=== PATIENT | female | born 1940 | race Caucasian/White ===

== ENCOUNTER 2022-04-25 16:27 | Inpatient (IN) ==
[2022-04-25] MEDS ORDERED: SODIUM CHLORIDE 0.9% 1000ML 1,000 ML IV ONE ×3 (16:31→18:54)
--- NOTE | 2022-04-25 16:47 | Emergency Department Note ---
Impression & Plan Sepsis, Nephrolithiasis, Delirium due to general medical condition, Hypoglycemia, Hydronephrosis with urinary obstruction due to ureteral calculus, Acidosis, lactic, Acute hypotension, Thrombocytopenia, Anemia, BERTHA (acute kidney injury), Rhabdomyolysis ED Provider Note NAME: VERNON LOBATO AGE: 81 SEX: F : 1940 ARRIVES VIA: Ambulance INFORMANT: Patient, EMS ED PROVIDER(S): Robbin Zelaya DO CHIEF COMPLAINT: Altered mental status HPI: The patient is an 81-year-old female who presented to the emergency department for an evaluation of altered mental status. The patient resides in a very unkempt trailer. There is no heat. The family could hear her yelling for help. When they went to evaluate her she was very confused and they called 911. Upon arrival the patient was noted to be confused. She was very unkempt and covered in stool. She was agitated. She was found to have hypoglycemia. The patient was treated with D10 and even though her blood sugar improved she was still very confused it was difficult to bring the patient to the emergency department. For this reason the patient was treated with Versed after a phone call was made to medic command that I answered. The patient was complaining of back pain as well as hip pain upon being brought to the emergency department. According to the prehospital personnel she had no other complaints. There is no reported fall. There was no nausea or vomiting. The patient also complained of some abdominal discomfort. It is unclear if the patient was taking her medications. It is unclear if the patient's been seen by her primary care physician recently. ROS: See above HPI for pertinent positives & negatives. A total of 10 systems reviewed and were otherwise negative. PAST MEDICAL HISTORY: See Below PAST SURGICAL HISTORY: See Below FAMILY HISTORY: See Below SOCIAL HISTORY: See Below HOME MEDICATIONS: See Below ALLERGIES: See Below VITALS: See Below PHYSICAL EXAMINATION: GENERAL: The patient is awake and agitated. She is fighting with the staff and appears to be anxious. EYES: The conjunctivae are clear. The pupils are round and reactive. EARS, NOSE, MOUTH AND THROAT: The nose is without any evidence of any deformity. Mucous membranes are dry. NECK: The neck is nontender and supple. RESPIRATORY: Normal respiratory effort is noted there is no evidence of wheezing rhonchi or rales CARDIOVASCULAR: Regular rate and rhythm noted there no murmurs rubs or gallops normal S1 normal S2. GASTROINTESTINAL: The abdomen was distended. There is no guarding or rigidity. BACK: No significant midline tenderness was appreciated. MUSCULOSKELETAL/EXTREMITIES: There is no evidence of gross deformity full range of motion is noted in the hips and shoulders. SKIN: Chronic venous stasis changes were noted in both lower extremities. NEUROLOGIC: Patient is awake and alert. She is oriented to person. She is not oriented to place. She is moving both the upper and lower extremities symmetrically. MEDICAL DECISION MAKING: The patient is an 81-year-old female who presented to the emergency department with altered mental status. The patient's condition was very difficult to ascertain. She presented without any family members. She was very confused. She appeared to be very uncomfortable. She was hypotensive and tachycardic. There was concern the patient may have an underlying infection. Sepsis pathway was initiated. The patient was treated with IV fluids and empiric antibiotics. I discussed patient's laboratory and radiographic studies with her significant other. She was very confused at times and very agitated. She did require medication to help with anxiolysis. She also appears to have signs of a ureteral calculus which could be causing the patient's overall condition as she does have signs of urinary tract infection as well. I discussed the patient's condition with the on-call urologist. I also discussed the patient's condition with the on-call [facility] hospitalist group. They have agreed to evaluate the patient in the emergency department for further management and disposition. The patient's condition did somewhat improved. She was found to have an elevated creatinine as well as signs of rhabdomyolysis on laboratory studies. Triage Nursing notes reviewed. Prior medical records reviewed Vital Signs: reviewed and remarkable for hypotension and tachycardia. Differential diagnosis: Infection, hypoglycemia, electrolyte abnormalities, overdose, toxicologic, cardiac sources, intracerebral event, neurologic, trauma, as well as other pathologies. ER treatment provided: See below Diagnostics interpreted by me: ECG: EKG was obtained in the emergency department. My interpretation is sinus tachycardia 120 bpm. There is no ectopy. Low voltage was noted throughout. Nonspecific ST segment depressions were noted in the lateral leads. This was compared to a tracing from November 04, 2012. No specific changes were noted. Cardiac Monitoring: An order was placed for continuous cardiac monitoring. The monitor shows a rate of 115 bpm with sinus tachycardia. Laboratory studies: As stated above and show below. Imaging studies: See below Consultation(s): I discussed this case with Dr. Adams who is on-call for the [facility] urology group. I discussed this case with Dr[facility] Santiago [facility] ED COURSE: Procedures: none Critical Care: I have personally spent greater than 55 minutes of critical care time in the direct management of this patient. This includes bedside care, interpretation of diagnostic studies, and testing, discussion with consultants, patient, and family members, and other required patient management activities. This 55 minutes is in excess of all separately billable procedures. 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) Social History Smoking Status: Unknown if ever smoked Allergies Allergies Allergy/AdvReac Type Severity Reaction Status Date / Time No Known Allergies Allergy Mild Verified 04/25/22 17:37 Home Meds Home Medications Medication Instructions Recorded Confirmed lorazepam 1 mg tablet (Ativan) 0 mg PO DAILY PRN Anxiety 04/25/22 04/25/22 Results & Data (ED) Vital Signs Vital Signs - 24 hr 04/25/22 17:28 04/25/22 17:55 04/25/22 18:06 Temperature 36.5 C Temperature Source Rectal Pulse Rate 120 H Pulse Rate [Apical] 120 H Respiratory Rate 28 H 18 Blood Pressure 85/46 L Blood Pressure [Left Arm] 101/57 L Blood Pressure Mean 59 Blood Pressure Mean [Left Arm] 71 Pulse Oximetry 95 95 96 Oxygen Delivery Method Room Air Room Air Room Air Sepsis Recent Fever Within 48 Hours Yes Sepsis New/Unexplained Change in Mental Status Yes Sepsis Action Taken by Nursing Physician Notified 04/25/22 18:31 04/25/22 19:50 Temperature Temperature Source Pulse Rate Pulse Rate [Apical] 122 H 130 H Respiratory Rate 22 28 H Blood Pressure Blood Pressure [Left Arm] 107/45 L 129/65 Blood Pressure Mean Blood Pressure Mean [Left Arm] 65 86 Pulse Oximetry 95 94 Oxygen Delivery Method Room Air Room Air Sepsis Recent Fever Within 48 Hours Sepsis New/Unexplained Change in Mental Status Sepsis Action Taken by Half-Way Medications Current Medication List: was personally reviewed by me Laboratory Data Attestation: I reviewed the patient's lab results. Result diagrams: 04/25/22 16:50 04/25/22 16:50 Lab Results 04/25/22 04/25/22 04/25/22 Range/Units 16:50 16:50 16:50 WBC 22.85 H (4.8-10.8) K/ul RBC 3.85 L (3.93-5.22) M/uL Hgb 8.9 L (12.0-16.0) g/dl POC Hgb (12.0-16.0) g/dl Hct 29.6 L (34.1-44.9) % POC Hct (37-47) % MCV 76.9 L (80.0-100.0) fL MCH 23.1 L (25.0-34.0) pg MCHC 30.1 L (32.0-36.0) g/dL RDW Std Deviation 52.4 H (36.4-46.3) fL RDW Coeff of Gee 18.6 H (11.5-14.5) % Plt Count 99 L (130-400) K/uL MPV 10.0 (9.4-12.3) fL Immature Gran % (Auto) 0.9 % Neut % (Auto) 93.4 % Lymph % (Auto) 2.3 % Swain % (Auto) 3.2 % Eos % (Auto) 0.0 % Baso % (Auto) 0.2 % Reticulocyte % (Auto) (0.5-2.0) % Neut # (Auto) 21.33 H (1.4-6.5) K/uL Lymph # (Auto) 0.52 L (1.2-3.4) K/uL Swain # (Auto) 0.74 (0.24-0.82) K/uL Eos # (Auto) 0.00 (0-0.50) K/uL Baso # (Auto) 0.05 (0-0.2) K/uL Reticulocyte # (0.02-0.10) 10^6/uL Immature Gran # (Auto) 0.21 H (0.00-0.02) K/uL Absolute Nucleated RBC 0.02 H (0-0) K/uL Nucleated RBC % (auto) 0.1 % Dohle Bodies 2+ Platelet Estimate Decreased L (Normal) PT 13.7 H (9.0-12.0) Seconds INR 1.3 H (0.9-1.1) APTT 38.4 H (21.0-31.0) Seconds PTT Ratio 1.4 VBG pH (7.36-7.41) VBG pCO2 (38-50) mmHg VBG pO2 mmHg VBG HCO3 mmol/L VBG O2 Saturation % VBG Base Excess mEq/L POC Sodium (135-144) mmol/L Sodium 138 (136-145) mmol/L POC Potassium (3.3-5.0) mmol/L Potassium 3.5 (3.5-5.1) mmol/L POC Chloride (101-112) mmol/L Chloride 102 (98-107) mmol/L Carbon Dioxide 22 (21-32) mmol/L POC Total CO2 (24-31) mmol/L Anion Gap 14 H (3-11) POC Anion Gap (16-25) mmol/L POC BUN (7-18) mg/dl BUN 60 H (6-23) mg/dl Creatinine 2.45 H (0.6-1.2) mg/dl POC Creatinine (0.6-1.3) mg/dl Est Cr Clr Drug Dosing Not Reportable Est GFR ( Amer) 20.9 ml/min Est GFR (Non-Af Amer) 18.0 ml/min BUN/Creatinine Ratio 24.5 H (10-20) Glucose 33 L* (70-99(Fasting)) mg/dl POC Glucose (70-99) mg/dl POC Glucose (other) (70-99) mg/dl Lactate (0.4-2.0) mmol/L Calcium 8.3 L (8.5-10.1) mg/dl POC Ioniz Calcium Vidhya (1.12-1.32) mmol/l Magnesium 1.7 (1.7-2.4) mg/dl Iron (35-150) mcg/dl Transferrin (200-360) mg/dl Ferritin (8-388) ng/ml Total Bilirubin 0.8 (0.2-1.0) mg/dl Direct Bilirubin 0.3 H (0-0.2) mg/dl AST 179 H (13-39) U/L ALT 85 H (7-52) U/L Alkaline Phosphatase 76 (34-104) U/L Ammonia (18-72) umol/L Total Creatine Kinase (26-192) U/L Troponin I High Sens 696.0 H* (0-14) pg/ml B-Natriuretic Peptide (0-100) pg/ml Total Protein 5.6 L (6.0-8.3) gm/dl Albumin 3.1 L (3.4-5.0) gm/dl Vitamin B12 (180-914) pg/ml Folate (>5.38) ng/ml Procalcitonin (0-0.5) ng/ml TSH (0.300-4.500) uIu/ml Random Cortisol mcg/dl Ethyl Alcohol mg/dL (<10.0) mg/dl SARS-CoV-2 (PCR) (Negative) Influenza Type A (PCR) (Neg) Influenza Type B (PCR) (Neg) RSV (RT-PCR) (Neg) Blood Type Antibody Screen 04/25/22 04/25/22 04/25/22 Range/Units 16:50 16:50 16:50 WBC (4.8-10.8) K/ul RBC (3.93-5.22) M/uL Hgb (12.0-16.0) g/dl POC Hgb (12.0-16.0) g/dl Hct (34.1-44.9) % POC Hct (37-47) % MCV (80.0-100.0) fL MCH (25.0-34.0) pg MCHC (32.0-36.0) g/dL RDW Std Deviation (36.4-46.3) fL RDW Coeff of Gee (11.5-14.5) % Plt Count (130-400) K/uL MPV (9.4-12.3) fL Immature Gran % (Auto) % Neut % (Auto) % Lymph % (Auto) % Swain % (Auto) % Eos % (Auto) % Baso % (Auto) % Reticulocyte % (Auto) (0.5-2.0) % Neut # (Auto) (1.4-6.5) K/uL Lymph # (Auto) (1.2-3.4) K/uL Swain # (Auto) (0.24-0.82) K/uL Eos # (Auto) (0-0.50) K/uL Baso # (Auto) (0-0.2) K/uL Reticulocyte # (0.02-0.10) 10^6/uL Immature Gran # (Auto) (0.00-0.02) K/uL Absolute Nucleated RBC (0-0) K/uL Nucleated RBC % (auto) % Dohle Bodies Platelet Estimate (Normal) PT (9.0-12.0) Seconds INR (0.9-1.1) APTT (21.0-31.0) Seconds PTT Ratio VBG pH 7.33 L (7.36-7.41) VBG pCO2 41 (38-50) mmHg VBG pO2 16 mmHg VBG HCO3 22 mmol/L VBG O2 Saturation < 60.0 % VBG Base Excess -4.1 mEq/L POC Sodium (135-144) mmol/L Sodium (136-145) mmol/L POC Potassium (3.3-5.0) mmol/L Potassium (3.5-5.1) mmol/L POC Chloride (101-112) mmol/L Chloride (98-107) mmol/L Carbon Dioxide (21-32) mmol/L POC Total CO2 (24-31) mmol/L Anion Gap (3-11) POC Anion Gap (16-25) mmol/L POC BUN (7-18) mg/dl BUN (6-23) mg/dl Creatinine (0.6-1.2) mg/dl POC Creatinine (0.6-1.3) mg/dl Est Cr Clr Drug Dosing Est GFR ( Amer) ml/min Est GFR (Non-Af Amer) ml/min BUN/Creatinine Ratio (10-20) Glucose (70-99(Fasting)) mg/dl POC Glucose (70-99) mg/dl POC Glucose (other) (70-99) mg/dl Lactate 7.0 H* (0.4-2.0) mmol/L Calcium (8.5-10.1) mg/dl POC Ioniz Calcium Vidhya (1.12-1.32) mmol/l Magnesium (1.7-2.4) mg/dl Iron (35-150) mcg/dl Transferrin (200-360) mg/dl Ferritin (8-388) ng/ml Total Bilirubin (0.2-1.0) mg/dl Direct Bilirubin (0-0.2) mg/dl AST (13-39) U/L ALT (7-52) U/L Alkaline Phosphatase (34-104) U/L Ammonia (18-72) umol/L Total Creatine Kinase (26-192) U/L Troponin I High Sens (0-14) pg/ml B-Natriuretic Peptide (0-100) pg/ml Total Protein (6.0-8.3) gm/dl Albumin (3.4-5.0) gm/dl Vitamin B12 (180-914) pg/ml Folate (>5.38) ng/ml Procalcitonin > 200.00 H (0-0.5) ng/ml TSH (0.300-4.500) uIu/ml Random Cortisol mcg/dl Ethyl Alcohol mg/dL (<10.0) mg/dl SARS-CoV-2 (PCR) (Negative) Influenza Type A (PCR) (Neg) Influenza Type B (PCR) (Neg) RSV (RT-PCR) (Neg) Blood Type Antibody Screen 04/25/22 04/25/22 04/25/22 Range/Units 16:50 16:50 16:50 WBC (4.8-10.8) K/ul RBC (3.93-5.22) M/uL Hgb (12.0-16.0) g/dl POC Hgb (12.0-16.0) g/dl Hct (34.1-44.9) % POC Hct (37-47) % MCV (80.0-100.0) fL MCH (25.0-34.0) pg MCHC (32.0-36.0) g/dL RDW Std Deviation (36.4-46.3) fL RDW Coeff of Gee (11.5-14.5) % Plt Count (130-400) K/uL MPV (9.4-12.3) fL Immature Gran % (Auto) % Neut % (Auto) % Lymph % (Auto) % Swain % (Auto) % Eos % (Auto) % Baso % (Auto) % Reticulocyte % (Auto) 0.8 (0.5-2.0) % Neut # (Auto) (1.4-6.5) K/uL Lymph # (Auto) (1.2-3.4) K/uL Swain # (Auto) (0.24-0.82) K/uL Eos # (Auto) (0-0.50) K/uL Baso # (Auto) (0-0.2) K/uL Reticulocyte # 0.03 (0.02-0.10) 10^6/uL Immature Gran # (Auto) (0.00-0.02) K/uL Absolute Nucleated RBC (0-0) K/uL Nucleated RBC % (auto) % Dohle Bodies Platelet Estimate (Normal) PT (9.0-12.0) Seconds INR (0.9-1.1) APTT (21.0-31.0) Seconds PTT Ratio VBG pH (7.36-7.41) VBG pCO2 (38-50) mmHg VBG pO2 mmHg VBG HCO3 mmol/L VBG O2 Saturation % VBG Base Excess mEq/L POC Sodium (135-144) mmol/L Sodium (136-145) mmol/L POC Potassium (3.3-5.0) mmol/L Potassium (3.5-5.1) mmol/L POC Chloride (101-112) mmol/L Chloride (98-107) mmol/L Carbon Dioxide (21-32) mmol/L POC Total CO2 (24-31) mmol/L Anion Gap (3-11) POC Anion Gap (16-25) mmol/L POC BUN (7-18) mg/dl BUN (6-23) mg/dl Creatinine (0.6-1.2) mg/dl POC Creatinine (0.6-1.3) mg/dl Est Cr Clr Drug Dosing Est GFR ( Amer) ml/min Est GFR (Non-Af Amer) ml/min BUN/Creatinine Ratio (10-20) Glucose (70-99(Fasting)) mg/dl POC Glucose (70-99) mg/dl POC Glucose (other) (70-99) mg/dl Lactate (0.4-2.0) mmol/L Calcium (8.5-10.1) mg/dl POC Ioniz Calcium Vidhya (1.12-1.32) mmol/l Magnesium (1.7-2.4) mg/dl Iron (35-150) mcg/dl Transferrin (200-360) mg/dl Ferritin (8-388) ng/ml Total Bilirubin (0.2-1.0) mg/dl Direct Bilirubin (0-0.2) mg/dl AST (13-39) U/L ALT (7-52) U/L Alkaline Phosphatase (34-104) U/L Ammonia 44.0 (18-72) umol/L Total Creatine Kinase 2406 H (26-192) U/L Troponin I High Sens (0-14) pg/ml B-Natriuretic Peptide (0-100) pg/ml Total Protein (6.0-8.3) gm/dl Albumin (3.4-5.0) gm/dl Vitamin B12 (180-914) pg/ml Folate (>5.38) ng/ml Procalcitonin (0-0.5) ng/ml TSH (0.300-4.500) uIu/ml Random Cortisol mcg/dl Ethyl Alcohol mg/dL (<10.0) mg/dl SARS-CoV-2 (PCR) (Negative) Influenza Type A (PCR) (Neg) Influenza Type B (PCR) (Neg) RSV (RT-PCR) (Neg) Blood Type Antibody Screen 04/25/22 04/25/22 04/25/22 Range/Units 16:55 18:04 18:15 WBC (4.8-10.8) K/ul RBC (3.93-5.22) M/uL Hgb (12.0-16.0) g/dl POC Hgb 10.2 L (12.0-16.0) g/dl Hct (34.1-44.9) % POC Hct 30 L (37-47) % MCV (80.0-100.0) fL MCH (25.0-34.0) pg MCHC (32.0-36.0) g/dL RDW Std Deviation (36.4-46.3) fL RDW Coeff of Gee (11.5-14.5) % Plt Count (130-400) K/uL MPV (9.4-12.3) fL Immature Gran % (Auto) % Neut % (Auto) % Lymph % (Auto) % Swain % (Auto) % Eos % (Auto) % Baso % (Auto) % Reticulocyte % (Auto) (0.5-2.0) % Neut # (Auto) (1.4-6.5) K/uL Lymph # (Auto) (1.2-3.4) K/uL Swain # (Auto) (0.24-0.82) K/uL Eos # (Auto) (0-0.50) K/uL Baso # (Auto) (0-0.2) K/uL Reticulocyte # (0.02-0.10) 10^6/uL Immature Gran # (Auto) (0.00-0.02) K/uL Absolute Nucleated RBC (0-0) K/uL Nucleated RBC % (auto) % Dohle Bodies Platelet Estimate (Normal) PT (9.0-12.0) Seconds INR (0.9-1.1) APTT (21.0-31.0) Seconds PTT Ratio VBG pH (7.36-7.41) VBG pCO2 (38-50) mmHg VBG pO2 mmHg VBG HCO3 mmol/L VBG O2 Saturation % VBG Base Excess mEq/L POC Sodium 138 (135-144) mmol/L Sodium (136-145) mmol/L POC Potassium 3.5 (3.3-5.0) mmol/L Potassium (3.5-5.1) mmol/L POC Chloride 102 (101-112) mmol/L Chloride (98-107) mmol/L Carbon Dioxide (21-32) mmol/L POC Total CO2 20 L (24-31) mmol/L Anion Gap (3-11) POC Anion Gap 20.0 (16-25) mmol/L POC BUN 56 H (7-18) mg/dl BUN (6-23) mg/dl Creatinine (0.6-1.2) mg/dl POC Creatinine 2.6 H (0.6-1.3) mg/dl Est Cr Clr Drug Dosing Est GFR ( Amer) ml/min Est GFR (Non-Af Amer) ml/min BUN/Creatinine Ratio (10-20) Glucose (70-99(Fasting)) mg/dl POC Glucose 58 L* (70-99) mg/dl POC Glucose (other) 32 L* (70-99) mg/dl Lactate (0.4-2.0) mmol/L Calcium (8.5-10.1) mg/dl POC Ioniz Calcium Vidhya 1.16 (1.12-1.32) mmol/l Magnesium (1.7-2.4) mg/dl Iron (35-150) mcg/dl Transferrin (200-360) mg/dl Ferritin (8-388) ng/ml Total Bilirubin (0.2-1.0) mg/dl Direct Bilirubin (0-0.2) mg/dl AST (13-39) U/L ALT (7-52) U/L Alkaline Phosphatase (34-104) U/L Ammonia (18-72) umol/L Total Creatine Kinase (26-192) U/L Troponin I High Sens (0-14) pg/ml B-Natriuretic Peptide (0-100) pg/ml Total Protein (6.0-8.3) gm/dl Albumin (3.4-5.0) gm/dl Vitamin B12 (180-914) pg/ml Folate (>5.38) ng/ml Procalcitonin (0-0.5) ng/ml TSH (0.300-4.500) uIu/ml Random Cortisol mcg/dl Ethyl Alcohol mg/dL (<10.0) mg/dl SARS-CoV-2 (PCR) NEGATIVE (Negative) Influenza Type A (PCR) Negative (Neg) Influenza Type B (PCR) Negative (Neg) RSV (RT-PCR) Negative (Neg) Blood Type Antibody Screen 04/25/22 04/25/22 04/25/22 Range/Units 19:04 19:28 19:42 WBC (4.8-10.8) K/ul RBC (3.93-5.22) M/uL Hgb (12.0-16.0) g/dl POC Hgb (12.0-16.0) g/dl Hct (34.1-44.9) % POC Hct (37-47) % MCV (80.0-100.0) fL MCH (25.0-34.0) pg MCHC (32.0-36.0) g/dL RDW Std Deviation (36.4-46.3) fL RDW Coeff of Gee (11.5-14.5) % Plt Count (130-400) K/uL MPV (9.4-12.3) fL Immature Gran % (Auto) % Neut % (Auto) % Lymph % (Auto) % Swain % (Auto) % Eos % (Auto) % Baso % (Auto) % Reticulocyte % (Auto) (0.5-2.0) % Neut # (Auto) (1.4-6.5) K/uL Lymph # (Auto) (1.2-3.4) K/uL Swain # (Auto) (0.24-0.82) K/uL Eos # (Auto) (0-0.50) K/uL Baso # (Auto) (0-0.2) K/uL Reticulocyte # (0.02-0.10) 10^6/uL Immature Gran # (Auto) (0.00-0.02) K/uL Absolute Nucleated RBC (0-0) K/uL Nucleated RBC % (auto) % Dohle Bodies Platelet Estimate (Normal) PT (9.0-12.0) Seconds INR (0.9-1.1) APTT (21.0-31.0) Seconds PTT Ratio VBG pH (7.36-7.41) VBG pCO2 (38-50) mmHg VBG pO2 mmHg VBG HCO3 mmol/L VBG O2 Saturation % VBG Base Excess mEq/L POC Sodium (135-144) mmol/L Sodium (136-145) mmol/L POC Potassium (3.3-5.0) mmol/L Potassium (3.5-5.1) mmol/L POC Chloride (101-112) mmol/L Chloride (98-107) mmol/L Carbon Dioxide (21-32) mmol/L POC Total CO2 (24-31) mmol/L Anion Gap (3-11) POC Anion Gap (16-25) mmol/L POC BUN (7-18) mg/dl BUN (6-23) mg/dl Creatinine (0.6-1.2) mg/dl POC Creatinine (0.6-1.3) mg/dl Est Cr Clr Drug Dosing Est GFR ( Amer) ml/min Est GFR (Non-Af Amer) ml/min BUN/Creatinine Ratio (10-20) Glucose (70-99(Fasting)) mg/dl POC Glucose 28 L* 155 H (70-99) mg/dl POC Glucose (other) (70-99) mg/dl Lactate 4.0 H* (0.4-2.0) mmol/L Calcium (8.5-10.1) mg/dl POC Ioniz Calcium Vidhya (1.12-1.32) mmol/l Magnesium (1.7-2.4) mg/dl Iron (35-150) mcg/dl Transferrin (200-360) mg/dl Ferritin (8-388) ng/ml Total Bilirubin (0.2-1.0) mg/dl Direct Bilirubin (0-0.2) mg/dl AST (13-39) U/L ALT (7-52) U/L Alkaline Phosphatase (34-104) U/L Ammonia (18-72) umol/L Total Creatine Kinase (26-192) U/L Troponin I High Sens (0-14) pg/ml B-Natriuretic Peptide (0-100) pg/ml Total Protein (6.0-8.3) gm/dl Albumin (3.4-5.0) gm/dl Vitamin B12 (180-914) pg/ml Folate (>5.38) ng/ml Procalcitonin (0-0.5) ng/ml TSH (0.300-4.500) uIu/ml Random Cortisol mcg/dl Ethyl Alcohol mg/dL (<10.0) mg/dl SARS-CoV-2 (PCR) (Negative) Influenza Type A (PCR) (Neg) Influenza Type B (PCR) (Neg) RSV (RT-PCR) (Neg) Blood Type Antibody Screen 04/25/22 04/25/22 04/25/22 Range/Units 19:55 19:55 19:55 WBC (4.8-10.8) K/ul RBC (3.93-5.22) M/uL Hgb (12.0-16.0) g/dl POC Hgb (12.0-16.0) g/dl Hct (34.1-44.9) % POC Hct (37-47) % MCV (80.0-100.0) fL MCH (25.0-34.0) pg MCHC (32.0-36.0) g/dL RDW Std Deviation (36.4-46.3) fL RDW Coeff of Gee (11.5-14.5) % Plt Count (130-400) K/uL MPV (9.4-12.3) fL Immature Gran % (Auto) % Neut % (Auto) % Lymph % (Auto) % Swain % (Auto) % Eos % (Auto) % Baso % (Auto) % Reticulocyte % (Auto) (0.5-2.0) % Neut # (Auto) (1.4-6.5) K/uL Lymph # (Auto) (1.2-3.4) K/uL Swain # (Auto) (0.24-0.82) K/uL Eos # (Auto) (0-0.50) K/uL Baso # (Auto) (0-0.2) K/uL Reticulocyte # (0.02-0.10) 10^6/uL Immature Gran # (Auto) (0.00-0.02) K/uL Absolute Nucleated RBC (0-0) K/uL Nucleated RBC % (auto) % Dohle Bodies Platelet Estimate (Normal) PT (9.0-12.0) Seconds INR (0.9-1.1) APTT (21.0-31.0) Seconds PTT Ratio VBG pH (7.36-7.41) VBG pCO2 (38-50) mmHg VBG pO2 mmHg VBG HCO3 mmol/L VBG O2 Saturation % VBG Base Excess mEq/L POC Sodium (135-144) mmol/L Sodium (136-145) mmol/L POC Potassium (3.3-5.0) mmol/L Potassium (3.5-5.1) mmol/L POC Chloride (101-112) mmol/L Chloride (98-107) mmol/L Carbon Dioxide (21-32) mmol/L POC Total CO2 (24-31) mmol/L Anion Gap (3-11) POC Anion Gap (16-25) mmol/L POC BUN (7-18) mg/dl BUN (6-23) mg/dl Creatinine (0.6-1.2) mg/dl POC Creatinine (0.6-1.3) mg/dl Est Cr Clr Drug Dosing Est GFR ( Amer) ml/min Est GFR (Non-Af Amer) ml/min BUN/Creatinine Ratio (10-20) Glucose (70-99(Fasting)) mg/dl POC Glucose (70-99) mg/dl POC Glucose (other) (70-99) mg/dl Lactate (0.4-2.0) mmol/L Calcium (8.5-10.1) mg/dl POC Ioniz Calcium Vidhya (1.12-1.32) mmol/l Magnesium (1.7-2.4) mg/dl Iron < 10 L (35-150) mcg/dl Transferrin 238 (200-360) mg/dl Ferritin 45.4 (8-388) ng/ml Total Bilirubin (0.2-1.0) mg/dl Direct Bilirubin (0-0.2) mg/dl AST (13-39) U/L ALT (7-52) U/L Alkaline Phosphatase (34-104) U/L Ammonia (18-72) umol/L Total Creatine Kinase (26-192) U/L Troponin I High Sens 738.7 H* (0-14) pg/ml B-Natriuretic Peptide > 4700 H (0-100) pg/ml Total Protein (6.0-8.3) gm/dl Albumin (3.4-5.0) gm/dl Vitamin B12 (180-914) pg/ml Folate (>5.38) ng/ml Procalcitonin (0-0.5) ng/ml TSH (0.300-4.500) uIu/ml Random Cortisol mcg/dl Ethyl Alcohol mg/dL (<10.0) mg/dl SARS-CoV-2 (PCR) (Negative) Influenza Type A (PCR) (Neg) Influenza Type B (PCR) (Neg) RSV (RT-PCR) (Neg) Blood Type O Positive Antibody Screen NEGATIVE 04/25/22 04/25/22 04/25/22 Range/Units 19:55 19:55 19:55 WBC (4.8-10.8) K/ul RBC (3.93-5.22) M/uL Hgb (12.0-16.0) g/dl POC Hgb (12.0-16.0) g/dl Hct (34.1-44.9) % POC Hct (37-47) % MCV (80.0-100.0) fL MCH (25.0-34.0) pg MCHC (32.0-36.0) g/dL RDW Std Deviation (36.4-46.3) fL RDW Coeff of Gee (11.5-14.5) % Plt Count (130-400) K/uL MPV (9.4-12.3) fL Immature Gran % (Auto) % Neut % (Auto) % Lymph % (Auto) % Swain % (Auto) % Eos % (Auto) % Baso % (Auto) % Reticulocyte % (Auto) (0.5-2.0) % Neut # (Auto) (1.4-6.5) K/uL Lymph # (Auto) (1.2-3.4) K/uL Swain # (Auto) (0.24-0.82) K/uL Eos # (Auto) (0-0.50) K/uL Baso # (Auto) (0-0.2) K/uL Reticulocyte # (0.02-0.10) 10^6/uL Immature Gran # (Auto) (0.00-0.02) K/uL Absolute Nucleated RBC (0-0) K/uL Nucleated RBC % (auto) % Dohle Bodies Platelet Estimate (Normal) PT (9.0-12.0) Seconds INR (0.9-1.1) APTT (21.0-31.0) Seconds PTT Ratio VBG pH (7.36-7.41) VBG pCO2 (38-50) mmHg VBG pO2 mmHg VBG HCO3 mmol/L VBG O2 Saturation % VBG Base Excess mEq/L POC Sodium (135-144) mmol/L Sodium (136-145) mmol/L POC Potassium (3.3-5.0) mmol/L Potassium (3.5-5.1) mmol/L POC Chloride (101-112) mmol/L Chloride (98-107) mmol/L Carbon Dioxide (21-32) mmol/L POC Total CO2 (24-31) mmol/L Anion Gap (3-11) POC Anion Gap (16-25) mmol/L POC BUN (7-18) mg/dl BUN (6-23) mg/dl Creatinine (0.6-1.2) mg/dl POC Creatinine (0.6-1.3) mg/dl Est Cr Clr Drug Dosing Est GFR ( Amer) ml/min Est GFR (Non-Af Amer) ml/min BUN/Creatinine Ratio (10-20) Glucose (70-99(Fasting)) mg/dl POC Glucose (70-99) mg/dl POC Glucose (other) (70-99) mg/dl Lactate (0.4-2.0) mmol/L Calcium (8.5-10.1) mg/dl POC Ioniz Calcium Vidhya (1.12-1.32) mmol/l Magnesium (1.7-2.4) mg/dl Iron (35-150) mcg/dl Transferrin (200-360) mg/dl Ferritin (8-388) ng/ml Total Bilirubin (0.2-1.0) mg/dl Direct Bilirubin (0-0.2) mg/dl AST (13-39) U/L ALT (7-52) U/L Alkaline Phosphatase (34-104) U/L Ammonia (18-72) umol/L Total Creatine Kinase (26-192) U/L Troponin I High Sens (0-14) pg/ml B-Natriuretic Peptide (0-100) pg/ml Total Protein (6.0-8.3) gm/dl Albumin (3.4-5.0) gm/dl Vitamin B12 383 (180-914) pg/ml Folate 14.76 (>5.38) ng/ml Procalcitonin (0-0.5) ng/ml TSH 0.708 (0.300-4.500) uIu/ml Random Cortisol mcg/dl Ethyl Alcohol mg/dL < 10.0 (<10.0) mg/dl SARS-CoV-2 (PCR) (Negative) Influenza Type A (PCR) (Neg) Influenza Type B (PCR) (Neg) RSV (RT-PCR) (Neg) Blood Type Antibody Screen 04/25/22 04/25/22 Range/Units 19:55 20:20 WBC (4.8-10.8) K/ul RBC (3.93-5.22) M/uL Hgb (12.0-16.0) g/dl POC Hgb (12.0-16.0) g/dl Hct (34.1-44.9) % POC Hct (37-47) % MCV (80.0-100.0) fL MCH (25.0-34.0) pg MCHC (32.0-36.0) g/dL RDW Std Deviation (36.4-46.3) fL RDW Coeff of Gee (11.5-14.5) % Plt Count (130-400) K/uL MPV (9.4-12.3) fL Immature Gran % (Auto) % Neut % (Auto) % Lymph % (Auto) % Swain % (Auto) % Eos % (Auto) % Baso % (Auto) % Reticulocyte % (Auto) (0.5-2.0) % Neut # (Auto) (1.4-6.5) K/uL Lymph # (Auto) (1.2-3.4) K/uL Swain # (Auto) (0.24-0.82) K/uL Eos # (Auto) (0-0.50) K/uL Baso # (Auto) (0-0.2) K/uL Reticulocyte # (0.02-0.10) 10^6/uL Immature Gran # (Auto) (0.00-0.02) K/uL Absolute Nucleated RBC (0-0) K/uL Nucleated RBC % (auto) % Dohle Bodies Platelet Estimate (Normal) PT (9.0-12.0) Seconds INR (0.9-1.1) APTT (21.0-31.0) Seconds PTT Ratio VBG pH (7.36-7.41) VBG pCO2 (38-50) mmHg VBG pO2 mmHg VBG HCO3 mmol/L VBG O2 Saturation % VBG Base Excess mEq/L POC Sodium (135-144) mmol/L Sodium (136-145) mmol/L POC Potassium (3.3-5.0) mmol/L Potassium (3.5-5.1) mmol/L POC Chloride (101-112) mmol/L Chloride (98-107) mmol/L Carbon Dioxide (21-32) mmol/L POC Total CO2 (24-31) mmol/L Anion Gap (3-11) POC Anion Gap (16-25) mmol/L POC BUN (7-18) mg/dl BUN (6-23) mg/dl Creatinine (0.6-1.2) mg/dl POC Creatinine (0.6-1.3) mg/dl Est Cr Clr Drug Dosing Est GFR ( Amer) ml/min Est GFR (Non-Af Amer) ml/min BUN/Creatinine Ratio (10-20) Glucose (70-99(Fasting)) mg/dl POC Glucose 59 L* (70-99) mg/dl POC Glucose (other) (70-99) mg/dl Lactate (0.4-2.0) mmol/L Calcium (8.5-10.1) mg/dl POC Ioniz Calcium Vidhya (1.12-1.32) mmol/l Magnesium (1.7-2.4) mg/dl Iron (35-150) mcg/dl Transferrin (200-360) mg/dl Ferritin (8-388) ng/ml Total Bilirubin (0.2-1.0) mg/dl Direct Bilirubin (0-0.2) mg/dl AST (13-39) U/L ALT (7-52) U/L Alkaline Phosphatase (34-104) U/L Ammonia (18-72) umol/L Total Creatine Kinase (26-192) U/L Troponin I High Sens (0-14) pg/ml B-Natriuretic Peptide (0-100) pg/ml Total Protein (6.0-8.3) gm/dl Albumin (3.4-5.0) gm/dl Vitamin B12 (180-914) pg/ml Folate (>5.38) ng/ml Procalcitonin (0-0.5) ng/ml TSH (0.300-4.500) uIu/ml Random Cortisol 45.31 mcg/dl Ethyl Alcohol mg/dL (<10.0) mg/dl SARS-CoV-2 (PCR) (Negative) Influenza Type A (PCR) (Neg) Influenza Type B (PCR) (Neg) RSV (RT-PCR) (Neg) Blood Type Antibody Screen Administered Medications Albumin Human (Albumin 25% 100 Ml) 25 gm in 100 mls @ 50 mls/hr IV ONE ONE Stop: 04/25/22 22:14 Last Admin: 04/25/22 20:26 Dose: 50 mls/hr Documented By: CELY Dextrose (D5w) 1,000 mls @ 125 mls/hr IV .Q8H ONE Stop: 04/26/22 04:14 Last Infusion: 04/25/22 20:29 Dose: 125 mls/hr Documented By: Admin: 04/25/22 20:26 Dose: 75 mls/hr Documented By: CELY Magnesium Sulfate/Dextrose (Magnesium Sulfate / D5w) 1 gm in 100 mls @ 50 mls/hr IV Q2H MYNOR Stop: 04/26/22 00:14 Last Admin: 04/25/22 20:26 Dose: 50 mls/hr Documented By: CELY Norepinephrine Bitartrate (Levophed/D5w) 4 mg in 250 mls @ 13.894 mls/hr IV .Q18H MYNOR; Protocol Stop: 05/25/22 20:59 Last Admin: 04/25/22 20:54 Dose: 0.1 mcg/kg/min, 27.8 mls/hr Documented By: PAULA Co-signed By: CELY Discontinued Medications Dextrose (Dextrose 50% 50 Ml Syringe) 50 ml IV NOW STA Stop: 04/25/22 17:13 Last Admin: 04/25/22 17:15 Dose: 50 ml Documented By: JAMEY Dextrose (Dextrose 50% 50 Ml Syringe) Confirm Administered Dose 50 ml IV .STK- MED ONE Stop: 04/25/22 17:14 Last Admin: 04/25/22 17:16 Dose: Not Given Documented By: JAMEY Dextrose (Dextrose 50% 50 Ml Syringe) Confirm Administered Dose 50 ml IV .STK- MED ONE Stop: 04/25/22 19:38 Last Admin: 04/25/22 19:38 Dose: 50 ml Documented By: PAULA Haloperidol Lactate (Haloperidol Lactate 5 Mg/Ml 1 Ml Vial) 5 mg IM NOW STA Stop: 04/25/22 16:55 Last Admin: 04/25/22 16:56 Dose: 5 mg Documented By: JAMEY Haloperidol Lactate (Haloperidol Lactate 5 Mg/Ml 1 Ml Vial) 5 mg IM NOW STA Stop: 04/25/22 17:21 Last Admin: 04/25/22 17:24 Dose: 5 mg Documented By: JAMEY Sodium Chloride (Nss 1000ml) 1,000 mls @ 999 mls/hr IV .Q1H1M ONE Stop: 04/25/22 17:31 Last Infusion: 04/25/22 18:27 Dose: 0 mls/hr Documented By: Admin: 04/25/22 16:55 Dose: 999 mls/hr Documented By: OL Thiamine HCl 200 mg/ Sodium (Chloride) 52 mls @ 208 mls/hr IV NOW STA Stop: 04/25/22 17:13 Last Infusion: 04/25/22 19:49 Dose: 0 mls/hr Documented By: Admin: 04/25/22 19:06 Dose: 208 mls/hr Documented By: OL Ceftriaxone Sodium (Rocephin) 2,000 mg in 70 mls @ 140 mls/hr IV NOW STA Stop: 04/25/22 17:52 Last Infusion: 04/25/22 19:11 Dose: 0 mls/hr Documented By: Admin: 04/25/22 18:24 Dose: 140 mls/hr Documented By: OL Sodium Chloride (Nss 1000ml) 1,000 mls @ 999 mls/hr IV .Q1H1M ONE Stop: 04/25/22 18:36 Last Infusion: 04/25/22 19:49 Dose: 0 mls/hr Documented By: Admin: 04/25/22 18:15 Dose: 999 mls/hr Documented By: OL Sodium Chloride (Nss 1000ml) 1,000 mls @ 999 mls/hr IV .Q1H1M ONE Stop: 04/25/22 19:54 Last Infusion: 04/25/22 20:00 Dose: 0 mls/hr Documented By: Admin: 04/25/22 19:06 Dose: 999 mls/hr Documented By: OL Sodium Chloride 77 meq/ (Dextrose) 1,030.8 mls @ 150 mls/hr IV .Q6H53M MYNOR Stop: 05/25/22 19:29 Last Infusion: 04/25/22 19:59 Dose: 150 mls/hr Documented By: Admin: 04/25/22 19:56 Dose: 150 mls/hr Documented By: PAULA Piperacillin Sod/Tazobactam Sod (Zosyn) 4.5 gm in 120 mls @ 240 mls/hr IV NOW ONE Stop: 04/25/22 20:05 Last Admin: 04/25/22 20:15 Dose: 240 mls/hr Documented By: CELY Lorazepam (Lorazepam 1 Mg/1 Ml Syr) 1 mg IV NOW STA; Protocol Stop: 04/25/22 18:28 Last Admin: 04/25/22 18:40 Dose: 1 mg Documented By: OL Imaging Data Radiologist's Impression: Abdomen/Pelvis CT 04/25/22 16:29 CT abd pelvis wo con CLINICAL HISTORY: ams TECHNIQUE: Helical axial images of the abdomen and pelvis were obtained. Automated dose lowering techniques and/or adjustment according to patient size were utilized for this exam. This exam was performed without intravenous contrast. CT DOSE: 2638.92 mGy.cm COMPARISON: Comparison is made to CT abdomen pelvis 11/06/2012 FINDINGS: Exam is limited by patient motion. Lower chest: Bibasilar atelectasis versus scarring is seen. Liver: Hepatic steatosis is noted. Gallbladder and biliary tree: No calcified gallstones. Normal caliber wall. No intra- or extrahepatic biliary ductal dilation. Pancreas: Unremarkable, no focal lesions. Spleen: Unremarkable. Adrenals: Unremarkable. Kidneys and ureters: There is left hydronephrosis and hydroureter Bladder: Limited evaluation due to underdistention. Reproductive organs: Unremarkable. Bowel: A hiatal hernia is seen. Lymph nodes Retroperitoneal: Subcentimeter lymph nodes are noted. Pelvic: Unremarkable. Mesenteric: Unremarkable. Peritoneum: Normal. Vessels: Atherosclerotic calcifications are seen. Abdominal wall: Unremarkable. Bones: Degenerative changes in the visualized spine. Multilevel compression deformities are unchanged from prior exam. Grade 1 anterolisthesis of L4-L5 is seen. IMPRESSION: 1. Obstructive nephrolithiasis of the left kidney. There is a 5 mm stone in the proximal ureter with associated hydronephrosis/hydroureter. 2. Hepatic steatosis. 3. Multilevel compression deformities in the spine. ACT 112: Negative or not required by law. Electronically signed by: Kermit Barebr M.D. 04/25/2022 6:[address] 04/25/22 16:29 CT cervical spine wo con CLINICAL HISTORY: ams TECHNIQUE: Multidetector row helical CT of the cervical spine was performed without administration of intravenous contrast. Coronal and sagittal reformations were obtained. Automated dose lowering techniques and/or adjustment according to patient size were utilized for this exam. Comparison: None available at the time of this dictation. FINDINGS: No acute fractures or subluxations are identified. Degenerative changes are seen in the visualized spine. Transverse ligament calcification is noted. The a lignment is normal. Soft tissues are unremarkable. IMPRESSION: Degenerative changes without evidence of acute bony injury. ACT 112: Negative or not required by law. Electronically signed by: Kermit Barber M.D. 04/25/2022 6:02 PM Chest X-Ray 04/25/22 16:29 XR chest 1V portable CLINICAL HISTORY: Sepsis TECHNIQUE: Single frontal radiograph of the chest was obtained. Comparison: Comparison is made to chest radiograph 11/04/2012 FINDINGS: No lines and tubes are seen. Cardiomegaly is noted. Prominence and cephalization of the vasculature is seen. No evidence of pleural effusion or pneumothorax. IMPRESSION: Cardiomegaly and mild pulmonary edema. ACT 112: Negative or not required by law. Electronically signed by: Kermit Barber M.D. 04/25/2022 7:[address] 04/25/22 16:29 CT head/brain wo con CLINICAL HISTORY: ams Technique: Contiguous axial CT images of the head were acquired from the base of the skull to the vertex without intravenous contrast administration. Images were viewed in brain, subdural and bone windows. Automated dose lowering techniques and/or adjustment according to patient size were utilized for this exam. Comparison: None available at the time of this dictation. Findings: Exam is highly limited by patient motion. Areas of decreased attenuation are present in the periventricular and subcorti timmy white matter bilaterally consistent with small vessel ischemic disease. Generalized cerebral atrophy with commensurate enlargement of the ventricles, sulci, and cisterns is also present. There is no acute intracranial hemorrhage or evidence of acute territorial infarction. No shift of the midline structures, mass effect, or extra-axial abnormalities are shown. Atherosclerotic calcifications are present in the intracranial segments of the internal carotid arteries. Imaged portions of the paranasal sinuses and mastoid air cells are clear. The orbits appear normal. There are no acute fractures of the calvaria or scalp swelling. Impression: Limited exam due to patient motion, however no acute abnormalities are seen. ACT 112: Negative or not required by law. Electronically signed by: Kermit Barber M.D. 04/25/2022 5:51 PM Discharge Plan Visit Data Chief Complaint: Altered Mental Status Stated Complaint: ALTERED ED Provider: Robbin Zelaya Discharge Problem: Sepsis, Nephrolithiasis, Delirium due to general medical condition, Hypoglycemia, Hydronephrosis with urinary obstruction due to ureteral calculus, Acidosis, lactic, Acute hypotension, Thrombocytopenia, Anemia, BERTHA (acute kidney injury), Rhabdomyolysis Patient Disposition: Admitted As Inpatient Discharge Instructions Interventions: ED Discharge Assessment Last Done: 04/25/22 21:25
[2022-04-25] MEDS ORDERED: HALOPERIDOL LACTATE 5 MG/ML 1 ML VIAL IM STA ×2 (16:54→17:20)
[2022-04-25 17:07] LABS: iSTAT Creatinine 2.6 mg/dl (0.6-1.3); iSTAT Hemoglobin 10.2 g/dl (12.0-16.0); iSTAT Ionized Calcium 1.16 mmol/l (1.12-1.32); iSTAT Potassium 3.5 mmol/L (3.3-5.0)
[2022-04-25] MEDS ORDERED: DEXTROSE 50% 50 ML SYRINGE IV STA (17:12)
[2022-04-25] MEDS ORDERED: THIAMINE HCL 200 MG in SODIUM CHLORIDE 0.9% 50 ML IV STA (17:12)
[2022-04-25] MEDS ORDERED: DEXTROSE 50% 50 ML SYRINGE IV ONE ×2 (17:13→19:37)
[2022-04-25 17:20] LABS: Base Excess VBG -4.1 mEq/L; HCO3 VBG 22 mmol/L; Oxygen Saturation VBG < 60.0 %; PCO2 VBG 41 mmHg (38-50); PO2 VBG 16 mmHg; pH VBG 7.33 (7.36-7.41)
[2022-04-25] MEDS ORDERED: cefTRIAXone SODIUM 2,000 MG/70 ML BAG IV STA (17:23)
[2022-04-25 17:36] LABS: Alanine Aminotransferase 85 U/L (7-52); Albumin Level 3.1 gm/dl (3.4-5.0); Alkaline Phosphatase 76 U/L (34-104); Anion Gap 14 (3-11); Aspartate Aminotransferase 179 U/L (13-39); BUN Creatinine Ratio 24.5 (10-20); Bilirubin Direct 0.3 mg/dl (0-0.2); Bilirubin,Total 0.8 mg/dl (0.2-1.0); Blood Urea Nitrogen 60 mg/dl (6-23); Calcium 8.3 mg/dl (8.5-10.1); Carbon Dioxide 22 mmol/L (21-32); Chloride 102 mmol/L (98-107); Est GFR (African American) 20.9 ml/min; Glucose 33 mg/dl (70-99(Fasting)); Magnesium 1.7 mg/dl (1.7-2.4); Potassium 3.5 mmol/L (3.5-5.1); Sodium 138 mmol/L (136-145); Total Protein 5.6 gm/dl (6.0-8.3)
[2022-04-25 17:38] LABS: INR 1.3 (0.9-1.1); Partial Thromboplastin Ratio 1.4; Partial Thromboplastin Time 38.4 Seconds (21.0-31.0); Prothrombin Time 13.7 Seconds (9.0-12.0)
[2022-04-25 17:45] LABS: Hematocrit (blood only) 29.6 % (34.1-44.9); Hemoglobin 8.9 g/dl (12.0-16.0); Mean Corpuscular Hemoglobin 23.1 pg (25.0-34.0); Mean Corpuscular Hgb Conc 30.1 g/dL (32.0-36.0); Mean Corpuscular Volume 76.9 fL (80.0-100.0); Nucleated RBC # (auto) 0.02 K/uL (0-0); Nucleated RBC % (auto) 0.1 %; Platelet Count 99 K/uL (130-400); RDW Coefficient of Variation 18.6 % (11.5-14.5); RDW Standard Deviation 52.4 fL (36.4-46.3); Red Blood Count 3.85 M/uL (3.93-5.22); White Blood Count 22.85 K/ul (4.8-10.8)
[2022-04-25 17:48] LABS: Basophils # (auto) 0.05 K/uL (0-0.2); Basophils % (auto) 0.2 %; Dohle Bodies 2+; Immature Granulocytes # (auto) 0.21 K/uL (0.00-0.02); Immature Granulocytes % (auto) 0.9 %; Lymphocytes # (auto) 0.52 K/uL (1.2-3.4); Lymphocytes % (auto) 2.3 %; Monocytes # (auto) 0.74 K/uL (0.24-0.82); Monocytes % (auto) 3.2 %; Neutrophils # (auto) 21.33 K/uL (1.4-6.5); Neutrophils % (auto) 93.4 %; Platelet Estimate Decreased (Normal)
--- NOTE | 2022-04-25 17:53 | CT Scan Report ---
CT head/brain wo con CLINICAL HISTORY: ams Technique: Contiguous axial CT images of the head were acquired from the base of the skull to the seamus gerald without intravenous contrast administration. Images were viewed in brain, subdural and [facility] . Automated dose lowering techniques and/or adjustment according to patient size were utilized for this exam. Comparison: None available at the time of this dictation. Findings: Exam is highly limited by patient motion. Areas of decreased attenuation are present in the periventricular and subcortical white matter bilate rally consistent with small vessel ischemic disease. Generalized cerebral atrophy with commensurate e nlargement of the ventricles, sulci, and cisterns is also present. There is no acute intracranial hem orrhage or evidence of acute territorial infarction. No shift of the midline structures, mass effect, or extra-axial abnormalities are shown. Atherosclerotic calcifications are present in the intracran ial segments of the internal carotid arteries. Imaged portions of the paranasal sinuses and mastoid air cells are clear. The orbits appear normal. There are no acute fractures of the calvaria or scalp swelling. Impression: Limited exam due to patient motion, however no acute abnormalities are seen. ACT 112: Negative or not required by law. Electronically signed by: Kermit Barber M.D. 04/25/2022 5:51 PM
--- NOTE | 2022-04-25 18:05 | CT Scan Report ---
CT cervical spine wo con CLINICAL HISTORY: ams TECHNIQUE: Multidetector row helical CT of the cervical spine was performed without administration of intravenous contrast. Coronal and sagittal reformations were obtained. Automated dose lowering techn iques and/or adjustment according to patient size were utilized for this exam. Comparison: None available at the time of this dictation. FINDINGS: No acute fractures or subluxations are identified. Degenerative changes are seen in the visualized sp ine. Transverse ligament calcification is noted. The alignment is normal. Soft tissues are unremarkab le. IMPRESSION: Degenerative changes without evidence of acute bony injury. ACT 112: Negative or not required by law. Electronically signed by: Kermit Barber M.D. 04/25/2022 6:02 PM
--- NOTE | 2022-04-25 18:19 | CT Scan Report ---
CT abd pelvis wo con CLINICAL HISTORY: ams TECHNIQUE: Helical axial images of the abdomen and pelvis were obtained. Automated dose lowering tech niques and/or adjustment according to patient size were utilized for this exam. This exam was perfor med without intravenous contrast. CT DOSE: 2638.92 mGy.cm COMPARISON: Comparison is made to CT abdomen pelvis 11/06/2012 FINDINGS: Exam is limited by patient motion. Lower chest: Bibasilar atelectasis versus scarring is seen. Liver: Hepatic steatosis is noted. Gallbladder and biliary tree: No calcified gallstones. Normal caliber wall. No intra- or extrahepatic biliary ductal dilation. Pancreas: Unremarkable, no focal lesions. Spleen: Unremarkable. Adrenals: Unremarkable. Kidneys and ureters: There is left hydronephrosis and hydroureter Bladder: Limited evaluation due to underdistention. Reproductive organs: Unremarkable. Bowel: A hiatal hernia is seen. Lymph nodes Retroperitoneal: Subcentimeter lymph nodes are noted. Pelvic: Unremarkable. Mesenteric: Unremarkable. Peritoneum: Normal. Vessels: Atherosclerotic calcifications are seen. Abdominal wall: Unremarkable. Bones: Degenerative changes in the visualized spine. Multilevel compression deformities are unchanged from prior exam. Grade 1 anterolisthesis of L4-L5 is seen. IMPRESSION: 1. Obstructive nephrolithiasis of the left kidney. There is a 5 mm stone in the proximal ureter with associated hydronephrosis/hydroureter. 2. Hepatic steatosis. 3. Multilevel compression deformities in the spine. ACT 112: Negative or not required by law. Electronically signed by: Kermit Barber M.D. 04/25/2022 6:16 PM
[2022-04-25] MEDS ORDERED: LORazepam 1 MG/1 ML SYR IV STA (18:27)
[2022-04-25 18:59] LABS: Appearance Urine Turbid (Clear); Bacteria Urine Automated 3+ (Negative); Blood Urine 3+ (Negative); Color Urine Dark Yellow; Epithelial Cell Urine Auto 20-30 /lpf (0-5); Glucose Urine UA Negative (Negative); Ketones Urine Trace (Negative); Leukocyte Esterase Urine 3+ (Negative); Nitrite Urine Negative (Negative); Protein Urine 2+ (Negative); Specific Gravity Urine 1.016 (1.000-1.030); Urobilinogen Urine Negative (Negative); WBC Urine Automated >30 /hpf (0-5)
--- NOTE | 2022-04-25 19:01 | XRay Report ---
XR chest 1V portable CLINICAL HISTORY: Sepsis TECHNIQUE: Single frontal radiograph of the chest was obtained. Comparison: Comparison is made to chest radiograph 11/04/2012 FINDINGS: No lines and tubes are seen. Cardiomegaly is noted. Prominence and cephalization of the vasculature i s seen. No evidence of pleural effusion or pneumothorax. IMPRESSION: Cardiomegaly and mild pulmonary edema. ACT 112: Negative or not required by law. Electronically signed by: Kermit Barber M.D. 04/25/2022 7:00 PM
[2022-04-25 19:05] LABS: Influenza A virus by PCR Negative (Neg); Influenza B virus by PCR Negative (Neg); RSV by PCR Negative (Neg); SARS CoV2 RNA(COVID-19)Cepheid NEGATIVE (Negative)
[2022-04-25 19:09] LABS: Bilirubin Urine 1+ (Negative)
[2022-04-25 19:25] LABS: RBC Urine Automated >30 /hpf (0-4)
[2022-04-25 19:26] LABS: Mucus Urine Present (None Prsent)
[2022-04-25] MEDS ORDERED: SODI CHLOR 2.5MEQ/ML 14.6% 77 MEQ in DEXTROSE 10% 1,000 ML IV SCH (19:30)
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
[2022-04-25] MEDS ORDERED: PIPERACILLIN/TAZOBACTAM 4.5 GM/120 ML BAG IV ONE (19:36)
[2022-04-25 19:50] LABS: Reticulocyte % 0.8 % (0.5-2.0); Reticulocytes # 0.03 10^6/uL (0.02-0.10)
--- NOTE | 2022-04-25 20:08 | Urology Consultation ---
Date of Consultation April 25, 2022 Assessment & Plan (1) Sepsis: It appears as though the patient is suffering from sepsis from a urinary source complicated by an obstructing kidney stone. The case was discussed with the admitting hospitalist, the treating emergency room physician, the on-call anesthesiologist and the consensus is that the patient would benefit from operative intervention with cystoscopy with ureteral stent placement. We will therefore proceed as follows: Keep patient n.p.o. Continue resuscitation with intravenous fluids Continue broad-spectrum antibiotics (the patient is receiving Zosyn) Follow culture results at which time antibiotics can be further tailored based on these results I have discussed the case in detail with the admitting hospitalist. We specifically discussed the patient's elevated cardiac enzymes, hyperglycemia, and elevated CK levels. He feels that these abnormalities are all due to underlying sepsis and that treating the underlying sepsis as described above would benefit the patient. He does note that he will continue to trend the patient's cardiac enzymes as well as get a cardiac echo tomorrow. I had a lengthy discussion with the patient's at bedside outlining the above plan and he is in agreement. Additional recommendations be forthcoming based on operative findings as well as the patient's clinical course as it unfolds The patient will be admitted to the intensive care unit for close monitoring. (2) Nephrolithiasis: Supervising Physician Co-Signing Physician Notes Agree with assessment from Steve Mathur This is an acutely ill female with numerous issues and limited ability to provide an adequate history Given the objective findings of an obstructing left calculus and hemodynamic instability with suspicion of sepsis, we are obligated to offer treatment via cystoscopy and left ureteral stent placement. I have discussed with the that I cannot guarantee this is the primary or only contributing element to her other underlying issues, however this is a correctable/treatable option that we should address now He is in agreement we will move forward with stent placement now History of Present Illness Reason for Consultation: 1. Sepsis 2. Nephrolithiasis History of Present Illness This is an 81-year-old female who presented to the emergency department secondary to altered mental status. At the time of my interview the patient could not provide any meaningful information whatsoever. The patient's , who lives with her, was present at the bedside and he did help supplement the history. This consultation was performed utilizing information from the patient's as well as discussion with the treating staff and review of the chart. According to the patient's the patient has "not been acting like herself" for 2 days. He notes that this is gotten progressively worse over the past 48 hours. He did note that the patient did complain of back pain at the onset of her problems but could not provide any further details. He also noted that his stated that she felt feverish but did not take her temperature. According to the she did not complain of any urinary symptoms such as dysuria or hematuria. He also notes that she has not had any nausea or vomiting. He notes that she has not had any witnessed falls or injuries. No additional information could be obtained. Since arrival to the emergency department the patient has had labs and imaging which I independent reviewed. The patient was noted to have an obstructing kidney stone on the left side measuring approximately 5 mm. This was associated with hydro ureter and hydronephrosis. A cervical spine CT scan showed no evidence of fractures or subluxations. Patient also had a chest x-ray showed some mild pulmonary edema. A CT scan of patient's head showed no acute abnormalities. CBC revealed white blood cell count was 22.8. Her hemoglobin and hematocrit were 8.9 and 29.6. Platelet count was 99,000. Chemistry profile showed sodium was normal as was her potassium. The patient's BUN and creatinine were 60 and 2.45. No additional records were available to ascertain if her creatinine was elevated or if this was her baseline. The patient was noted to have a glucose level of 33. Lactic acid level was elevated at 4.0. She was noted to have slight elevation of her direct bilirubin 8.3 but the total bilirubin was normal. Transaminases have a slight elevation with an AST of 179 and an ALT of 85. Alkaline phosphatase was normal. Her ammonia level was normal. Creatinine kinase level was elevated at 07/15/2005. Troponin was elevated at 696. Procalcitonin was elevated at greater than 200. Urinalysis did show turbid urine which was negative for nitrites. She did have 3+ leukocyte Estrace and greater than 30 white blood cells per high-power field. There is 3+ bacteria noted on the study. Patient was tested for COVID, influenza, and RSVall of which were negative. Since arrival to the emergency department the patient has been given intravenous fluids as she has been given 3 L of normal saline solution. She was initially given antibiotics in form of Rocephin but this has been switched to Zosyn by the admitting team. She has been given 2 Amps of dextrose for hypoglycemia. In addition the patient did require 10 mg of intra muscular Haldol. She was given 200 mg of thiamine. The patient's blood pressure was noted to be low at 85/46 at time of admission. It has improved to 129/65. The patient has been afebrile since arrival to the emergency department. Her pulse ox has been greater than 90% on room air, and since arrival the patient has been tachycardic with a heart rate of anywhere from 120-1 30. At the time of my interview the patient appeared uncomfortable. 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) Social History Smoking Status: Unknown if ever smoked Review of Systems Review of Systems: Unobtainable due to cognitive status Physical Exam Constitutional: + ill appearing Eyes: PERRL ENMT: Ears: no external ear abnormality Mouth: no oropharynx abnormality Neck: trachea midline Respiratory: normal respiratory effort; no respiratory distress and no labored breathing Cardiovascular: Rate/Rhythm: regular rate, regular rhythm and + tachycardic Vessels: dorsalis pedis pulses present and radial pulses present Gastrointestinal (Abdomen): Abdomen is soft, nondistended and nonrigid. Palpation did not appear to cause pain. Patient had a well-healed midline incision. Musculoskeletal: Dorsalis pedis pulses are palpable. Skin: no rashes Neurologic: Altered mental status noted. Patient does not follow commands appropriately but is moving all extremities Genitourinary: Patient did seem to have left CVA tenderness to percussion, no CVA tenderness with percussion on the right Results & Data ([facility]) Vital Signs (Past 12 Hours) Vital Signs Temp Pulse Pulse Resp BP BP Pulse Ox 04/25/22 19:50 130 H 28 H 129/65 94 04/25/22 18:31 122 H 22 107/45 L 95 04/25/22 18:06 120 H 18 101/57 L 96 04/25/22 17:55 36.5 C 120 H 28 H 85/46 L 95 04/25/22 17:28 95 O2 Del Method 04/25/22 19:50 Room Air 04/25/22 18:31 Room Air 04/25/22 18:06 Room Air 04/25/22 17:55 Room Air 04/25/22 17:28 Room Air PG Care Time/CCT Total # of Minutes Spent Total Time Spent with Patient: Total time spent is greater than 50% in coordination of care (as documented) at patient's floor/unit and/or counseling patient: Coding Level of Care Code 91841 Inpt Consult Level 5 Diagnoses Sepsis A41.9 Nephrolithiasis N20.0
[2022-04-25] MEDS ORDERED: ACETAMINOPHEN 1,000 MG/100 ML VIAL IV STA (20:13)
[2022-04-25] MEDS ORDERED: ALBUMIN 25% 100 mL 25 GM/100 ML VIAL IV ONE (20:15)
[2022-04-25] MEDS ORDERED: DEXTROSE 5% 1,000 ML IV ONE (20:15)
[2022-04-25] MEDS: MAGNESIUM SULFATE / D5W 1 GM/100 ML BAG IV SCH (20:26)
--- NOTE | 2022-04-25 20:26 | Anesthesiology Consultation ---
Date of Service April 25, 2022 Assessment & Plan Chart Review Chart Review: Acceptable Risk for Surgery and Patient NOT seen in Pre Admission Testing History Height/Weight Height: 5 ft 3 in Weight: 74.1 kg Allergies Allergy/AdvReac Type Severity Reaction Status Date / Time No Known Allergies Allergy Mild Verified 04/25/22 17:37 Medications Home Medications Medication Instructions Recorded Confirmed Last Taken lorazepam 1 mg tablet (Ativan) 0 mg PO DAILY PRN Anxiety 04/25/22 04/25/22 Unknown Past Medical History Medical History Chronic low back pain (11/04/12) Kidney stone (11/04/12) Osteoporosis (11/04/12) Ovarian cancer (11/04/12) Past Surgical History Surgical History H/O: hysterectomy (11/04/12) 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) Social History Smoking Status: Unknown if ever smoked Physical Exam Vital Signs Last Vital Signs Temp 36.5 C 04/25/22 17:55 Pulse 130 H 04/25/22 19:50 Resp 28 H 04/25/22 19:50 BP 129/65 04/25/22 19:50 Pulse Ox 94 04/25/22 19:50 O2 Del Method 04/25/22 19:50 Testing Laboratory Results 04/25/22 16:50 04/25/22 16:50 PT 13.7 Seconds (9.0-12.0) H 04/25/22 16:50 INR 1.3 (0.9-1.1) H 04/25/22 16:50 APTT 38.4 Seconds (21.0-31.0) H 04/25/22 16:50 Urine Color Dark Yellow 04/25/22 Unknown Urine Appearance Turbid (Clear) A 04/25/22 Unknown Urine pH 5.0 (4.5-7.5) 04/25/22 Unknown Ur Specific [place] 1.016 (1.000-1.030) 04/25/22 Unknown Urine Protein 2+ (Negative) H 04/25/22 Unknown Urine Glucose (UA) Negative (Negative) 04/25/22 Unknown Urine Ketones Trace (Negative) H 04/25/22 Unknown Urine Nitrite Negative (Negative) 04/25/22 Unknown Ur Leukocyte Esterase 3+ (Negative) H 04/25/22 Unknown Urine WBC (Auto) >30 /hpf (0-5) H 04/25/22 Unknown Urine RBC (Auto) >30 /hpf (0-4) H 04/25/22 Unknown U Hyaline Cast (Auto) 1-5 /lpf (0-5) 04/25/22 Unknown U Epithel Cells (Auto) 20-30 /lpf (0-5) H 04/25/22 Unknown Urine Bacteria (Auto) 3+ (Negative) H 04/25/22 Unknown 04/25/22 04/25/22 04/25/22 19:42 19:28 18:04 POC Glucose 155 H 28 L* 58 L* POC Glucose (other) 04/25/22 16:55 POC Glucose POC Glucose (other) 32 L*
[2022-04-25] MEDS ORDERED: OLANZapine 10 MG/2.1 ML SDV IM PRN (20:28)
[2022-04-25] MEDS ORDERED: PROPOFOL IV EMULSION 10 MG/ML 20 ML VIAL IV ONE (20:30)
[2022-04-25] MEDS ORDERED: MIDAZOLAM HCL 1 MG/ML 2ML VIAL ONE ×2 (20:31→21:46)
[2022-04-25 20:48] LABS: Ferritin 45.4 ng/ml (8-388)
[2022-04-25] MEDS ORDERED: STAT IV Infusion **Titration per Protocol STA ×3 (20:48→23:49)
[2022-04-25] MEDS ORDERED: LACTATED RINGER'S 500 ML IV ONE ×2 (20:50→22:21)
--- NOTE | 2022-04-25 20:52 | Critical Care Consultation ---
Date of Consultation April 25, 2022 Assessment & Plan (1) Acidosis, lactic: (2) Anemia: (3) BERTHA (acute kidney injury): (4) Rhabdomyolysis: (5) Nephrolithiasis: (6) Severe sepsis with acute organ dysfunction: (7) Severe sepsis with septic shock: (8) Metabolic encephalopathy: (9) Hypoglycemia: (10) On mechanically assisted ventilation: (11) Elevated troponin I level: Plan Reason Critically Ill: 81 YOF admitted to the ICU post OR for severe sepsis with shock likely from infected kidney stone, with evidence of end organ dysfunction. Patient was brought to the EMD via EMS from home where she was found disheveled and covered in stool. She was resuscitated with 3L of crystalloid remained with re-curring hypoglycemia, as well as now requiring vasopressors. She was taken emergently to the OR for source control by urology. Neuro - Metabolic encephalopathy, sedation for mechanical ventilation CAM ICU: Unable to be assessed - Metabolic encephalopathy with multiple etiologies at this time to include severe sepsis and hypoglycemia - Sedate overnight with Propfol and PRN Fentanyl- follow nuerological exam with correction of hypoglycemia and adequate MAPS - Head CT reviewed Cardiac - Severe Sepsis, shock, Elevated Troponin, - resuscitated with 3liters of crystalloid and 1 25% albumin in the EMD, requiring vasopressor support to maintain MAPS >65 and UO >30ml per hour - Likely type II demand from shock and sepsis- continue to trend HScTNI and ECG - Unsure of underlying heart function/disease - ECHO in AM - Bedside POCUS consistent with compressible IVC and hyperdynamic ventricles - Tachycardia resolving, not hypoxic so doubt any PE at this time Respiratory - Current Smoker, Pulmonary edema, Respiratory failure requiring mechanical ventilation - Intubated once in ICU to maximize resuscitation support - AC 18- [email or web address] LOW PEEP/HIGH FIO2 algorithm - Pplt 16.5 - 7.3/29.8/20/15 GI - Elevated liver enzymes - Likely secondary to septic shock- follow with resuscitation RENAL/LYTES - BERTHA, Infected kidney stone, Rhabdo, AGAP Acidosis - Metabolic acidosis - - AGAP likely related to elevated lactate, elevated BUN with moderate rahbdo - Supportive care with severe septic shock - S/p stenting by Urology - Renally dose medications, avoid further nephrotoxic medications as able - Electrolytes replete per protocol - See above ENDO - Hypoglycemia - Hypoglycemic protocol- D5LR at 125ml per hour - Change to D10 if needed or consider steroid dosing if severe refractory HEME - Microcytic Anemia, Thrombocytopenia - Transfuse for HGB <8.0 - Follow iron studies - Thrombocytopenia- likely from sepsis - Pt/PTT INR slightly elevated - will check fibrinogen evaluate for DIC ID - Severe sepsis/shock - Secondary to Infected kidney stone at this time identified - Zosyn and will add Daptomycin empiric until cultures return - Await blood and urine cultures - Lactate improving 7--> 4.0--> 2.6 - MRSA swab pending - Low risk - Random Cortisol 45 LINES/IV ACCESS - Tate Continue use of these lines DVT PROPHYLAXIS - SCDs DISPO - ICU level care for severe sepsis with organ dysfunction I have personally spent 50 minutes of critical care time in the direct management of this patient. This is a life/limb threatening event. This includes time spent evaluating patient, direct bedside care, chart review, placing orders, interpretation of diagnostic studies, discussion with consultants, patient, and family members, as well as other required patient management activities. This time is exclusive of all separately billable procedures, and teaching time and separate from and in addition to any other critical care service time. Thank you for allowing us to participate in the care of this patient. Please refer to my attending physician's documentation for any further recommendations. History of Present Illness Reason for Consultation: Severe Sepsis with organ dysfunction and shock Requesting Physician: Shayan Vela Attending Physician: Shayan Vela History of Present Illness Patient reportedly does not see physican regularly- no other records re-viewable for at this time. Patient was brought to the EMD today via EMS. Patient was reportedly found on ground covered in stool, noted to be hypoglycemic. She required Versed by EMS to be able to be transported. In the EMD the patient was noted to by hypotensive on arrival, had routine labs performed as well as blood and urine cultures. She had Head CT completed and Cervical Spine CT completed as well as CXR and CT of abdomen and pelvis. She was noted to have 5mm stone and urine consistent with infection. She was started on Sepsis pathway and was resuscitated with 3L of crystalloid infusion, which she was responsive to. She was also repeatedly noted to be hypoglycemic in the EMD as well. Consulted by Hospitalist for concern of sepsis shock. Chart was reviewed noting organ dysfunction, patiwnt was evaluated in the EMD and noted to be encephalopathic and hypotensive again. Levophed was started. Case discussed with Surgical PANorman Argueta, and plan to take to the OR by urology. Case was also discussed with Anesthesia prior to taking to OR as likely need for intubation as well as Vasopressors initiated. Patient returned to the ICU intubated following induction with Succinylcholine, she received 800 ml in the OR, requiring some additional bp support with Phenylephedrine and Levophed at 0.2mcg/kgmin. She would open her eyes on arrival and was moving all of her extremities with attempts to reach for her ETT. No focal deficits noted. Patient will be sedated. Bedside POCUS performed. She is making adequate urine at this time. Attempt to wean pressors, continue resuscitation, follow end organ dysfunction. 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) Social History Smoking Status: Former smoker Hx Alcohol Use: Yes Alcohol type: beer Hx Substance Use: No Preferred Language: Filipino Communication Ability: Effective Manager Of [employer] Required: No Beliefs That Will Affect Care: None Current Living Situation: Spouse Feels Safe at Home: Yes Assistive Devices: None Review of Systems Review of Systems: Unable to obtain secondary to intubation Physical Exam Physical Exam: PHYSICAL EXAM: General: Sedated, moves all extremities Head: Normocephalic, atraumatic ENT: PERRLA, EOMI, no pharyngeal exudate, mucous membranes dry Neuro: Encephalopathic, Sedated, no focal deficits, localizing for ett Chest: equal rise and fall of the chest, no accessory muscle use, scattered crackles Cardiac: Regular rate and rhythm, telemetry reviewed- sinus tach, skin warm dry, cap refill <3 seconds, peripheral pulses +2 no JVD, no murmur, no edema GI: Hypoactive bowel sounds : light pink tinged urine, tate to gravity Skin: no ulcerations or bites, scratches to lower leg Results & Data Results & Data ([facility]) Vital Signs (Past 12 Hours) Vital Signs Temp Pulse Pulse Resp BP BP Pulse Ox 04/25/22 20:30 115 H 24 93/45 L 96 04/25/22 19:50 130 H 28 H 129/65 94 04/25/22 18:31 122 H 22 107/45 L 95 04/25/22 18:06 120 H 18 101/57 L 96 04/25/22 17:55 36.5 C 120 H 28 H 85/46 L 95 04/25/22 17:28 95 O2 Del Method 04/25/22 20:30 Room Air 04/25/22 19:50 Room Air 04/25/22 18:31 Room Air 04/25/22 18:06 Room Air 04/25/22 17:55 Room Air 04/25/22 17:28 Room Air Laboratory Results Abnormal lab results 04/25/22 04/25/22 04/25/22 Range/Units 16:50 16:50 16:50 WBC 22.85 H (4.8-10.8) K/ul RBC 3.85 L (3.93-5.22) M/uL Hgb 8.9 L (12.0-16.0) g/dl POC Hgb (12.0-16.0) g/dl Hct 29.6 L (34.1-44.9) % POC Hct (37-47) % MCV 76.9 L (80.0-100.0) fL MCH 23.1 L (25.0-34.0) pg MCHC 30.1 L (32.0-36.0) g/dL RDW Std Deviation 52.4 H (36.4-46.3) fL RDW Coeff of Gee 18.6 H (11.5-14.5) % Plt Count 99 L (130-400) K/uL Neut # (Auto) 21.33 H (1.4-6.5) K/uL Lymph # (Auto) 0.52 L (1.2-3.4) K/uL Immature Gran # (Auto) 0.21 H (0.00-0.02) K/uL Absolute Nucleated RBC 0.02 H (0-0) K/uL Platelet Estimate Decreased L (Normal) PT 13.7 H (9.0-12.0) Seconds INR 1.3 H (0.9-1.1) APTT 38.4 H (21.0-31.0) Seconds VBG pH (7.36-7.41) POC Total CO2 (24-31) mmol/L Anion Gap 14 H (3-11) POC BUN (7-18) mg/dl BUN 60 H (6-23) mg/dl Creatinine 2.45 H (0.6-1.2) mg/dl POC Creatinine (0.6-1.3) mg/dl BUN/Creatinine Ratio 24.5 H (10-20) Glucose 33 L* (70-99(Fasting)) mg/dl POC Glucose (70-99) mg/dl POC Glucose (other) (70-99) mg/dl Lactate (0.4-2.0) mmol/L Calcium 8.3 L (8.5-10.1) mg/dl Iron (35-150) mcg/dl Direct Bilirubin 0.3 H (0-0.2) mg/dl AST 179 H (13-39) U/L ALT 85 H (7-52) U/L Total Creatine Kinase (26-192) U/L Troponin I High Sens 696.0 H* (0-14) pg/ml B-Natriuretic Peptide (0-100) pg/ml Total Protein 5.6 L (6.0-8.3) gm/dl Albumin 3.1 L (3.4-5.0) gm/dl Procalcitonin (0-0.5) ng/ml Urine Appearance (Clear) Urine Protein (Negative) Urine Ketones (Negative) Urine Blood (Negative) Urine Bilirubin (Negative) Ur Leukocyte Esterase (Negative) Urine WBC (Auto) (0-5) /hpf Urine RBC (Auto) (0-4) /hpf U Epithel Cells (Auto) (0-5) /lpf Urine Bacteria (Auto) (Negative) Urine Mucus (None Prsent) 11/15/22 11/15/22 11/15/22 Range/Units 16:50 16:50 16:50 WBC (4.8-10.8) K/ul RBC (3.93-5.22) M/uL Hgb (12.0-16.0) g/dl POC Hgb (12.0-16.0) g/dl Hct (34.1-44.9) % POC Hct (37-47) % MCV (80.0-100.0) fL MCH (25.0-34.0) pg MCHC (32.0-36.0) g/dL RDW Std Deviation (36.4-46.3) fL RDW Coeff of Gee (11.5-14.5) % Plt Count (130-400) K/uL Neut # (Auto) (1.4-6.5) K/uL Lymph # (Auto) (1.2-3.4) K/uL Immature Gran # (Auto) (0.00-0.02) K/uL Absolute Nucleated RBC (0-0) K/uL Platelet Estimate (Normal) PT (9.0-12.0) Seconds INR (0.9-1.1) APTT (21.0-31.0) Seconds VBG pH 7.33 L (7.36-7.41) POC Total CO2 (24-31) mmol/L Anion Gap (3-11) POC BUN (7-18) mg/dl BUN (6-23) mg/dl Creatinine (0.6-1.2) mg/dl POC Creatinine (0.6-1.3) mg/dl BUN/Creatinine Ratio (10-20) Glucose (70-99(Fasting)) mg/dl POC Glucose (70-99) mg/dl POC Glucose (other) (70-99) mg/dl Lactate 7.0 H* (0.4-2.0) mmol/L Calcium (8.5-10.1) mg/dl Iron (35-150) mcg/dl Direct Bilirubin (0-0.2) mg/dl AST (13-39) U/L ALT (7-52) U/L Total Creatine Kinase (26-192) U/L Troponin I High Sens (0-14) pg/ml B-Natriuretic Peptide (0-100) pg/ml Total Protein (6.0-8.3) gm/dl Albumin (3.4-5.0) gm/dl Procalcitonin > 200.00 H (0-0.5) ng/ml Urine Appearance (Clear) Urine Protein (Negative) Urine Ketones (Negative) Urine Blood (Negative) Urine Bilirubin (Negative) Ur Leukocyte Esterase (Negative) Urine WBC (Auto) (0-5) /hpf Urine RBC (Auto) (0-4) /hpf U Epithel Cells (Auto) (0-5) /lpf Urine Bacteria (Auto) (Negative) Urine Mucus (None Prsent) 04/25/22 04/25/22 04/25/22 Range/Units 16:50 16:55 18:04 WBC (4.8-10.8) K/ul RBC (3.93-5.22) M/uL Hgb (12.0-16.0) g/dl POC Hgb 10.2 L (12.0-16.0) g/dl Hct (34.1-44.9) % POC Hct 30 L (37-47) % MCV (80.0-100.0) fL MCH (25.0-34.0) pg MCHC (32.0-36.0) g/dL RDW Std Deviation (36.4-46.3) fL RDW Coeff of Gee (11.5-14.5) % Plt Count (130-400) K/uL Neut # (Auto) (1.4-6.5) K/uL Lymph # (Auto) (1.2-3.4) K/uL Immature Gran # (Auto) (0.00-0.02) K/uL Absolute Nucleated RBC (0-0) K/uL Platelet Estimate (Normal) PT (9.0-12.0) Seconds INR (0.9-1.1) APTT (21.0-31.0) Seconds VBG pH (7.36-7.41) POC Total CO2 20 L (24-31) mmol/L Anion Gap (3-11) POC BUN 56 H (7-18) mg/dl BUN (6-23) mg/dl Creatinine (0.6-1.2) mg/dl POC Creatinine 2.6 H (0.6-1.3) mg/dl BUN/Creatinine Ratio (10-20) Glucose (70-99(Fasting)) mg/dl POC Glucose 58 L* (70-99) mg/dl POC Glucose (other) 32 L* (70-99) mg/dl Lactate (0.4-2.0) mmol/L Calcium (8.5-10.1) mg/dl Iron (35-150) mcg/dl Direct Bilirubin (0-0.2) mg/dl AST (13-39) U/L ALT (7-52) U/L Total Creatine Kinase 2406 H (26-192) U/L Troponin I High Sens (0-14) pg/ml B-Natriuretic Peptide (0-100) pg/ml Total Protein (6.0-8.3) gm/dl Albumin (3.4-5.0) gm/dl Procalcitonin (0-0.5) ng/ml Urine Appearance (Clear) Urine Protein (Negative) Urine Ketones (Negative) Urine Blood (Negative) Urine Bilirubin (Negative) Ur Leukocyte Esterase (Negative) Urine WBC (Auto) (0-5) /hpf Urine RBC (Auto) (0-4) /hpf U Epithel Cells (Auto) (0-5) /lpf Urine Bacteria (Auto) (Negative) Urine Mucus (None Prsent) 04/25/22 04/25/22 04/25/22 Range/Units 19:04 19:28 19:42 WBC (4.8-10.8) K/ul RBC (3.93-5.22) M/uL Hgb (12.0-16.0) g/dl POC Hgb (12.0-16.0) g/dl Hct (34.1-44.9) % POC Hct (37-47) % MCV (80.0-100.0) fL MCH (25.0-34.0) pg MCHC (32.0-36.0) g/dL RDW Std Deviation (36.4-46.3) fL RDW Coeff of Gee (11.5-14.5) % Plt Count (130-400) K/uL Neut # (Auto) (1.4-6.5) K/uL Lymph # (Auto) (1.2-3.4) K/uL Immature Gran # (Auto) (0.00-0.02) K/uL Absolute Nucleated RBC (0-0) K/uL Platelet Estimate (Normal) PT (9.0-12.0) Seconds INR (0.9-1.1) APTT (21.0-31.0) Seconds VBG pH (7.36-7.41) POC Total CO2 (24-31) mmol/L Anion Gap (3-11) POC BUN (7-18) mg/dl BUN (6-23) mg/dl Creatinine (0.6-1.2) mg/dl POC Creatinine (0.6-1.3) mg/dl BUN/Creatinine Ratio (10-20) Glucose (70-99(Fasting)) mg/dl POC Glucose 28 L* 155 H (70-99) mg/dl POC Glucose (other) (70-99) mg/dl Lactate 4.0 H* (0.4-2.0) mmol/L Calcium (8.5-10.1) mg/dl Iron (35-150) mcg/dl Direct Bilirubin (0-0.2) mg/dl AST (13-39) U/L ALT (7-52) U/L Total Creatine Kinase (26-192) U/L Troponin I High Sens (0-14) pg/ml B-Natriuretic Peptide (0-100) pg/ml Total Protein (6.0-8.3) gm/dl Albumin (3.4-5.0) gm/dl Procalcitonin (0-0.5) ng/ml Urine Appearance (Clear) Urine Protein (Negative) Urine Ketones (Negative) Urine Blood (Negative) Urine Bilirubin (Negative) Ur Leukocyte Esterase (Negative) Urine WBC (Auto) (0-5) /hpf Urine RBC (Auto) (0-4) /hpf U Epithel Cells (Auto) (0-5) /lpf Urine Bacteria (Auto) (Negative) Urine Mucus (None Prsent) 04/25/22 04/25/22 04/25/22 Range/Units 19:55 19:55 20:20 WBC (4.8-10.8) K/ul RBC (3.93-5.22) M/uL Hgb (12.0-16.0) g/dl POC Hgb (12.0-16.0) g/dl Hct (34.1-44.9) % POC Hct (37-47) % MCV (80.0-100.0) fL MCH (25.0-34.0) pg MCHC (32.0-36.0) g/dL RDW Std Deviation (36.4-46.3) fL RDW Coeff of Gee (11.5-14.5) % Plt Count (130-400) K/uL Neut # (Auto) (1.4-6.5) K/uL Lymph # (Auto) (1.2-3.4) K/uL Immature Gran # (Auto) (0.00-0.02) K/uL Absolute Nucleated RBC (0-0) K/uL Platelet Estimate (Normal) PT (9.0-12.0) Seconds INR (0.9-1.1) APTT (21.0-31.0) Seconds VBG pH (7.36-7.41) POC Total CO2 (24-31) mmol/L Anion Gap (3-11) POC BUN (7-18) mg/dl BUN (6-23) mg/dl Creatinine (0.6-1.2) mg/dl POC Creatinine (0.6-1.3) mg/dl BUN/Creatinine Ratio (10-20) Glucose (70-99(Fasting)) mg/dl POC Glucose 59 L* (70-99) mg/dl POC Glucose (other) (70-99) mg/dl Lactate (0.4-2.0) mmol/L Calcium (8.5-10.1) mg/dl Iron < 10 L (35-150) mcg/dl Direct Bilirubin (0-0.2) mg/dl AST (13-39) U/L ALT (7-52) U/L Total Creatine Kinase (26-192) U/L Troponin I High Sens 738.7 H* (0-14) pg/ml B-Natriuretic Peptide > 4700 H (0-100) pg/ml Total Protein (6.0-8.3) gm/dl Albumin (3.4-5.0) gm/dl Procalcitonin (0-0.5) ng/ml Urine Appearance (Clear) Urine Protein (Negative) Urine Ketones (Negative) Urine Blood (Negative) Urine Bilirubin (Negative) Ur Leukocyte Esterase (Negative) Urine WBC (Auto) (0-5) /hpf Urine RBC (Auto) (0-4) /hpf U Epithel Cells (Auto) (0-5) /lpf Urine Bacteria (Auto) (Negative) Urine Mucus (None Prsent) 04/25/22 04/25/22 Range/Units 22:16 Unknown WBC (4.8-10.8) K/ul RBC (3.93-5.22) M/uL Hgb (12.0-16.0) g/dl POC Hgb (12.0-16.0) g/dl Hct (34.1-44.9) % POC Hct (37-47) % MCV (80.0-100.0) fL MCH (25.0-34.0) pg MCHC (32.0-36.0) g/dL RDW Std Deviation (36.4-46.3) fL RDW Coeff of Gee (11.5-14.5) % Plt Count (130-400) K/uL Neut # (Auto) (1.4-6.5) K/uL Lymph # (Auto) (1.2-3.4) K/uL Immature Gran # (Auto) (0.00-0.02) K/uL Absolute Nucleated RBC (0-0) K/uL Platelet Estimate (Normal) PT (9.0-12.0) Seconds INR (0.9-1.1) APTT (21.0-31.0) Seconds VBG pH (7.36-7.41) POC Total CO2 (24-31) mmol/L Anion Gap (3-11) POC BUN (7-18) mg/dl BUN (6-23) mg/dl Creatinine (0.6-1.2) mg/dl POC Creatinine (0.6-1.3) mg/dl BUN/Creatinine Ratio (10-20) Glucose (70-99(Fasting)) mg/dl POC Glucose 151 H (70-99) mg/dl POC Glucose (other) (70-99) mg/dl Lactate (0.4-2.0) mmol/L Calcium (8.5-10.1) mg/dl Iron (35-150) mcg/dl Direct Bilirubin (0-0.2) mg/dl AST (13-39) U/L ALT (7-52) U/L Total Creatine Kinase (26-192) U/L Troponin I High Sens (0-14) pg/ml B-Natriuretic Peptide (0-100) pg/ml Total Protein (6.0-8.3) gm/dl Albumin (3.4-5.0) gm/dl Procalcitonin (0-0.5) ng/ml Urine Appearance Turbid A (Clear) Urine Protein 2+ H (Negative) Urine Ketones Trace H (Negative) Urine Blood 3+ H (Negative) Urine Bilirubin 1+ H (Negative) Ur Leukocyte Esterase 3+ H (Negative) Urine WBC (Auto) >30 H (0-5) /hpf Urine RBC (Auto) >30 H (0-4) /hpf U Epithel Cells (Auto) 20-30 H (0-5) /lpf Urine Bacteria (Auto) 3+ H (Negative) Urine Mucus Present A (None Prsent) Diagnostic Findings Abdomen/Pelvis CT 04/25/22 16:29 CT abd pelvis wo con CLINICAL HISTORY: ams TECHNIQUE: Helical axial images of the abdomen and pelvis were obtained. Automated dose lowering techniques and/or adjustment according to patient size were utilized for this exam. This exam was performed without intravenous contrast. CT DOSE: 2638.92 mGy.cm COMPARISON: Comparison is made to CT abdomen pelvis 11/06/2012 FINDINGS: Exam is limited by patient motion. Lower chest: Bibasilar atelectasis versus scarring is seen. Liver: Hepatic steatosis is noted. Gallbladder and biliary tree: No calcified gallstones. Normal caliber wall. No intra- or extrahepatic biliary ductal dilation. Pancreas: Unremarkable, no focal lesions. Spleen: Unremarkable. Adrenals: Unremarkable. Kidneys and ureters: There is left hydronephrosis and hydroureter Bladder: Limited evaluation due to underdistention. Reproductive organs: Unremarkable. Bowel: A hiatal hernia is seen. Lymph nodes Retroperitoneal: Subcentimeter lymph nodes are noted. Pelvic: Unremarkable. Mesenteric: Unremarkable. Peritoneum: Normal. Vessels: Atherosclerotic calcifications are seen. Abdominal wall: Unremarkable. Bones: Degenerative changes in the visualized spine. Multilevel compression deformities are unchanged from prior exam. Grade 1 anterolisthesis of L4-L5 is seen. IMPRESSION: 1. Obstructive nephrolithiasis of the left kidney. There is a 5 mm stone in the proximal ureter with associated hydronephrosis/hydroureter. 2. Hepatic steatosis. 3. Multilevel compression deformities in the spine. ACT 112: Negative or not required by law. Electronically signed by: Kermit Barber M.D. 04/25/2022 6:[address] 04/25/22 16:29 CT cervical spine wo con CLINICAL HISTORY: ams TECHNIQUE: Multidetector row helical CT of the cervical spine was performed without administration of intravenous contrast. Coronal and sagittal reformations were obtained. Automated dose lowering techniques and/or adjustment according to patient size were utilized for this exam. Comparison: None available at the time of this dictation. FINDINGS: No acute fractures or subluxations are identified. Degenerative changes are seen in the visualized spine. Transverse ligament calcification is noted. The alignment is normal. Soft tissues are unremarkable. IMPRESSION: Degenerative changes without evidence of acute bony injury. ACT 112: Negative or not required by law. Electronically signed by: Kermit Barber M.D. 04/25/2022 6:02 PM Chest X-Ray 04/25/22 16:29 XR chest 1V portable CLINICAL HISTORY: Sepsis TECHNIQUE: Single frontal radiograph of the chest was obtained. Comparison: Comparison is made to chest radiograph 11/04/2012 FINDINGS: No lines and tubes are seen. Cardiomegaly is noted. Prominence and cephalization of the vasculature is seen. No evidence of pleural effusion or pneumothorax. IMPRESSION: Cardiomegaly and mild pulmonary edema. ACT 112: Negative or not required by law. Electronically signed by: Kermit Barber M.D. 04/25/2022 7:[address] 04/25/22 16:29 CT head/brain wo con CLINICAL HISTORY: ams Technique: Contiguous axial CT images of the head were acquired from the base of the skull to the vertex without intravenous contrast administration. Images were viewed in brain, subdural and bone windows. Automated dose lowering techniques and/or adjustment according to patient size were utilized for this exam. Comparison: None available at the time of this dictation. Findings: Exam is highly limited by patient motion. Areas of decreased attenuation are present in the periventricular and subcortical white matter bilaterally consistent with small vessel ischemic disease. Generalized cerebral atrophy with commensurate enlargement of the ventricles, sulci, and cisterns is also present. There is no acute intracranial hemorrhage or evidence of acute territorial infarction. No shift of the midline structures, mass effect, or extra-axial abnormalities are shown. Atherosclerotic calcifications are present in the intracranial segments of the internal carotid arteries. Imaged portions of the paranasal sinuses and mastoid air cells are clear. The orbits appear normal. There are no acute fractures of the calvaria or scalp swelling. Impression: Limited exam due to patient motion, however no acute abnormalities are seen. ACT 112: Negative or not required by law. Electronically signed by: Kermit Barber M.D. 04/25/2022 5:51 PM Medications Administered Home Medications lorazepam 1 mg tablet (Ativan) 0 mg PO DAILY PRN Anxiety 04/25/22 [History Confirmed 04/25/22] Active Medications Acetaminophen (Acetaminophen 325 Mg Tab) 650 mg PO Q6H PRN PRN Reason: Fever/pain Stop: 05/25/22 22:20 Fentanyl Citrate (Fentanyl Citrate 100 Mcg/2 Ml Vial) 25 mcg IV Q2H PRN PRN Reason: Moderate Pain (4,5,6) on NRS Stop: 05/09/22 22:20 Dextrose (D5w) 1,000 mls @ 125 mls/hr IV .Q8H ONE Stop: 04/26/22 04:14 Last Infusion: 04/25/22 20:29 Dose: 125 mls/hr Magnesium Sulfate/Dextrose (Magnesium Sulfate / D5w) 1 gm in 100 mls @ 50 mls/hr IV Q2H MYNOR Stop: 04/26/22 00:14 Last Admin: 04/25/22 20:26 Dose: 50 mls/hr Norepinephrine Bitartrate (Levophed/D5w) 4 mg in 250 mls @ 13.894 mls/hr IV .Q18H MYNOR; Protocol Stop: 05/25/22 20:59 Last Admin: 04/25/22 20:54 Dose: 0.1 mcg/kg/min, 27.8 mls/hr Promethazine HCl 12.5 mg/ (Sodium Chloride) 50.5 mls @ 202 mls/hr IV Q6H PRN PRN Reason: Nausea And Vomiting Stop: 05/25/22 22:20 Albumin Human (Albumin 25% 100 Ml) 25 gm in 100 mls @ 50 mls/hr IV Q8H MYNOR Stop: 04/29/22 00:00 Piperacillin Sod/Tazobactam (Sod 3.375 gm/ Dextrose) 115 mls @ 28.75 mls/hr IV Q12H MYNOR; Protocol Stop: 05/06/22 03:59 Propofol (Diprivan) 1,000 mg in 100 mls @ 8.892 mls/hr IV .[id number] MYNOR; Protocol Stop: 04/28/22 22:20 Lactated Ringer's (Lr) 500 mls @ 999 mls/hr IV .Q31M ONE Stop: 04/25/22 22:51 Miscellaneous (I[facility] Protocol For Hyperglycemia) 1 each N/A PRN PRN; Protocol PRN Reason: Hyperglycemia Protocol Stop: 04/27/22 22:20 Olanzapine (Olanzapine 10 Mg/2.1 Ml Sdv) 2.5 mg IM Q4H PRN PRN Reason: Anxiety/Agitation Stop: 05/25/22 20:27 Propofol (Propofol Bolus From Bag) 20 mg IV Q5M PRN PRN Reason: Sedation Stop: 04/28/22 22:20 ECG Additional Comments: Sinus tachycardia T wave abnormality, consider lateral ischemia Abnormal ECG When compared with ECG of 25-APR-2022 17:49, (unconfirmed) No significant change was found Coding Level of Care Code Critical Care 1st 30-74 mins Diagnoses Acidosis, lactic E87.20 Anemia D64.9 BERTHA (acute kidney injury) N17.9 Rhabdomyolysis M62.82 Rhabdomyolysis type: non-traumatic Nephrolithiasis N20.0 Severe sepsis with acute organ dysfunction A41.9; R65.20 Severe sepsis with septic shock A41.9; R65.21 Metabolic encephalopathy G93.41 Hypoglycemia E16.2 On mechanically assisted ventilation Z99.11 Elevated troponin I level R77.8 (1) Rhabdomyolysis Rhabdomyolysis type: non-traumatic Qualified Code(s): M62.82 - Rhabdomyolysis
[2022-04-25] MEDS: NOREPINEPHRINE/D5W 4 MG/250 ML PLCT IV SCH (20:54)
[2022-04-25 21:06] LABS: Iron < 10 mcg/dl (35-150); Transferrin 238 mg/dl (200-360); Troponin I High Sensitivity 738.7 pg/ml (0-14)
[2022-04-25] MEDS ORDERED: fentaNYL citrate 100 MCG/2 ML VIAL ONE (21:20)
[2022-04-25] MEDS ORDERED: SUCCINYLCHOLINE 100MG/5ML SYR IV ONE (21:38)
[2022-04-25] MEDS ORDERED: PROPOFOL IV EMULSION 10 MG/ML 100 ML VIAL IV ONE (21:40)
[2022-04-25] MEDS ORDERED: DIATRIZOATE MEGLUMINE 30% 100ML VIAL INSTIL ONE (21:47)
--- NOTE | 2022-04-25 21:52 | Operative Report ---
PG Post Operative Report Pre & Post Diagnosis Operation Date: 04/25/22 21:30 Pre-Op Diagnosis: Sepsis, Nephrolithiasis Post-Op Diagnosis: Sepsis, Nephrolithiasis I identified the patient and participated in the time-out.: Yes Procedure Operation Date: 04/25/22 21:30 Actual Procedures p Cystoscopy, Left Ureteral Stent Placement(Left) - Raimundo Adams MD Surgeon Raimundo Adams MD Oil Developer none Estimated Blood Loss 0 Findings Consistent with Post-Op Diagnosis Specimens none Description of Procedure The patient was identified in the preoperative holding area, appropriate informed consents were reviewed and completed and the patient was transferred to the operative suite. Upon arrival, appropriate antibiotics and anesthesia were administered and the patient was placed in dorsal lithotomy position and prepped and draped in sterile fashion. To begin the case I passed a 22 [place] cystoscope with 30 degree lens. 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 To be able to adequately inspect the bladder I first had a distended and then I had to manually reduce her prolapse to be able to restore anatomy to a seminormal position. At that time I was able to identify both the right and left ureteral orifices and I was able to cannulate the left UO with a sensor wire and a 5 [place] open-ended catheter. I advanced the wire to the kidney. I then advanced the catheter to the presumed area of the kidney and opacified the collecting system with a small amount of contrast to confirm I was above the level of the stone. There was mild to moderate hydronephrosis and I was able to position a wire into the upper pole of the kidney. I placed a 6 [place] by 24 cm double-J stent seeing a good curl in both the kidney and bladder. There was drainage of old urine from the kidney without a significant amount of purulence. Anesthesia maintain stability throughout the case but she did require pressors and was intubated prior to initiating the case and remained intubated the conclusion of the case. She was taken immediately to the ICU for further support and resuscitation. I attest to the content of the Intraoperative Record and any orders documented therein. Any exceptions are noted below.
[2022-04-25] MEDS: propofoL 1,000 MG/100 ML VIAL IV SCH (22:00)
[2022-04-25] MEDS ORDERED: fentaNYL citrate 100 MCG/2 ML VIAL IV PRN (22:21)
[2022-04-25] MEDS ORDERED: PROMETHAZINE HCL 12.5 MG in SODIUM CHLORIDE 0.9% 50 ML IV PRN (22:21)
[2022-04-25] MEDS ORDERED: PROPOFOL BOLUS FROM BAG IV PRN (22:21)
[2022-04-25] MEDS ORDERED: ICU Protocol for HYPERglycemia PRN (22:21)
[2022-04-25] MEDS ORDERED: DAPTOmycin 325 MG in SYRINGE 0 ML IV SCH (23:00)
[2022-04-25 23:12] LABS: iSTAT Allen Test Pass; iSTAT Arterial Blood Gas HCO3 15 meg/L (19-24); iSTAT Arterial Blood Gas pCO2 30 mmHg (35-46); iSTAT Arterial Blood Gas pH 7.32 (7.35-7.45); iSTAT Arterial Blood Gas pO2 70 mmHg (80-95); iSTAT Carbon Dioxide 16 mmol/L (24-31); iSTAT FiO2 30 %; iSTAT Site L Radial
[2022-04-25 23:33] LABS: BUN Creatinine Ratio 28.3 (10-20); Calcium 6.5 mg/dl (8.5-10.1); Creatinine Clr Calc Pharmacy 21.9 ml/min; Est GFR (Non-African American) 23.3 ml/min; Potassium 3.4 mmol/L (3.5-5.1)
[2022-04-25] MEDS ORDERED: fentaNYL citrate 2,500 MCG/250 ML BAG IV ONE (23:43)
[2022-04-25] MEDS ORDERED: fentaNYL citrate 2,500 MCG/250 ML BAG IV SCH (23:45)
[2022-04-25 23:46] LABS: Fibrinogen 152 mg/dl (184-400)
[2022-04-25] MEDS ORDERED: fentaNYL BOLUS from BAG IV PRN (23:49)
--- NOTE | 2022-04-25 23:59 | Procedure Note ---
Procedure Note Date of Service April 25, 2022 Note ARTERIAL LINE PROCEDURE NOTE: Procedure: Arterial Line Placement with direct visualization with Ultrasound APC: Jeffery VELASCO ([facility]) Attending: Dr. Jarrell Indication: Monitoring on Pressors Anesthesia:[x]Lidocaine 1% Verbal consent from obtained on initial evaluation in the [facility], emergent procedure in the setting of hypotension/shock/refractory Allens test was performed to ensure adequate perfusion. Patients Left wrist was prepped and draped in the usual sterile fashion. Ultrasound guidance was used to aid needle placement. A 20g Arrow arterial line was introduced into the Left artery. Catheter was threaded, and the needle was removed with appropriate blood return. Good waveform was observed. The patient tolerated the procedure well. Catheter was sutured in place. Attempt x1 Attempt at right radial A-line was not successful with inability to maintain blood flow. Site was abandoned and moved to left radial. Hemostasis was obtained manually and pressure dressing applied. Attempt x1. Blood Loss: Minimal Complications: None immediate notified Procedural Ultrasound Guidance: Procedure Date: [id number] Indication: Hemodynamic Monitoring on Vasopressor agents Attending: Dr. Jarrell Artery Identified: YES Complications: NONE Patient tolerated procedure: WELL Coding
[2022-04-26] MEDS ORDERED: ALBUMIN 25% 100 mL 25 GM/100 ML VIAL IV SCH
[2022-04-26] MEDS: MAGNESIUM SULFATE / D5W 1 GM/100 ML BAG IV SCH ×4 (00:12→01:57)
[2022-04-26] MEDS ORDERED: D5W AND LACTATED RINGERS 1,000 ML IV SCH (00:15)
[2022-04-26] MEDS ORDERED: STAT IV Infusion **Titration per Protocol STA (00:33)
[2022-04-26] MEDS: NOREPINEPHRINE/D5W 4 MG/250 ML PLCT IV SCH ×3 (01:55→18:31)
[2022-04-26] MEDS: VASOPRESSIN 20 UNITS in 0.9 % SODIUM CHLORIDE 100 ML IV SCH ×3 (02:18→16:55)
[2022-04-26] MEDS: propofoL 1,000 MG/100 ML VIAL IV SCH ×3 (03:25→20:08)
[2022-04-26] MEDS ORDERED: PIPERACILLIN/TAZOBACTAM 3.375 GM in DEXTROSE 5% 100 ML IV SCH (04:00)
[2022-04-26 05:30] LABS: INR 1.4 (0.9-1.1); Prothrombin Time 15.1 Seconds (9.0-12.0)
[2022-04-26] MEDS ORDERED: LACTATED RINGER'S 1,000 ML IV SCH (05:30)
[2022-04-26 05:35] LABS: Basophils # (auto) 0.04 K/uL (0-0.2); Basophils % (auto) 0.2 %; Echinocytes 1+; Hematocrit (blood only) 24.4 % (34.1-44.9); Hemoglobin 7.3 g/dl (12.0-16.0); Immature Granulocytes # (auto) 0.82 K/uL (0.00-0.02); Immature Granulocytes % (auto) 4.5 %; Lymphocytes # (auto) 1.04 K/uL (1.2-3.4); Lymphocytes % (auto) 5.7 %; Mean Corpuscular Hgb Conc 29.9 g/dL (32.0-36.0); Mean Corpuscular Volume 76.7 fL (80.0-100.0); Mean Platelet Volume 9.1 fL (9.4-12.3); Monocytes # (auto) 0.81 K/uL (0.24-0.82); Monocytes % (auto) 4.5 %; Neutrophils # (auto) 15.48 K/uL (1.4-6.5); Neutrophils % (auto) 85.1 %; Ovalocytes 1+; Platelet Count 59 K/uL (130-400); RDW Coefficient of Variation 18.6 % (11.5-14.5); RDW Standard Deviation 52.9 fL (36.4-46.3); Red Blood Count 3.18 M/uL (3.93-5.22); White Blood Count 18.19 K/ul (4.8-10.8)
[2022-04-26 05:49] LABS: iSTAT Allen Test Pass; iSTAT Arterial Blood Gas HCO3 16 meg/L (19-24); iSTAT Arterial Blood Gas pCO2 30 mmHg (35-46); iSTAT Arterial Blood Gas pH 7.32 (7.35-7.45); iSTAT Arterial Blood Gas pO2 93 mmHg (80-95); iSTAT Carbon Dioxide 16 mmol/L (24-31); iSTAT FiO2 30 %; iSTAT Site R Radial
[2022-04-26 05:50] LABS: BUN Creatinine Ratio 26.8 (10-20); Calcium 6.7 mg/dl (8.5-10.1); Creatinine Clr Calc Pharmacy 21.1 ml/min; Est GFR (African American) 25.9 ml/min; Est GFR (Non-African American) 22.3 ml/min; Potassium 2.9 mmol/L (3.5-5.1)
[2022-04-26] MEDS ORDERED: POTASSIUM CHLORIDE 20 MEQ/15 ML UDC PO STA (06:35)
--- NOTE | 2022-04-26 07:12 | Fluoroscopy Report ---
FL retrograde includes kub CLINICAL HISTORY: LT SIDE CYSTO COMPARISON STUDY: CT of the abdomen and pelvis April 25, 2022. FLUOROSCOPY TIME: 12 seconds. FLUOROSCOPIC IMAGES: 1 FINDINGS: Fluoroscopy was provided during cystoscopy, left retrograde exam and left ureteral stent in sertion. Proximal aspect of the stent projects over the left collecting system. IMPRESSION: Fluoroscopy provided during cystoscopy, left retrograde exam and left ureteral stent ins ertion. ACT 112: Negative or not required by law. Electronically signed by: Zeke Barraza M.D. 04/26/2022 7:11 AM
--- NOTE | 2022-04-26 07:18 | XRay Report ---
SINGLE VIEW CHEST CLINICAL HISTORY: Tube repositioning. FINDINGS: An AP, portable, supine chest radiograph is compared to study dated 04/25/2022. An enteric tube has been advanced. The tip now projects below the diaphragm over the proximal stomach. An endotr acheal tube has been pulled back. The tip now projects approximately 2.3 cm above the pako. The hea rt is enlarged noting atherosclerotic calcification of the thoracic aorta. There is pulmonary vascula r congestion. There are low lung volumes and bibasilar atelectasis. No large pleural effusion or pneu mothorax is seen. The skeletal structures are osteopenic. The bony thorax is grossly intact. IMPRESSION: 1. Endotracheal tube and enteric tube repositioning as above. 2. Cardiomegaly with mild pulmonary vascular congestion. 3. Low lung volumes. ACT 112: Negative or not required by law. Electronically signed by: Martinez Hilario M.D. 04/26/2022 7:16 AM
--- NOTE | 2022-04-26 07:26 | XRay Report ---
SINGLE VIEW CHEST CLINICAL HISTORY: Respiratory failure. FINDINGS: An AP, portable, upright chest radiograph is compared to study performed earlier the same d ay 04/25/2022. An enteric tube has been placed. The tip projects at the level of the diaphragm. An en dotracheal tube has been placed. The tip projects at the pako. The heart is enlarged. There is prom inence of the pulmonary vasculature. Chronic interstitial thickening is similar to previous. There ar e low lung volumes and bibasilar scarring/atelectasis. No pneumothorax is seen. The skeletal structur es are osteopenic. The bony thorax is grossly intact. IMPRESSION: 1. Endotracheal and enteric tube placement as above. These have been repositioned on subsequent exami nations. 2. Cardiomegaly with prominence of the pulmonary vasculature. 3. No airspace consolidation or large pleural effusion is identified. ACT 112: Negative or not required by law. Electronically signed by: Martinez Hilario M.D. 04/26/2022 7:25 AM
[2022-04-26 07:36] LABS: Magnesium 2.1 mg/dl (1.7-2.4); Phosphorus 4.1 mg/dl (2.5-4.9)
--- NOTE | 2022-04-26 07:43 | Critical Care Progress Note ---
Date of Service April 26, 2022 Assessment & Plan (1) Elevated troponin I level: (2) Metabolic encephalopathy: (3) Severe sepsis with septic shock: (4) Severe sepsis with acute organ dysfunction: (5) Hypoglycemia: (6) Hydronephrosis with urinary obstruction due to ureteral calculus: (7) Thrombocytopenia: (8) Anemia: (9) BERTHA (acute kidney injury): (10) Rhabdomyolysis: (11) Nephrolithiasis: Plan Reason Critically Ill: 81 YOF admitted to the ICU post OR for severe sepsis with shock likely from infected kidney stone, with evidence of end organ dysfunction. Patient was brought to the EMD via EMS from home where she was found disheveled and covered in stool. She was resuscitated with 3L of crystalloid remained with re-curring hypoglycemia, as well as now requiring vasopressors. She was taken emergently to the OR for source control by urology. Neuro -Metabolic encephalopathy CAM ICU: Unable to be assessed - Metabolic encephalopathy with multiple etiologies at this time to include severe sepsis and hypoglycemia - Sedate overnight with Propfol and PRN Fentanyl - Head CT negative Cardiac - -- Septic shock - resuscitated with 3liters of crystalloid and 1 25% albumin in the EMD Continue with vasopressor support to keep MAP greater than 65 BNP > 4000 on presentation, underlying cardiac issue cannot be ruled out -- NSTEMI Likely secondary to type II [place] No changes appreciated on the EKG Continue to trend -- Prolonged QTC Avoid QT prolonging medication Respiratory - -- VDRF Likely secondary to septic shock and intermittent status Continue with ventilatory support Keep RASS -1 Daily sedation holidays and SBT's GI - Transaminitis - Likely secondary to septic shock- follow with resuscitation Continue to trend RENAL/LYTES - BERTHA, Infected kidney stone, Rhabdo, AGAP Acidosis -Metabolic acidosis - - AGAP likely related to elevated lactate, elevated BUN with moderate rahbdo - S/p stenting by Urology -Monitor BUNs/creatinine, avoid nephrotoxic medication - Electrolytes replete per protocol -See above ENDO - Persistent hypoglycemia -Could be from sepsis - Hypoglycemic protocol- D5LR at 125ml per hour HEME - Microcytic Anemia, Thrombocytopenia - Transfuse for HGB <7 -Possibility for DIC is high -Continue with antibiotics to treat sepsis ID - Severe sepsis/shock -Likely from UTI, UA showing gram-negative bacilli, continue with Zosyn - Lactate improving 7--> 4.0--> 2.6 - MRSA swab negative - Random Cortisol 45 --Prophylaxis VTE: IPC GI: Pepcid Lines: Left IJ, Benedict Diet: Start patient on tube feeds trickle Plan: In/out: +4 L, urine output 575 AB.32/30/93 on 30% FiO2 PEEP of 5 DC. Continue with Zosyn Continue with D5 LR given the persistent hypoglycemic episodes Repeat H&H as well as BMP at 2 PM. Hypokalemia being replaced. Follow-up 2D echo. I will try to get mixed venous from the central line as well to see if patient will benefit from inotrope support. Corrected calcium is still less than 8. We will give a dose of calcium gluconate 1 g Patient's Dez [phone] was called but no one answered I have personally spent 40 minutes of critical care time in the direct management of this patient. This is a life/limb threatening event. This includes time spent evaluating patient, direct bedside care, chart review, placing orders, interpretation of diagnostic studies, discussion with consultants, patient, and family members, as well as other required patient management activities. This time is exclusive of all separately billable procedures, and teaching time and separate from and in addition to any other critical care service time. Please note the above document was generated using voice recognition software. It may contain grammatical, syntax or spelling errors. Admission and Anticipated Discharge Date Admission Date: April 25, 2022 Subjective Patient seen and examined at bedside. No acute distress, no adverse events overnight On Levophed 0.12 as well as vasopressin 0.04 at the time of examination Propofol 20, fentanyl 25 Breathing over the vent. Review of Systems Review of Systems: Unobtainable due to endotracheal tube Physical Exam Physical Exam: Constitutional: No acute distress HEENT: EOMI, PERRLA Respiratory system: Decreased air entry but, no wheeze, rhonchi, positive crackles bilateral lower lobes CVS: S1-S2 positive, no murmurs or gallops Abdomen: Soft, nontender, nondistended, positive bowel sounds x4 Extremities: +2 pulses bilaterally radialis/ dorsalis pedis, no cyanosis, no edema Neuro: Sedated, breathing over the vent Psych: Unable to assess G/U: Positive Benedict Skin: no rashes, warm and dry Lymphatic: no cervical or axillary lymphadenopathy Results & Data Results & Data ([facility]) Vital Signs (Past 12 Hours) Vital Signs Temp Pulse Pulse Resp BP BP BP 04/26/22 06:00 37.6 C H 97 H 20 04/26/22 06:00 119/54 L 04/26/22 05:45 37.7 C H 90 20 04/26/22 05:45 68/42 L 04/26/22 05:34 106/52 L 04/26/22 05:34 37.6 C H 92 H 21 04/26/22 05:32 74/42 L 04/26/22 05:32 37.6 C H 85 20 04/26/22 05:30 37.6 C H 92 H 24 04/26/22 05:15 37.6 C H 94 H 19 04/26/22 05:15 133/73 04/26/22 05:14 37.6 C H 93 H 18 04/26/22 05:14 121/65 04/26/22 05:00 37.7 C H 90 04/26/22 04:45 84/51 L 04/26/22 04:45 37.7 C H 90 19 04/26/22 04:30 37.7 C H 91 H 20 04/26/22 04:30 88/53 L 04/26/22 04:15 85/51 L 04/26/22 04:15 37.7 C H 91 H 19 04/26/22 04:00 37.7 C H 90 21 04/26/22 04:00 81/53 L 04/26/22 03:45 85/54 L 04/26/22 03:45 37.6 C H 91 H 04/26/22 03:30 37.5 C 93 H 20 04/26/22 03:30 84/54 L 04/26/22 03:15 37.5 C 92 H 04/26/22 03:15 121/69 04/26/22 03:10 106 H 20 04/26/22 04:00 04/26/22 03:00 37.4 C 95 H 20 04/26/22 03:00 112/62 04/26/22 02:45 107/75 04/26/22 02:45 37.4 C 95 H 04/26/22 02:44 37.4 C 91 H 20 04/26/22 02:44 126/72 04/26/22 02:30 37.3 C 95 H 19 04/26/22 02:30 93/60 L 04/26/22 02:23 37.3 C 98 H 19 04/26/22 02:23 101/52 L 04/26/22 02:15 37.3 C 93 H 22 04/26/22 02:15 95/50 L 04/26/22 02:00 37.3 C 95 H 22 04/26/22 02:00 91/58 L 04/26/22 01:45 37.3 C 98 H 19 04/26/22 01:45 99/53 L 04/25/22 22:20 109 H 04/26/22 00:00 04/26/22 00:00 103 H 04/26/22 01:30 37.3 C 101 H 17 04/26/22 01:30 111/62 04/26/22 01:15 37.3 C 96 H 04/26/22 01:15 104/57 L 04/26/22 01:00 37.3 C 99 H 21 04/26/22 01:00 114/58 L 04/26/22 00:45 37.4 C 100 H 04/26/22 00:45 83/56 L 04/26/22 00:30 37.4 C 101 H 20 04/26/22 00:15 124/60 04/26/22 00:15 37.5 C 103 H 22 04/26/22 00:01 37.4 C 109 H 28 H 04/26/22 00:01 115/69 04/26/22 00:00 37.4 C 112 H 27 H 04/25/22 23:46 37.4 C 101 H 23 04/25/22 23:46 91/52 L 04/25/22 23:30 37.4 C 106 H 29 H 04/25/22 23:30 122/64 04/25/22 23:15 37.3 C 102 H 25 H 04/25/22 23:15 107/49 L 04/25/22 23:00 37.3 C 99 H 26 H 04/25/22 23:00 95/49 L 04/25/22 22:46 37.3 C 102 H 34 H 04/25/22 22:46 89/49 L 04/25/22 22:30 37.5 C 108 H 31 H 04/25/22 22:30 107/53 L 04/25/22 22:23 75/44 L 04/25/22 22:23 37.5 C 109 H 31 H 04/25/22 22:15 86/62 L 04/25/22 22:15 37.6 C H 111 H 28 H 04/25/22 22:30 04/25/22 22:00 139/71 04/25/22 21:58 138/76 04/25/22 21:00 04/25/22 21:00 95/54 L 04/25/22 20:59 04/25/22 20:59 89/53 L 04/25/22 20:56 86/43 L 04/25/22 20:56 04/25/22 20:48 115 H 26 H 04/25/22 20:48 75/37 L 04/25/22 20:46 114 H 24 04/25/22 20:46 68/35 L 04/25/22 20:45 112 H 24 04/25/22 20:45 73/36 L 04/25/22 20:30 119 H 26 H 04/25/22 20:30 93/45 L 04/25/22 20:15 123 H 27 H 04/25/22 20:15 86/50 L 04/25/22 20:00 126 H 25 H 04/25/22 20:00 103/56 L 04/25/22 19:50 129/65 04/25/22 19:50 126 H 27 H 04/25/22 19:49 130 H 35 H 04/25/22 19:46 134 H 27 H 04/25/22 19:46 77/47 L 04/25/22 19:45 126 H 28 H 04/25/22 22:37 102 H 29 H 04/25/22 22:07 04/25/22 21:55 37.5 C 108 H 27 H 138/76 04/25/22 22:06 37.5 C 100 H 24 139/71 04/25/22 21:55 37.5 C 106 H 22 138/76 04/25/22 20:30 115 H 24 93/45 L 04/25/22 19:50 130 H 28 H 129/65 Pulse Ox O2 Del Method FiO2 04/26/22 06:00 100 04/26/22 06:00 04/26/22 05:45 100 04/26/22 05:45 04/26/22 05:34 04/26/22 05:34 100 04/26/22 05:32 04/26/22 05:32 100 04/26/22 05:30 100 04/26/22 05:15 100 04/26/22 05:15 04/26/22 05:14 100 04/26/22 05:14 04/26/22 05:00 100 04/26/22 04:45 04/26/22 04:45 100 04/26/22 04:30 100 04/26/22 04:30 04/26/22 04:15 04/26/22 04:15 100 04/26/22 04:00 100 04/26/22 04:00 04/26/22 03:45 04/26/22 03:45 100 04/26/22 03:30 100 04/26/22 03:30 04/26/22 03:15 100 04/26/22 03:15 04/26/22 03:10 100 30 04/26/22 04:00 30 04/26/22 03:00 100 04/26/22 03:00 04/26/22 02:45 04/26/22 02:45 100 04/26/22 02:44 100 04/26/22 02:44 04/26/22 02:30 100 04/26/22 02:30 04/26/22 02:23 100 04/26/22 02:23 04/26/22 02:15 100 04/26/22 02:15 04/26/22 02:00 100 04/26/22 02:00 04/26/22 01:45 100 04/26/22 01:45 04/25/22 22:20 04/26/22 00:00 30 04/26/22 00:00 04/26/22 01:30 100 04/26/22 01:30 04/26/22 01:15 100 04/26/22 01:15 04/26/22 01:00 100 04/26/22 01:00 04/26/22 00:45 100 04/26/22 00:45 04/26/22 00:30 100 04/26/22 00:15 04/26/22 00:15 100 04/26/22 00:01 98 04/26/22 00:01 04/26/22 00:00 99 04/25/22 23:46 100 04/25/22 23:46 04/25/22 23:30 97 04/25/22 23:30 04/25/22 23:15 98 04/25/22 23:15 04/25/22 23:00 96 04/25/22 23:00 04/25/22 22:46 99 04/25/22 22:46 04/25/22 22:30 100 04/25/22 22:30 04/25/22 22:23 04/25/22 22:23 100 04/25/22 22:15 04/25/22 22:15 100 04/25/22 22:30 Mechanical Vent 04/25/22 22:00 04/25/22 21:58 04/25/22 21:00 96 04/25/22 21:00 04/25/22 20:59 97 04/25/22 20:59 04/25/22 20:56 04/25/22 20:56 96 04/25/22 20:48 97 04/25/22 20:48 04/25/22 20:46 95 04/25/22 20:46 04/25/22 20:45 96 04/25/22 20:45 04/25/22 20:30 93 04/25/22 20:30 04/25/22 20:15 95 04/25/22 20:15 04/25/22 20:00 93 04/25/22 20:00 04/25/22 19:50 04/25/22 19:50 95 04/25/22 19:49 90 04/25/22 19:46 91 04/25/22 19:46 04/25/22 19:45 87 L 04/25/22 22:37 100 30 04/25/22 22:07 30 04/25/22 21:55 100 Mechanical Vent 04/25/22 22:06 100 Mechanical Vent 04/25/22 21:55 100 Mechanical Vent 04/25/22 20:30 96 Room Air 04/25/22 19:50 94 Room Air Laboratory Results 04/26/22 04:50 04/26/22 04:50 Coding Level of Care Code Critical Care 1st 30-74 mins Diagnoses Elevated troponin I level R77.8 Metabolic encephalopathy G93.41 Severe sepsis with septic shock A41.9; R65.21 Severe sepsis with acute organ dysfunction A41.9; R65.20 Hypoglycemia E16.2 Hydronephrosis with urinary obstruction due to ureteral calculus N13.2 Thrombocytopenia D69.6 Anemia D64.9 BERTHA (acute kidney injury) N17.9 Rhabdomyolysis M62.82 Rhabdomyolysis type: non-traumatic Nephrolithiasis N20.0 Time Spent (min) 40 (1) Rhabdomyolysis Rhabdomyolysis type: non-traumatic Qualified Code(s): M62.82 - Rhabdomyolysis
--- NOTE | 2022-04-26 08:09 | Urology Progress Note ---
Date of Service April 26, 2022 Assessment & Plan (1) Nephrolithiasis: Plan: Status post emergent left ureteral stent placement because of suspected urosepsis Unfortunately I think she has a multitude of problems and the stone and obstruction are likely only 1 portion of this She has not had a drastic improvement overnight but remains in critical condition No further interventions planned until complete recovery Admission and Anticipated Discharge Date Admission Date: April 25, 2022 Subjective Remains intubated and in critical condition in ICU Remains on pressors Some urine output overnight Essentially stability of her lab work and vital signs with support Results & Data ([facility]) Vital Signs (Past 12 Hours) Vital Signs Temp Pulse Pulse Resp BP BP BP 04/26/22 07:50 93 H 22 04/26/22 06:00 37.6 C H 97 H 20 04/26/22 06:00 119/54 L 04/26/22 05:45 37.7 C H 90 20 04/26/22 05:45 68/42 L 04/26/22 05:34 106/52 L 04/26/22 05:34 37.6 C H 92 H 21 04/26/22 05:32 74/42 L 04/26/22 05:32 37.6 C H 85 20 04/26/22 05:30 37.6 C H 92 H 24 04/26/22 05:15 37.6 C H 94 H 19 04/26/22 05:15 133/73 04/26/22 05:14 37.6 C H 93 H 18 04/26/22 05:14 121/65 04/26/22 05:00 37.7 C H 90 19 04/26/22 04:45 84/51 L 04/26/22 04:45 37.7 C H 90 19 04/26/22 04:30 37.7 C H 91 H 20 04/26/22 04:30 88/53 L 04/26/22 04:15 85/51 L 04/26/22 04:15 37.7 C H 91 H 19 04/26/22 04:00 37.7 C H 90 21 04/26/22 04:00 81/53 L 04/26/22 03:45 85/54 L 04/26/22 03:45 37.6 C H 91 H 20 04/26/22 03:30 37.5 C 93 H 20 04/26/22 03:30 84/54 L 04/26/22 03:15 37.5 C 92 H 20 04/26/22 03:15 121/69 04/26/22 03:10 106 H 20 04/26/22 04:00 04/26/22 03:00 37.4 C 95 H 20 04/26/22 03:00 112/62 04/26/22 02:45 107/75 04/26/22 02:45 37.4 C 95 H 19 04/26/22 02:44 37.4 C 91 H 20 04/26/22 02:44 126/72 04/26/22 02:30 37.3 C 95 H 19 04/26/22 02:30 93/60 L 04/26/22 02:23 37.3 C 98 H 04/26/22 02:23 101/52 L 04/26/22 02:15 37.3 C 93 H 22 04/26/22 02:15 95/50 L 04/26/22 02:00 37.3 C 95 H 04/26/22 02:00 91/58 L 04/26/22 01:45 37.3 C 98 H 04/26/22 01:45 99/53 L 04/25/22 22:20 109 H 04/26/22 00:00 04/26/22 00:00 103 H 04/26/22 01:30 37.3 C 101 H 04/26/22 01:30 111/62 04/26/22 01:15 37.3 C 96 H 04/26/22 01:15 104/57 L 04/26/22 01:00 37.3 C 99 H 04/26/22 01:00 114/58 L 04/26/22 00:45 37.4 C 100 H 21 04/26/22 00:45 83/56 L 04/26/22 00:30 37.4 C 101 H 20 04/26/22 00:15 124/60 04/26/22 00:15 37.5 C 103 H 22 04/26/22 00:01 37.4 C 109 H 28 H 04/26/22 00:01 115/69 04/26/22 00:00 37.4 C 112 H 27 H 04/25/22 23:46 37.4 C 101 H 23 04/25/22 23:46 91/52 L 04/25/22 23:30 37.4 C 106 H 29 H 04/25/22 23:30 122/64 04/25/22 23:15 37.3 C 102 H 25 H 04/25/22 23:15 107/49 L 04/25/22 23:00 37.3 C 99 H 26 H 04/25/22 23:00 95/49 L 04/25/22 22:46 37.3 C 102 H 34 H 04/25/22 22:46 89/49 L 04/25/22 22:30 37.5 C 108 H 31 H 04/25/22 22:30 107/53 L 04/25/22 22:23 75/44 L 04/25/22 22:23 37.5 C 109 H 31 H 04/25/22 22:15 86/62 L 04/25/22 22:15 37.6 C H 111 H 28 H 04/25/22 22:30 04/25/22 22:00 139/71 04/25/22 21:58 138/76 04/25/22 21:00 04/25/22 21:00 95/54 L 04/25/22 20:59 04/25/22 20:59 89/53 L 04/25/22 20:56 86/43 L 04/25/22 20:56 04/25/22 20:48 115 H 26 H 04/25/22 20:48 75/37 L 04/25/22 20:46 114 H 24 04/25/22 20:46 68/35 L 04/25/22 20:45 112 H 24 04/25/22 20:45 73/36 L 04/25/22 20:30 119 H 26 H 04/25/22 20:30 93/45 L 04/25/22 20:15 123 H 27 H 04/25/22 20:15 86/50 L 04/25/22 22:37 102 H 29 H 04/25/22 22:07 04/25/22 21:55 37.5 C 108 H 27 H 138/76 04/25/22 22:06 37.5 C 100 H 24 139/71 04/25/22 21:55 37.5 C 106 H 22 138/76 04/25/22 20:30 115 H 24 93/45 L Pulse Ox O2 Del Method FiO2 04/26/22 07:50 100 30 04/26/22 06:00 100 04/26/22 06:00 04/26/22 05:45 100 04/26/22 05:45 04/26/22 05:34 04/26/22 05:34 100 04/26/22 05:32 04/26/22 05:32 100 04/26/22 05:30 100 04/26/22 05:15 100 04/26/22 05:15 04/26/22 05:14 100 04/26/22 05:14 04/26/22 05:00 100 04/26/22 04:45 04/26/22 04:45 100 04/26/22 04:30 100 04/26/22 04:30 04/26/22 04:15 04/26/22 04:15 100 04/26/22 04:00 100 04/26/22 04:00 04/26/22 03:45 04/26/22 03:45 100 04/26/22 03:30 100 04/26/22 03:30 04/26/22 03:15 100 04/26/22 03:15 04/26/22 03:10 100 30 04/26/22 04:00 30 04/26/22 03:00 100 04/26/22 03:00 04/26/22 02:45 04/26/22 02:45 100 04/26/22 02:44 100 04/26/22 02:44 04/26/22 02:30 100 04/26/22 02:30 04/26/22 02:23 100 04/26/22 02:23 04/26/22 02:15 100 04/26/22 02:15 04/26/22 02:00 100 04/26/22 02:00 04/26/22 01:45 100 04/26/22 01:45 04/25/22 22:20 04/26/22 00:00 30 04/26/22 00:00 04/26/22 01:30 100 04/26/22 01:30 04/26/22 01:15 100 04/26/22 01:15 04/26/22 01:00 100 04/26/22 01:00 04/26/22 00:45 100 04/26/22 00:45 04/26/22 00:30 100 04/26/22 00:15 04/26/22 00:15 100 04/26/22 00:01 98 04/26/22 00:01 04/26/22 00:00 99 04/25/22 23:46 100 04/25/22 23:46 04/25/22 23:30 97 04/25/22 23:30 04/25/22 23:15 98 04/25/22 23:15 04/25/22 23:00 96 04/25/22 23:00 04/25/22 22:46 99 04/25/22 22:46 04/25/22 22:30 100 04/25/22 22:30 04/25/22 22:23 04/25/22 22:23 100 04/25/22 22:15 04/25/22 22:15 100 04/25/22 22:30 Mechanical Vent 04/25/22 22:00 04/25/22 21:58 04/25/22 21:00 96 04/25/22 21:00 04/25/22 20:59 97 04/25/22 20:59 04/25/22 20:56 04/25/22 20:56 96 04/25/22 20:48 97 04/25/22 20:48 04/25/22 20:46 95 04/25/22 20:46 04/25/22 20:45 96 04/25/22 20:45 04/25/22 20:30 93 04/25/22 20:30 04/25/22 20:15 95 04/25/22 20:15 04/25/22 22:37 100 30 04/25/22 22:07 30 04/25/22 21:55 100 Mechanical Vent 04/25/22 22:06 100 Mechanical Vent 04/25/22 21:55 100 Mechanical Vent 04/25/22 20:30 96 Room Air PG Care Time/CCT Total # of Minutes Spent Total Time Spent with Patient: Total time spent is greater than 50% in coordination of care (as documented) at patient's floor/unit and/or counseling patient: Coding Level of Care Code 83882 Subseq Hosp Care Lvl 2 Diagnoses Nephrolithiasis N20.0
[2022-04-26] MEDS: POTASSIUM CHLORIDE / WTR 10 MEQ/100 ML PLCT IV SCH ×3 (08:18→09:59)
[2022-04-26] MEDS: THIAMINE HCL 100 MG in SYRINGE 9 ML IV SCH (08:27)
--- NOTE | 2022-04-26 08:48 | XRay Report ---
SINGLE VIEW CHEST CLINICAL HISTORY: Respiratory failure. FINDINGS: An AP, portable, upright chest radiograph is compared to study performed earlier the same d ay 04/26/2022. The examination is degraded by portable technique and patient rotation. Endotracheal and enteric tubes are unchanged in position. The heart is enlarged. Pulmonary vascular congestion has modestly improved. Chronic interstitial thickening is similar to previous. There is developing airsp amparo consolidation at the left lung base. Small pleural effusions are noted. No pneumothorax is seen. The skeletal structures are osteopenic. The bony thorax is grossly intact. IMPRESSION: 1. Stable lines and tubes. 2. Cardiomegaly. Pulmonary vascular congestion has modestly improved. 3. There is developing airspace consolidation at the left lung base. This could represent atelectasis versus pneumonia/aspiration pneumonitis. Clinical correlation required and radiographic follow-up is recommended 4. Small pleural effusion. ACT 112: Negative or not required by law. Electronically signed by: Martinez Hilario M.D. 04/26/2022 8:46 AM
[2022-04-26] MEDS ORDERED: Flu Vaccine-High Dose (Fluzone-HD) PF 65+ 0.7mL SYR IM ONE (09:00)
--- NOTE | 2022-04-26 09:37 | Anesthesiology Progress Note ---
Date of Service April 26, 2022 Anesthesia Post Procedure Vital Signs Vital Signs: Temp Pulse Pulse Resp BP BP BP 04/26/22 08:00 93 H 04/26/22 08:50 04/26/22 08:00 04/26/22 07:50 93 H 22 04/26/22 06:00 37.6 C H 97 H 20 04/26/22 06:00 119/54 L 04/26/22 05:45 37.7 C H 90 20 04/26/22 05:45 68/42 L 04/26/22 05:34 106/52 L 04/26/22 05:34 37.6 C H 92 H 21 04/26/22 05:32 74/42 L 04/26/22 05:32 37.6 C H 85 20 04/26/22 05:30 37.6 C H 92 H 24 04/26/22 05:15 37.6 C H 94 H 19 04/26/22 05:15 133/73 04/26/22 05:14 37.6 C H 93 H 18 04/26/22 05:14 121/65 04/26/22 05:00 37.7 C H 90 19 04/26/22 04:45 84/51 L 04/26/22 04:45 37.7 C H 90 19 04/26/22 04:30 37.7 C H 91 H 20 04/26/22 04:30 88/53 L 04/26/22 04:15 85/51 L 04/26/22 04:15 37.7 C H 91 H 19 04/26/22 04:00 37.7 C H 90 21 04/26/22 04:00 81/53 L 04/26/22 03:45 85/54 L 04/26/22 03:45 37.6 C H 91 H 20 04/26/22 03:30 37.5 C 93 H 20 04/26/22 03:30 84/54 L 04/26/22 03:15 37.5 C 92 H 20 04/26/22 03:15 121/69 04/26/22 03:10 106 H 20 04/26/22 04:00 04/26/22 03:00 37.4 C 95 H 20 04/26/22 03:00 112/62 04/26/22 02:45 107/75 04/26/22 02:45 37.4 C 95 H 19 04/26/22 02:44 37.4 C 91 H 20 04/26/22 02:44 126/72 04/26/22 02:30 37.3 C 95 H 19 04/26/22 02:30 93/60 L 04/26/22 02:23 37.3 C 98 H 19 04/26/22 02:23 101/52 L 04/26/22 02:15 37.3 C 93 H 22 04/26/22 02:15 95/50 L 04/26/22 02:00 37.3 C 95 H 22 04/26/22 02:00 91/58 L 04/26/22 01:45 37.3 C 98 H 19 04/26/22 01:45 99/53 L 04/25/22 22:20 109 H 04/26/22 00:00 04/26/22 00:00 103 H 04/26/22 01:30 37.3 C 101 H 17 04/26/22 01:30 111/62 04/26/22 01:15 37.3 C 96 H 04/26/22 01:15 104/57 L 04/26/22 01:00 37.3 C 99 H 21 04/26/22 01:00 114/58 L 04/26/22 00:45 37.4 C 100 H 21 04/26/22 00:45 83/56 L 04/26/22 00:30 37.4 C 101 H 20 04/26/22 00:15 124/60 04/26/22 00:15 37.5 C 103 H 22 04/26/22 00:01 37.4 C 109 H 28 H 04/26/22 00:01 115/69 04/26/22 00:00 37.4 C 112 H 27 H 04/25/22 23:46 37.4 C 101 H 23 04/25/22 23:46 91/52 L 04/25/22 23:30 37.4 C 106 H 29 H 04/25/22 23:30 122/64 04/25/22 23:15 37.3 C 102 H 25 H 04/25/22 23:15 107/49 L 04/25/22 23:00 37.3 C 99 H 26 H 04/25/22 23:00 95/49 L 04/25/22 22:46 37.3 C 102 H 34 H 04/25/22 22:46 89/49 L 04/25/22 22:30 37.5 C 108 H 31 H 04/25/22 22:30 107/53 L 04/25/22 22:23 75/44 L 04/25/22 22:23 37.5 C 109 H 31 H 04/25/22 22:15 86/62 L 04/25/22 22:15 37.6 C H 111 H 28 H 04/25/22 22:30 04/25/22 22:00 139/71 04/25/22 21:58 138/76 04/25/22 21:00 04/25/22 21:00 95/54 L 04/25/22 20:59 04/25/22 20:59 89/53 L 04/25/22 20:56 86/43 L 04/25/22 20:56 04/25/22 20:48 115 H 26 H 04/25/22 20:48 75/37 L 04/25/22 20:46 114 H 24 04/25/22 20:46 68/35 L 04/25/22 20:45 112 H 24 04/25/22 20:45 73/36 L 04/25/22 20:30 119 H 26 H 04/25/22 20:30 93/45 L 04/25/22 20:15 123 H 27 H 04/25/22 20:15 86/50 L 04/25/22 20:00 126 H 25 H 04/25/22 20:00 103/56 L 04/25/22 19:50 129/65 04/25/22 19:50 126 H 27 H 04/25/22 19:49 130 H 35 H 04/25/22 19:46 134 H 27 H 04/25/22 19:46 77/47 L 04/25/22 19:45 126 H 28 H 04/25/22 19:31 121 H 22 04/25/22 19:31 84/50 L 04/25/22 19:30 122 H 26 H 04/25/22 19:28 81/58 L 04/25/22 19:28 124 H 30 H 04/25/22 19:19 122 H 31 H 04/25/22 19:19 93/49 L 04/25/22 19:15 121 H 26 H 04/25/22 19:01 85/39 L 04/25/22 19:01 117 H 25 H 04/25/22 19:00 114 H 24 04/25/22 19:00 83/46 L 04/25/22 18:59 117 H 25 H 04/25/22 18:59 97/50 L 04/25/22 18:45 119 H 22 04/25/22 18:30 126 H 21 04/25/22 18:15 122 H 26 H 04/25/22 18:00 123 H 25 H 04/25/22 22:37 102 H 29 H 04/25/22 22:07 04/25/22 21:55 37.5 C 108 H 27 H 138/76 04/25/22 22:06 37.5 C 100 H 24 139/71 04/25/22 21:55 37.5 C 106 H 22 138/76 04/25/22 20:30 115 H 24 93/45 L 04/25/22 19:50 130 H 28 H 129/65 04/25/22 18:31 122 H 22 107/45 L 04/25/22 18:06 120 H 18 101/57 L 04/25/22 17:55 36.5 C 120 H 28 H 85/46 L 04/25/22 17:28 Pulse Ox O2 Del Method FiO2 04/26/22 08:00 04/26/22 08:50 Mechanical Vent 04/26/22 08:00 30 04/26/22 07:50 100 30 04/26/22 06:00 100 04/26/22 06:00 04/26/22 05:45 100 04/26/22 05:45 04/26/22 05:34 04/26/22 05:34 100 04/26/22 05:32 04/26/22 05:32 100 04/26/22 05:30 100 04/26/22 05:15 100 04/26/22 05:15 04/26/22 05:14 100 04/26/22 05:14 04/26/22 05:00 100 04/26/22 04:45 04/26/22 04:45 100 04/26/22 04:30 100 04/26/22 04:30 04/26/22 04:15 04/26/22 04:15 100 04/26/22 04:00 100 04/26/22 04:00 04/26/22 03:45 04/26/22 03:45 100 04/26/22 03:30 100 04/26/22 03:30 04/26/22 03:15 100 04/26/22 03:15 04/26/22 03:10 100 30 04/26/22 04:00 30 04/26/22 03:00 100 04/26/22 03:00 04/26/22 02:45 04/26/22 02:45 100 04/26/22 02:44 100 04/26/22 02:44 04/26/22 02:30 100 04/26/22 02:30 04/26/22 02:23 100 04/26/22 02:23 04/26/22 02:15 100 04/26/22 02:15 04/26/22 02:00 100 04/26/22 02:00 04/26/22 01:45 100 04/26/22 01:45 04/25/22 22:20 04/26/22 00:00 30 04/26/22 00:00 04/26/22 01:30 100 04/26/22 01:30 04/26/22 01:15 100 04/26/22 01:15 04/26/22 01:00 100 04/26/22 01:00 04/26/22 00:45 100 04/26/22 00:45 04/26/22 00:30 100 04/26/22 00:15 04/26/22 00:15 100 04/26/22 00:01 98 04/26/22 00:01 04/26/22 00:00 99 04/25/22 23:46 100 04/25/22 23:46 04/25/22 23:30 97 04/25/22 23:30 04/25/22 23:15 98 04/25/22 23:15 04/25/22 23:00 96 04/25/22 23:00 04/25/22 22:46 99 04/25/22 22:46 04/25/22 22:30 100 04/25/22 22:30 04/25/22 22:23 04/25/22 22:23 100 04/25/22 22:15 04/25/22 22:15 100 04/25/22 22:30 Mechanical Vent 04/25/22 22:00 04/25/22 21:58 04/25/22 21:00 96 04/25/22 21:00 04/25/22 20:59 97 04/25/22 20:59 04/25/22 20:56 04/25/22 20:56 96 04/25/22 20:48 97 04/25/22 20:48 04/25/22 20:46 95 04/25/22 20:46 04/25/22 20:45 96 04/25/22 20:45 04/25/22 20:30 93 04/25/22 20:30 04/25/22 20:15 95 04/25/22 20:15 04/25/22 20:00 93 04/25/22 20:00 04/25/22 19:50 04/25/22 19:50 95 04/25/22 19:49 90 04/25/22 19:46 91 04/25/22 19:46 04/25/22 19:45 87 L 04/25/22 19:31 93 04/25/22 19:31 04/25/22 19:30 95 04/25/22 19:28 04/25/22 19:28 93 04/25/22 19:19 90 04/25/22 19:19 04/25/22 19:15 94 04/25/22 19:01 04/25/22 19:01 94 04/25/22 19:00 95 04/25/22 19:00 04/25/22 18:59 96 04/25/22 18:59 04/25/22 18:45 95 04/25/22 18:30 94 04/25/22 18:15 93 04/25/22 18:00 96 04/25/22 22:37 100 30 04/25/22 22:07 30 04/25/22 21:55 100 Mechanical Vent 04/25/22 22:06 100 Mechanical Vent 04/25/22 21:55 100 Mechanical Vent 04/25/22 20:30 96 Room Air 04/25/22 19:50 94 Room Air 04/25/22 18:31 95 Room Air 04/25/22 18:06 96 Room Air 04/25/22 17:55 95 Room Air 04/25/22 17:28 95 Room Air Transfer of Care Handoff Completed per policy Notes Mental Status: see notes below (Pt on vent) Patient Amnestic to Procedure: Yes Nausea / Vomiting: adequately controlled Pain: adequately controlled Airway Patency, RR, SpO2: stable & adequate BP & HR: stable & adequate Hydration State: stable & adequate Anesthetic Complications: no major complications apparent
--- NOTE | 2022-04-26 09:41 | Procedure Note ---
Procedure Note Date of Service April 26, 2022 Note Procedure: Inserting ultrasound-guided central line painting machine operator: Dr. Den Jarrell Indication: Hypotension Consent: Emergent consent was applied Anesthesia: 1% lidocaine without epinephrine local. Procedure: Consent was verified and timeout performed. Appropriate imaging studies were reviewed prior to the procedure. Under aseptic and sterile condition, left IJ vein was accessed under direct ultrasound guidance. Guidewire was confirmed to be within the lumen of vein with the help of ultrasound. Catheter was introduced via Seldinger technique. Guide a wire was removed. Good non-pulsatile blood flow was appreciated from all the ports. The catheter was placed at 24 cm and sutured in place. BioPatch was applied to the catheter and a sterile Tegaderm dressing was applied over the catheter with careful attention to sterility. Lung sliding was appreciated post procedure with the help ultrasound. Chest x-ray to follow Patient tolerated the procedure well. Blood loss: Less than 2 cc Complications: None Coding CPT Codes Tubes, Drains, and Vasc Access - Tubes, Drains, and Vasc Access: [id number] Place catheter in vein superior or inferior vena cava ([id number]) Tubes, Drains, and Vasc Access - Tubes, Drains, and Vasc Access: [id number] Ultrasound Guidance For Vascular ([id number]) [facility] [place] Procedure Codes (Charges) Tubes, Drains, and Vasc Access Procedure 1: Tubes, Drains, and Vasc Access: [id number] Place catheter in vein superior or inferior vena cava Procedure 2: Tubes, Drains, and Vasc Access: [id number] Ultrasound Guidance For Vascular
[2022-04-26 10:19] LABS: iSTAT Art Bld Gas pCO2 Correct 36 mmHg (35-46); iSTAT Art Bld Gas pH Corrected 7.279 (7.35-7.45); iSTAT Arterial Blood Gas HCO3 17 meg/L (19-24); iSTAT Arterial Blood Gas pCO2 35 mmHg (35-46); iSTAT Arterial Blood Gas pH 7.29 (7.35-7.45); iSTAT Arterial Blood Gas pO2 39 mmHg (80-95); iSTAT Arterial Blood Gas pO2 C 40; iSTAT Carbon Dioxide 18 mmol/L (24-31); iSTAT FiO2 30 %; iSTAT Hematocrit 23 % (37-47); iSTAT Hemoglobin 7.8 g/dl (12.0-16.0); iSTAT Potassium 3.9 mmol/L (3.3-5.0); iSTAT Site Heel Stick; iSTAT Sodium 134 mmol/L (135-144)
--- NOTE | 2022-04-26 10:22 | XRay Report ---
SINGLE VIEW CHEST CLINICAL HISTORY: Central venous catheter placement. FINDINGS: An AP, portable, upright chest radiograph is compared to study performed earlier the same d ay 04/26/2022. The examination is degraded by portable technique and patient rotation. A left engineering intern al jugular central venous catheter has been placed. The tip projects over the transplant. Endotrachea l and enteric tubes are unchanged in position. The heart is enlarged. Pulmonary vascular congestion p ersists. Chronic interstitial thickening is similar to previous. Airspace consolidation begins at the left lung base. Small pleural effusions are noted. No pneumothorax is seen. The skeletal structures are osteopenic. The bony thorax is grossly intact. A catheter is partially visualized in left upper q uadrant of the abdomen. IMPRESSION: 1. A left internal jugular central venous catheter has been placed. The tip projects over the right a trium. No pneumothorax is seen post procedure. 2. The remaining lines and tubes are unchanged. 3. Cardiomegaly. Pulmonary vascular congestion persists. 4. Airspace consolidation is again seen at the left lung base and there are small pleural effusion. ACT 112: Negative or not required by law. Electronically signed by: Martinez Hilario M.D. 04/26/2022 10:20 AM
[2022-04-26] MEDS: FAMOTIDINE 20 MG in SYRINGE 3 ML IV SCH (10:40)
[2022-04-26] MEDS ORDERED: PEPTAMEN INTENSE VHP 1.0 CAL 1,000 ML BAG OG SCH (11:00)
[2022-04-26] MEDS ORDERED: CALCIUM GLUCONATE 10% 1,000 MG in DEXTROSE 5% 50 ML IV ONE (11:00)
[2022-04-26] MEDS: PIPERACILLIN/TAZOBACTAM 4.5 GM in DEXTROSE 5% 100 ML IV SCH ×2 (11:56→20:10)
[2022-04-26] MEDS: TUBE FEEDING WATER FLUSH OG SCH ×4 (12:01→22:48)
--- NOTE | 2022-04-26 12:46 | Electrocardiogram Report ---
Test Reason : Blood Pressure : / mmHG Vent. Rate : 120 BPM Atrial Rate : 120 BPM P-R Int : 142 ms QRS Dur : 076 ms QT Int : 284 ms P-R-T Axes : 069 -08 148 degrees QTc Int : 401 ms Poor data quality, interpretation may be adversely affected Sinus tachycardia T wave abnormality, consider lateral ischemia Abnormal ECG When compared with ECG of 04-NOV-2012 13:32, Vent. rate has increased BY 48 BPM Questionable change in QRS axis Nonspecific T wave abnormality now evident in Inferior leads T wave inversion now evident in Lateral leads Confirmed by Ganesh Mendenhall ([id number]) on 04/26/2022 12:46:12 PM Referred By: REFERRED SELF Confirmed By:Ganesh Mendenhall
--- NOTE | 2022-04-26 12:57 | Electrocardiogram Report ---
Test Reason : Blood Pressure : / mmHG Vent. Rate : 092 BPM Atrial Rate : 092 BPM P-R Int : 142 ms QRS Dur : 090 ms QT Int : 414 ms P-R-T Axes : 081 -17 143 degrees QTc Int : 511 ms Normal sinus rhythm T wave abnormality, consider lateral ischemia Prolonged QT Abnormal ECG When compared with ECG of 25-APR-2022 17:49, (unconfirmed) Non-specific change in ST segment in Inferior leads Nonspecific T wave abnormality, improved in Anterior leads Confirmed by Ganesh Mendenhall ([id number]) on 04/26/2022 12:57:26 PM Referred By: REFERRED SELF Confirmed By:Ganesh Mendenhall
[2022-04-26 14:45] LABS: A calco-baum cmplx NotReported Not Detected (NotDetected); Bact fragilis Not Reported Not Detected (NotDetected); C auris Not Reported Not Detected (NotDetected); CTX-M Resistant Gene Not Detected (NotDetected); Calbicans Not Reported Not Detected (NotDetected); Candida glabrata Not Reported Not Detected (NotDetected); Candida krusei Not Reported Not Detected (NotDetected); Cneoformans/gatti Not Reported Not Detected (NotDetected); Cparapsilosis Not Reported Not Detected (NotDetected); Ctropicalis Not Reported Not Detected (NotDetected); E cloacae compx Not Reported Not Detected (NotDetected); Efaecalis Not Reported Not Detected (NotDetected); Efaecium Not Reported Not Detected (NotDetected); Enterobacterales DETECTED (NotDetected); Enterobacterales Not Reported DETECTED (NotDetected); Escherichia coli Not Reported DETECTED (NotDetected); H influenzae Not Reported Not Detected (NotDetected); IMP Resistant Gene Not Detected (NotDetected); K aerogenes Not Reported Not Detected (NotDetected); KPC Resistant Gene Not Detected (NotDetected); Koxytoca Not Reported Not Detected (NotDetected); Kpneumoniae grp Not Reported Not Detected (NotDetected); Lmonocyt Not Reported Not Detected (NotDetected); N meningitidis Not Reported Not Detected (NotDetected); NDM Resistant Gene Not Detected (NotDetected); OXA 48 Like Resistant Gene Not Detected (NotDetected); P aeruginosa Not Reported Not Detected (NotDetected); Proteus spp Not Reported Not Detected (NotDetected); Salmonella spp Not Reported Not Detected (NotDetected); Smarcescens Not Reported Not Detected (NotDetected); Staph lugdunensis Not Reported Not Detected (NotDetected); Staph spp. Not Reported Not Detected (NotDetected); Staphaureus Not Reported Not Detected (NotDetected); Staphepi Not Reported Not Detected (NotDetected); Stenmaltophilia Not Reported Not Detected (NotDetected); Strep agal(GrpB) Not Reported Not Detected (NotDetected); Strep pneum Not Reported Not Detected (NotDetected); Strep pyog (GrpA) Not Reported Not Detected (NotDetected); Strep spp Not Reported Not Detected (NotDetected); VIM Resistant Gene Not Detected (NotDetected); mcr-1 Colistin Resistant Gene Not Detected (NotDetected)
[2022-04-26 14:46] LABS: Hematocrit (blood only) 23.9 % (34.1-44.9); Hemoglobin 7.3 g/dl (12.0-16.0)
[2022-04-26 15:05] LABS: BUN Creatinine Ratio 34.3 (10-20); Calcium 6.8 mg/dl (8.5-10.1); Creatinine Clr Calc Pharmacy 25.6 ml/min; Est GFR (African American) 32.7 ml/min; Est GFR (Non-African American) 28.2 ml/min; Potassium 3.6 mmol/L (3.5-5.1)
[2022-04-26] MEDS ORDERED: CALCIUM CHLORIDE 10% 1,000 MG in DEXTROSE 5% 50 ML IV STA (15:39)
[2022-04-26] MEDS: POTASSIUM CHLORIDE / WTR 20 MEQ/100 ML PLCT IV SCH ×2 (15:57→17:37)
--- NOTE | 2022-04-26 16:21 | Hospitalist Progress Note ---
Date of Service April 26, 2022 Assessment & Plan (1) Encephalopathy: Plan: Metabolic Encephalopathy CT head was negative Currently sedated with Propofol and fentanyl drip Will reassess her neuro status once off sedation and extubated Continue monitor closely Septic shock resuscitated with 3liters of crystalloid and 1x 25% albumin in the ED Currently on Levophed and Vasopressin to keep MAP greater than 65 Lactate on admission 7. then improves to 2.5 today Blood cx and urine cx grew gram negative bacilli received ceftriaxone and dapto on admission Continue IV abx with Zosyn Respiratory failure Sedated and intubated on mechanical ventilation Vent management as per ICU Infected Kidney stone Status post emergent Cystoscopy, left ureteral stent placement because of suspected urosepsis performed by Dr. Adams Continue IV Zosyn Continue monitor closely Elevated troponin Mostly due to septic shock/BERTHA Troponin on admission 696 then peaked to 2559.1 EKG showed no acute ischemic changes ECHO showed LV is mildly dilated. 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% Elevated Anion Gap Anion gap on admission 14 Anion gap closed Rhabdo CPK 2406 then increased to 3801 Continue monitor CPK Prolonged QTC QT 511 Continue to avoid QT prolonging medication Continue monitor BERTHA Mostly due to Septic shock Creatinine on admission 2.45 Resuscitated with 3liters of crystalloid Creatinine 1.6 today Continue monitor BMP Transaminitis Likely secondary to septic shock- follow with resuscitation Continue monitor LFT CODE status Conditional code Mr. Dez aWgner [id number]. Admission and Anticipated Discharge Date Admission Date: April 25, 2022 Subjective Pt was seen and examined for follow up Sedated and intubated on mechanical ventilation Currently on 2 pressors and propofol/fentanyl Review of Systems Review of Systems: All systems reviewed & are unremarkable except as noted in Subjective Physical Exam Physical Exam: General- sedated on mechanical ventilation Head- atraumatic Eyes- PERRL, EOMI, ENT- oropharynx clear Neck- supple, no JVD [facility]ungs[facility] Heart- regular rhythm; no murmur Abdomen- normal bowel sounds, soft, nontender Neuro- sedated , able to move feet with babinsky Skin- warm & dry Results & Data Results & Data ([facility]) Vital Signs (Past 12 Hours) Vital Signs Temp Pulse Resp BP Pulse Ox O2 Del Method FiO2 04/26/22 16:00 30 04/26/22 12:30 37.4 C 83 16 100 04/26/22 12:00 37.4 C 86 16 100 04/26/22 12:00 117/58 L 04/26/22 11:30 37.4 C 87 17 100 04/26/22 11:00 37.4 C 81 19 100 04/26/22 11:00 104/55 L 04/26/22 10:30 37.4 C 85 16 100 04/26/22 12:00 30 04/26/22 11:44 87 18 100 30 04/26/22 10:00 37.5 C 78 18 100 04/26/22 10:00 103/55 L 04/26/22 09:39 103/62 04/26/22 09:39 37.4 C 84 18 100 04/26/22 09:30 37.5 C 83 17 100 04/26/22 09:00 37.5 C 90 18 100 04/26/22 09:00 83/59 L 04/26/22 08:57 82/50 L 04/26/22 08:57 37.5 C 91 H 18 100 04/26/22 08:30 37.5 C 93 H 19 100 04/26/22 08:00 37.5 C 92 H 19 100 04/26/22 08:00 95/64 L 04/26/22 07:45 95/55 L 04/26/22 07:45 37.5 C 92 H 18 100 04/26/22 07:39 37.6 C H 93 H 19 100 04/26/22 07:39 92/55 L 04/26/22 07:30 37.6 C H 93 H 20 100 04/26/22 07:30 88/53 L 04/26/22 07:15 88/52 L 04/26/22 07:15 37.6 C H 92 H 21 100 04/26/22 07:00 37.6 C H 90 19 100 04/26/22 07:00 81/52 L 04/26/22 06:45 87/48 L 04/26/22 06:45 37.7 C H 92 H 19 100 04/26/22 06:30 37.7 C H 95 H 20 100 04/26/22 06:30 90/57 L 04/26/22 06:15 86/61 L 11/16/22 06:15 37.6 C H 95 H 21 100 04/26/22 08:00 93 H 04/26/22 08:50 Mechanical Vent 04/26/22 08:00 30 04/26/22 07:50 93 H 22 100 30 04/26/22 06:00 37.6 C H 97 H 20 04/26/22 06:00 119/54 L 04/26/22 05:45 37.7 C H 90 20 04/26/22 05:45 68/42 L 04/26/22 05:34 106/52 L 04/26/22 05:34 37.6 C H 92 H 21 04/26/22 05:32 74/42 L 04/26/22 05:32 37.6 C H 85 20 04/26/22 05:30 37.6 C H 92 H 24 04/26/22 05:15 37.6 C H 94 H 19 04/26/22 05:15 133/73 04/26/22 05:14 37.6 C H 93 H 18 04/26/22 05:14 121/65 04/26/22 05:00 37.7 C H 90 19 04/26/22 04:45 84/51 L 04/26/22 04:45 37.7 C H 90 19 04/26/22 04:30 37.7 C H 91 H 20 04/26/22 04:30 88/53 L
[2022-04-26] MEDS ORDERED: DEXTROSE 50% 50 ML SYRINGE IV PRN (23:36)
[2022-04-26] MEDS ORDERED: GLUCOSE 10 TAB/TUBE PO PRN (23:36)
[2022-04-26] MEDS ORDERED: GLUCOSE 40% GEL 15 GM TUBE PO PRN (23:36)
[2022-04-26] MEDS ORDERED: GLUCAGON FOR INJ 1 MG VIAL SQ PRN (23:36)
[2022-04-26] MEDS ORDERED: CARBOHYDRATES FOR HYPOGLYCEMIA PO PRN (23:36)
[2022-04-26] MEDS ORDERED: DEXTROSE 50% 50 ML SYRINGE IV ONE (23:39)
[2022-04-27] MEDS: VASOPRESSIN 20 UNITS in 0.9 % SODIUM CHLORIDE 100 ML IV SCH (01:44)
[2022-04-27 03:37] LABS: Prothrombin Time 10.5 Seconds (9.0-12.0)
[2022-04-27 03:43] LABS: Basophils # (auto) 0.08 K/uL (0-0.2); Basophils % (auto) 0.3 %; Dohle Bodies 1+; Echinocytes 2+; Eosinophils # (auto) 0.02 K/uL (0-0.50); Eosinophils % (auto) 0.1 %; Hematocrit (blood only) 23.8 % (34.1-44.9); Hemoglobin 7.3 g/dl (12.0-16.0); Immature Granulocytes # (auto) 0.02 K/uL (0.00-0.02); Immature Granulocytes % (auto) 0.1 %; Lymphocytes # (auto) 0.89 K/uL (1.2-3.4); Lymphocytes % (auto) 3.4 %; Mean Corpuscular Hemoglobin 23.3 pg (25.0-34.0); Mean Corpuscular Hgb Conc 30.7 g/dL (32.0-36.0); Mean Platelet Volume 10.2 fL (9.4-12.3); Monocytes # (auto) 1.12 K/uL (0.24-0.82); Monocytes % (auto) 4.3 %; Neutrophils # (auto) 24.06 K/uL (1.4-6.5); Neutrophils % (auto) 91.8 %; Platelet Count 64 K/uL (130-400); Polychromasia 1+; RDW Coefficient of Variation 18.9 % (11.5-14.5); Red Blood Count 3.13 M/uL (3.93-5.22); White Blood Count 26.19 K/ul (4.8-10.8)
[2022-04-27] MEDS: TUBE FEEDING WATER FLUSH OG SCH ×2 (03:54→06:10)
[2022-04-27 04:20] LABS: Calcium 7.6 mg/dl (8.5-10.1); Est GFR (African American) 42.9 ml/min; Magnesium 2.2 mg/dl (1.7-2.4); Potassium 3.6 mmol/L (3.5-5.1)
[2022-04-27] MEDS: PIPERACILLIN/TAZOBACTAM 4.5 GM in DEXTROSE 5% 100 ML IV SCH (04:24)
[2022-04-27] MEDS ORDERED: POTASSIUM CHLORIDE 20 MEQ/15 ML UDC NG STA (04:49)
--- NOTE | 2022-04-27 07:12 | Critical Care Progress Note ---
Date of Service April 27, 2022 Assessment & Plan (1) Elevated troponin I level: (2) Metabolic encephalopathy: (3) Severe sepsis with septic shock: (4) Severe sepsis with acute organ dysfunction: (5) Hypoglycemia: (6) Hydronephrosis with urinary obstruction due to ureteral calculus: (7) Thrombocytopenia: (8) Anemia: (9) BERTHA (acute kidney injury): (10) Rhabdomyolysis: (11) Nephrolithiasis: Plan Reason Critically Ill: 81 YOF admitted to the ICU post OR for severe sepsis with shock likely from infected kidney stone, with evidence of end organ dysfunction. Patient was brought to the EMD via EMS from home where she was found disheveled and covered in stool. She was resuscitated with 3L of crystalloid remained with re-curring hypoglycemia, as well as now requiring vasopressors. She was taken emergently to the OR for source control by urology. Neuro -Metabolic encephalopathy CAM ICU: Unable to be assessed - Metabolic encephalopathy with multiple etiologies at this time to include severe sepsis and hypoglycemia - Sedate overnight with Propfol and PRN Fentanyl - Head CT negative -- History of dementia Cardiac - -- Septic shock - resuscitated with 3liters of crystalloid and 1 25% albumin in the EMD Continue with vasopressor support to keep MAP greater than 65 2D echo 04/25/2022: EF 40-45% BNP > 4000 on presentation, underlying cardiac issue cannot be ruled out -- NSTEMI Likely secondary to type II [place] No changes appreciated on the EKG Continue to trend -- Prolonged QTC Avoid QT prolonging medication Respiratory - -- VDRF Likely secondary to septic shock and intermittent status Continue with ventilatory support Keep RASS -1 Daily sedation holidays and SBT's GI - Transaminitis - Likely secondary to septic shock- follow with resuscitation Continue to trend RENAL/LYTES - BERTHA, Infected kidney stone, Rhabdo -->Improving -Metabolic acidosis - - AGAP likely related to elevated lactate, elevated BUN with moderate rahbdo - S/p stenting by Urology -Monitor BUNs/creatinine, avoid nephrotoxic medication - Electrolytes replete per protocol -See above ENDO - Persistent hypoglycemia --> resolved -Could be from sepsis HEME - Microcytic Anemia, Thrombocytopenia - Transfuse for HGB <7 -Possibility for DIC is high -Continue with antibiotics to treat sepsis ID - Severe sepsis/shock -Likely from UTI, UA showing E. coli, sensitive to Rocephin - Lactate improving 7--> 4.0--> 2.6 - MRSA swab negative - Random Cortisol 45 --DNR/DNI --Prophylaxis VTE: IPC GI: Pepcid Lines: Left IJ, Benedict Diet: Start patient on tube feeds trickle Plan: In/out: +1.4 L, urine output 1.6 L Will change Zosyn to Rocephin today Continue to monitor blood sugar to make sure it is not trending down again if does not trend down then we will start her on D5 Try to wean off vasopressors to keep MAP greater than 65 I had a talk with patient's bedside yesterday and the plan was not to escalate the care. Patient's Dez [phone] I have personally spent 35 minutes of critical care time in the direct management of this patient. This is a life/limb threatening event. This includes time spent evaluating patient, direct bedside care, chart review, placing orders, interpretation of diagnostic studies, discussion with consultants, patient, and family members, as well as other required patient management activities. This time is exclusive of all separately billable procedures, and teaching time and separate from and in addition to any other critical care service time. Please note the above document was generated using voice recognition software. It may contain grammatical, syntax or spelling errors. Admission and Anticipated Discharge Date Admission Date: April 25, 2022 Subjective Patient seen and examined at bedside. No acute distress, no adverse events overnight. Patient was extubated early in the morning today She was saturating well on nasal cannula. Unfortunately she still altered, not answering questions appropriately Review of Systems Review of Systems: Unobtainable due to mental health condition and Unobtainable due to cognitive status Physical Exam Physical Exam: Constitutional: No acute distress HEENT: EOMI, PERRLA Respiratory system: Decreased air entry but, no wheeze, rhonchi, positive crackles bilateral lower lobes CVS: S1-S2 positive, no murmurs or gallops Abdomen: Soft, nontender, nondistended, positive bowel sounds x4 Extremities: +2 pulses bilaterally radialis/ dorsalis pedis, no cyanosis, no edema Neuro: Awake and alert, not following commands, moving all extremities Psych: Normal mood and affect G/U: Positive Benedict Skin: no rashes, warm and dry Lymphatic: no cervical or axillary lymphadenopathy Results & Data Results & Data ([facility]) Vital Signs (Past 12 Hours) Vital Signs Temp Pulse Resp BP Pulse Ox O2 Del Method FiO2 04/27/22 06:30 37.6 C H 92 H 16 100 04/27/22 06:15 37.6 C H 101 H 24 100 04/27/22 06:00 37.7 C H 98 H 16 100 04/27/22 06:00 114/64 04/27/22 05:45 37.7 C H 96 H 16 100 04/27/22 05:30 37.7 C H 94 H 15 100 04/27/22 05:15 37.7 C H 91 H 16 100 04/27/22 05:00 37.8 C H 101 H 16 100 04/27/22 05:00 119/63 04/27/22 04:50 37.8 C H 81 14 100 04/27/22 04:47 79/46 L 04/27/22 04:47 37.8 C H 90 17 100 04/27/22 04:40 37.8 C H 112 H 24 98 04/27/22 04:30 37.7 C H 93 H 16 100 04/27/22 04:20 37.7 C H 105 H 12 100 04/27/22 04:10 37.7 C H 116 H 19 100 04/27/22 04:00 37.7 C H 114 H 16 100 04/27/22 04:00 129/76 04/27/22 03:45 37.6 C H 108 H 17 100 04/27/22 03:30 37.6 C H 80 19 100 04/27/22 03:26 37.6 C H 79 16 100 04/27/22 03:26 102/50 L 04/27/22 03:15 37.6 C H 93 H 16 100 04/27/22 04:00 30 04/27/22 03:00 37.6 C H 87 16 100 04/27/22 03:00 105/60 04/27/22 02:45 37.6 C H 83 16 100 04/27/22 02:30 37.5 C 90 16 100 04/27/22 02:15 37.4 C 87 16 100 04/27/22 02:00 37.4 C 95 H 16 100 04/27/22 02:00 99/70 L 04/27/22 02:33 86 17 100 30 04/27/22 01:45 37.4 C 103 H 14 100 04/27/22 01:30 37.4 C 96 H 14 100 04/27/22 01:15 37.3 C 101 H 26 H 100 04/27/22 01:00 37.3 C 98 H 16 100 04/27/22 01:00 105/58 L 04/27/22 00:45 37.3 C 74 16 100 04/27/22 00:30 37.3 C 79 16 100 04/27/22 00:15 37.3 C 82 14 100 04/27/22 00:00 37.3 C 78 17 100 04/27/22 00:00 99/48 L 04/26/22 23:45 37.3 C 80 17 100 04/26/22 23:30 37.3 C 82 17 100 04/26/22 23:15 37.4 C 81 16 100 04/26/22 23:00 37.3 C 81 16 100 04/26/22 23:00 99/53 L 04/26/22 22:45 37.3 C 83 16 100 04/26/22 22:30 37.3 C 80 16 100 04/26/22 22:15 37.3 C 99 H 16 100 04/27/22 00:00 30 04/26/22 23:33 79 17 100 30 04/26/22 22:19 97 H 04/26/22 22:00 37.3 C 93 H 16 100 04/26/22 22:00 110/60 04/26/22 21:45 37.3 C 90 16 100 04/26/22 21:30 37.4 C 94 H 16 100 04/26/22 21:15 37.4 C 94 H 16 100 04/26/22 21:00 37.4 C 92 H 16 100 04/26/22 21:00 108/62 04/26/22 20:45 37.4 C 93 H 17 100 04/26/22 20:30 37.4 C 93 H 16 100 04/26/22 20:15 37.4 C 87 16 95 04/26/22 20:00 37.4 C 79 16 04/26/22 20:00 107/61 04/26/22 19:45 37.4 C 79 17 100 04/26/22 19:30 37.3 C 79 16 100 04/26/22 19:15 37.3 C 78 17 100 04/26/22 20:00 Mechanical Vent 30 04/26/22 20:00 30 04/26/22 20:13 89 17 97 30 Laboratory Results 04/27/22 03:12 04/27/22 03:12 Coding Level of Care Code Critical Care 1st 30-74 mins Diagnoses Elevated troponin I level R77.8 Metabolic encephalopathy G93.41 Severe sepsis with septic shock A41.9; R65.21 Severe sepsis with acute organ dysfunction A41.9; R65.20 Hypoglycemia E16.2 Hydronephrosis with urinary obstruction due to ureteral calculus N13.2 Thrombocytopenia D69.6 Anemia D64.9 BERTHA (acute kidney injury) N17.9 Rhabdomyolysis M62.82 Rhabdomyolysis type: non-traumatic Nephrolithiasis N20.0 Time Spent (min) 35 (1) Rhabdomyolysis Rhabdomyolysis type: non-traumatic Qualified Code(s): M62.82 - Rhabdomyolysis
[2022-04-27] MEDS: MULTI VIT W/MINERALS LIQUID 15 ML UDP NG SCH (08:30)
[2022-04-27] MEDS ORDERED: VASOPRESSIN 20 UNITS in 0.9 % SODIUM CHLORIDE 100 ML IV SCH (08:30)
[2022-04-27] MEDS: THIAMINE HCL 100 MG in SYRINGE 9 ML IV SCH (08:37)
[2022-04-27] MEDS: POTASSIUM CHLORIDE / WTR 20 MEQ/100 ML PLCT IV SCH ×2 (08:49→10:51)
[2022-04-27] MEDS: NOREPINEPHRINE/D5W 4 MG/250 ML PLCT IV SCH (09:18)
[2022-04-27] MEDS: FAMOTIDINE 20 MG in SYRINGE 3 ML IV SCH (10:05)
[2022-04-27] MEDS: LORazepam 0.5 MG in SYRINGE 0 ML IV PRN ×2 (10:09→19:36)
[2022-04-27] MEDS: cefTRIAXone SODIUM 2,000 MG in DEXTROSE 5% 50 ML IV SCH (11:24)
[2022-04-27] MEDS ORDERED: DAPTOmycin 450 MG in SYRINGE 0 ML IV SCH (12:00)
[2022-04-27] MEDS: D5W AND LACTATED RINGERS 1,000 ML IV SCH (13:04)
--- NOTE | 2022-04-27 13:09 | XRay Report ---
XR chest 1V portable CLINICAL HISTORY: f/u TECHNIQUE: Single frontal radiograph of the chest was obtained. Comparison: Comparison is made to chest radiograph 04/26/2022 FINDINGS: Removal of endotracheal and enteric tubes. Left venous catheter is unchanged. Cardiomegaly is noted. Left retrocardiac airspace opacity is seen. No evidence of pleural effusion or pneumothorax. IMPRESSION: Left retrocardiac airspace opacity may represent atelectasis, pneumonia, and/or aspiration. ACT 112: Negative or not required by law. Electronically signed by: Kermit Barber M.D. 04/27/2022 1:08 PM
--- NOTE | 2022-04-27 13:20 | Hospitalist Progress Note ---
Date of Service April 27, 2022 Assessment & Plan (1) Encephalopathy: Plan: Metabolic Encephalopathy CT head was negative Propofol and fentanyl drip discontinued Will reassess her neuro status once sedation off from her system Continue monitor closely Septic shock resuscitated with 3liters of crystalloid and 1x 25% albumin in the ED Currently on Levophed and Vasopressin to keep MAP greater than 65 Lactate on admission 7. then improves to 2.5 Blood cx and urine cx grew gram negative bacilli received ceftriaxone and dapto on admission Continue IV abx with Zosyn Respiratory failure Extubated this morning saturated well on RA Continue monitor closely Infected Kidney stone Status post emergent Cystoscopy, left ureteral stent placement because of suspected urosepsis performed by Dr. Adams Continue IV Zosyn Continue monitor closely Elevated troponin Mostly due to septic shock/BERTHA Troponin on admission 696 then peaked to 2559.1 EKG showed no acute ischemic changes ECHO showed LV is mildly dilated. 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% Elevated Anion Gap Anion gap on admission 14 Anion gap closed Rhabdo CPK 2406 then increased to 3801 Continue monitor CPK Prolonged QTC QT 511 Continue to avoid QT prolonging medication Continue monitor BERTHA Mostly due to Septic shock Creatinine on admission 2.45 Resuscitated with 3liters of crystalloid Creatinine 1.3 today Continue monitor BMP Transaminitis Likely secondary to septic shock- follow with resuscitation Continue monitor LFT CODE status Conditional code Mr. Dez Wagner [id number]. Admission and Anticipated Discharge Date Admission Date: April 25, 2022 Subjective Pt was seen and examined for follow up Lying in bed with no acute distress she is confused on soft restraint and sedation is off She was extubated this morning Review of Systems Review of Systems: All systems reviewed & are unremarkable except as noted in Subjective Physical Exam Physical Exam: General- confused, no acute distress Head- atraumatic Eyes- PERRL, EOMI, ENT- oropharynx clear Neck- supple, no JVD Lungs- Diminished breath sound Heart- regular rhythm; no murmur Abdomen- normal bowel sounds, soft, nontender Neuro- move all extremities, confused Skin- warm & dry Results & Data Results & Data ([facility]) Vital Signs (Past 12 Hours) Vital Signs Temp Pulse Resp BP Pulse Ox O2 Del Method FiO2 04/27/22 12:00 37.4 C 104 H 19 98 04/27/22 12:00 125/66 04/27/22 11:30 37.5 C 102 H 22 97 04/27/22 11:00 37.5 C 102 H 21 96 04/27/22 11:00 122/71 04/27/22 10:46 132/70 04/27/22 10:46 37.4 C 109 H 23 95 04/27/22 10:30 37.4 C 110 H 22 96 04/27/22 10:00 37.5 C 108 H 20 97 04/27/22 10:00 119/63 04/27/22 09:30 37.4 C 126 H 27 H 98 04/27/22 09:00 37.4 C 113 H 20 89 L 04/27/22 09:00 103/57 L 04/27/22 08:54 37.5 C 109 H 18 97 04/27/22 08:54 122/62 04/27/22 08:49 93/54 L 04/27/22 08:49 37.5 C 108 H 20 97 04/27/22 08:30 37.5 C 106 H 19 98 04/27/22 08:00 102 H 04/27/22 08:00 37.5 C 102 H 21 83 L 04/27/22 08:00 114/65 04/27/22 07:30 37.6 C H 101 H 21 98 04/27/22 07:29 125/76 04/27/22 07:29 37.6 C H 102 H 19 97 04/27/22 07:00 37.7 C H 103 H 19 100 04/27/22 07:00 121/64 04/27/22 07:56 Room Air 04/27/22 06:30 37.6 C H 92 H 16 100 04/27/22 06:15 37.6 C H 101 H 24 100 04/27/22 06:00 37.7 C H 98 H 16 100 04/27/22 06:00 114/64 04/27/22 05:45 37.7 C H 96 H 16 100 04/27/22 05:30 37.7 C H 94 H 15 100 04/27/22 05:15 37.7 C H 91 H 16 100 04/27/22 05:00 37.8 C H 101 H 16 100 04/27/22 05:00 119/63 04/27/22 04:50 37.8 C H 81 14 100 04/27/22 04:47 79/46 L 04/27/22 04:47 37.8 C H 90 17 100 04/27/22 04:40 37.8 C H 112 H 24 98 04/27/22 04:30 37.7 C H 93 H 16 100 04/27/22 04:20 37.7 C H 105 H 12 100 04/27/22 04:10 37.7 C H 116 H 19 100 04/27/22 04:00 37.7 C H 114 H 16 100 04/27/22 04:00 129/76 04/27/22 03:45 37.6 C H 108 H 17 100 04/27/22 03:30 37.6 C H 80 19 100 04/27/22 03:26 37.6 C H 79 16 100 04/27/22 03:26 102/50 L 04/27/22 03:15 37.6 C H 93 H 16 100 04/27/22 04:00 30 04/27/22 03:00 37.6 C H 87 16 100 04/27/22 03:00 105/60 04/27/22 02:45 37.6 C H 83 16 100 04/27/22 02:30 37.5 C 90 16 100 04/27/22 02:15 37.4 C 87 16 100 04/27/22 02:00 37.4 C 95 H 16 100 04/27/22 02:00 99/70 L 04/27/22 02:33 86 17 100 30 04/27/22 01:45 37.4 C 103 H 14 100 04/27/22 01:30 37.4 C 96 H 14 100 04/27/22 01:15 37.3 C 101 H 26 H 100
--- NOTE | 2022-04-27 13:33 | Urology Progress Note ---
Date of Service April 27, 2022 Assessment & Plan (1) Nephrolithiasis: Plan - POD#2 s/p emergent left ureteral stent placement due to suspected urosepsis. - Extubated this morning, remains in ICU. - Afebrile, labs reviewed- wbc 26.19, creatinine downtrending to 1.35 today. Continue to trend. - Urine culture final with E.coli; Blood cultures prelim gram negative bacilli. - Continues on IV Ceftriaxone, follow cultures. - Maintain Benedict catheter. - Will arrange outpatient follow-up for definitive stone treatment after she recovers from acute issues and infection treated. - Urology will follow peripherally. Please contact us with any further questions, concerns, or changes in patient status. Admission and Anticipated Discharge Date Admission Date: April 25, 2022 Subjective Patient examined at bedside this AM in the ICU. No acute distress. Extubated earlier this morning. Confused, nursing reports this as her baseline per . Does not answer questions appropriately or follow commands. Benedict catheter intact, draining clear yellow urine at present. Review of Systems Constitutional: as per Subjective / HPI Genitourinary: as per Subjective / HPI Psychiatric: as per Subjective / HPI Physical Exam Constitutional: no acute distress Respiratory: no respiratory distress and no labored breathing Neurologic: awake and + confused Genitourinary: Benedict catheter intact Results & Data ([facility]) Vital Signs (Past 12 Hours) Vital Signs Temp Pulse Resp BP Pulse Ox O2 Del Method FiO2 04/27/22 12:00 37.4 C 104 H 19 98 04/27/22 12:00 125/66 04/27/22 11:30 37.5 C 102 H 22 97 04/27/22 11:00 37.5 C 102 H 21 96 04/27/22 11:00 122/71 04/27/22 10:46 132/70 04/27/22 10:46 37.4 C 109 H 23 95 04/27/22 10:30 37.4 C 110 H 22 96 04/27/22 10:00 37.5 C 108 H 20 97 04/27/22 10:00 119/63 04/27/22 09:30 37.4 C 126 H 27 H 98 04/27/22 09:00 37.4 C 113 H 20 89 L 04/27/22 09:00 103/57 L 04/27/22 08:54 37.5 C 109 H 18 97 04/27/22 08:54 122/62 04/27/22 08:49 93/54 L 04/27/22 08:49 37.5 C 108 H 20 97 04/27/22 08:30 37.5 C 106 H 19 98 04/27/22 08:00 102 H 04/27/22 08:00 37.5 C 102 H 21 83 L 04/27/22 08:00 114/65 04/27/22 07:30 37.6 C H 101 H 21 98 04/27/22 07:29 125/76 04/27/22 07:29 37.6 C H 102 H 19 97 04/27/22 07:00 37.7 C H 103 H 19 100 04/27/22 07:00 121/64 04/27/22 07:56 Room Air 04/27/22 06:30 37.6 C H 92 H 16 100 04/27/22 06:15 37.6 C H 101 H 24 100 04/27/22 06:00 37.7 C H 98 H 16 100 04/27/22 06:00 114/64 04/27/22 05:45 37.7 C H 96 H 16 100 04/27/22 05:30 37.7 C H 94 H 15 100 04/27/22 05:15 37.7 C H 91 H 16 100 04/27/22 05:00 37.8 C H 101 H 16 100 04/27/22 05:00 119/63 04/27/22 04:50 37.8 C H 81 14 100 04/27/22 04:47 79/46 L 04/27/22 04:47 37.8 C H 90 17 100 04/27/22 04:40 37.8 C H 112 H 24 98 04/27/22 04:30 37.7 C H 93 H 16 100 04/27/22 04:20 37.7 C H 105 H 12 100 04/27/22 04:10 37.7 C H 116 H 19 100 04/27/22 04:00 37.7 C H 114 H 16 100 04/27/22 04:00 129/76 04/27/22 03:45 37.6 C H 108 H 17 100 04/27/22 03:30 37.6 C H 80 19 100 04/27/22 03:26 37.6 C H 79 16 100 04/27/22 03:26 102/50 L 04/27/22 03:15 37.6 C H 93 H 16 100 04/27/22 04:00 30 04/27/22 03:00 37.6 C H 87 16 100 04/27/22 03:00 105/60 04/27/22 02:45 37.6 C H 83 16 100 04/27/22 02:30 37.5 C 90 16 100 04/27/22 02:15 37.4 C 87 16 100 04/27/22 02:00 37.4 C 95 H 16 100 04/27/22 02:00 99/70 L 04/27/22 02:33 86 17 100 30 04/27/22 01:45 37.4 C 103 H 14 100 04/27/22 01:30 37.4 C 96 H 14 100 PG Care Time/CCT Total # of Minutes Spent Total Time Spent with Patient: Total time spent is greater than 50% in coordination of care (as documented) at patient's floor/unit and/or counseling patient: Coding Level of Care Code 95632 Subseq Hosp Care Lvl 2 Diagnoses Nephrolithiasis N20.0
[2022-04-27] MEDS: ACETAMINOPHEN 1,000 MG/100 ML VIAL IV PRN (14:26)
[2022-04-27] MEDS: propofoL 1,000 MG/100 ML VIAL IV SCH (20:11)
[2022-04-28] MEDS: ACETAMINOPHEN 1,000 MG/100 ML VIAL IV PRN (01:54)
[2022-04-28] MEDS: D5W AND LACTATED RINGERS 1,000 ML IV SCH (02:01)
[2022-04-28] MEDS: LORazepam 0.5 MG in SYRINGE 0 ML IV PRN (04:17)
[2022-04-28 05:07] LABS: Prothrombin Time 10.3 Seconds (9.0-12.0)
[2022-04-28 05:10] LABS: Hematocrit (blood only) 22.2 % (34.1-44.9); Hemoglobin 6.8 g/dl (12.0-16.0); Mean Corpuscular Hemoglobin 23.1 pg (25.0-34.0); Mean Corpuscular Hgb Conc 30.6 g/dL (32.0-36.0); Mean Corpuscular Volume 75.3 fL (80.0-100.0); Mean Platelet Volume 10.7 fL (9.4-12.3); Platelet Count 60 K/uL (130-400); RDW Coefficient of Variation 18.7 % (11.5-14.5); RDW Standard Deviation 51.8 fL (36.4-46.3); Red Blood Count 2.95 M/uL (3.93-5.22); White Blood Count 21.87 K/ul (4.8-10.8)
[2022-04-28] MEDS ORDERED: SODIUM CHLORIDE 0.9% 250 ML IV PRN (05:12)
[2022-04-28 05:22] LABS: Basophils # (auto) 0.06 K/uL (0-0.2); Basophils % (auto) 0.3 %; Dohle Bodies 2+; Eosinophils # (auto) 0.05 K/uL (0-0.50); Eosinophils % (auto) 0.2 %; Immature Granulocytes # (auto) 0.23 K/uL (0.00-0.02); Immature Granulocytes % (auto) 1.1 %; Lymphocytes # (auto) 1.27 K/uL (1.2-3.4); Lymphocytes % (auto) 5.8 %; Monocytes # (auto) 1.55 K/uL (0.24-0.82); Monocytes % (auto) 7.1 %; Neutrophils # (auto) 18.71 K/uL (1.4-6.5); Neutrophils % (auto) 85.5 %; Polychromasia 1+; Toxic Vacuolation 1+
[2022-04-28 05:25] LABS: Albumin Globulin Ratio 1.1 (0.9-2); Albumin Level 2.6 gm/dl (3.4-5.0); BUN Creatinine Ratio 38.6 (10-20); Bilirubin,Total 1.2 mg/dl (0.2-1.0); Calcium 8.1 mg/dl (8.5-10.1); Creatinine Clr Calc Pharmacy 49.2 ml/min; Est GFR (African American) 71.9 ml/min; Est GFR (Non-African American) 62.1 ml/min; Globulin 2.3 gm/dl (2.5-4.0); Magnesium 1.9 mg/dl (1.7-2.4); Phosphorus 2.2 mg/dl (2.5-4.9); Potassium 3.7 mmol/L (3.5-5.1); Total Protein 4.9 gm/dl (6.0-8.3)
[2022-04-28] MEDS ORDERED: POTASSIUM PHOS 3 MMOL/1 ML INFUSION IV STA (06:38)
[2022-04-28] MEDS ORDERED: MAGNESIUM SULFATE / D5W 1 GM/100 ML BAG IV ONE (06:38)
[2022-04-28] MEDS ORDERED: POTASSIUM PHOSPHATE 21 MMOL in SODIUM CHLORIDE 0.9% 500 ML IV ONE (06:45)
--- NOTE | 2022-04-28 07:37 | Critical Care Progress Note ---
Date of Service April 28, 2022 Assessment & Plan (1) Elevated troponin I level: (2) Metabolic encephalopathy: (3) Severe sepsis with septic shock: (4) Severe sepsis with acute organ dysfunction: (5) Hypoglycemia: (6) Hydronephrosis with urinary obstruction due to ureteral calculus: (7) Thrombocytopenia: (8) Anemia: (9) BERTHA (acute kidney injury): (10) Rhabdomyolysis: (11) Nephrolithiasis: Plan Reason Critically Ill: 81 YOF admitted to the ICU post OR for severe sepsis with shock likely from infected kidney stone, with evidence of end organ dysfunction. Patient was brought to the EMD via EMS from home where she was found disheveled and covered in stool. She was resuscitated with 3L of crystalloid remained with re-curring hypoglycemia, as well as now requiring vasopressors. She was taken emergently to the OR for source control by urology. Neuro -Metabolic encephalopathy--> improved CAM ICU: Unable to be assessed - Metabolic encephalopathy with multiple etiologies at this time to include severe sepsis and hypoglycemia - Head CT negative -- History of dementia Cardiac - -- S/p septic shock 2D echo 04/25/2022: EF 40-45% BNP > 4000 on presentation, underlying cardiac issue cannot be ruled out -- NSTEMI Likely secondary to type II ID No changes appreciated on the EKG Continue to trend -- Prolonged QTC Avoid QT prolonging medication Respiratory - -- S/p VDRF Likely secondary to septic shock and intermittent status Extubated 04/27/2022 GI - Transaminitis - Likely secondary to septic shock- follow with resuscitation Continue to trend RENAL/LYTES - BERTHA, Infected kidney stone, Rhabdo -->Improving -Metabolic acidosis - - AGAP likely related to elevated lactate, elevated BUN with moderate rahbdo - S/p stenting by Urology -Monitor BUNs/creatinine, avoid nephrotoxic medication - Electrolytes replete per protocol -See above ENDO - Persistent hypoglycemia --> resolved -Could be from sepsis HEME - Microcytic Anemia, Thrombocytopenia - Transfuse for HGB <7 --> s/p 1 unit PRBC 04/28/2022 -Possibility for DIC is high -Continue with antibiotics to treat sepsis ID - Severe sepsis -Likely from UTI, UA showing E. coli, sensitive to Rocephin - Lactate improving 7--> 4.0--> 2.6 - MRSA swab negative - Random Cortisol 45 --DNR/DNI --Prophylaxis VTE: IPC GI: Pepcid Lines: Left IJ, Benedict Diet: Clear liquid and advance as tolerated Plan: In/out: -1.6 L, urine output 3530 Repeat blood cultures today. Continue with antibiotics for at least 10-14 days since negative blood culture Monitor H&H Start clear liquids and advance as tolerated. DC central line as well as Benedict catheter Hypophosphatemia and magnesium being replaced We will start the patient on Magic mouthwash for the oral ulcers We will give the patient multivitamin as well Patient hemodynamically stable to be downgrade to medical floor Please note the above document was generated using voice recognition software. It may contain grammatical, syntax or spelling errors.Any formal questions or concerns about the content, text or information contained within the body of this dictation should be directly addressed to the provider for clarification. Admission and Anticipated Discharge Date Admission Date: April 25, 2022 Subjective Patient seen and examined at bedside. No acute distress, no adverse events overnight Patient seems to be more calm and composed. She is answering few questions. Complaining of soreness in the upper part of in her mouth. Denies any nausea or vomiting No chest pain, no abdominal pain Review of Systems Review of Systems: Unobtainable due to cognitive status Physical Exam Physical Exam: Constitutional: No acute distress HEENT: EOMI, PERRLA, ulcers/erosions appreciated on the hard palate Respiratory system: Decreased air entry but, no wheeze, rhonchi, positive crackles bilateral lower lobes CVS: S1-S2 positive, no murmurs or gallops Abdomen: Soft, nontender, nondistended, positive bowel sounds x4 Extremities: +2 pulses bilaterally radialis/ dorsalis pedis, no cyanosis, +1 edema bilateral arm Neuro: Awake and alert, following simple commands Psych: Normal mood and affect G/U: Positive Benedict Skin: no rashes, warm and dry Lymphatic: no cervical or axillary lymphadenopathy Results & Data Results & Data ([facility]) Vital Signs (Past 12 Hours) Vital Signs Temp Pulse Resp BP Pulse Ox Pulse Ox O2 Del Method 04/28/22 07:20 81 21 140/67 98 04/28/22 06:50 37.1 C 80 21 134/65 97 04/28/22 06:35 37.1 C 93 H 25 H 140/85 97 04/28/22 06:00 76 18 136/68 95 04/28/22 06:17 37.1 C 92 H 22 136/68 97 04/28/22 05:00 82 18 129/74 97 04/27/22 20:00 37.1 C 04/28/22 00:00 37.1 C 04/28/22 05:36 37.1 C 04/28/22 04:00 85 17 131/73 96 04/28/22 03:00 90 21 142/73 H 96 04/28/22 02:00 87 20 138/81 95 04/28/22 01:00 87 19 135/71 96 04/27/22 21:00 92 H 140/69 95 04/27/22 20:00 101 H 20 126/88 98 04/28/22 00:03 88 19 137/64 94 04/27/22 23:03 87 18 128/68 96 04/27/22 22:00 99 H 23 135/74 97 04/27/22 19:45 Room Air 04/28/22 00:05 97 04/27/22 23:54 88 O2 Del Method 04/28/22 07:20 04/28/22 06:50 04/28/22 06:35 04/28/22 06:00 04/28/22 06:17 04/28/22 05:00 04/27/22 20:00 04/28/22 00:00 04/28/22 05:36 04/28/22 04:00 04/28/22 03:00 04/28/22 02:00 04/28/22 01:00 04/27/22 21:00 04/27/22 20:00 04/28/22 00:03 04/27/22 23:03 04/27/22 22:00 04/27/22 19:45 04/28/22 00:05 Room Air 04/27/22 23:54 Laboratory Results 04/28/22 04:27 04/28/22 04:27 Coding Level of Care Code 81514 Subseq Hosp Care Lv 3 Diagnoses Elevated troponin I level R77.8 Metabolic encephalopathy G93.41 Severe sepsis with septic shock A41.9; R65.21 Severe sepsis with acute organ dysfunction A41.9; R65.20 Hypoglycemia E16.2 Hydronephrosis with urinary obstruction due to ureteral calculus N13.2 Thrombocytopenia D69.6 Anemia D64.9 BERTHA (acute kidney injury) N17.9 Rhabdomyolysis M62.82 Rhabdomyolysis type: non-traumatic Nephrolithiasis N20.0 (1) Rhabdomyolysis Rhabdomyolysis type: non-traumatic Qualified Code(s): M62.82 - Rhabdomyolysis
[2022-04-28] MEDS: FIRST - Mouthwash BLM 119 ML PO SCH ×3 (09:29→18:44)
[2022-04-28] MEDS: THIAMINE HCL 100 MG in SYRINGE 9 ML IV SCH (09:45)
[2022-04-28] MEDS: MULTI VIT W/MINERALS LIQUID 15 ML UDP NG SCH (09:45)
--- NOTE | 2022-04-28 10:02 | Electrocardiogram Report ---
Test Reason : Blood Pressure : / mmHG Vent. Rate : 096 BPM Atrial Rate : 090 BPM P-R Int : 140 ms QRS Dur : 094 ms QT Int : 360 ms P-R-T Axes : 080 -09 024 degrees QTc Int : 455 ms Poor data quality, interpretation may be adversely affected Sinus rhythm with pvcs Nonspecific ST and T wave abnormality Abnormal ECG When compared with ECG of 26-APR-2022 04:23, T wave inversion no longer evident in Lateral leads Premature ventricular complexes are now Present Confirmed by Ganesh Mendenhall ([id number]) on 04/28/2022 10:01:57 AM Referred By: REFERRED SELF Confirmed By:Ganesh Mendenhall
[2022-04-28] MEDS: THIAMINE HCL 100 MG TAB PO SCH (10:07)
[2022-04-28] MEDS: CEROVITE ADV FORMULA TAB PO SCH (10:07)
[2022-04-28] MEDS: cefTRIAXone SODIUM 2,000 MG in DEXTROSE 5% 50 ML IV SCH (11:30)
--- NOTE | 2022-04-28 13:23 | Hospitalist Progress Note ---
Date of Service April 28, 2022 Assessment & Plan (1) Encephalopathy: Plan: Metabolic Encephalopathy CT head was negative Propofol and fentanyl drip discontinued Neuro status continue to improve Continue monitor closely Septic shock resuscitated with 3liters of crystalloid and 1x 25% albumin in the ED Currently on Levophed and Vasopressin to keep MAP greater than 65 Lactate on admission 7. then improves to 2.5 Blood cx and urine cx grew gram negative bacilli received ceftriaxone and dapto on admission Blood cx repeat today, will follow it IV abx changed to ceftriaxone Respiratory failure S/P extubation on 04/27/22 saturated well on RA Continue monitor closely Infected Kidney stone Status post emergent Cystoscopy, left ureteral stent placement because of suspected urosepsis performed by Dr. Adams Continue IV abx with ceftriaxone Outpatient follow-up with urology for stone treatment once she recovers Elevated troponin Mostly due to septic shock/BERTHA Troponin on admission 696 then peaked to 2559.1 EKG showed no acute ischemic changes ECHO showed LV is mildly dilated. 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% Anemia Hgb 6.8 today No active bleeding S/P 1 unit PRBC Continue monitor CBC Elevated Anion Gap Anion gap on admission 14 Anion gap closed Rhabdo CPK 2406 then increased to 3801 Continue monitor CPK Prolonged QTC QT 511 Continue to avoid QT prolonging medication Continue monitor Electroytes Imbalance Phosp 2.3 Phosp replaced Continue monitor electrolytes BERTHA Mostly due to Septic shock Creatinine on admission 2.45 Resuscitated with 3liters of crystalloid Creatinine 0.8 today resolved Transaminitis Likely secondary to septic shock- follow with resuscitation Liver enzymes trending down with AST [address] today Continue monitor CODE status Conditional code Dispoistion Will transfer out of ICU Mr. Dez Wagner [id number]. Admission and Anticipated Discharge Date Admission Date: April 25, 2022 Subjective Patient seen and examined at bedside. Lying in bed with no acute distress She is more calm and cooperate today Denies any chest pain, palpitation, dizziness and SOB Review of Systems Review of Systems: All systems reviewed & are unremarkable except as noted in Subjective Physical Exam Physical Exam: General- confused, no acute distress Head- atraumatic Eyes- PERRL, EOMI, ENT- oropharynx clear Neck- supple, no JVD Lungs- Diminished breath sound Heart- regular rhythm; no murmur Abdomen- normal bowel sounds, soft, nontender Neuro- awake, follow minimal commands, move all extremities Skin- warm & dry Results & Data Results & Data ([facility]) Vital Signs (Past 12 Hours) Vital Signs Temp Pulse Pulse Resp BP BP Pulse Ox 04/28/22 08:00 04/28/22 08:00 89 04/28/22 10:18 36.7 C 82 24 166/88 H 98 04/28/22 09:00 36.7 C 79 21 145/75 H 99 04/28/22 08:20 36.7 C 75 18 144/77 H 99 04/28/22 08:00 36.7 C 04/28/22 07:20 81 21 140/67 98 04/28/22 06:50 37.1 C 80 21 134/65 97 04/28/22 06:35 37.1 C 93 H 25 H 140/85 97 04/28/22 06:00 76 18 136/68 95 04/28/22 06:17 37.1 C 92 H 22 136/68 97 04/28/22 05:00 82 18 129/74 97 04/28/22 05:36 37.1 C 04/28/22 04:00 85 17 131/73 96 04/28/22 03:00 90 21 142/73 H 96 04/28/22 02:00 87 20 138/81 95 O2 Del Method 04/28/22 08:00 Room Air 04/28/22 08:00 04/28/22 10:18 Room Air 04/28/22 09:00 04/28/22 08:20 04/28/22 08:00 04/28/22 07:20 04/28/22 06:50 04/28/22 06:35 04/28/22 06:00 04/28/22 06:17 04/28/22 05:00 04/28/22 05:36 04/28/22 04:00 04/28/22 03:00 04/28/22 02:00
[2022-04-28 13:37] LABS: BUN Creatinine Ratio 37.2 (10-20); Calcium 8.2 mg/dl (8.5-10.1); Creatinine Clr Calc Pharmacy 55.5 ml/min; Est GFR (African American) 83.2 ml/min; Est GFR (Non-African American) 71.8 ml/min; Potassium 4.1 mmol/L (3.5-5.1)
[2022-04-29] MEDS: FIRST - Mouthwash BLM 119 ML PO SCH ×4 (00:47→18:42)
[2022-04-29] MEDS: LORazepam 0.5 MG TAB PO PRN ×2 (00:55→09:31)
[2022-04-29] MEDS: ACETAMINOPHEN 325 MG TAB PO PRN (09:30)
[2022-04-29 09:31] LABS: Hematocrit (blood only) 30.4 % (34.1-44.9); Hemoglobin 9.7 g/dl (12.0-16.0); Mean Corpuscular Hemoglobin 24.2 pg (25.0-34.0); Mean Corpuscular Hgb Conc 31.9 g/dL (32.0-36.0); Mean Corpuscular Volume 75.8 fL (80.0-100.0); Mean Platelet Volume 10.9 fL (9.4-12.3); Nucleated RBC # (auto) 0.08 K/uL (0-0); Nucleated RBC % (auto) 0.5 %; Platelet Count 69 K/uL (130-400); RDW Coefficient of Variation 19.9 % (11.5-14.5); Red Blood Count 4.01 M/uL (3.93-5.22); White Blood Count 17.14 K/ul (4.8-10.8)
[2022-04-29] MEDS: THIAMINE HCL 100 MG TAB PO SCH (09:32)
[2022-04-29] MEDS: CEROVITE ADV FORMULA TAB PO SCH (09:32)
[2022-04-29 09:45] LABS: Basophils # (auto) 0.05 K/uL (0-0.2); Basophils % (auto) 0.3 %; Echinocytes 1+; Eosinophils % (auto) 0.6 %; Hypogranular Neutrophils 1+; Immature Granulocytes # (auto) 0.93 K/uL (0.00-0.02); Immature Granulocytes % (auto) 5.4 %; Lymphocytes # (auto) 1.51 K/uL (1.2-3.4); Lymphocytes % (auto) 8.8 %; Monocytes # (auto) 1.44 K/uL (0.24-0.82); Monocytes % (auto) 8.4 %; Neutrophils # (auto) 13.11 K/uL (1.4-6.5); Neutrophils % (auto) 76.5 %; Polychromasia 1+
[2022-04-29 09:58] LABS: Albumin Globulin Ratio 1.1 (0.9-2); Albumin Level 2.9 gm/dl (3.4-5.0); BUN Creatinine Ratio 41.8 (10-20); Bilirubin,Total 0.9 mg/dl (0.2-1.0); Calcium 8.3 mg/dl (8.5-10.1); Creatinine Clr Calc Pharmacy 74.2 ml/min; Est GFR (African American) 102.7 ml/min; Est GFR (Non-African American) 88.6 ml/min; Globulin 2.7 gm/dl (2.5-4.0); Magnesium 1.7 mg/dl (1.7-2.4); Phosphorus 3.7 mg/dl (2.5-4.9); Potassium 3.4 mmol/L (3.5-5.1); Total Protein 5.6 gm/dl (6.0-8.3)
[2022-04-29] MEDS: cefTRIAXone SODIUM 2,000 MG in DEXTROSE 5% 50 ML IV SCH (12:28)
[2022-04-29] MEDS ORDERED: POTASSIUM CHLORIDE CRTAB 20 MEQ TABCR PO STA (13:36)
--- NOTE | 2022-04-29 18:08 | Hospitalist Progress Note ---
Date of Service April 29, 2022 Assessment & Plan (1) Encephalopathy: Plan: Metabolic Encephalopathy CT head was negative Propofol and fentanyl drip discontinued Neuro status continue to improve Continue monitor closely Septic shock resuscitated with 3liters of crystalloid and 1x 25% albumin in the ED Currently on Levophed and Vasopressin to keep MAP greater than 65 Lactate on admission 7. then improves to 2.5 Blood cx and urine cx grew gram negative bacilli - Ecoli received ceftriaxone and dapto on admission repeat blood cx no growth Continue IV abx with ceftriaxone to complete 2 weeks course Respiratory failure S/P extubation on 04/27/22 saturated well on RA Continue monitor closely Infected Kidney stone Status post emergent Cystoscopy, left ureteral stent placement because of suspected urosepsis performed by Dr. Adams Continue IV abx with ceftriaxone Outpatient follow-up with urology for stone treatment once she recovers Elevated troponin Mostly due to septic shock/BERTHA Troponin on admission 696 then peaked to 2559.1 EKG showed no acute ischemic changes ECHO showed LV is mildly dilated. 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% Anemia s/p 1 unit prbc during hospital course Hgb 9.7 today No active bleeding Continue monitor CBC Elevated Anion Gap Anion gap on admission 14 Anion gap closed Rhabdo CPK 2406 then increased to 3801 CPK normalized at 192 resolved Prolonged QTC QT 511 Continue to avoid QT prolonging medication Continue monitor Electrolytes Imbalance Phosp 3.7 and K 3.4 K replaced Continue monitor electrolytes BERTHA Mostly due to Septic shock Creatinine on admission 2.45 Resuscitated with 3liters of crystalloid Creatinine 0.55 resolved Weakness PT/OT eval fall precaution Transaminitis Likely secondary to septic shock- follow with resuscitation Liver enzymes continue trending down with AST 57 and ALT 56 today Continue monitor CODE status Conditional code Disposition Will discharge once medically stable Mr. Dez Wagner [phone]. Admission and Anticipated Discharge Date Admission Date: April 25, 2022 Subjective Patient seen and examined at bedside. Lying in bed with no acute distress She said that she feels weak and looking forward to start using a walker to move Denies any chest pain, palpitation, dizziness and SOB Review of Systems Review of Systems: All systems reviewed & are unremarkable except as noted in Subjective Physical Exam Physical Exam: General- confused, no acute distress Head- atraumatic Eyes- PERRL, EOMI, ENT- oropharynx clear Neck- supple, no JVD Lungs- Diminished breath sound Heart- regular rhythm; no murmur Abdomen- normal bowel sounds, soft, nontender Neuro- awake, follow minimal commands, move all extremities Skin- warm & dry Results & Data Results & Data ([facility]) Vital Signs (Past 12 Hours) Vital Signs Temp Pulse Pulse Resp BP Pulse Ox O2 Del Method 04/29/22 09:00 74 04/29/22 14:59 36.7 C 72 20 145/73 H 97 Room Air 04/29/22 12:33 36.3 C L 66 20 177/73 H 100 Room Air 04/29/22 07:20 37.1 C 65 20 179/72 H 97 Room Air
[2022-04-30] MEDS: LORazepam 0.5 MG TAB PO PRN ×2 (00:33→19:36)
[2022-04-30] MEDS: FIRST - Mouthwash BLM 119 ML PO SCH ×4 (06:19→17:21)
[2022-04-30 06:48] LABS: Hematocrit (blood only) 30.4 % (34.1-44.9); Hemoglobin 9.8 g/dl (12.0-16.0); Mean Corpuscular Hemoglobin 24.3 pg (25.0-34.0); Mean Corpuscular Hgb Conc 32.2 g/dL (32.0-36.0); Mean Corpuscular Volume 75.2 fL (80.0-100.0); Nucleated RBC # (auto) 0.06 K/uL (0-0); Nucleated RBC % (auto) 0.4 %; RDW Coefficient of Variation 19.9 % (11.5-14.5); RDW Standard Deviation 53.3 fL (36.4-46.3); Red Blood Count 4.04 M/uL (3.93-5.22); White Blood Count 13.87 K/ul (4.8-10.8)
[2022-04-30 06:58] LABS: Mean Platelet Volume 10.2 fL (9.4-12.3); Platelet Count 105 K/uL (130-400)
[2022-04-30 07:05] LABS: Albumin Globulin Ratio 1.1 (0.9-2); Albumin Level 2.9 gm/dl (3.4-5.0); BUN Creatinine Ratio 42.2 (10-20); Bilirubin,Total 0.7 mg/dl (0.2-1.0); Calcium 8.2 mg/dl (8.5-10.1); Creatinine Clr Calc Pharmacy 90.7 ml/min; Est GFR (African American) 109.7 ml/min; Est GFR (Non-African American) 94.6 ml/min; Globulin 2.6 gm/dl (2.5-4.0); Potassium 3.3 mmol/L (3.5-5.1); Total Protein 5.5 gm/dl (6.0-8.3)
[2022-04-30] MEDS ORDERED: POTASSIUM CHLORIDE CRTAB 20 MEQ TABCR PO STA (08:00)
[2022-04-30] MEDS: CEROVITE ADV FORMULA TAB PO SCH (08:50)
[2022-04-30] MEDS: THIAMINE HCL 100 MG TAB PO SCH (08:50)
[2022-04-30] MEDS ORDERED: LOPERAMIDE HCL 2 MG CAP PO SCH (09:30)
[2022-04-30] MEDS: cefTRIAXone SODIUM 2,000 MG in DEXTROSE 5% 50 ML IV SCH (12:16)
[2022-04-30] MEDS ORDERED: Nursing to Pharmacy Communication SCH (13:30)
[2022-04-30] MEDS: LOPERAMIDE HCL 2 MG CAP PO PRN ×3 (13:33→17:22)
--- NOTE | 2022-04-30 15:25 | Hospitalist Progress Note ---
Date of Service April 30, 2022 Assessment & Plan (1) Encephalopathy: Plan: Metabolic Encephalopathy CT head was negative Propofol and fentanyl drip discontinued Neuro status continue to improve Continue monitor closely Septic shock resuscitated with 3liters of crystalloid and 1x 25% albumin in the ED Currently on Levophed and Vasopressin to keep MAP greater than 65 Lactate on admission 7. then improves to 2.5 Blood cx and urine cx grew gram negative bacilli - Ecoli received ceftriaxone and dapto on admission repeat blood cx no growth Continue IV abx with ceftriaxone to complete 2 weeks course Respiratory failure S/P extubation on 04/27/22 saturated well on RA Continue monitor closely resolved Infected Kidney stone Status post emergent Cystoscopy, left ureteral stent placement because of suspected urosepsis performed by Dr. Adams Continue IV abx with ceftriaxone Outpatient follow-up with urology for stone treatment once she recovers Elevated troponin Mostly due to septic shock/BERTHA Troponin on admission 696 then peaked to 2559.1 EKG showed no acute ischemic changes ECHO showed LV is mildly dilated. 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% Anemia s/p 1 unit prbc during hospital course Hgb 9.8 today No active bleeding Continue monitor CBC Elevated Anion Gap Anion gap on admission 14 Anion gap closed Rhabdo CPK 2406 then increased to 3801 CPK normalized at 192 resolved Prolonged QTC QT 511 Continue to avoid QT prolonging medication Continue monitor Electrolytes Imbalance Phosp 3.7 and K 3.4 K replaced Continue monitor electrolytes BERTHA Mostly due to Septic shock Creatinine on admission 2.45 Resuscitated with 3liters of crystalloid Creatinine 0.45 resolved Hypokalemia Potassium 3.3 K replaced Continue monitor BMP Weakness PT/OT eval fall precaution Transaminitis Likely secondary to septic shock- follow with resuscitation Liver enzymes continue trending down with AST 57 and ALT 56 LFT normalized with AST 38 and ALT 47 Continue monitor CODE status Conditional code Disposition Will discharge once medically stable Mr. Dez Wagner [phone]. Admission and Anticipated Discharge Date Admission Date: April 25, 2022 Subjective Patient seen and examined at bedside. Lying in bed with no acute distress She has been having recurrent diarrhea Denies any chest pain, palpitation, dizziness and SOB Review of Systems Review of Systems: All systems reviewed & are unremarkable except as noted in Subjective Physical Exam Physical Exam: General- confused, no acute distress Head- atraumatic Eyes- PERRL, EOMI, ENT- oropharynx clear Neck- supple, no JVD Lungs- Diminished breath sound Heart- regular rhythm; no murmur Abdomen- normal bowel sounds, soft, nontender Neuro- awake, follow minimal commands, move all extremities, no dysuria Skin- warm & dry Results & Data Results & Data ([facility]) Vital Signs (Past 12 Hours) Vital Signs Temp Pulse Pulse Resp BP Pulse Ox O2 Del Method 04/30/22 14:52 36.6 C 91 H 18 151/82 H 95 Room Air 04/30/22 10:55 36.5 C 74 20 158/76 H 98 Room Air 04/30/22 08:00 Room Air 04/30/22 07:48 36.3 C L 83 18 149/71 H 97 Room Air 04/30/22 07:13 78
[2022-05-01] MEDS: FIRST - Mouthwash BLM 119 ML PO SCH ×5 (00:51→23:59)
[2022-05-01 08:06] LABS: Hematocrit (blood only) 33.5 % (34.1-44.9); Hemoglobin 10.5 g/dl (12.0-16.0); Mean Corpuscular Hemoglobin 24.5 pg (25.0-34.0); Mean Corpuscular Hgb Conc 31.3 g/dL (32.0-36.0); Mean Corpuscular Volume 78.3 fL (80.0-100.0); Mean Platelet Volume 10.4 fL (9.4-12.3); Platelet Count 157 K/uL (130-400); RDW Coefficient of Variation 20.9 % (11.5-14.5); RDW Standard Deviation 55.1 fL (36.4-46.3); Red Blood Count 4.28 M/uL (3.93-5.22); White Blood Count 11.43 K/ul (4.8-10.8)
[2022-05-01 08:33] LABS: BUN Creatinine Ratio 32.7 (10-20); Calcium 8.2 mg/dl (8.5-10.1); Creatinine Clr Calc Pharmacy 83.1 ml/min; Est GFR (African American) 106.6 ml/min; Potassium 3.8 mmol/L (3.5-5.1)
[2022-05-01] MEDS: THIAMINE HCL 100 MG TAB PO SCH (09:38)
[2022-05-01] MEDS: CEROVITE ADV FORMULA TAB PO SCH (09:38)
[2022-05-01] MEDS ORDERED: COUGH DROP (SUGAR FREE) LOZ 24 LOZ/1 BOX BUCCAL PRN (10:51)
[2022-05-01] MEDS: NAPHAZOLIN/PHENIRAMIN OPH SOLN 75 DROPS/5 ML BTL OP PRN (11:42)
[2022-05-01] MEDS: cefTRIAXone SODIUM 2,000 MG in DEXTROSE 5% 50 ML IV SCH (11:42)
--- NOTE | 2022-05-01 16:34 | Hospitalist Progress Note ---
Date of Service May 01, 2022 Assessment & Plan (1) Encephalopathy: Plan: Metabolic Encephalopathy CT head was negative Propofol and fentanyl drip discontinued Neuro status continue to improve back to baseline Septic shock resuscitated with 3liters of crystalloid and 1x 25% albumin in the ED Currently on Levophed and Vasopressin to keep MAP greater than 65 Lactate on admission 7. then improves WBC continue trending down to 11.4K Blood cx and urine cx grew gram negative bacilli - Ecoli received ceftriaxone and dapto on admission repeat blood cx no growth Continue IV abx with ceftriaxone to complete 2 weeks course Respiratory failure S/P extubation on 04/27/22 saturated well on RA Continue monitor closely resolved Infected Kidney stone Status post emergent Cystoscopy, left ureteral stent placement because of suspected urosepsis performed by Dr. Adams Continue IV abx with ceftriaxone Outpatient follow-up with urology for stone treatment once she recovers Elevated troponin Mostly due to septic shock/BERTHA Troponin on admission 696 then peaked to 2559.1 EKG showed no acute ischemic changes ECHO showed LV is mildly dilated. 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% Anemia s/p 1 unit prbc during hospital course Hgb 10.5 today No active bleeding Continue monitor CBC Elevated Anion Gap Anion gap on admission 14 Anion gap closed Rhabdo CPK 2406 then increased to 3801 CPK normalized at 192 resolved Prolonged QTC QT 511 Continue to avoid QT prolonging medication Continue monitor Will repeat EKG in am Electrolytes Imbalance Phosp 3.7 and K 3.8 K replaced Continue monitor electrolytes BERTHA Mostly due to Septic shock Creatinine on admission 2.45 Resuscitated with 3liters of crystalloid Creatinine 0.45 resolved Weakness PT/OT eval fall precaution case disccussed with PT recommended inpatient rehab or SNF Transaminitis Likely secondary to septic shock- follow with resuscitation Liver enzymes continue trending down with AST 57 and ALT 56 LFT normalized with AST 38 and ALT 47 Continue monitor CODE status Conditional code Disposition Will discharge once medically stable Mr. Dez Wagner [phone]. Admission and Anticipated Discharge Date Admission Date: April 25, 2022 Subjective Patient seen and examined at bedside. Lying in bed with no acute distress She said that she started to have her appetite Denies any chest pain, palpitation, dizziness and SOB Review of Systems Review of Systems: All systems reviewed & are unremarkable except as noted in Subjective Physical Exam Physical Exam: General- confused, no acute distress Head- atraumatic Eyes- PERRL, EOMI, ENT- oropharynx clear Neck- supple, no JVD Lungs- Diminished breath sound Heart- regular rhythm; no murmur Abdomen- normal bowel sounds, soft, nontender Neuro- awake, follow minimal commands, move all extremities, no dysuria Skin- warm & dry Results & Data Results & Data ([facility]) Vital Signs (Past 12 Hours) Vital Signs Temp Pulse Pulse Resp BP BP Pulse Ox 05/01/22 15:02 36.2 C L 95 H 16 132/82 98 05/01/22 06:30 87 05/01/22 11:01 36.5 C 93 H 18 118/69 94 05/01/22 07:22 36.5 C 79 18 142/74 H 95 O2 Del Method 05/01/22 15:02 Room Air 05/01/22 06:30 05/01/22 11:01 Room Air 05/01/22 07:22 Room Air
[2022-05-01] MEDS: rOPINIRole HCL 0.25 MG TABLET PO SCH (21:59)
[2022-05-01] MEDS: LORazepam 0.5 MG TAB PO PRN (21:59)
[2022-05-02 07:09] LABS: Hematocrit (blood only) 32.4 % (34.1-44.9); Mean Corpuscular Hemoglobin 24.1 pg (25.0-34.0); Mean Corpuscular Hgb Conc 30.9 g/dL (32.0-36.0); Mean Corpuscular Volume 78.1 fL (80.0-100.0); Mean Platelet Volume 10.7 fL (9.4-12.3); Platelet Count 208 K/uL (130-400); RDW Coefficient of Variation 21.5 % (11.5-14.5); RDW Standard Deviation 56.8 fL (36.4-46.3); Red Blood Count 4.15 M/uL (3.93-5.22); White Blood Count 9.38 K/ul (4.8-10.8)
[2022-05-02] MEDS: CEROVITE ADV FORMULA TAB PO SCH (07:30)
[2022-05-02] MEDS: THIAMINE HCL 100 MG TAB PO SCH (07:30)
[2022-05-02] MEDS: FIRST - Mouthwash BLM 119 ML PO SCH ×4 (07:31→23:34)
[2022-05-02] MEDS: NAPHAZOLIN/PHENIRAMIN OPH SOLN 75 DROPS/5 ML BTL OP PRN (07:31)
[2022-05-02] MEDS: cefTRIAXone SODIUM 2,000 MG in DEXTROSE 5% 50 ML IV SCH (11:22)
[2022-05-02] MEDS: LOPERAMIDE HCL 2 MG CAP PO PRN (11:24)
--- NOTE | 2022-05-02 15:32 | Hospitalist Progress Note ---
Date of Service May 02, 2022 Assessment & Plan (1) Encephalopathy: Plan: Metabolic Encephalopathy CT head was negative Propofol and fentanyl drip discontinued Neuro status continue to improve back to baseline Septic shock resuscitated with 3liters of crystalloid and 1x 25% albumin in the ED Currently on Levophed and Vasopressin to keep MAP greater than 65 Lactate on admission 7. then improves WBC continue normalized to 9K Blood cx and urine cx grew gram negative bacilli - Ecoli received ceftriaxone and dapto on admission repeat blood cx no growth Continue IV abx with ceftriaxone to complete 10 days course from the negative blood cx Respiratory failure S/P extubation on 04/27/22 saturated well on RA Continue monitor closely resolved Infected Kidney stone Status post emergent Cystoscopy, left ureteral stent placement because of suspected urosepsis performed by Dr. Adams Continue IV abx with ceftriaxone Outpatient follow-up with urology for stone treatment once she recovers Elevated troponin Mostly due to septic shock/BERTHA Troponin on admission 696 then peaked to 2559.1 EKG showed no acute ischemic changes ECHO showed LV is mildly dilated. 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% Anemia s/p 1 unit prbc during hospital course Hgb 10 today No active bleeding Continue monitor CBC Elevated Anion Gap Anion gap on admission 14 Anion gap closed Rhabdo CPK 2406 then increased to 3801 CPK normalized at 192 resolved Prolonged QTC QT 511 Continue to avoid QT prolonging medication Continue monitor Will repeat EKG in am Electrolytes Imbalance Phosp 3.7 and K 3.8 Continue monitor electrolytes BERTHA Mostly due to Septic shock Creatinine on admission 2.45 Resuscitated with 3liters of crystalloid Creatinine 0.45 resolved Weakness PT/OT eval fall precaution case discussed with PT recommended inpatient rehab or SNF Case discussed with case management - waiting for placement Transaminitis Likely secondary to septic shock- follow with resuscitation Liver enzymes continue trending down with AST 57 and ALT 56 LFT normalized with AST 38 and ALT 47 Continue monitor CODE status Conditional code Disposition Waiting for placement Mr. Dez Wagner [phone]. Admission and Anticipated Discharge Date Admission Date: April 25, 2022 Subjective Patient seen and examined at bedside. Lying in bed with no acute distress She said that she slept well last night She said that she is starting to gain more energy She agreed to go to rehab Denies any chest pain, palpitation, dizziness and SOB Review of Systems Review of Systems: All systems reviewed & are unremarkable except as noted in Subjective Physical Exam Physical Exam: General- confused, no acute distress Head- atraumatic Eyes- PERRL, EOMI, ENT- oropharynx clear Neck- supple, no JVD Lungs- Diminished breath sound Heart- regular rhythm; no murmur Abdomen- normal bowel sounds, soft, nontender Neuro- awake, follow minimal commands, move all extremities, no dysuria Skin- warm & dry Results & Data Results & Data ([facility]) Vital Signs (Past 12 Hours) Vital Signs Temp Pulse Pulse Resp BP BP Pulse Ox 05/02/22 11:00 36.6 C 88 16 127/69 94 05/02/22 07:00 88 05/02/22 07:28 36.5 C 83 14 103/56 L 95 05/02/22 07:00 O2 Del Method 05/02/22 11:00 Room Air 05/02/22 07:00 05/02/22 07:28 Room Air 05/02/22 07:00 Room Air
[2022-05-02] MEDS: rOPINIRole HCL 0.25 MG TABLET PO SCH (20:56)
[2022-05-02] MEDS: LORazepam 0.5 MG TAB PO PRN (20:56)
[2022-05-03] MEDS: LOPERAMIDE HCL 2 MG CAP PO PRN ×2 (04:25→22:14)
[2022-05-03] MEDS: FIRST - Mouthwash BLM 119 ML PO SCH ×4 (05:01→23:43)
[2022-05-03] MEDS: THIAMINE HCL 100 MG TAB PO SCH (07:34)
[2022-05-03] MEDS: CEROVITE ADV FORMULA TAB PO SCH (07:34)
[2022-05-03 07:57] LABS: Mean Corpuscular Hemoglobin 24.4 pg (25.0-34.0); Mean Corpuscular Hgb Conc 31.3 g/dL (32.0-36.0); Mean Corpuscular Volume 78.2 fL (80.0-100.0); Mean Platelet Volume 10.1 fL (9.4-12.3); Platelet Count 237 K/uL (130-400); RDW Coefficient of Variation 21.4 % (11.5-14.5); RDW Standard Deviation 57.9 fL (36.4-46.3); Red Blood Count 4.09 M/uL (3.93-5.22); White Blood Count 7.82 K/ul (4.8-10.8)
[2022-05-03 08:22] LABS: BUN Creatinine Ratio 35.7 (10-20); Calcium 8.2 mg/dl (8.5-10.1); Creatinine Clr Calc Pharmacy 88.4 ml/min; Est GFR (African American) 112.2 ml/min; Est GFR (Non-African American) 96.8 ml/min
--- NOTE | 2022-05-03 11:04 | Hospitalist Progress Note ---
Date of Service May 03, 2022 Assessment & Plan (1) Severe sepsis with septic shock: (2) Encephalopathy: Plan: Metabolic Encephalopathy resolved CT head was negative Septic shock Resuscitated with 3liters of crystalloid and 1x 25% albumin in the ED Required pressors in ICU (Levophed and Vasopressin to keep MAP greater than 65) Lactate on admission 7 then improved Leukocytosis resolved Blood cx and urine cx grew Ecoli Received ceftriaxone and dapto on admission Currently on Ceftriaxone Repeat blood cx no growth Continue IV ceftriaxone to complete 10 days course Source of sepsis - complicated UTI Infected Kidney stone Status post emergent Cystoscopy, left ureteral stent placement because of suspected urosepsis performed by Dr. Adams Outpatient follow-up with urology for stone treatment once she recovers Discontinue tate and monitor Respiratory failure Required intubation S/P extubation on 04/27/22 Currently on RA Elevated troponin Mostly due to septic shock/BERTHA Troponin on admission 696 then peaked to 2559.1 EKG showed no acute ischemic changes ECHO showed LV is mildly dilated. 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% Anemia s/p 1 unit prbc during hospital course Hgb 10 today No active bleeding Monitor Elevated Anion Gap Metabolic Acidosis Anion gap on admission 14 Resolved Rhabdomyolysis CPK 2406 then increased to 3801 CPK normalized at 192 Resolved Prolonged QTC QT 511 Continue to avoid QT prolonging medication QTc is 478 today BERTHA Mostly due to Septic shock Creatinine on admission 2.45 now down to 0.42 Resolved Weakness PT/OT eval noted Fall precaution CM working on placement Transaminitis Likely secondary to septic shock LFT normalized CODE status Conditional code Disposition Waiting for placement Mr. Dez Wagner [phone]. Admission and Anticipated Discharge Date Admission Date: April 25, 2022 Subjective Patient seen and examined Reports some dry cough and congestion Reports generalized weakness Denied any shortness of breath Denied any chest pain Denied fevers, chills, nausea, abd pain Reports loose stool this AM Denied any headache, dizziness Physical Exam Constitutional: no acute distress Elderly woman Eyes: PERRL, conjunctivae normal, anicteric sclerae ENMT: external ear and nose normal, oropharynx normal Respiratory: normal respiratory effort and + respiratory distress Clear to auscultation bilaterally Cardiovascular: Rate/Rhythm: regular rate and regular rhythm S1 S2 Gastrointestinal (Abdomen): normal bowel sounds, soft, nontender, no hepatosplenomegaly Musculoskeletal: No pedal edema Neurologic: PERRL, EOMI, accommodation nl, no face palsy, no dysarthria Genitourinary: Tate in situ Results & Data Results & Data ([facility]) Vital Signs (Past 12 Hours) Vital Signs Temp Pulse Pulse Resp BP BP Pulse Ox 05/03/22 08:10 36.7 C 81 20 137/77 97 05/03/22 07:23 85 05/03/22 04:00 36.9 C 87 18 151/81 H 96 O2 Del Method 05/03/22 08:10 Room Air 05/03/22 07:23 05/03/22 04:00 Room Air Laboratory Results Abnormal lab results 05/03/22 05/03/22 Range/Units 07:43 07:43 Hgb 10.0 L (12.0-16.0) g/dl Hct 32.0 L (34.1-44.9) % MCV 78.2 L (80.0-100.0) fL MCH 24.4 L (25.0-34.0) pg MCHC 31.3 L (32.0-36.0) g/dL RDW Std Deviation 57.9 H (36.4-46.3) fL RDW Coeff of Gee 21.4 H (11.5-14.5) % Chloride 108 H (98-107) mmol/L Creatinine 0.42 L (0.6-1.2) mg/dl BUN/Creatinine Ratio 35.7 H (10-20) Calcium 8.2 L (8.5-10.1) mg/dl
[2022-05-03] MEDS: cefTRIAXone SODIUM 2,000 MG in DEXTROSE 5% 50 ML IV SCH (11:53)
[2022-05-03] MEDS: rOPINIRole HCL 0.25 MG TABLET PO SCH (22:14)
[2022-05-03] MEDS: LORazepam 0.5 MG TAB PO PRN (22:15)
[2022-05-04] MEDS: FIRST - Mouthwash BLM 119 ML PO SCH ×3 (05:00→17:19)
[2022-05-04 05:38] LABS: Hematocrit (blood only) 32.5 % (34.1-44.9); Hemoglobin 9.9 g/dl (12.0-16.0); Mean Corpuscular Hemoglobin 24.2 pg (25.0-34.0); Mean Corpuscular Hgb Conc 30.5 g/dL (32.0-36.0); Mean Corpuscular Volume 79.5 fL (80.0-100.0); Mean Platelet Volume 9.9 fL (9.4-12.3); Platelet Count 272 K/uL (130-400); RDW Coefficient of Variation 21.7 % (11.5-14.5); RDW Standard Deviation 59.7 fL (36.4-46.3); Red Blood Count 4.09 M/uL (3.93-5.22); White Blood Count 7.09 K/ul (4.8-10.8)
[2022-05-04 05:59] LABS: BUN Creatinine Ratio 41.9 (10-20); Calcium 8.5 mg/dl (8.5-10.1); Creatinine Clr Calc Pharmacy 86.3 ml/min; Est GFR (African American) 111.3 ml/min; Est GFR (Non-African American) 96.1 ml/min; Potassium 3.8 mmol/L (3.5-5.1)
--- NOTE | 2022-05-04 06:47 | Electrocardiogram Report ---
Test Reason : Blood Pressure : / mmHG Vent. Rate : 086 BPM Atrial Rate : 086 BPM P-R Int : 140 ms QRS Dur : 090 ms QT Int : 400 ms P-R-T Axes : 061 -27 112 degrees QTc Int : 478 ms Sinus rhythm with Premature atrial complexes Nonspecific ST and T wave abnormality Prolonged QT Abnormal ECG When compared with ECG of 28-APR-2022 05:18, Premature atrial complexes are now Present T wave inversion now evident in Lateral leads Premature ventricular complexes are no longer Present Confirmed by Madi Day ([id number]) on 05/04/2022 6:47:15 AM Referred By: REFERRED SELF Confirmed By:Madi Day
[2022-05-04] MEDS: CEROVITE ADV FORMULA TAB PO SCH (09:27)
[2022-05-04] MEDS: THIAMINE HCL 100 MG TAB PO SCH (09:27)
--- NOTE | 2022-05-04 10:24 | Hospitalist Progress Note ---
Date of Service May 04, 2022 Assessment & Plan (1) Severe sepsis with septic shock: (2) Encephalopathy: Plan: Metabolic Encephalopathy resolved CT head was negative Septic shock Resuscitated with 3liters of crystalloid and 1x 25% albumin in the ED Required pressors in ICU (Levophed and Vasopressin to keep MAP greater than 65) Lactate on admission 7 then improved Leukocytosis resolved Blood cx and urine cx grew Ecoli Received ceftriaxone and dapto on admission Currently on Ceftriaxone Repeat blood cx no growth Continue IV ceftriaxone to complete 10 days course from negative culture Source of sepsis - complicated UTI Infected Kidney stone Status post emergent Cystoscopy, left ureteral stent placement because of suspected urosepsis performed by Dr. Adams Outpatient follow-up with urology for stone treatment once she recovers Respiratory failure Required intubation S/P extubation on 04/27/22 Currently on RA Elevated troponin Mostly due to septic shock/BERTHA Troponin on admission 696 then peaked to 2559.1 EKG showed no acute ischemic changes ECHO showed LV is mildly dilated. 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% Anemia s/p 1 unit prbc during hospital course Hgb 9.9 today No active bleeding Monitor Elevated Anion Gap Metabolic Acidosis Anion gap on admission 14 Resolved Rhabdomyolysis CPK 2406 then increased to 3801 CPK normalized at 192 Resolved Prolonged QTC QT 511 Continue to avoid QT prolonging medication QTc is 478 today BERTHA Mostly due to Septic shock Creatinine on admission 2.45 now down to 0.42 Resolved Weakness PT/OT eval noted Fall precaution CM working on placement Transaminitis Likely secondary to septic shock LFT normalized Vaginal prolapse Chronic according to patient CT abd/P on admission noted unremarkable Does not affect urination. Will monitor for now Patient to follow up gyne outpatient CODE status Conditional code Disposition Waiting for placement Mr. Dez Wagner [phone]. Admission and Anticipated Discharge Date Admission Date: April 25, 2022 Subjective Patient seen and examined Reports some dry cough and congestion Reports generalized weakness Denied any shortness of breath, chest pain Denied fevers, chills, nausea, abd pain Reports no diarrhea so far today Denied any headache, dizziness Overnight RN had reported some vaginal protrusion Physical Exam Constitutional: no acute distress Eyes: PERRL, conjunctivae normal, anicteric sclerae ENMT: external ear and nose normal, oropharynx normal Respiratory: normal respiratory effort and + respiratory distress Cardiovascular: Rate/Rhythm: regular rate and regular rhythm S1 S2 Gastrointestinal (Abdomen): normal bowel sounds, soft, nontender, no hepatosplenomegaly Neurologic: PERRL, EOMI, accommodation nl, no face palsy, no dysarthria Genitourinary: 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 Small vaginal protusion (patient reports she has chronic vaginal prolapse for years and unchanged) Results & Data Results & Data ([facility]) Vital Signs (Past 12 Hours) Vital Signs Temp Pulse Pulse Resp BP BP Pulse Ox 05/04/22 09:00 84 05/04/22 02:52 36.5 C 93 H 18 123/66 94 05/03/22 22:59 36.6 C 110 H 18 122/69 98 05/03/22 22:27 96 H O2 Del Method 05/04/22 09:00 05/04/22 02:52 Room Air 05/03/22 22:59 Room Air 05/03/22 22:27 Laboratory Results Abnormal lab results 05/04/22 05/04/22 Range/Units 05:18 05:18 Hgb 9.9 L (12.0-16.0) g/dl Hct 32.5 L (34.1-44.9) % MCV 79.5 L (80.0-100.0) fL MCH 24.2 L (25.0-34.0) pg MCHC 30.5 L (32.0-36.0) g/dL RDW Std Deviation 59.7 H (36.4-46.3) fL RDW Coeff of Gee 21.7 H (11.5-14.5) % Chloride 108 H (98-107) mmol/L Creatinine 0.43 L (0.6-1.2) mg/dl BUN/Creatinine Ratio 41.9 H (10-20)
[2022-05-04] MEDS: cefTRIAXone SODIUM 2,000 MG in DEXTROSE 5% 50 ML IV SCH (12:25)
[2022-05-04] MEDS: LORazepam 0.5 MG TAB PO PRN (22:05)
[2022-05-04] MEDS: rOPINIRole HCL 0.25 MG TABLET PO SCH (22:05)
[2022-05-04] MEDS: ACETAMINOPHEN 325 MG TAB PO PRN (22:05)
[2022-05-05] MEDS: FIRST - Mouthwash BLM 119 ML PO SCH ×5 (00:02→23:05)
[2022-05-05] MEDS: ACETAMINOPHEN 325 MG TAB PO PRN ×2 (05:05→20:29)
[2022-05-05 06:51] LABS: Calcium 8.7 mg/dl (8.5-10.1); Creatinine Clr Calc Pharmacy 81.9 ml/min; Est GFR (African American) 106.6 ml/min
[2022-05-05] MEDS: CEROVITE ADV FORMULA TAB PO SCH (08:38)
[2022-05-05] MEDS: THIAMINE HCL 100 MG TAB PO SCH (08:38)
[2022-05-05] MEDS: NYSTATIN CR 15 GM TUBE EXT SCH ×2 (08:39→20:19)
[2022-05-05] MEDS: cefTRIAXone SODIUM 2,000 MG in DEXTROSE 5% 50 ML IV SCH (11:34)
--- NOTE | 2022-05-05 12:02 | Hospitalist Progress Note ---
Date of Service May 05, 2022 Assessment & Plan (1) Severe sepsis with septic shock: (2) Encephalopathy: Plan: Metabolic Encephalopathy resolved CT head was negative Septic shock Resuscitated with 3liters of crystalloid and 1x 25% albumin in the ED Required pressors in ICU (Levophed and Vasopressin to keep MAP greater than 65) Lactate on admission 7 then improved Leukocytosis resolved Blood cx and urine cx grew Ecoli Received ceftriaxone and dapto on admission Currently on Ceftriaxone Repeat blood cx no growth Continue IV ceftriaxone to complete 10 days course from negative culture Source of sepsis - complicated UTI Infected Kidney stone Status post emergent Cystoscopy, left ureteral stent placement because of suspected urosepsis performed by Dr. Adams Outpatient follow-up with urology for stone treatment once she recovers Respiratory failure Required intubation S/P extubation on 04/27/22 Currently on RA Elevated troponin Mostly due to septic shock/BERTHA Troponin on admission 696 then peaked to 2559.1 EKG showed no acute ischemic changes ECHO showed LV is mildly dilated. 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% Anemia s/p 1 unit prbc during hospital course Hgb stable No active bleeding Monitor Elevated Anion Gap Metabolic Acidosis Anion gap on admission 14 Resolved Rhabdomyolysis CPK 2406 then increased to 3801 CPK normalized at 192 Resolved Prolonged QTC Continue to avoid QT prolonging medication BERTHA Mostly due to Septic shock Creatinine on admission 2.45 now down to 0.49 Resolved Weakness PT/OT eval noted Fall precaution CM working on placement Transaminitis Likely secondary to septic shock LFT normalized Vaginal prolapse Chronic according to patient CT abd/P on admission noted unremarkable Does not affect urination. Will monitor for now Patient to follow up gyne outpatient CODE status Conditional code Disposition Waiting for placement Mr. Dez Wagner [phone]. Admission and Anticipated Discharge Date Admission Date: April 25, 2022 Subjective Patient seen and examined Reports couhg Reports generalized weakness is improving Denied any shortness of breath, chest pain Denied fevers, chills, nausea, abd pain Denied any headache, dizziness Physical Exam Constitutional: no acute distress Eyes: PERRL, conjunctivae normal, anicteric sclerae ENMT: external ear and nose normal, oropharynx normal Respiratory: normal respiratory effort; no respiratory distress diminished breath sounds, on room air Cardiovascular: Rate/Rhythm: regular rate and regular rhythm S1 S2 Gastrointestinal (Abdomen): normal bowel sounds, soft, nontender, no hepatosplenomegaly Musculoskeletal: No pedal edema Neurologic: PERRL, EOMI, accommodation nl, no face palsy, no dysarthria Results & Data Results & Data ([facility]) Vital Signs (Past 12 Hours) Vital Signs Temp Pulse Pulse Resp BP BP Pulse Ox 05/05/22 11:23 36.9 C 101 H 16 102/68 97 05/05/22 10:55 80 05/05/22 07:35 36.8 C 68 18 112/64 94 05/05/22 06:41 36.6 C 87 16 116/70 96 05/05/22 04:58 36.8 C 90 16 94/61 L 95 O2 Del Method 05/05/22 11:23 Room Air 05/05/22 10:55 05/05/22 07:35 Room Air 05/05/22 06:41 Room Air 05/05/22 04:58 Room Air Laboratory Results Abnormal lab results 05/05/22 Range/Units 05:55 Chloride 109 H (98-107) mmol/L BUN 24 H (6-23) mg/dl Creatinine 0.49 L (0.6-1.2) mg/dl BUN/Creatinine Ratio 49.0 H (10-20)
[2022-05-05] MEDS: rOPINIRole HCL 0.25 MG TABLET PO SCH (20:18)
[2022-05-05] MEDS: LOPERAMIDE HCL 2 MG CAP PO PRN (20:31)
[2022-05-05] MEDS: LORazepam 0.5 MG TAB PO PRN (23:04)
[2022-05-06] MEDS: FIRST - Mouthwash BLM 119 ML PO SCH ×4 (05:39→23:22)
[2022-05-06] MEDS: THIAMINE HCL 100 MG TAB PO SCH (08:39)
[2022-05-06] MEDS: CEROVITE ADV FORMULA TAB PO SCH (08:39)
[2022-05-06] MEDS: NYSTATIN CR 15 GM TUBE EXT SCH ×2 (08:40→20:03)
--- NOTE | 2022-05-06 10:50 | Hospitalist Progress Note ---
Date of Service May 06, 2022 Assessment & Plan (1) Severe sepsis with septic shock: (2) Encephalopathy: Plan: Metabolic Encephalopathy resolved CT head was negative Septic shock Resuscitated with 3liters of crystalloid and 1x 25% albumin in the ED Required pressors in ICU (Levophed and Vasopressin to keep MAP greater than 65) Lactate on admission 7 then improved Leukocytosis resolved Blood cx and urine cx grew Ecoli Received ceftriaxone and dapto on admission Currently on Ceftriaxone Repeat blood cx no growth Continue IV ceftriaxone to complete 10 days course from negative culture Source of sepsis - complicated UTI Infected Kidney stone Status post emergent Cystoscopy, left ureteral stent placement because of suspected urosepsis performed by Dr. Adams Outpatient follow-up with urology for stone treatment once she recovers Respiratory failure Required intubation S/P extubation on 04/27/22 Currently on RA Elevated troponin Mostly due to septic shock/BERTHA Troponin on admission 696 then peaked to 2559.1 EKG showed no acute ischemic changes ECHO showed LV is mildly dilated. 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% Anemia s/p 1 unit prbc during hospital course Hgb stable No active bleeding Elevated Anion Gap Metabolic Acidosis Anion gap on admission 14 Resolved Rhabdomyolysis CPK 2406 then increased to 3801 CPK normalized at 192 Resolved Prolonged QTC Continue to avoid QT prolonging medication BERTHA Mostly due to Septic shock Creatinine on admission 2.45 now down to 0.49 Resolved Weakness PT/OT eval noted Fall precaution CM working on placement Transaminitis Likely secondary to septic shock LFT normalized Vaginal prolapse Chronic according to patient CT abd/P on admission noted unremarkable Does not affect urination. Will monitor for now Patient to follow up gyne outpatient CODE status Conditional code Disposition JENNIFER yesterday had mentioned concern for poor insight/capacity and recommended psych evaluation Psych consult was placed I spent over 35mins today discussing with patient today. She does have good insight into current hospital stay/illness She reported some issues at home, stated she is from her and does not have a good relationship with her children who she has not spoken with in years. She stated she feels safe at home and that [facility] checks up on her. We discussed possible SNF on discharge She has concerns about coverage and will like to discuss it further with CM. CM notified to provide patient with more information Mr. Dez Wagner [phone]. Admission and Anticipated Discharge Date Admission Date: April 25, 2022 Subjective Patient seen and examined Reports cough is improving Reports generalized weakness is improving Denied any shortness of breath, chest pain Denied fevers, chills, nausea, abd pain No diarrhea so far today Denied any headache, dizziness Physical Exam Constitutional: no acute distress Eyes: PERRL, conjunctivae normal, anicteric sclerae ENMT: external ear and nose normal, oropharynx normal Respiratory: normal respiratory effort; no respiratory distress Diminished breath sounds lung bases Cardiovascular: Rate/Rhythm: regular rate and regular rhythm S1 S2 Gastrointestinal (Abdomen): normal bowel sounds, soft, nontender, no hepatosplenomegaly Musculoskeletal: No pedal edema Neurologic: PERRL, EOMI, accommodation nl, no face palsy, no dysarthria Psychiatric: A+Ox3, euthymic affect Results & Data Results & Data ([facility]) Vital Signs (Past 12 Hours) Vital Signs Temp Pulse Resp BP Pulse Ox O2 Del Method 05/06/22 07:27 36.7 C 84 18 138/76 94 Room Air 05/06/22 03:45 36.6 C 87 18 115/71 96 Room Air 05/06/22 00:03 Room Air
[2022-05-06] MEDS: ACETAMINOPHEN 325 MG TAB PO PRN ×2 (12:30→19:19)
[2022-05-06] MEDS: LOPERAMIDE HCL 2 MG CAP PO PRN (12:30)
[2022-05-06] MEDS: cefTRIAXone SODIUM 2,000 MG in DEXTROSE 5% 50 ML IV SCH (12:31)
--- NOTE | 2022-05-06 14:31 | Psychiatric Consultation ---
Date of Consultation May 06, 2022 Impression / Recommendations Impression 81 yo female who was been residing in poor conditions in [facility] on own property, she has >10 hx of paranoia with regards to which hasn't progressed to brian psychosis nor does she appear to have major cognitive decline. Hospitalist service documented capacity and concur. She understands the hospital's recommendations re: placement and understands the risks of declining. There is no active andrés, delirium, or thought disorganization interfering with her medical decision making. There is no indication for inpatient mental health and she is not a good outpatient therapy candidate even if she would agree. (1) Paranoid personality: Plan psychiatrically stable for discharge from [facility] with [facility] services and medical follow up. Psych History Identifying Data 81 yo female from [place]. Admit 04/26/22 for encephalopathy secondary to sepsis and complicated UTI. Chief Complaint "My trailer has been like that for a long time, it's embarrassing but it is what it is." History of Present Illness Now that her mental status has improved, the patient has had several discussions with the hospitalist and CM around discharge planning. She is adamant that she wants to return home. Dr. Umana confirms that she does have capacity. CM has been in contact with [facility] who have a longstanding relationship with the patient. They are providing support have not moved toward guardianship. The patient has no formal psych hx and appears she was seen for suspicion of mental health issues in the ED in 2006 at which time her trailer didn't have heat. CM expressed concerns that wants to return to [facility] with no running water (long standing issue). A psych consult was requested as the patient made paranoid statements about her . The patient and her live separately. She believes he was trying to "get rid of" most of her cats while she was in the hospital in the past. She was up to 65 cats at one point (not currently) and states [place] "people drop them off all the time." She believes that he just wants her land/farm when she dies so if she becomes sick to her stomach she believes he has poisoned her food. She misattributes brown lettuce or a cat not wanting to eat something he brought her as "proof." She related his has a history of lewd behavior and she's been more of a mother than a to him, "only marrying for the insurance." She denied thoughts to hurt herself or others. She denied hallucinations. She was oriented in all spheres. 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 Is estranged from 2 children. Is not able to identify other supports than local [facility] neighbors who assist her at times. 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) Social History Smoking Status: Former smoker Hx Alcohol Use: Yes Alcohol type: beer Hx Substance Use: No Preferred Language: Bulgarian Communication Ability: Unable Quarantine Officer Required: No Beliefs That Will Affect Care: None marital status: Current Living Situation: Spouse Feels Safe at Home: Yes Assistive Devices: None Physical Exam Psychiatric: Orientation: alert and oriented x 3 Apperance: appropriately groomed Eye Contact: good eye contact Motor Behavior: no abnormal motor movements Speech: normal rate/rhythm/volume of speech Affect: euthymic affect Mood: no depressed mood Thought Process: goal directed thought process Thought Content: + paranoid Suicidal Thoughts: denies suicidal thoughts Homicidal Thoughts: denies homicidal thoughts Hallucinations: no auditory hallucinations and no visual hallucinations Cognition: attention grossly intact and language grossly intact Estimated Intelligence: consistent with education level Insight: + limited insight Judgement: + limited judgement Vital Signs (Past 24 Hours): Last Vital Signs Temp 36.7 C 05/06/22 11:28 Pulse 92 H 05/06/22 11:28 Resp 16 05/06/22 11:28 BP 125/75 05/06/22 11:28 Pulse Ox 96 05/06/22 11:28 O2 Del Method 05/06/22 11:28 FiO2 30 04/27/22 04:00 Review of Systems All systems reviewed & are unremarkable except as noted in HPI & below Results & Data ([facility]) Medications Administered Acetaminophen (Acetaminophen 325 Mg Tab) 650 mg PO Q6H PRN PRN Reason: Fever/pain Stop: 05/25/22 22:20 Last Admin: 05/06/22 12:30 Dose: 650 mg Documented By: Admin: 05/05/22 20:29 Dose: 650 mg Documented By: Admin: 05/05/22 05:05 Dose: 650 mg Documented By: Admin: 05/04/22 22:05 Dose: 650 mg Documented By: Admin: 04/29/22 09:30 Dose: 650 mg Documented By: ZACHARY Dextrose (Dextrose 50% 50 Ml Syringe) 25 - 50 ml IV UD PRN; Protocol PRN Reason: Hypoglycemia Protocol Stop: 05/26/22 23:35 Last Admin: 04/26/22 23:38 Dose: 50 ml Documented By: NAE Ceftriaxone Sodium 2,000 mg/ (Dextrose) 70 mls @ 140 mls/hr IV Q24H [facility] Stop: 05/10/22 11:59 Last Infusion: 05/06/22 13:01 Dose: 0 mls/hr Documented By: Admin: 05/06/22 12:31 Dose: 140 mls/hr Documented By: Infusion: 05/05/22 12:08 Dose: 0 mls/hr Documented By: Admin: 05/05/22 11:34 Dose: 140 mls/hr Documented By: Infusion: 05/04/22 14:03 Dose: 0 mls/hr Documented By: Admin: 05/04/22 12:25 Dose: 140 mls/hr Documented By: GEFabiola Infusion: 05/03/22 12:24 Dose: 0 mls/hr Documented By: Admin: 05/03/22 11:53 Dose: 140 mls/hr Documented By: Infusion: 05/02/22 11:52 Dose: 0 mls/hr Documented By: Admin: 05/02/22 11:22 Dose: 140 mls/hr Documented By: Infusion: 05/01/22 12:18 Dose: 0 mls/hr Documented By: Admin: 05/01/22 11:42 Dose: 140 mls/hr Documented By: Infusion: 04/30/22 12:46 Dose: 0 mls/hr Documented By: Admin: 04/30/22 12:16 Dose: 140 mls/hr Documented By: Infusion: 04/29/22 14:27 Dose: 0 mls/hr Documented By: Admin: 04/29/22 12:28 Dose: 140 mls/hr Documented By: Infusion: 04/28/22 12:00 Dose: 0 mls/hr Documented By: Admin: 04/28/22 11:30 Dose: 140 mls/hr Documented By: Infusion: 04/27/22 12:23 Dose: 0 mls/hr Documented By: Admin: 04/27/22 11:24 Dose: 140 mls/hr Documented By: MELISA Loperamide HCl (Loperamide Hcl 2 Mg Cap) 2 mg PO UD PRN PRN Reason: after each loose stool Stop: 05/30/22 09:29 Last Admin: 05/06/22 12:30 Dose: 2 mg Documented By: Admin: 05/05/22 20:31 Dose: 2 mg Documented By: Admin: 05/03/22 22:14 Dose: 2 mg Documented By: Admin: 05/03/22 04:25 Dose: 2 mg Documented By: Admin: 05/02/22 11:24 Dose: 2 mg Documented By: Admin: 04/30/22 17:22 Dose: 2 mg Documented By: Admin: 04/30/22 15:02 Dose: 2 mg Documented By: Admin: 04/30/22 13:33 Dose: 2 mg Documented By: CEFERINO Lorazepam (Lorazepam 0.5 Mg Tab) 0.5 mg PO Q8H PRN PRN Reason: Anxiety Stop: 05/28/22 09:47 Last Admin: 05/05/22 23:04 Dose: 0.5 mg Documented By: Admin: 05/04/22 22:05 Dose: 0.5 mg Documented By: Admin: 05/03/22 22:15 Dose: 0.5 mg Documented By: Admin: 05/02/22 20:56 Dose: 0.5 mg Documented By: Admin: 05/01/22 21:59 Dose: 0.5 mg Documented By: KAROLINA(2) Admin: 04/30/22 19:36 Dose: 0.5 mg Documented By: PAULAL(2) Admin: 04/30/22 00:33 Dose: 0.5 mg Documented By: KAROLINA(2) Admin: 04/29/22 09:31 Dose: 0.5 mg Documented By: Admin: 04/29/22 00:55 Dose: 0.5 mg Documented By: SARBJIT Multi-Ingredient Mouthwash/Gargle (First - Mouthwash Blm 119 Ml) 5 ml PO Q6 MYNOR Stop: 05/28/22 11:59 Last Admin: 05/06/22 12:51 Dose: Not Given Documented By: Admin: 05/06/22 05:39 Dose: 5 ml Documented By: Admin: 05/05/22 23:05 Dose: 5 ml Documented By: Admin: 05/05/22 18:00 Dose: 5 ml Documented By: JLRosa Admin: 05/05/22 11:34 Dose: 5 ml Documented By: JLRosa Admin: 05/05/22 05:07 Dose: Not Given Documented By: Admin: 05/05/22 00:02 Dose: Not Given Documented By: Admin: 05/04/22 17:19 Dose: 5 ml Documented By: Admin: 05/04/22 14:17 Dose: 5 ml Documented By: Admin: 05/04/22 05:00 Dose: Not Given Documented By: Admin: 05/03/22 23:43 Dose: Not Given Documented By: Admin: 05/03/22 16:12 Dose: Not Given Documented By: Admin: 05/03/22 11:53 Dose: Not Given Documented By: Admin: 05/03/22 05:01 Dose: Not Given Documented By: Admin: 05/02/22 23:34 Dose: Not Given Documented By: Admin: 05/02/22 16:54 Dose: Not Given Documented By: Admin: 05/02/22 11:27 Dose: Not Given Documented By: Admin: 05/02/22 07:31 Dose: 5 ml Documented By: Admin: 05/01/22 23:59 Dose: Not Given Documented By: KAROLINA(2) Admin: 05/01/22 21:52 Dose: Not Given Documented By: KAROLINA(2) Admin: 05/01/22 11:43 Dose: 5 ml Documented By: Admin: 05/01/22 07:49 Dose: 5 ml Documented By: Admin: 05/01/22 00:51 Dose: Not Given Documented By: KAROLINA(2) Admin: 04/30/22 17:21 Dose: 5 ml Documented By: Admin: 04/30/22 12:10 Dose: 5 ml Documented By: Admin: 04/30/22 07:41 Dose: 5 ml Documented By: Admin: 04/30/22 06:19 Dose: Not Given Documented By: KAROLINA(2) Admin: 04/29/22 18:42 Dose: Not Given Documented By: Admin: 04/29/22 12:29 Dose: 5 ml Documented By: Admin: 04/29/22 05:04 Dose: 5 ml Documented By: Admin: 04/29/22 00:47 Dose: 5 ml Documented By: Admin: 04/28/22 18:44 Dose: 5 ml Documented By: Admin: 04/28/22 11:54 Dose: 5 ml Documented By: Admin: 04/28/22 09:29 Dose: 5 ml Documented By: KAROLINA Multivitamins/Minerals (Cerovite Adv Formula Tab) 1 tab PO DAILY MYNOR Stop: 05/28/22 09:59 Last Admin: 05/06/22 08:39 Dose: 1 tab Documented By: Admin: 05/05/22 08:38 Dose: 1 tab Documented By: Admin: 05/04/22 09:27 Dose: 1 tab Documented By: Admin: 05/03/22 07:34 Dose: 1 tab Documented By: Admin: 05/02/22 07:30 Dose: 1 tab Documented By: Admin: 05/01/22 09:38 Dose: 1 tab Documented By: Admin: 04/30/22 08:50 Dose: 1 tab Documented By: Admin: 04/29/22 09:32 Dose: 1 tab Documented By: Admin: 04/28/22 10:07 Dose: 1 tab Documented By: KAROLINA Naphazoline HCl/Pheniramine Maleate (Naphazolin/Pheniramin Oph Soln 75 Drops/5 Ml Btl) 1 drops OP Q12H PRN PRN Reason: dry eyes Stop: 05/31/22 10:50 Last Admin: 05/02/22 07:31 Dose: 1 drops Documented By: Admin: 05/01/22 11:42 Dose: 1 drops Documented By: RIZWANA Nystatin (Nystatin Cr 15 Gm Tube) 1 appln EXT BID MYNOR Stop: 06/04/22 08:59 Last Admin: 05/06/22 08:40 Dose: 1 appln Documented By: Admin: 05/05/22 20:19 Dose: 1 appln Documented By: Admin: 05/05/22 08:39 Dose: 1 appln Documented By: LISA Ropinirole HCl (Ropinirole Hcl 0.25 Mg Tablet) 0.25 mg PO HS [facility] Stop: 05/31/22 20:59 Last Admin: 05/05/22 20:18 Dose: 0.25 mg Documented By: Admin: 05/04/22 22:05 Dose: 0.25 mg Documented By: Admin: 05/03/22 22:14 Dose: 0.25 mg Documented By: Admin: 05/02/22 20:56 Dose: 0.25 mg Documented By: Admin: 05/01/22 21:59 Dose: 0.25 mg Documented By: KAROLINA(2) Thiamine HCl (Thiamine Hcl 100 Mg Tab) 100 mg PO DAILY MYNOR Stop: 05/28/22 09:59 Last Admin: 05/06/22 08:39 Dose: 100 mg Documented By: Admin: 05/05/22 08:38 Dose: 100 mg Documented By: Admin: 05/04/22 09:27 Dose: 100 mg Documented By: Admin: 05/03/22 07:34 Dose: 100 mg Documented By: Admin: 05/02/22 07:30 Dose: 100 mg Documented By: Admin: 05/01/22 09:38 Dose: 100 mg Documented By: Admin: 04/30/22 08:50 Dose: 100 mg Documented By: Admin: 04/29/22 09:32 Dose: 100 mg Documented By: Admin: 04/28/22 10:07 Dose: 100 mg Documented By: KAROLINA Coding Level of Care Code [address] [facility] Intl Hosp Care Lvl 2 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
[2022-05-06] MEDS: rOPINIRole HCL 0.25 MG TABLET PO SCH (20:03)
[2022-05-06] MEDS: LORazepam 0.5 MG TAB PO PRN (22:05)
[2022-05-07] MEDS: FIRST - Mouthwash BLM 119 ML PO SCH ×4 (05:11→23:31)
[2022-05-07 07:24] LABS: Hematocrit (blood only) 31.8 % (34.1-44.9); Hemoglobin 9.9 g/dl (12.0-16.0); Mean Corpuscular Hemoglobin 24.8 pg (25.0-34.0); Mean Corpuscular Hgb Conc 31.1 g/dL (32.0-36.0); Mean Corpuscular Volume 79.5 fL (80.0-100.0); Mean Platelet Volume 9.4 fL (9.4-12.3); Platelet Count 404 K/uL (130-400); RDW Coefficient of Variation 22.4 % (11.5-14.5); RDW Standard Deviation 63.1 fL (36.4-46.3); White Blood Count 5.92 K/ul (4.8-10.8)
[2022-05-07] MEDS: NYSTATIN CR 15 GM TUBE EXT SCH ×2 (07:35→20:25)
[2022-05-07] MEDS: CEROVITE ADV FORMULA TAB PO SCH (07:35)
[2022-05-07] MEDS: THIAMINE HCL 100 MG TAB PO SCH (07:35)
[2022-05-07 07:52] LABS: BUN Creatinine Ratio 45.5 (10-20); Calcium 8.6 mg/dl (8.5-10.1); Creatinine Clr Calc Pharmacy 84.4 ml/min; Est GFR (African American) 110.5 ml/min; Est GFR (Non-African American) 95.3 ml/min; Potassium 3.7 mmol/L (3.5-5.1)
[2022-05-07] MEDS: ACETAMINOPHEN 325 MG TAB PO PRN ×2 (09:29→20:25)
[2022-05-07] MEDS ORDERED: MELATONIN 3 MG TAB PO PRN (10:36)
--- NOTE | 2022-05-07 10:41 | Hospitalist Progress Note ---
Date of Service May 07, 2022 Assessment & Plan (1) Severe sepsis with septic shock: (2) Encephalopathy: Plan: Metabolic Encephalopathy resolved CT head was negative Septic shock Resuscitated with 3liters of crystalloid and 1x 25% albumin in the ED Required pressors in ICU (Levophed and Vasopressin to keep MAP greater than 65) Lactate on admission 7 then improved Leukocytosis resolved Blood cx and urine cx grew Ecoli Received ceftriaxone and dapto on admission Currently on Ceftriaxone Repeat blood cx no growth Continue IV ceftriaxone. Will complete 10 day therapy after today Source of sepsis - complicated UTI Infected Kidney stone Status post emergent Cystoscopy, left ureteral stent placement because of suspected urosepsis performed by Dr. Adams Outpatient follow-up with urology for stone treatment once she recovers Respiratory failure Required intubation S/P extubation on 04/27/22 Currently on RA Elevated troponin Mostly due to septic shock/BERTHA Troponin on admission 696 then peaked to 2559.1 EKG showed no acute ischemic changes ECHO showed LV is mildly dilated. 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% Anemia s/p 1 unit prbc during hospital course Hgb stable No active bleeding Elevated Anion Gap Metabolic Acidosis Anion gap on admission 14 Resolved Rhabdomyolysis CPK 2406 then increased to 3801 CPK normalized at 192 Resolved Prolonged QTC Continue to avoid QT prolonging medication BERTHA Mostly due to Septic shock Creatinine on admission 2.45 now down to 0.44 Resolved Weakness PT/OT eval noted Fall precaution CM working on placement Transaminitis Likely secondary to septic shock LFT normalized Vaginal prolapse Chronic according to patient CT abd/P on admission noted unremarkable Does not affect urination. Will monitor for now Patient to follow up gyne outpatient CODE status Conditional code Disposition Plan to [place] home tomorrow Mr. Dez Wagner [phone]. Admission and Anticipated Discharge Date Admission Date: April 25, 2022 Subjective Patient seen and examined Reports only mild cough Still reports generalized weakness but improving Reports feeling sleepy this morning. Stated she had not got good sleep for sometime Denied any shortness of breath, chest pain Denied fevers, chills, nausea, abd pain, diarrhea Denied any headache, dizziness Physical Exam Constitutional: no acute distress Eyes: PERRL, conjunctivae normal, anicteric sclerae ENMT: external ear and nose normal, oropharynx normal Respiratory: normal respiratory effort; no respiratory distress Auscultation: lungs clear to auscultation bilaterally Cardiovascular: Rate/Rhythm: regular rate and regular rhythm S1 S2 Gastrointestinal (Abdomen): normal bowel sounds, soft, nontender, no hepatosplenomegaly Musculoskeletal: No pedal edema Neurologic: PERRL, EOMI, accommodation nl, no face palsy, no dysarthria Psychiatric: A+Ox3, euthymic affect Results & Data Results & Data ([facility]) Vital Signs (Past 12 Hours) Vital Signs Temp Pulse Pulse Resp BP Pulse Ox O2 Del Method 05/07/22 07:00 36.5 C 90 18 131/76 95 Room Air 05/07/22 07:30 Room Air 05/07/22 07:00 79 05/07/22 03:44 36.5 C 88 16 161/67 H 96 Room Air 05/06/22 23:41 36.6 C 78 16 123/62 97 Room Air 05/06/22 22:49 Room Air Laboratory Results Abnormal lab results 05/07/22 05/07/22 Range/Units 06:44 06:44 Hgb 9.9 L (12.0-16.0) g/dl Hct 31.8 L (34.1-44.9) % MCV 79.5 L (80.0-100.0) fL MCH 24.8 L (25.0-34.0) pg MCHC 31.1 L (32.0-36.0) g/dL RDW Std Deviation 63.1 H (36.4-46.3) fL RDW Coeff of Gee 22.4 H (11.5-14.5) % Plt Count 404 H (130-400) K/uL Chloride 108 H (98-107) mmol/L Creatinine 0.44 L (0.6-1.2) mg/dl BUN/Creatinine Ratio 45.5 H (10-20)
[2022-05-07] MEDS: cefTRIAXone SODIUM 2,000 MG in DEXTROSE 5% 50 ML IV SCH (11:39)
[2022-05-07] MEDS: LORazepam 0.5 MG TAB PO PRN (20:24)
[2022-05-07] MEDS: rOPINIRole HCL 0.25 MG TABLET PO SCH (20:25)
[2022-05-08] MEDS: FIRST - Mouthwash BLM 119 ML PO SCH (05:06)
[2022-05-08] MEDS: NYSTATIN CR 15 GM TUBE EXT SCH (07:35)
[2022-05-08] MEDS: THIAMINE HCL 100 MG TAB PO SCH (07:39)
[2022-05-08] MEDS: CEROVITE ADV FORMULA TAB PO SCH (07:40)
[2022-05-08 09:50] LABS: Hematocrit (blood only) 32.7 % (34.1-44.9); Hemoglobin 10.1 g/dl (12.0-16.0); Mean Corpuscular Hemoglobin 25.2 pg (25.0-34.0); Mean Corpuscular Hgb Conc 30.9 g/dL (32.0-36.0); Mean Corpuscular Volume 81.5 fL (80.0-100.0); Mean Platelet Volume 9.2 fL (9.4-12.3); Platelet Count 413 K/uL (130-400); RDW Coefficient of Variation 22.1 % (11.5-14.5); RDW Standard Deviation 63.8 fL (36.4-46.3); Red Blood Count 4.01 M/uL (3.93-5.22); White Blood Count 5.84 K/ul (4.8-10.8)
[2022-05-08 10:11] LABS: BUN Creatinine Ratio 34.7 (10-20); Calcium 8.8 mg/dl (8.5-10.1); Creatinine Clr Calc Pharmacy 75.7 ml/min; Est GFR (African American) 106.6 ml/min; Potassium 3.8 mmol/L (3.5-5.1)
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
== END 2022-05-08 14:34 | disposition home or self-care (01) | DRG 853 ==
LOC: ED 16:27 → 1E 20:22 → SUATTDRO 20:22 → 1E 21:27 → 2N 04-28 15:35

== ENCOUNTER 2023-06-09 16:19 | Inpatient (IN) ==
[~2023-06-09 16:19] MED LIST: CEFEPIME 2,000 MG/20 ML VIAL IV STA
[2023-06-09] MEDS ORDERED: SODIUM CHLORIDE 0.9% 1,000 ML IV ONE ×3 (16:27→17:28)
[2023-06-09] MEDS ORDERED: STAT IV Infusion **Titration per Protocol STA ×3 (16:33→17:47)
[2023-06-09] MEDS ORDERED: NOREPINEPHRINE/D5W 4 MG/250 ML IV ONE (16:33)
[2023-06-09] MEDS ORDERED: RAPID SEQUENCE INDUCTION BAG ONE (16:46)
[2023-06-09 16:53] LABS: Base Excess VBG -14.7 mEq/L; HCO3 VBG 12 mmol/L; Oxygen Saturation VBG 72.1 %; PCO2 VBG 31 mmHg (38-50); PO2 VBG 48 mmHg
[2023-06-09] MEDS: NOREPINEPHRINE/D5W 4 MG/250 ML PLCT IV SCH ×2 (16:54→22:24)
[2023-06-09 17:02] LABS: Hematocrit (blood only) 34.1 % (37.0-47.0); Hemoglobin 10.8 g/dl (12.0-16.0); Mean Corpuscular Hemoglobin 29.7 pg (25.0-34.0); Mean Corpuscular Hgb Conc 31.7 g/dL (32.0-36.0); Mean Corpuscular Volume 93.7 fL (80.0-100.0); RDW Coefficient of Variation 15.8 % (11.5-14.5); RDW Standard Deviation 54.3 fL (36.4-46.3); Red Blood Count 3.64 M/uL (4.20-5.40); White Blood Count 30.05 K/ul (4.8-10.8)
[2023-06-09 17:03] LABS: iSTAT Creatinine 3.7 mg/dl (0.6-1.3); iSTAT Hemoglobin 10.5 g/dl (12.0-16.0); iSTAT Ionized Calcium 1.15 mmol/l (1.12-1.32); iSTAT Potassium 3.7 mmol/L (3.3-5.0)
[2023-06-09 17:06] LABS: INR 1.4 (0.9-1.1); Partial Thromboplastin Ratio 1.3; Partial Thromboplastin Time 37 Seconds (21-31)
[2023-06-09 17:13] LABS: Basophils # (auto) 0.13 K/uL (0.00-0.20); Basophils % (auto) 0.4 %; Dohle Bodies 1+; Echinocytes 1+; Eosinophils # (auto) 0.01 K/uL (0.00-0.50); Immature Granulocytes # (auto) 1.07 K/uL (0.01-0.20); Immature Granulocytes % (auto) 3.6 %; Lymphocytes # (auto) 1.42 K/uL (1.20-3.40); Lymphocytes % (auto) 4.7 %; Mean Platelet Volume 10.8 fL (9.4-12.4); Monocytes # (auto) 0.78 K/uL (0.11-0.59); Monocytes % (auto) 2.6 %; Neutrophils # (auto) 26.64 K/uL (1.40-6.50); Neutrophils % (auto) 88.7 %; Nucleated RBC # (auto) 0.08 K/uL (0.00-0.12); Nucleated RBC % (auto) 0.3 %; Platelet Count 94 K/uL (130-400); Platelet Estimate Decreased (Normal); Toxic Vacuolation 1+
[2023-06-09 17:16] LABS: Albumin Level 2.1 gm/dl (3.4-5.0); BUN Creatinine Ratio 18.6 (10-20); Bilirubin Direct 0.2 mg/dl (0-0.2); Bilirubin,Total 0.4 mg/dl (0.2-1.0); Creatinine Clr Calc Pharmacy 8.8 ml/min; Est GFR (Non-African American) 11.2 ml/min; Magnesium 2.5 mg/dl (1.7-2.4); Potassium 3.8 mmol/L (3.5-5.1); Total Protein 4.5 gm/dl (6.0-8.3)
--- NOTE | 2023-06-09 17:26 | Emergency Department Note ---
Impression & Plan Sepsis, Acute hypotension, Encephalopathy, Acute renal failure, Acute hepatic encephalopathy, Hydronephrosis, Calculus, ureteral, Bilateral nephrolithiasis, Metabolic acidosis ED Provider Note NAME: VERNON LOBATO AGE: 82 SEX: F : 1940 ARRIVES VIA: Ambulance INFORMANT: The patient's , EMS ED PROVIDER(S): Robbin Zelaya DO CHIEF COMPLAINT: Altered mental status HPI: The patient is an 82-year-old female who presented to the emergency department by ambulance for an evaluation of altered mental status. The patient presented via EMS. History was obtained from the EMS. We were unable to obtain history from the patient herself due to extremis. The patient was not seen since yesterday. It is not clear exactly when the patient became ill. She was seen in our facility recently for sepsis and a kidney stone. She does have a ureteral stent in place according to her . There is no reported trauma. Reporting EMS state that the patient was not moving her left side very well. There is no reported headache or vomiting. The patient had no reported fever. The patient received IV fluids to the total of 1 L prior to arrival as well as push dose epinephrine. ROS: See above HPI for pertinent positives & negatives. A total of 10 systems reviewed and were otherwise negative. PAST MEDICAL HISTORY: See Below PAST SURGICAL HISTORY: See Below FAMILY HISTORY: See Below SOCIAL HISTORY: See Below HOME MEDICATIONS: See Below ALLERGIES: See Below VITALS: See Below PHYSICAL EXAMINATION: GENERAL: The patient is obtunded and not able to follow commands or answer questions. EYES: The conjunctivae are clear. The pupils are constricted bilaterally. EARS, NOSE, MOUTH AND THROAT: The nose is without any evidence of any deformity. Mucous membranes are dry. NECK: The neck is nontender and supple. RESPIRATORY: Shallow and ineffective respirations were noted. There was significant tachypnea. Diminished breath sounds are noted throughout. CARDIOVASCULAR: Tachycardic and distant heart sounds were noted. There is no definite murmur. GASTROINTESTINAL: The abdomen is soft. Abdomen is nontender. MUSCULOSKELETAL/EXTREMITIES: There is no evidence of gross deformity full range of motion is noted in the hips and shoulders. SKIN: Skin was cool and mottled. There is no significant edema. Capillary refill was delayed. NEUROLOGIC: GCS of 7 MEDICAL DECISION MAKING: The patient is an 82-year-old female who presented to the emergency department for an evaluation of altered mental status. The patient presented by EMS. She was treated with 1 L of fluid as well as push dose epinephrine prior to arrival because of severe hypotension. The patient's history and physical exam do appear to be consistent with a urinary source. She has had an E. coli in her urine in the past which was highly resistant. She was treated with empiric antibiotics as well as IV fluids. She had a central line placed and was started on pressors. She received multiple fluid boluses in the ER. She was intubated because of poor respiratory effort. I discussed the patient's laboratory and radiographic studies with her significant other. Brain CT showed no acute process. CT of the abdomen and pelvis does appear to be consistent with multiple issues including a right-sided ureteral calculus nephrolithiasis a left-sided stent hydronephrosis as well as signs of urine infection. The patient was also found to have a very elevated creatinine compared to her baseline. She was reevaluated multiple times. I discussed her condition with the agriculture specialist as well as [facility] They have agreed to evaluate the patient in the emergency department for further management and disposition. Triage Nursing notes reviewed. Prior medical records reviewed Vital Signs: reviewed and remarkable for hypotension and tachypnea. Differential diagnosis: Infection, hypoglycemia, electrolyte abnormalities, overdose, toxicologic, cardiac sources, intracerebral event, neurologic, trauma, as well as other pathologies. ER treatment provided: See below Diagnostics interpreted by me: ECG: EKG was obtained in the emergency department. My interpretation is sinus tachycardia at 101 bpm. Low voltage was noted throughout. Poor R wave progression was noted. This was compared to a tracing from May 03, 2022. The low voltage is new Cardiac Monitoring: An order was placed for continuous cardiac monitoring. The monitor shows a rate of 86 bpm with sinus rhythm. Laboratory studies: As stated above and show below. Imaging studies: See below. Radiographic imaging was reviewed by myself Consultation(s): I discussed this case with Dr. Jarrell who is on-call for the agriculture specialist. I discussed this case with Dr. Trinidad who is [facility]call [facility]. ED COURSE: Procedures: Femoral Central Venous Catheter Indication: Sepsis Catheter Type: Triple-lumen Location: Right femoral vein Verbal consent was obtained after the risks and benefits were explained, including but not limited to intra-abdominal injury, vessel injury, bleeding, scarring, infection, pain, and bone/joint/nerve damage. At this time, the risks of the procedure are less than the risks of NOT performing the procedure. A time out was taken and the correct patient and site identified. The patient was placed in the supine position and the skin was prepped in the standard fashion with chlorhexidine and full sterile drapes applied. The proper landmarks were identified with ultrasound, anesthetized with 1% lidocaine without epinephrine, and the needle was inserted through the skin in the standard fashion. The needle was carefully advanced into blood vessel lumen with ultrasound guidance. The guidewire was placed uneventfully. The vessel is dilated and the catheter was placed. It was sutured into position. There was good blood return from all ports. The patient tolerated the procedure well and there were no complications. Endotracheal Intubation Indication respiratory distress The patient was on 100% oxygen via NRB prior to the procedure. Suction, airway equipment, RSI drugs, respiratory equipment, and appropriate personnel were prepared prior to the initiation of the procedure. A time out was taken. Induction was performed with ketamine. After observing the clinical benefit of the medications, the airway was easily visualized utilizing a glide scope. A 7.5 size ETT tube was placed atraumatically to 22 cm using standard technique. The cuff inflated without signs of malfunction. There were bilateral breath sounds, positive colormetric change, no gastric sounds, a good capnography waveform, and post procedure pulse oximetry was unobtainable. There were no complications. Critical Care: I have personally spent greater than 60 minutes of critical care time in the direct management of this patient. This includes bedside care, interpretation of diagnostic studies, and testing, discussion with consultants, patient, and family members, and other required patient management activities. This 60 minutes is in excess of all separately billable procedures. 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) H/O: hysterectomy (11/04/12) Social History Smoking Status: Unknown if ever smoked Hx Alcohol Use: Yes Alcohol type: beer Hx Substance Use: No Preferred Language: Kiswahili Communication Ability: Unable Automation/Controls Manager Required: No Beliefs That Will Affect Care: None marital status: Current Living Situation: Spouse Feels Safe at Home: Yes Assistive Devices: None Allergies Allergies Allergy/AdvReac Type Severity Reaction Status Date / Time amoxicillin AdvReac Unknown nausea and Verified 06/09/23 17:06 vomiting Home Meds Home Medications Medication Instructions Recorded Confirmed lorazepam 1 mg tablet 1 mg PO TID PRN Anxiety 06/09/23 06/09/23 Results & Data (ED) Vital Signs Vital Signs - 24 hr 06/09/23 16:20 06/09/23 16:20 06/09/23 16:20 Temperature Temperature Source Pulse Rate 112 H Pulse Rate [Right Finger] Respiratory Rate 42 H Respiratory Effort / Characteristics Blood Pressure 46/31 L Blood Pressure [Right Arm] Blood Pressure Mean 36 Blood Pressure Mean [Right Arm] Pulse Oximetry Oxygen Delivery Method Non-rebreather Non-rebreather Oxygen Flow Rate 15 15 Fraction of Inspired Oxygen Sepsis Recent Fever Within 48 Hours No Sepsis New/Unexplained Change in Mental Status Yes Sepsis Action Taken by Nursing Physician Notified End-Tidal CO2 06/09/23 16:34 06/09/23 16:40 06/09/23 16:46 Temperature Temperature Source Pulse Rate Pulse Rate [Right Finger] 106 H 108 H 104 H Respiratory Rate 44 H 45 H 39 H Respiratory Effort / Characteristics Blood Pressure Blood Pressure [Right Arm] 49/33 L 59/35 L 65/40 L Blood Pressure Mean Blood Pressure Mean [Right Arm] 38 43 48 Pulse Oximetry Oxygen Delivery Method Oxygen Flow Rate Fraction of Inspired Oxygen Sepsis Recent Fever Within 48 Hours Sepsis New/Unexplained Change in Mental Status Sepsis Action Taken by Nursing End-Tidal CO2 06/09/23 16:57 06/09/23 17:11 06/09/23 17:13 Temperature 38.5 C H Temperature Source Rectal Pulse Rate Pulse Rate [Right Finger] 109 H 97 H Respiratory Rate 22 29 H Respiratory Effort / Characteristics Blood Pressure Blood Pressure [Right Arm] 50/33 L 44/33 L Blood Pressure Mean Blood Pressure Mean [Right Arm] 38 36 Pulse Oximetry Oxygen Delivery Method Oxygen Flow Rate Fraction of Inspired Oxygen Sepsis Recent Fever Within 48 Hours Sepsis New/Unexplained Change in Mental Status Sepsis Action Taken by Nursing End-Tidal CO2 06/09/23 17:14 06/09/23 17:19 06/09/23 17:23 Temperature Temperature Source Pulse Rate 91 H Pulse Rate [Right Finger] 92 H 88 Respiratory Rate 26 H 27 H Respiratory Effort / Characteristics Blood Pressure Blood Pressure [Right Arm] 52/26 L 47/30 L Blood Pressure Mean Blood Pressure Mean [Right Arm] 34 35 Pulse Oximetry Oxygen Delivery Method Oxygen Flow Rate Fraction of Inspired Oxygen Sepsis Recent Fever Within 48 Hours Sepsis New/Unexplained Change in Mental Status Sepsis Action Taken by Nursing End-Tidal CO2 06/09/23 17:28 06/09/23 17:30 06/09/23 17:32 Temperature 36.9 C Temperature Source Benedict Cath ( Temp Sensing) Pulse Rate 89 Pulse Rate [Right Finger] 88 Respiratory Rate 26 H 27 H Respiratory Effort / Characteristics Blood Pressure Blood Pressure [Right Arm] 50/36 L Blood Pressure Mean Blood Pressure Mean [Right Arm] 40 Pulse Oximetry 100 Oxygen Delivery Method Mechanical Vent Oxygen Flow Rate Fraction of Inspired Oxygen 50 Sepsis Recent Fever Within 48 Hours Sepsis New/Unexplained Change in Mental Status Sepsis Action Taken by Nursing End-Tidal CO2 27 06/09/23 17:37 06/09/23 17:40 Temperature Temperature Source Pulse Rate Pulse Rate [Right Finger] 82 86 Respiratory Rate 28 H 30 H Respiratory Effort / Characteristics Mechanically Ventilated Blood Pressure Blood Pressure [Right Arm] 53/34 L 53/36 L Blood Pressure Mean Blood Pressure Mean [Right Arm] 40 41 Pulse Oximetry Oxygen Delivery Method Mechanical Vent Oxygen Flow Rate Fraction of Inspired Oxygen Sepsis Recent Fever Within 48 Hours Sepsis New/Unexplained Change in Mental Status Sepsis Action Taken by Nursing End-Tidal CO2 Home Medications Current Medication List: was personally reviewed by me Laboratory Data Attestation: I reviewed the patient's lab results. 06/09/23 16:42 06/09/23 16:42 Lab Results 06/09/23 06/09/23 06/09/23 Range/Units 16:42 16:45 16:46 WBC 30.05 H* (4.8-10.8) K/ul RBC 3.64 L (4.20-5.40) M/uL Hgb 10.8 L (12.0-16.0) g/dl POC Hgb 10.5 L (12.0-16.0) g/dl Hct 34.1 L (37.0-47.0) % POC Hct 31 L (37-47) % MCV 93.7 (80.0-100.0) fL MCH 29.7 (25.0-34.0) pg MCHC 31.7 L (32.0-36.0) g/dL RDW Std Deviation 54.3 H (36.4-46.3) fL RDW Coeff of Gee 15.8 H (11.5-14.5) % Plt Count 94 L (130-400) K/uL MPV 10.8 (9.4-12.4) fL Immature Gran % (Auto) 3.6 % Neut % (Auto) 88.7 % Lymph % (Auto) 4.7 % [place] % (Auto) 2.6 % Eos % (Auto) 0.0 % Baso % (Auto) 0.4 % Neut # (Auto) 26.64 H (1.40-6.50) K/uL Lymph # (Auto) 1.42 (1.20-3.40) K/uL [place] # (Auto) 0.78 H (0.11-0.59) K/uL Eos # (Auto) 0.01 (0.00-0.50) K/uL Baso # (Auto) 0.13 (0.00-0.20) K/uL Immature Gran # (Auto) 1.07 H (0.01-0.20) K/uL Absolute Nucleated RBC 0.08 (0.00-0.12) K/uL Nucleated RBC % (auto) 0.3 % Toxic Vacuolation 1+ Dohle Bodies 1+ Platelet Estimate Decreased L (Normal) Echinocytes 1+ PT 15.0 H (9.0-12.0) Seconds INR 1.4 H (0.9-1.1) APTT 37 H (21-31) Seconds PTT Ratio 1.3 VBG pH 7.20 L (7.36-7.41) VBG pCO2 31 L (38-50) mmHg VBG pO2 48 mmHg VBG HCO3 12 mmol/L VBG O2 Saturation 72.1 % VBG Base Excess -14.7 mEq/L POC Sodium 143 (135-144) mmol/L Sodium 143 (136-145) mmol/L POC Potassium 3.7 (3.3-5.0) mmol/L Potassium 3.8 (3.5-5.1) mmol/L POC Chloride 114 H (101-112) mmol/L Chloride 114 H (98-107) mmol/L Carbon Dioxide 12 L (21-32) mmol/L POC Total CO2 12 L (24-31) mmol/L Anion Gap 17 H (3-11) POC Anion Gap 21.0 (16-25) mmol/L POC BUN 62 H (7-18) mg/dl BUN 67 H (6-23) mg/dl Creatinine 3.60 H (0.6-1.2) mg/dl POC Creatinine 3.7 H (0.6-1.3) mg/dl Est Cr Clr Drug Dosing 8.8 ml/min Est GFR ( Amer) 13.0 ml/min Est GFR (Non-Af Amer) 11.2 ml/min BUN/Creatinine Ratio 18.6 (10-20) Glucose 191 H (70-99(Fasting)) mg/dl POC Glucose (other) 178 H (70-99) mg/dl Lactate 9.4 H* (0.4-2.0) mmol/L Calcium 8.0 L (8.6-10.3) mg/dl POC Ioniz Calcium Vidhya 1.15 (1.12-1.32) mmol/l Phosphorus 3.7 (2.5-4.9) mg/dl Magnesium 2.5 H (1.7-2.4) mg/dl Total Bilirubin 0.4 (0.2-1.0) mg/dl Direct Bilirubin 0.2 (0-0.2) mg/dl AST 130 H (13-39) U/L ALT 53 H (7-52) U/L Alkaline Phosphatase 70 (34-104) U/L Ammonia 108.0 H (18-72) umol/L Total Creatine Kinase 1828 H (26-192) U/L Troponin I High Sens 953.7 H* (0-14) pg/ml Total Protein 4.5 L (6.0-8.3) gm/dl Albumin 2.1 L (3.4-5.0) gm/dl Procalcitonin > 200.00 H (0-0.5) ng/ml Random Cortisol > 60.00 mcg/dl Urine Color Urine Appearance (Clear) Urine pH (4.5-7.5) Ur Specific [place] (1.000-1.030) Urine Protein (Negative) Urine Glucose (UA) (Negative) Urine Ketones (Negative) Urine Blood (Negative) Urine Nitrite (Negative) Urine Bilirubin (Negative) Urine Urobilinogen (Negative) Ur Leukocyte Esterase (Negative) Urine RBC (0-4) /hpf Urine WBC (0-5) /hpf Ur Epithelial Cells (0-5) /lpf Urine Bacteria (Negative) Adenovirus (PCR) (NotDetected) B. pertussis DNA (PCR) (NotDetected) B.parapertussis DNA PCR (NotDetected) C. pneumoniae DNA (PCR) (NotDetected) Coronavirus OC43 (PCR) (NotDetected) Coronavirus HKU1 (PCR) (NotDetected) Coronavirus 229E (PCR) (NotDetected) SARS-CoV-2 (PCR) (NotDetected) Coronavirus NL63 (PCR) (NotDetected) Human Metapneumovir PCR (NotDetected) Influenza Type A (PCR) (NotDetected) Influenza Type B (PCR) (NotDetected) M. pneumoniae (PCR) (NotDetected) Parainfluenza 1 (PCR) (NotDetected) Parainfluenza 2 (PCR) (NotDetected) Parainfluenza 3 (PCR) (NotDetected) Parainfluenza 4 (PCR) (NotDetected) RSV (PCR) (NotDetected) Entero/Rhino (PCR) (NotDetected) Blood Type O Positive Antibody Screen NEGATIVE 06/09/23 06/09/23 Range/Units 17:16 17:22 WBC (4.8-10.8) K/ul RBC (4.20-5.40) M/uL Hgb (12.0-16.0) g/dl POC Hgb (12.0-16.0) g/dl Hct (37.0-47.0) % POC Hct (37-47) % MCV (80.0-100.0) fL MCH (25.0-34.0) pg MCHC (32.0-36.0) g/dL RDW Std Deviation (36.4-46.3) fL RDW Coeff of Gee (11.5-14.5) % Plt Count (130-400) K/uL MPV (9.4-12.4) fL Immature Gran % (Auto) % Neut % (Auto) % Lymph % (Auto) % [place] % (Auto) % Eos % (Auto) % Baso % (Auto) % Neut # (Auto) (1.40-6.50) K/uL Lymph # (Auto) (1.20-3.40) K/uL [place] # (Auto) (0.11-0.59) K/uL Eos # (Auto) (0.00-0.50) K/uL Baso # (Auto) (0.00-0.20) K/uL Immature Gran # (Auto) (0.01-0.20) K/uL Absolute Nucleated RBC (0.00-0.12) K/uL Nucleated RBC % (auto) % Toxic Vacuolation Dohle Bodies Platelet Estimate (Normal) Echinocytes PT (9.0-12.0) Seconds INR (0.9-1.1) APTT (21-31) Seconds PTT Ratio VBG pH (7.36-7.41) VBG pCO2 (38-50) mmHg VBG pO2 mmHg VBG HCO3 mmol/L VBG O2 Saturation % VBG Base Excess mEq/L POC Sodium (135-144) mmol/L Sodium (136-145) mmol/L POC Potassium (3.3-5.0) mmol/L Potassium (3.5-5.1) mmol/L POC Chloride (101-112) mmol/L Chloride (98-107) mmol/L Carbon Dioxide (21-32) mmol/L POC Total CO2 (24-31) mmol/L Anion Gap (3-11) POC Anion Gap (16-25) mmol/L POC BUN (7-18) mg/dl BUN (6-23) mg/dl Creatinine (0.6-1.2) mg/dl POC Creatinine (0.6-1.3) mg/dl Est Cr Clr Drug Dosing ml/min Est GFR ( Amer) ml/min Est GFR (Non-Af Amer) ml/min BUN/Creatinine Ratio (10-20) Glucose (70-99(Fasting)) mg/dl POC Glucose (other) (70-99) mg/dl Lactate (0.4-2.0) mmol/L Calcium (8.6-10.3) mg/dl POC Ioniz Calcium Vidhya (1.12-1.32) mmol/l Phosphorus (2.5-4.9) mg/dl Magnesium (1.7-2.4) mg/dl Total Bilirubin (0.2-1.0) mg/dl Direct Bilirubin (0-0.2) mg/dl AST (13-39) U/L ALT (7-52) U/L Alkaline Phosphatase (34-104) U/L Ammonia (18-72) umol/L Total Creatine Kinase (26-192) U/L Troponin I High Sens (0-14) pg/ml Total Protein (6.0-8.3) gm/dl Albumin (3.4-5.0) gm/dl Procalcitonin (0-0.5) ng/ml Random Cortisol mcg/dl Urine Color Brown Urine Appearance Cloudy A (Clear) Urine pH 8.5 H (4.5-7.5) Ur Specific [place] 1.020 (1.000-1.030) Urine Protein 3+ H (Negative) Urine Glucose (UA) Negative (Negative) Urine Ketones Negative (Negative) Urine Blood 3+ H (Negative) Urine Nitrite Negative (Negative) Urine Bilirubin Negative (Negative) Urine Urobilinogen Negative (Negative) Ur Leukocyte Esterase 3+ H (Negative) Urine RBC >30 H (0-4) /hpf Urine WBC >30 H (0-5) /hpf Ur Epithelial Cells 0-5 (0-5) /lpf Urine Bacteria 4+ H (Negative) Adenovirus (PCR) Not Detected (NotDetected) B. pertussis DNA (PCR) Not Detected (NotDetected) B.parapertussis DNA PCR Not Detected (NotDetected) C. pneumoniae DNA (PCR) Not Detected (NotDetected) Coronavirus OC43 (PCR) Not Detected (NotDetected) Coronavirus HKU1 (PCR) Not Detected (NotDetected) Coronavirus 229E (PCR) Not Detected (NotDetected) SARS-CoV-2 (PCR) Not Detected (NotDetected) Coronavirus NL63 (PCR) Not Detected (NotDetected) Human Metapneumovir PCR Not Detected (NotDetected) Influenza Type A (PCR) Not Detected (NotDetected) Influenza Type B (PCR) Not Detected (NotDetected) M. pneumoniae (PCR) Not Detected (NotDetected) Parainfluenza 1 (PCR) Not Detected (NotDetected) Parainfluenza 2 (PCR) Not Detected (NotDetected) Parainfluenza 3 (PCR) Not Detected (NotDetected) Parainfluenza 4 (PCR) Not Detected (NotDetected) RSV (PCR) Not Detected (NotDetected) Entero/Rhino (PCR) Not Detected (NotDetected) Blood Type Antibody Screen Administered Medications Norepinephrine Bitartrate (Levophed/D5w) 4 mg in 250 mls @ 27.731 mls/hr IV .Q9H1M [facility]; Protocol Stop: 07/09/23 16:44 Last Titration: 06/09/23 19:14 Dose: 0.3 mcg/kg/min, 55.5 mls/hr Documented By: Titration: 06/09/23 19:00 Dose: 0.25 mcg/kg/min, 46.2 mls/hr Documented By: Titration: 06/09/23 18:42 Dose: 0.2 mcg/kg/min, 37 mls/hr Documented By: Titration: 06/09/23 17:20 Dose: 0.15 mcg/kg/min, 27.7 mls/hr Documented By: Titration: 06/09/23 17:12 Dose: 0.13 mcg/kg/min, 24 mls/hr Documented By: Titration: 06/09/23 16:58 Dose: 0.11 mcg/kg/min, 20.3 mls/hr Documented By: Admin: 06/09/23 16:54 Dose: 0.09 mcg/kg/min, 16.6 mls/hr Documented By: NRB Co-signed By: ANNETTA Epinephrine HCl () 4 mg in 254 mls @ 3.757 mls/hr IV .Q24H [facility]; Protocol Stop: 07/09/23 17:29 Last Titration: 06/09/23 19:15 Dose: 0 mcg/kg/min, 0 mls/hr Documented By: Titration: 06/09/23 19:00 Dose: 0.02 mcg/kg/min, 3.8 mls/hr Documented By: Titration: 06/09/23 18:45 Dose: 0.04 mcg/kg/min, 7.5 mls/hr Documented By: Titration: 06/09/23 18:38 Dose: 0.05 mcg/kg/min, 9.4 mls/hr Documented By: Titration: 06/09/23 18:30 Dose: 0.03 mcg/kg/min, 5.6 mls/hr Documented By: Admin: 06/09/23 17:36 Dose: 0.02 mcg/kg/min, 3.8 mls/hr Documented By: NRKevin Co-signed By: ANNETTA Vasopressin 20 units/ Sodium (Chloride) 101 mls @ 12.12 mls/hr IV .Q8H20M [facility] Stop: 07/09/23 17:59 Last Admin: 06/09/23 18:12 Dose: 0.04 unit/min, 12.1 mls/hr Documented By: NRKevin Co-signed By: ANNETTA Vancomycin HCl 1,000 mg/ (Sodium Chloride) 520 mls @ 200 mls/hr IV NOW ONE Stop: 06/09/23 20:29 Last Admin: 06/09/23 18:19 Dose: 200 mls/hr Documented By: NRKevin Parenteral Electrolytes (Plasma-Lyte A Ph 7.4) 1,000 mls @ 150 mls/hr IV .Q6H40M ONE Stop: 06/10/23 00:41 Last Admin: 06/09/23 18:19 Dose: 150 mls/hr Documented By: NRKevin Discontinued Medications Hydrocortisone Sodium Succinate (Hydrocortisone Sod Succinate 100 Mg/2 Ml Vial) 100 mg IV NOW STA Stop: 06/09/23 17:47 Last Admin: 06/09/23 18:15 Dose: 100 mg Documented By: DEUCE Cefepime HCl (Maxipime) 2,000 mg in 20 mls @ 5 mls/min IV NOW STA; Protocol Stop: 06/09/23 16:17 Last Admin: 06/09/23 16:27 Dose: 5 mls/min Documented By: DEUCE Sodium Chloride (Nss) 1,000 mls @ 999 mls/hr IV .Q1H1M ONE Stop: 06/09/23 17:27 Last Infusion: 06/09/23 17:28 Dose: Infused Documented By: Admin: 06/09/23 16:27 Dose: 999 mls/hr Documented By: NRB Sodium Chloride (Nss) 1,000 mls @ 999 mls/hr IV .Q1H1M ONE Stop: 06/09/23 17:52 Last Infusion: 06/09/23 18:04 Dose: Infused Documented By: Admin: 06/09/23 16:56 Dose: 999 mls/hr Documented By: DEUCE Sodium Chloride (Nss) 1,000 mls @ 999 mls/hr IV .Q1H1M ONE Stop: 06/09/23 18:28 Last Infusion: 06/09/23 18:43 Dose: Infused Documented By: Admin: 06/09/23 17:32 Dose: 999 mls/hr Documented By: DEUCE Miscellaneous (Stat Iv Infusion Titration Per Protocol) 1 each N/A NOW STA Stop: 06/09/23 16:34 Last Admin: 06/09/23 16:42 Dose: 1 each Documented By: DEUCE Miscellaneous (Rapid Sequence Induction Bag) Confirm Administered Dose 1 each N/A .STK-MED ONE Stop: 06/09/23 16:47 Last Admin: 06/09/23 16:48 Dose: 1 each Documented By: DEUCE Norepinephrine Bitartrate (Norepinephrine/D5w 4 Mg/250 Ml) Confirm Administered Dose 4 mg IV .STK-MED ONE Stop: 06/09/23 16:34 Last Admin: 06/09/23 16:34 Dose: 4 mg Documented By: DEUCE Sodium Bicarbonate (Sodium Bicarb 8.4% Inj 50 Meq/50 Ml Syr) 100 meq IV NOW STA Stop: 06/09/23 17:49 Last Admin: 06/09/23 18:14 Dose: 100 meq Documented By: DEUCE Imaging Data Attestation: I personally reviewed and interpreted this imaging study as follows: My Impression: CT of the brain was obtained in the emergency department. My interpretation is no intracranial hemorrhage or mass effect, final report below. 1 view chest x-ray was obtained. My interpretation is no definite infiltrate, endotracheal tube appears to be in good placement, no free air was noted. Final report below. Radiologist's Impression: Chest X-Ray 06/09/23 16:08 XR chest 1V portable HISTORY: 82 years-old Female Sepsis acute sepsis COMPARISON: 04/27/2022 TECHNIQUE: AP view the chest FINDINGS: Endotracheal tube overlies the midline, 2.9 cm superior to the pako. Cardiac silhouette is mildly enlarged. Pulmonary vascular congestion. No pneumothorax, pleural effusion or airspace consolidation. Mild hypoinflation. Degenerative changes of the shoulders and spine. IMPRESSION: 1. Endotracheal tube overlies the midline, 2.9 cm superior to the pako. 2. No airspace consolidation to suggest pneumonia. ACT 112: Negative or not required by law. The above report was generated using voice recognition software. It may contain grammatical, syntax or spelling errors. Electronically signed by: Elia Alvarado M.D. 06/09/2023 5:28 PM Abdomen/Pelvis CT 06/09/23 16:[address] WITHOUT CONTRAST CT DOSE: 1318.18 mGy.cm HISTORY: Acute sepsis sepsis, hx of stones TECHNIQUE: Multiaxial CT images of the abdomen and pelvis were performed without contrast. A dose lowering technique was utilized adhering to the principles of ALARA. COMPARISON STUDY: 04/25/2022 FINDINGS: Trace pleural effusions with mild deep and subsegmental bibasilar atelectasis. No free air. Unremarkable unenhanced spleen, the moderate pancreatic atrophy with distended gallbladder. Unenhanced liver is within normal limits. Left greater than right bilateral perinephric stranding. There are numerous nonobstructing calculi of the bilateral kidneys measuring up to 4 mm on the right and 8 mm on the left. 5 mm calculus within the right pelvis dependently on image 137. There is a cluster of 3 subadjacent calculus in the proximal right ureter measuring up to 5 mm resulting in mild to moderate hydroureteronephrosis. 4 mm right distal ureteral calculus on image 238 with 5 mm calculus on image 254. Mild left-sided hydroureteronephrosis with a ureteral stent in place. Numerous stone fragments within the left renal pelvis, ureteropelvic junction proximal left ureter including a 1.7 cm UPJ calculus. Additional calculi within the urinary bladder measuring up to 2.5 cm encasing the distal portion of the stent. Decompressed urinary bladder with Benedict catheter in place. Atherosclerosis of the aorta. Right femoral venous catheter distal tip on image 175 which appears to be present within the right common iliac vein. Mild subcutaneous edema/hemorrhage within the right inguinal subcutaneous tissues. Air-filled mildly distended distal esophagus. No bowel obstruction. Marked fecal retention in the rectum with rectal wall thickening and adjacent inflammatory stranding/trace free fluid. No bowel obstruction. Left hip arthroplasty. Chronic thoracolumbar compression deformities. IMPRESSION: 1. Mild left-sided hydroureteronephrosis with ureteral stent in place. There are numerous calculi within the left renal pelvis, ureteropelvic junction and proximal left ureter. 2. Mild to moderate right-sided hydroureteronephrosis with numerous calculi within the right renal pelvis and right ureter as above. 3. Large urinary bladder calculi with nonobstructing bilateral nephrolithiasis. 4. Marked fecal retention of the rectum with stercoral proctitis. 5. Small pleural effusions with mild bibasilar atelectasis. 6. Additional findings as above. ACT 112: Negative or not required by law. The above report was generated using voice recognition software. It may contain grammatical, syntax or spelling errors. Electronically signed by: Elia Alvarado M.D. 06/09/2023 6:[address] 06/09/23 16:45 CT head/brain wo con CLINICAL HISTORY: 82 years-old Female with AMS. Acutely altered mental status TECHNIQUE: Multiple axial CT images of the head were obtained without contrast. A dose lowering technique was utilized adhering to the principles of ALARA. COMPARISON: 04/25/2022 FINDINGS: Involutional changes. White matter hypodensities suggestive of chronic microvascular ischemic disease. No acute intracranial hemorrhage, midline shift, intracranial mass, hydrocephalus, territorial ischemia or abnormal extra-axial collection. The calvarium is intact. The paranasal sinuses, mastoid air cells, and middle ear cavities are clear. IMPRESSION: No acute intracranial abnormality. ACT 112: Negative or not required by law. The above report was generated using voice recognition software. It may contain grammatical, syntax or spelling errors. Electronically signed by: Elia Alvarado M.D. 06/09/2023 6:04 PM Discharge Plan Visit Data Chief Complaint: Unresponsive ED Provider: Garcia,Robbin R Discharge Problem: Sepsis, Acute hypotension, Encephalopathy, Acute renal failure, Acute hepatic encephalopathy, Hydronephrosis, Calculus, ureteral, Bilateral nephrolithiasis, Metabolic acidosis Patient Disposition: Admitted As Inpatient Discharge Problem: Sepsis Qualifiers: Sepsis type: sepsis due to unspecified organism Sepsis acute organ dysfunction status: with acute organ dysfunction Severe sepsis acute organ dysfunction type: acute renal failure Acute renal failure type: unspecified Severe sepsis shock status: with septic shock Qualified Code(s): A41.9 - Sepsis, unspecified organism Acute renal failure Qualifiers: Acute renal failure type: unspecified Qualified Code(s): N17.9 - Acute kidney failure, unspecified Hydronephrosis Qualifiers: Hydronephrosis type: unspecified Qualified Code(s): N13.30 - Unspecified hydronephrosis
--- NOTE | 2023-06-09 17:29 | XRay Report ---
XR chest 1V portable HISTORY: 82 years-old Female Sepsis acute sepsis COMPARISON: 04/27/2022 TECHNIQUE: AP view the chest FINDINGS: Endotracheal tube overlies the midline, 2.9 cm superior to the pako. Cardiac silhouette is mildly e nlarged. Pulmonary vascular congestion. No pneumothorax, pleural effusion or airspace consolidation. Mild hypoinflation. Degenerative changes of the shoulders and spine. IMPRESSION: 1. Endotracheal tube overlies the midline, 2.9 cm superior to the pako. 2. No airspace consolidation to suggest pneumonia. ACT 112: Negative or not required by law. The above report was generated using voice recognition software. It may contain grammatical, syntax o r spelling errors. Electronically signed by: Elia Alvarado M.D. 06/09/2023 5:28 PM
[2023-06-09] MEDS ORDERED: EPINEPHrine/NSS 4 MG/254 ML BAG IV SCH (17:30)
[2023-06-09] MEDS ORDERED: HYDROCORTISONE SOD SUCCINATE 100 MG/2 ML VIAL IV STA (17:46)
[2023-06-09 17:47] LABS: Troponin I High Sensitivity 953.7 pg/ml (0-14)
[2023-06-09 17:48] LABS: Appearance Urine Cloudy (Clear); Bilirubin Urine Negative (Negative); Blood Urine 3+ (Negative); Color Urine Brown; Glucose Urine UA Negative (Negative); Ketones Urine Negative (Negative); Leukocyte Esterase Urine 3+ (Negative); Nitrite Urine Negative (Negative); Protein Urine 3+ (Negative); Urobilinogen Urine Negative (Negative); pH Urine 8.5 (4.5-7.5)
[2023-06-09] MEDS ORDERED: SODIUM BICARB 8.4% INJ 50 MEQ/50 ML SYR IV STA ×2 (17:48→23:08)
[2023-06-09 17:50] LABS: Epithelial Cell Urine 0-5 /lpf (0-5); RBC Urine >30 /hpf (0-4); WBC Urine >30 /hpf (0-5)
[2023-06-09 17:51] LABS: Bacteria Urine 4+ (Negative)
[2023-06-09] MEDS ORDERED: VANCOMYCIN CONSULT ACTIVE PRN (17:54)
[2023-06-09] MEDS ORDERED: VANCOMYCIN HCL 1,000 MG in SODIUM CHLORIDE 0.9% 500 ML IV ONE (17:54)
[2023-06-09] MEDS ORDERED: ONDANSETRON INJ 2 MG/ML 2 ML VIAL IV PRN (17:56)
[2023-06-09] MEDS ORDERED: ALUMINUM/MAGNESIUM SUSP 30 ML UDC PO PRN (17:56)
[2023-06-09] MEDS ORDERED: POLYETHYLENE (MIRALAX) 17 GM PACK PO PRN (17:56)
[2023-06-09] MEDS ORDERED: ACETAMINOPHEN 325 MG TAB PO PRN (17:56)
[2023-06-09] MEDS ORDERED: MAGNESIUM HYDROXIDE SUSP 30 ML UDC PO PRN (17:56)
[2023-06-09] MEDS ORDERED: PLASMA-LYTE A 1,000 ML IV ONE (18:02)
--- NOTE | 2023-06-09 18:03 | History & Physical Report ---
Date of Service June 09, 2023 Assessment & Plan (1) Acute metabolic encephalopathy: Plan: Septic shock Likely source complicated UTI Obstructive uropathy Acute metabolic encephalopathy Apparently had ureteral stent placement more than 1 year ago per family Noncompliance history Blood, urine cultures pending --Empirically started on cefepime, vancomycin Aggressive IV fluids Continue pressor support (currently on vasopressin, Levophed, epinephrine) Also received IV hydrocortisone Appreciate rn surgery icu help Consider urology evaluation when appropriate Bladder scan as needed to monitor for retention Ventilator dependent acute respiratory failure Likely due to above Intubated on 06/09/2023 Normal BioFire Vent management as per ICU team Pulmonary hygiene Nebs as needed Acute kidney injury Acute metabolic acidosis Transaminitis likely due to above Lactic acidosis Received bicarbonate Continue IV fluids Avoid nephrotoxic agents as able Monitor renal function Consider nephrology evaluation if no improvement Chronic anemia Thrombocytopenia No acute bleeding issues Monitor CBC Type II MN Troponin elevation likely due to septic shock BNP elevated Consider checking echo Mood disorder Hold Ativan for now GI Px On Protonix DVT Px: SCDs for now CODE STATUS Conditional as per family: DNR Very poor prognosis History of Present Illness Chief Complaint: Altered mental status Primary Care Provider: Nurys Crespo DO Patient is an 82-year-old female with history of mood disorder, hypertension, insomnia, osteoporosis, GERD, anxiety disorder, H/O endometrial/Ovarian cancer S/P surgery, radiation therapy, nephrolithiasis, noncompliance, past tobacco use and other medical problems presents with altered mental status. Patient currently intubated and unable to provide any history. Most of the history is obtained from patient's family, ER physician and old records. Last known well was 2 days ago as per family. Patient's family noted her to have change in mental status this morning and was unresponsive to verbal, tactile stimulus. And so was brought to ED for further evaluation. No known history of recent infections, fever, chills. No recent change in medications as per family. Patient was admitted last year, April 2022 and was managed for septic shock thought to be secondary to complicated UTI and had cystoscopy with left ureteral stent placement. She was also intubated at the time and was noted to have rhabdomyolysis, BERTHA. Patient was noted today by EMS that patient was not moving her left side very well. Patient was found to be in septic shock while in ED and underwent intubation and was placed on 3 pressors. No known history of chest pain, SOB, palpitations, dizziness, cough, fever, chills, fall, trauma, change in vision, bowel/bladder incontinence, nausea, vomiting, abdominal pain, recent change in medications. Allergies Allergy/AdvReac Type Severity Reaction Status Date / Time amoxicillin AdvReac Unknown nausea and Verified 06/09/23 17:06 vomiting Home Medications Medication Instructions Recorded Confirmed Type lorazepam 1 mg tablet 1 mg PO TID PRN Anxiety 06/09/23 06/09/23 History Past Med/Surg History Medical History Acute metabolic encephalopathy Ovarian cancer (11/04/12) Osteoporosis (11/04/12) Kidney stone (11/04/12) Chronic low back pain (11/04/12) Surgical History 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) H/O: hysterectomy (11/04/12) Social History Smoking Status: Unknown if ever smoked Hx Alcohol Use: Yes Alcohol type: beer Hx Substance Use: No Preferred Language: Spanish Communication Ability: Unable Heel Lining Paster Required: No Beliefs That Will Affect Care: None marital status: Current Living Situation: Spouse Feels Safe at Home: Yes Assistive Devices: None Review of Systems Review of Systems: Unobtainable due to endotracheal tube Physical Exam Physical Exam: Physical Exam: Vitals signs as noted above General Appearance: Thin, frail, elderly, obtunded, intubated Head: normocephalic, Atraumatic Eyes: normal inspection, EOMI Neck: supple, Trachea midline Respiratory/Chest: Decreased breath sounds, CTA,+Rash( Skin fold area) No accessory muscle use Cardiovascular: S1, S2, No murmur Abdomen/GI:Soft, Non tender, Bowel sounds present Extremities/Musculoskeletal:normal inspection, no edema Neurologic/Psych: Sedated and intubated, unable to perform neurological exam Skin: normal color, cool, + mottling of skin Results & Data Results & Data Vital Signs (Past 12 Hours) Vital Signs Temp Pulse Pulse Resp BP BP Pulse Ox 06/09/23 17:59 86 32 H 57/42 L 06/09/23 17:40 86 30 H 53/36 L 06/09/23 17:37 82 28 H 53/34 L 06/09/23 17:32 89 27 H 100 06/09/23 17:30 88 26 H 50/36 L 06/09/23 17:28 36.9 C 06/09/23 17:23 88 27 H 47/30 L 06/09/23 17:19 91 H 06/09/23 17:14 92 H 26 H 52/26 L 06/09/23 17:13 97 H 29 H 44/33 L 06/09/23 17:11 38.5 C H 06/09/23 16:57 109 H 22 50/33 L 06/09/23 16:46 104 H 39 H 65/40 L 06/09/23 16:40 108 H 45 H 59/35 L 06/09/23 16:34 106 H 44 H 49/33 L 06/09/23 16:20 06/09/23 16:20 06/09/23 16:20 112 H 42 H 46/31 L O2 Del Method O2 Flow Rate FiO2 06/09/23 17:59 Mechanical Vent 06/09/23 17:40 06/09/23 17:37 Mechanical Vent 06/09/23 17:32 50 06/09/23 17:30 Mechanical Vent 06/09/23 17:28 06/09/23 17:23 06/09/23 17:19 06/09/23 17:14 06/09/23 17:13 06/09/23 17:11 06/09/23 16:57 06/09/23 16:46 06/09/23 16:40 06/09/23 16:34 06/09/23 16:20 Non-rebreather 15 06/09/23 16:20 Non-rebreather 15 06/09/23 16:20 Laboratory Results Short CBC 06/09/23 Range/Units 16:42 WBC 30.05 H* (4.8-10.8) K/ul Hgb 10.8 L (12.0-16.0) g/dl Hct 34.1 L (37.0-47.0) % Plt Count 94 L (130-400) K/uL BMP 06/09/23 16:42 Sodium 143 Potassium 3.8 Chloride 114 H Carbon Dioxide 12 L BUN 67 H Creatinine 3.60 H Glucose 191 H Calcium 8.0 L Cardiac Enzymes 06/09/23 Range/Units 16:42 Total Creatine Kinase 1828 H (26-192) U/L Liver Function 06/09/23 Range/Units 16:42 Total Bilirubin 0.4 (0.2-1.0) mg/dl Direct Bilirubin 0.2 (0-0.2) mg/dl AST 130 H (13-39) U/L ALT 53 H (7-52) U/L Alkaline Phosphatase 70 (34-104) U/L Albumin 2.1 L (3.4-5.0) gm/dl Urine 06/09/23 Range/Units 17:22 Urine Color Brown Urine Appearance Cloudy A (Clear) Urine pH 8.5 H (4.5-7.5) Ur Specific [place] 1.020 (1.000-1.030) Urine Protein 3+ H (Negative) Urine Glucose (UA) Negative (Negative) Diagnostic Findings --CT head: No acute intracranial abnormality. --CT ABD:Mild left-sided hydroureteronephrosis with ureteral stent in place. There are numerous calculi within the left renal pelvis, ureteropelvic junction and proximal left ureter. Mild to moderate right-sided hydroureteronephrosis with numerous calculi within the right renal pelvis and right ureter as above. Large urinary bladder calculi with nonobstructing bilateral nephrolithiasis. Marked fecal retention of the rectum with stercoral proctitis. Small pleural effusions with mild bibasilar atelectasis. --CXR:Endotracheal tube overlies the midline, 2.9 cm superior to the pako. No airspace consolidation to suggest pneumonia. ECG Additional Comments: EKG: Poor tracing. Likely sinus tachycardia. Low voltage QRS. Poor R wave progression. QTc 461. Code Status & VTE Plan VTE Prophylaxis Plan VTE Prophylaxis will be ordered: Yes
--- NOTE | 2023-06-09 18:06 | CT Scan Report ---
CT head/brain wo con CLINICAL HISTORY: 82 years-old Female with AMS. Acutely altered mental status TECHNIQUE: Multiple axial CT images of the head were obtained without contrast. A dose lowering tech nique was utilized adhering to the principles of ALARA. COMPARISON: 04/25/2022 FINDINGS: Involutional changes. White matter hypodensities suggestive of chronic microvascular ischemic disease . No acute intracranial hemorrhage, midline shift, intracranial mass, hydrocephalus, territorial isch emia or abnormal extra-axial collection. The calvarium is intact. The paranasal sinuses, mastoid air cells, and middle ear cavities are clear . IMPRESSION: No acute intracranial abnormality. ACT 112: Negative or not required by law. The above report was generated using voice recognition software. It may contain grammatical, syntax o r spelling errors. Electronically signed by: Elia Alvarado M.D. 06/09/2023 6:04 PM
[2023-06-09 18:11] LABS: Adenovirus PCR Not Detected (NotDetected); Bordetella parapertussis PCR Not Detected (NotDetected); Bordetella pertussis PCR Not Detected (NotDetected); Chlamydia pneumoniae PCR Not Detected (NotDetected); Coronavirus 229E PCR Not Detected (NotDetected); Coronavirus CoV-2 (COVID19)PCR Not Detected (NotDetected); Coronavirus HKU1 PCR Not Detected (NotDetected); Coronavirus NL63 PCR Not Detected (NotDetected); Coronavirus OC43PCR Not Detected (NotDetected); Human Metapneumovirus PCR Not Detected (NotDetected); Influenza A PCR Not Detected (NotDetected); Influenza B PCR Not Detected (NotDetected); Mycoplasma pneumoniae PCR Not Detected (NotDetected); Parainfluenza Virus 1 PCR Not Detected (NotDetected); Parainfluenza Virus 2 PCR Not Detected (NotDetected); Parainfluenza Virus 3 PCR Not Detected (NotDetected); Parainfluenza Virus 4 PCR Not Detected (NotDetected); Respiratory Syncytial VirusPCR Not Detected (NotDetected); Rhinovirus/Enterovirus PCR Not Detected (NotDetected)
[2023-06-09] MEDS: VASOPRESSIN 20 UNITS in 0.9 % SODIUM CHLORIDE 100 ML IV SCH (18:12)
[2023-06-09 18:19] LABS: Phosphorus 3.7 mg/dl (2.5-4.9)
--- NOTE | 2023-06-09 18:32 | CT Scan Report ---
ABDOMEN AND PELVIS CT WITHOUT CONTRAST CT DOSE: 1318.18 mGy.cm HISTORY: Acute sepsis sepsis, hx of stones TECHNIQUE: Multiaxial CT images of the abdomen and pelvis were performed without contrast. A dose lo wering technique was utilized adhering to the principles of ALARA. COMPARISON STUDY: 04/25/2022 FINDINGS: Trace pleural effusions with mild deep and subsegmental bibasilar atelectasis. No free air. Unremarka ble unenhanced spleen, the moderate pancreatic atrophy with distended gallbladder. Unenhanced liver i s within normal limits. Left greater than right bilateral perinephric stranding. There are numerous nonobstructing calculi of the bilateral kidneys measuring up to 4 mm on the right and 8 mm on the left. 5 mm calculus within t he right pelvis dependently on image 137. There is a cluster of 3 subadjacent calculus in the proxima l right ureter measuring up to 5 mm resulting in mild to moderate hydroureteronephrosis. 4 mm right d istal ureteral calculus on image 238 with 5 mm calculus on image 254. Mild left-sided hydroureteronep hrosis with a ureteral stent in place. Numerous stone fragments within the left renal pelvis, uretero pelvic junction proximal left ureter including a 1.7 cm UPJ calculus. Additional calculi within the u rinary bladder measuring up to 2.5 cm encasing the distal portion of the stent. Decompressed urinary bladder with Benedict catheter in place. Atherosclerosis of the aorta. Right femoral venous catheter dis ally tip on image 175 which appears to be present within the right common iliac vein. Mild subcutaneou s edema/hemorrhage within the right inguinal subcutaneous tissues. Air-filled mildly distended distal esophagus. No bowel obstruction. Marked fecal retention in the rec [place] with rectal wall thickening and adjacent inflammatory stranding/trace free fluid. No bowel obstru ction. Left hip arthroplasty. Chronic thoracolumbar compression deformities. IMPRESSION: 1. Mild left-sided hydroureteronephrosis with ureteral stent in place. There are numerous calculi wit hin the left renal pelvis, ureteropelvic junction and proximal left ureter. 2. Mild to moderate right-sided hydroureteronephrosis with numerous calculi within the right renal pe lvis and right ureter as above. 3. Large urinary bladder calculi with nonobstructing bilateral nephrolithiasis. 4. Marked fecal retention of the rectum with stercoral proctitis. 5. Small pleural effusions with mild bibasilar atelectasis. 6. Additional findings as above. ACT 112: Negative or not required by law. The above report was generated using voice recognition software. It may contain grammatical, syntax o r spelling errors. Electronically signed by: Elia Alvarado M.D. 06/09/2023 6:29 PM
--- NOTE | 2023-06-09 18:45 | Critical Care Consultation ---
Date of Consultation June 09, 2023 Assessment & Plan (1) Complication of urinary stent: (2) Acute metabolic encephalopathy: (3) Metabolic acidosis: (4) Bilateral nephrolithiasis: (5) Acute renal failure: (6) Sepsis: (7) On mechanically assisted ventilation: (8) Severe sepsis with septic shock: (9) Severe sepsis with acute organ dysfunction: (10) Rhabdomyolysis: (11) Nephrolithiasis: (12) Thrombocytopenia: (13) Anemia: Plan Reason Critically Ill: 81 YOF admitted to the ICU post OR for severe sepsis with shock likely from infected kidney stone, with evidence of end organ dysfunction. Patient was brought to the EMD via EMS from home where she was found disheveled and covered in stool. She was resuscitated with 3L of crystalloid remained with re-curring hypoglycemia, as well as now requiring vasopressors. She was taken emergently to the OR for source control by urology. Neuro -Metabolic encephalopathy CAM ICU: Unable to be assessed - Metabolic encephalopathy with multiple etiologies at this time to include severe sepsis - - Sedate with Propfol and Fentanyl - Head CT negative 06/09/2023 -- History of dementia Cardiac - -- Septic shock - resuscitated with 3liters of crystalloid in the ED Continue with vasopressor support to keep MAP greater than 65 Random cortisol greater than 60 2D echo 04/25/2022: EF 40-45% BNP 3666 on presentation -- NSTEMI Likely secondary to type II TX No changes appreciated on the EKG Continue to trend Respiratory - -- VDRF Likely secondary to septic shock and intermittent status Continue with ventilatory support Keep RASS -1 Respiratory bio fire negative for everything on 06/09/2023 GI - Transaminitis - Likely secondary to septic shock- follow with resuscitation continue to monitor Coagulopathy INR 1.4 RENAL/LYTES - -- HAGMA Delta-delta: Less than 1, gap plus nongap Gap is likely secondary to lactic acidosis, nongap could be from BERTHA and elevated BUN Monitor -- BERTHA Monitor BUN/creatinine Avoid nephrotoxic medications Strict ins and outs - S/p stenting by April 2023 -Monitor BUNs/creatinine, avoid nephrotoxic medication - Electrolytes replete per protocol ENDO - ICU hyperglycemia protocol HEME - Normocytic anemia, Thrombocytopenia - Transfuse for HGB <7 -Continue with antibiotics to treat sepsis ID - Severe sepsis/shock -Likely from UTI History of E. coli in the urine which was sensitive to Rocephin - Random Cortisol >60 -- No CPR --Prophylaxis VTE: IPC GI: Pantoprazole Lines: Right femoral, positive Benedict Diet: N.p.o. Plan: Given the significant vasopressor requirement. Empirically give the patient hydrocortisone 100 mg Try to keep MAP greater than 65 2 A of bicarb were given to the patient. Repeat CMP again. Consider giving another amp of bicarb Follow-up culture Will consult urology. Overall prognosis is guarded I have personally spent 63 minutes of critical care time in the direct management of this patient. This is a life/limb threatening event. This includes time spent evaluating patient, direct bedside care, chart review, placing orders, interpretation of diagnostic studies, discussion with consultants, patient, and family members, as well as other required patient management activities. This time is exclusive of all separately billable procedures, and teaching time and separate from and in addition to any other critical care service time. Please note the above document was generated using voice recognition software. It may contain grammatical, syntax or spelling errors. Elevated ammonia level History of Present Illness History of Present Illness 82-year-old female visited the hospital she was found on the floor Past medical history: Nephrolithiasis, GERD, chronic anemia, history of endometrial/ovarian cancer s/p surgery and radiation, tobacco use Patient was found to be in septic shock, transferred to the ICU for further management At the time of examination patient was on 0.05 of epinephrine, 0.3 of Levophed and 0.04 of vasopressin She got total of 4 L of IV fluids in the ED. She also got 2 A of bicarb. Her map at the time of examination was 63. She was breathing just over the vent. She was trying to move or lower legs on touch. History was obtained from previous chart and ER notes. 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) H/O: hysterectomy (11/04/12) Social History Smoking Status: Never smoker Hx Alcohol Use: No Hx Substance Use: No Preferred Language: Paraguayan Communication Ability: Effective Crimp Setter Required: No Beliefs That Will Affect Care: None marital status: Current Living Situation: Spouse Other Information That Helps Us Care for You: No Feels Safe at Home: Yes Safety Concerns: Feels Safe At This Time Assistive Devices: Cane and Walker Review of Systems 2 Review of Systems: Unobtainable due to endotracheal tube Physical Exam 2 Physical Exam: Constitutional: No acute distress HEENT: PERRLA, arcus senilis bilaterally Respiratory system: Decreased air entry bilaterally, no wheeze, no rhonchi, no crackles CVS: S1-S2 positive, no murmurs or gallops Abdomen: Soft, nontender, nondistended, positive bowel sounds x4 Extremities: +1 pulses bilaterally radialis/ dorsalis pedis, no cyanosis, no edema, cold extremities, mottling of skin in the legs Neuro: Intubated, breathing over the vent Psych: Unable to assess G/U: Positive Benedict Skin: no rashes, warm and dry Lymphatic: no cervical or axillary lymphadenopathy Results & Data Results & Data Vital Signs (Past 12 Hours) Vital Signs Temp Pulse Pulse Resp BP BP Pulse Ox 06/09/23 18:38 86 26 H 64/46 L 06/09/23 18:23 88 27 H 74/50 L 06/09/23 18:20 88 26 H 65/45 L 06/09/23 18:16 82 28 H 60/44 L 06/09/23 18:05 26 H 06/09/23 17:59 86 32 H 57/42 L 06/09/23 17:40 86 30 H 53/36 L 06/09/23 17:37 82 28 H 53/34 L 06/09/23 17:32 89 27 H 100 06/09/23 17:30 88 26 H 50/36 L 06/09/23 17:28 36.9 C 06/09/23 17:23 88 27 H 47/30 L 06/09/23 17:19 91 H 06/09/23 17:14 92 H 26 H 52/26 L 06/09/23 17:13 97 H 29 H 44/33 L 06/09/23 17:11 38.5 C H 06/09/23 16:57 109 H 22 50/33 L 06/09/23 16:46 104 H 39 H 65/40 L 06/09/23 16:40 108 H 45 H 59/35 L 06/09/23 16:34 106 H 44 H 49/33 L 06/09/23 16:20 06/09/23 16:20 06/09/23 16:20 112 H 42 H 46/31 L O2 Del Method O2 Flow Rate FiO2 06/09/23 18:38 06/09/23 18:23 06/09/23 18:20 Mechanical Vent 06/09/23 18:16 Mechanical Vent 06/09/23 18:05 50 06/09/23 17:59 Mechanical Vent 06/09/23 17:40 06/09/23 17:37 Mechanical Vent 06/09/23 17:32 50 06/09/23 17:30 Mechanical Vent 06/09/23 17:28 06/09/23 17:23 06/09/23 17:19 06/09/23 17:14 06/09/23 17:13 06/09/23 17:11 06/09/23 16:57 06/09/23 16:46 06/09/23 16:40 06/09/23 16:34 06/09/23 16:20 Non-rebreather 15 06/09/23 16:20 Non-rebreather 15 06/09/23 16:20 Laboratory Results 06/09/23 16:42 06/09/23 16:42 Coding Level of Care Code 05599 CRITICAL CARE 1ST 30-74M Diagnoses Complication of urinary stent T83.9XXA Acute metabolic encephalopathy G93.41 Metabolic acidosis E87.20 Bilateral nephrolithiasis N20.0 Acute renal failure N17.9 Acute renal failure type: unspecified Sepsis A41.9; R65.21; N17.9 Acute renal failure type: unspecified Sepsis acute organ dysfunction status: with acute organ dysfunction Sepsis type: sepsis due to unspecified organism Severe sepsis acute organ dysfunction type: acute renal failure Severe sepsis shock status: with septic shock On mechanically assisted ventilation Z99.11 Severe sepsis with septic shock A41.9; R65.21 Severe sepsis with acute organ dysfunction A41.9; R65.20 Rhabdomyolysis M62.82 Rhabdomyolysis type: non-traumatic Nephrolithiasis N20.0 Thrombocytopenia D69.6 Anemia D64.9 (5) Acute renal failure Acute renal failure type: unspecified Qualified Code(s): N17.9 - Acute kidney failure, unspecified (6) Sepsis Acute renal failure type: unspecified Sepsis acute organ dysfunction status: with acute organ dysfunction Sepsis type: sepsis due to unspecified organism S evere sepsis acute organ dysfunction type: acute renal failure Severe sepsis shock status: with septic shock Qualified Code(s): A41.9 - Sepsis, unspecified organism; R65.21 - Severe sepsis with septic shock; N17.9 - Acute kidney failure, unspecified (10) Rhabdomyolysis Rhabdomyolysis type: non-traumatic Qualified Code(s): M62.82 - Rhabdomyolysis
[2023-06-09] MEDS ORDERED: ALBUT/IPRATROP 3MG/0.5MG NEB 3 ML VIAL NEB SCH (19:00)
--- NOTE | 2023-06-09 20:08 | Urology Consultation ---
Date of Consultation June 09, 2023 Assessment & Plan (1) Bilateral nephrolithiasis: (2) Calculus, ureteral: (3) Hydronephrosis: (4) Sepsis: (5) Complication of urinary stent: Plan 82 to F found down and unresponsive. Suspected urosepsis with encrusted left ureteral stent and obstructing right ureteral stones in place. -Had a long discussion with her regarding options. I do not think I will be able to do anything with her left stent at this time due to significant encrustation and the length of time it would take to attempt to treat. I recommended we at least attempt right ureteral stent placement, however this may be challenging giving the amount of stone on her distal coil in the bladder. Probably best to attempt here, and if unsuccessful, will need to emergently transfer for bilateral nephrostomy tube placement at a tertiary care center. -Risks and benefits discussed including but not limited to anesthesia risks, pain, bleeding, infection, damage to system, inability to place a stent, need for nephrostomy, and in her specific case, . He signed consent. -Right side marked -Continue vanc and cefepime History of Present Illness Attending Physician: Colby Trinidad MD History of Present Illness 82 yo F admitted admitted to the ICU after being found down unresponsive by her . Afebrile, but profoundly hypotensive and tachynpic. Intubated. WBC of 30, Cr 3.6, Procal >200, UA grossly positive. CT scan shows left ureteral stent in place with significant encrustation of both proximal and distal ends. Mild left hydro. Right hydro with obstructing ureteral stones. She was started on several pressors and vancomycin and cefepime. Patient had a stent placed in April 2022 at [facility]. Follow up was sent and numerous discussions were had with patient however for unclear reasons she never agreed to schedule f/u. reports she was acting normally when she went to bed last night. He thought she was just sleeping late this morning but when he came back in the afternoon she was unresponsive. He reports that she is known that she needed to have this left stent removed and has refused to have it done. 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) H/O: hysterectomy (11/04/12) Social History Smoking Status: Unknown if ever smoked Hx Alcohol Use: Yes Alcohol type: beer Hx Substance Use: No Preferred Language: Swedish Communication Ability: Unable Manager Change Required: No Beliefs That Will Affect Care: None marital status: Current Living Situation: Spouse Feels Safe at Home: Yes Assistive Devices: None Review of Systems Review of Systems: 14 point review of systems negative outs germán of what is listed above in HPI Physical Exam Physical Exam: General:Sedated, intubated HEENT: ET tube in place Pulmonary: Ventilated Abdomen: Nondistended Skin: Warm, dry, no rashes noted Results & Data Vital Signs (Past 12 Hours) Vital Signs Temp Pulse Pulse Resp BP BP Pulse Ox 06/09/23 18:38 86 26 H 64/46 L 06/09/23 18:23 88 27 H 74/50 L 06/09/23 18:20 88 26 H 65/45 L 06/09/23 18:16 82 28 H 60/44 L 06/09/23 18:05 26 H 06/09/23 17:59 86 32 H 57/42 L 06/09/23 17:40 86 30 H 53/36 L 06/09/23 17:37 82 28 H 53/34 L 06/09/23 17:32 89 27 H 100 06/09/23 17:30 88 26 H 50/36 L 06/09/23 17:28 36.9 C 06/09/23 17:23 88 27 H 47/30 L 06/09/23 17:19 91 H 06/09/23 17:14 92 H 26 H 52/26 L 06/09/23 17:13 97 H 29 H 44/33 L 06/09/23 17:11 38.5 C H 06/09/23 16:57 109 H 22 50/33 L 06/09/23 16:46 104 H 39 H 65/40 L 06/09/23 16:40 108 H 45 H 59/35 L 06/09/23 16:34 106 H 44 H 49/33 L 06/09/23 16:20 06/09/23 16:20 06/09/23 16:20 112 H 42 H 46/31 L O2 Del Method O2 Flow Rate FiO2 06/09/23 18:38 06/09/23 18:23 06/09/23 18:20 Mechanical Vent 06/09/23 18:16 Mechanical Vent 06/09/23 18:05 50 06/09/23 17:59 Mechanical Vent 06/09/23 17:40 06/09/23 17:37 Mechanical Vent 06/09/23 17:32 50 06/09/23 17:30 Mechanical Vent 06/09/23 17:28 06/09/23 17:23 06/09/23 17:19 06/09/23 17:14 06/09/23 17:13 06/09/23 17:11 06/09/23 16:57 06/09/23 16:46 06/09/23 16:40 06/09/23 16:34 06/09/23 16:20 Non-rebreather 15 06/09/23 16:20 Non-rebreather 15 06/09/23 16:20 PG Care Time/CCT Total # of Minutes Spent Total Time Spent with Patient: Total time spent is greater than 50% in coordination of care (as documented) at patient's floor/unit and/or counseling patient: Coding Level of Care Code 78937 INT INP/OBS CARE 2/55MIN Diagnoses Bilateral nephrolithiasis N20.0 Calculus, ureteral N20.1 Hydronephrosis N13.30 Hydronephrosis type: unspecified Sepsis A41.9; R65.21; N17.9 Acute renal failure type: unspecified Sepsis acute organ dysfunction status: with acute organ dysfunction Sepsis type: sepsis due to unspecified organism Severe sepsis acute organ dysfunction type: acute renal failure Severe sepsis shock status: with septic shock Complication of urinary stent T83.9XXA (3) Hydronephrosis Hydronephrosis type: unspecified Qualified Code(s): N13.30 - Unspecified hydronephrosis (4) Sepsis Acute renal failure type: unspecified Sepsis acute organ dysfunction status: with acute organ dysfunction Sepsis type: sepsis due to unspecified organism Severe sepsis acute organ dysfunction type: acute renal failure Severe sepsis shock status: with septic shock Qualified Code(s): A41.9 - Sepsis, unspecified organism; R65.21 - Severe sepsis with septic shock; N17.9 - Acute kidney failure, unspecified
[2023-06-09] MEDS: PANTOprazole 40 MG in SYRINGE 0 ML IV SCH (20:16)
--- NOTE | 2023-06-09 20:25 | Urology Consultation ---
Date of Consultation June 09, 2023 Assessment & Plan (1) Hydronephrosis: (2) Calculus, ureteral: (3) Bilateral nephrolithiasis: (4) Sepsis: The patient has been admitted on the hospitalist service and is receiving care in the intensive care unit The patient is currently requiring blood pressure support with vasopressors medication currently including Levophed, epinephrine, and vasopressin. These medications should continue for the present time It appears as though the patient's sepsis is from an underlying urinary source. She is receiving broad-spectrum antibiotics in form of cefepime and vancomycin which should continue. Both blood and urine cultures have been sent and antibiotics can be tailored based on patient's clinical response to her treatment as well as pending culture data Due to the bilateral hydronephrosis Dr. Jeffrey Puri, urologic attending for [facility] physician group, is planning on taking the patient to the operating room for cystoscopy with potential right ureteral stent placement. There is concern the patient's left ureteral stent is embedded/encrusted in her left ureter thereby precluding its removal and replacement at this time. If unable to place a ureteral stent, the patient may require source control with percutaneous nephrostomy which would necessitate transfer to facility that can provide this procedure Additional recommendations will be forthcoming based on Dr. Puri's review of this case, operative findings, and results of any attempted operative procedures. The patient's was present at the bedside and he has been updated and had his questions answered. At the present time he wishes to proceed with cystoscopy with attempted right ureteral stent placement Supervising Physician Co-Signing Physician Notes Please disregard this note and do not charge for it. Refer to my consultation note for patient specifics and plan. History of Present Illness Reason for Consultation: Sepsis from urinary source Attending Physician: Colby Trinidad MD History of Present Illness This is an 82-year-old female who was admitted to the intensive care unit due to septic shock. The patient was intubated at the time of my arrival and can therefore not provide any meaningful history. The patient's was present at bedside and did provide much of the information in the history of present illness. He notes that for the past week she has been complaining of subjective fever but did not actually check her temperature. The patient did take some [id number] Advil with some improvement of her symptoms. To the best of his knowledge she has not had any nausea or vomiting, dysuria, hematuria, or back pain. She has not had any falls or injuries. He does note that she has complained of some intermittent abdominal pain. Patient's records were reviewed and she did have a left ureteral stent placed on 04/25/[address] Anuj Adams. The stent was placed secondary to nephrolithiasis and urosepsis the patient has had this stent in place since that time. When asked if the patient ever received any follow-up the patient's noted that she refused any follow-up and therefore no definitive treatment for kidney stones and ureteral stent management were undertaken. Since arrival to the hospital the patient has had labs and imaging which independent reviewed. Chest x-ray showed no evidence of pneumonia. A CT scan of the abdomen pelvis showed the patient had bilateral hydronephrosis. She was noted to have mild left-sided hydronephrosis with a pre-existing ureteral stent in place. There are numerous calculi in the left renal pelvis, ureteropelvic junction, and proximal left ureter. There is also mild to moderate right-sided hydro nephrosis with numerous calculi in the right renal pelvis and right ureter. CT scan of the head showed no acute intracranial abnormalities. CBC revealed white blood cell count was elevated at 30.0. Hemoglobin and hematocrit were 10.8 and 34.4. Platelet count was 94,000. Chemistry profile showed sodium and potassium are both normal. Her BUN and creatinine were 67 and 3.6 (review of records show that this elevation of creatinine was markedly above her baseline of 0.4) lactic acid level was noted to be elevated at 10.5. Urinalysis showed cloudy urine with 3+ leukocyte Estrace. The specimen was negative for nitrites but did show 4+ bacteria as well as pyuria with greater than 30 white blood cells per high-power field. At the time of my interview the patient was intubated in the ICU and poorly responsive 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) H/O: hysterectomy (11/04/12) Social History Smoking Status: Never smoker Hx Alcohol Use: No Hx Substance Use: No Preferred Language: Maltese Communication Ability: Effective Spa Assistant Manager Required: No Beliefs That Will Affect Care: None marital status: Current Living Situation: Spouse Other Information That Helps Us Care for You: No Feels Safe at Home: Yes Safety Concerns: Feels Safe At This Time Assistive Devices: Cane and Walker Review of Systems Review of Systems: Unobtainable due to endotracheal tube Physical Exam Constitutional: Patient is intubated in the ICU and noted to be poorly responsive. She looks acutely ill Eyes: no conjunctival abnormality ENMT: Ears: no external ear abnormality Endotracheal tube is in place Neck: trachea midline Respiratory: Breath sounds are present bilaterally and aided by ventilator Cardiovascular: Rate/Rhythm: regular rate and regular rhythm Vessels: dorsalis pedis pulses present and radial pulses present Gastrointestinal (Abdomen): Abdomen is soft and nondistended. Palpation did not appear to elicit a painful response Musculoskeletal: No lower extremity edema Skin: no rashes Neurologic: Patient is intubated on a ventilator. She does not move extremities upon command in an appropriate fashion Results & Data Vital Signs (Past 12 Hours) Vital Signs Temp Pulse Pulse Resp BP BP Pulse Ox 06/09/23 18:38 86 26 H 64/46 L 06/09/23 18:23 88 27 H 74/50 L 06/09/23 18:20 88 26 H 65/45 L 06/09/23 18:16 82 28 H 60/44 L 06/09/23 18:05 26 H 06/09/23 17:59 86 32 H 57/42 L 06/09/23 17:40 86 30 H 53/36 L 06/09/23 17:37 82 28 H 53/34 L 06/09/23 17:32 89 27 H 100 06/09/23 17:30 88 26 H 50/36 L 06/09/23 17:28 36.9 C 06/09/23 17:23 88 27 H 47/30 L 06/09/23 17:19 91 H 06/09/23 17:14 92 H 26 H 52/26 L 06/09/23 17:13 97 H 29 H 44/33 L 06/09/23 17:11 38.5 C H 06/09/23 16:57 109 H 22 50/33 L 06/09/23 16:46 104 H 39 H 65/40 L 06/09/23 16:40 108 H 45 H 59/35 L 06/09/23 16:34 106 H 44 H 49/33 L 06/09/23 16:20 06/09/23 16:20 06/09/23 16:20 112 H 42 H 46/31 L O2 Del Method O2 Flow Rate FiO2 06/09/23 18:38 06/09/23 18:23 06/09/23 18:20 Mechanical Vent 06/09/23 18:16 Mechanical Vent 06/09/23 18:05 50 06/09/23 17:59 Mechanical Vent 06/09/23 17:40 06/09/23 17:37 Mechanical Vent 06/09/23 17:32 50 06/09/23 17:30 Mechanical Vent 06/09/23 17:28 06/09/23 17:23 06/09/23 17:19 06/09/23 17:14 06/09/23 17:13 06/09/23 17:11 06/09/23 16:57 06/09/23 16:46 06/09/23 16:40 06/09/23 16:34 06/09/23 16:20 Non-rebreather 15 06/09/23 16:20 Non-rebreather 15 06/09/23 16:20 PG Care Time/CCT Total # of Minutes Spent Total Time Spent with Patient: Total time spent is greater than 50% in coordination of care (as documented) at patient's floor/unit and/or counseling patient: Coding Level of Care Code 04037 INT INP/OBS CARE 3/75MIN Diagnoses Hydronephrosis N13.30 Hydronephrosis type: unspecified Calculus, ureteral N20.1 Bilateral nephrolithiasis N20.0 Sepsis A41.9; R65.21; N17.9 Acute renal failure type: unspecified Sepsis acute organ dysfunction status: with acute organ dysfunction Sepsis type: sepsis due to unspecified organism Severe sepsis acute organ dysfunction type: acute renal failure Severe sepsis shock status: with septic shock (1) Hydronephrosis Hydronephrosis type: unspecified Qualified Code(s): N13.30 - Unspecified hydronephrosis (4) Sepsis Acute renal failure type: unspecified Sepsis acute organ dysfunction status: with acute organ dysfunction Sepsis type: sepsis due to unspecified organism Severe sepsis acute organ dysfunction type: acute renal failure Severe sepsis shock status: with septic shock Qualified Code(s): A41.9 - Sepsis, unspecified organism; R65.21 - Severe sepsis with septic shock; N17.9 - Acute kidney failure, unspecified
[2023-06-09] MEDS ORDERED: MIDAZOLAM HCL 1 MG/ML 2ML VIAL ONE (20:46)
[2023-06-09] MEDS ORDERED: DIATRIZOATE MEGLUMINE 30% 100ML VIAL INSTIL PRN (20:49)
--- NOTE | 2023-06-09 21:01 | Anesthesiology Consultation ---
Date of Service June 09, 2023 Assessment & Plan ASA [id number] Proposed Anesthesia Anesthesia Type: General Risk / Benefits Reviewed With: PT / POA / Parent / Guardian, Accepts Plan and Informed Consent Obtained History Surgery Operation Date: 06/09/23 21:30 Proposed Procedures p Cystoscopy, Ureteral Stent Insertion - Jeffrey Puri MD Height/Weight Height: 5 ft Weight: 49.3 kg Allergies Allergy/AdvReac Type Severity Reaction Status Date / Time amoxicillin AdvReac Unknown nausea and Verified 06/09/23 17:06 vomiting Medications Home Medications Medication Instructions Recorded Confirmed Last Taken lorazepam 1 mg tablet 1 mg PO TID PRN Anxiety 06/09/23 06/09/23 Unknown Active Medications Generic Name Dose Route Start Last Admin Trade Name Freq PRN Reason Stop Dose Admin Albuterol 3 ml 06/09/23 19:00 06/09/23 20:30 Albut/Ipratrop 3mg/0.5mg Neb 3 Ml Vial NEB 07/09/23 18:59 3 ml QIDR MYNOR Administration Protocol Norepinephrine Bitartrate 4 mg in 250 mls @ 55.463 mls/hr 06/09/23 16:45 06/09/23 19:14 Levophed/D5w IV 07/09/23 16:44 0.3 mcg/kg/min .Q4H31M MYNOR 55.5 mls/hr Titration Protocol 0.3 MCG/KG/MIN Epinephrine HCl 4 mg in 254 mls @ 3.757 mls/hr 06/09/23 17:30 06/09/23 19:15 IV 07/09/23 17:29 0 mcg/kg/min .Q24H MYNOR 0 mls/hr Titration Protocol 0.02 MCG/KG/MIN Vasopressin 20 units/ Sodium 101 mls @ 12.12 mls/hr 06/09/23 18:00 06/09/23 18:12 Chloride IV 07/09/23 17:59 0.04 unit/min .Q8H20M MYNOR 12.1 mls/hr Administration 0.04 UNIT/MIN Parenteral Electrolytes 1,000 mls @ 150 mls/hr 06/09/23 18:02 06/09/23 18:19 Plasma-Lyte A Ph 7.4 IV 06/10/23 00:41 150 mls/hr .Q6H40M ONE Administration Pantoprazole Sodium 40 mg/ 10 mls @ 5 mls/min 06/09/23 18:55 06/09/23 20:16 Syringe IV 07/09/23 18:54 5 mls/min DAILY@1100 MYNOR Administration Past Medical History Medical History Acute metabolic encephalopathy Ovarian cancer (11/04/12) Osteoporosis (11/04/12) Kidney stone (11/04/12) Chronic low back pain (11/04/12) Exercise / Class Metabolic Activity II 4-5 Yardwork/Stairs/Walk up hill Past Surgical History Surgical History 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) H/O: hysterectomy (11/04/12) Past Anesthesia History No Hx of Anesthesia Complications and No Family Hx of Anesthesia Complications History of PONV No Hx of PONV and No Hx of Motion Sickness Social History Smoking Status: Unknown if ever smoked Hx Alcohol Use: Yes Alcohol type: beer alcohol intake frequency: a few times a month Hx Substance Use: No Review of Systems denies fever/cough/ colds/ chest pain/ SOB/ MOLYL denies MOLLY Physical Exam Vital Signs Last Vital Signs Temp 36.9 C 06/09/23 17:28 Pulse 86 06/09/23 18:38 Resp 26 H 06/09/23 18:38 BP 64/46 L 06/09/23 18:38 Pulse Ox 100 06/09/23 17:32 O2 Del Method Mechanical Vent 06/09/23 18:20 O2 Flow Rate 15 06/09/23 16:20 FiO2 50 06/09/23 18:05 Constitutional + altered mental status and + mechanically ventilated ENMT Mouth: no TMJ abnormality and no dentition abnormality Thyromental Distance: > or= 3.5 Finger Breadths Mallampati Class: Other (vented sedated unable to assess) Neck neck extension not limited Respiratory normal respiratory effort; no respiratory distress Auscultation: lungs clear to auscultation bilaterally Cardiovascular Rate/Rhythm: regular rhythm and + tachycardic Psychiatric Orientation: alert and oriented x 3 Testing Laboratory Results 06/09/23 16:42 06/09/23 16:42 PT 15.0 Seconds (9.0-12.0) H 06/09/23 16:42 INR 1.4 (0.9-1.1) H 06/09/23 16:42 APTT 37 Seconds (21-31) H 06/09/23 16:42 Urine Color Brown 06/09/23 17:22 Urine Appearance Cloudy (Clear) A 06/09/23 17:22 Urine pH 8.5 (4.5-7.5) H 06/09/23 17:22 Ur Specific [place] 1.020 (1.000-1.030) 06/09/23 17:22 Urine Protein 3+ (Negative) H 06/09/23 17:22 Urine Glucose (UA) Negative (Negative) 06/09/23 17:22 Urine Ketones Negative (Negative) 06/09/23 17:22 Urine Nitrite Negative (Negative) 06/09/23 17:22 Ur Leukocyte Esterase 3+ (Negative) H 06/09/23 17:22 Urine RBC >30 /hpf (0-4) H 06/09/23 17:22 Urine WBC >30 /hpf (0-5) H 06/09/23 17:22 Ur Epithelial Cells 0-5 /lpf (0-5) 06/09/23 17:22 Blood Type O Positive 06/09/23 16:42 Antibody Screen NEGATIVE 06/09/23 16:42 06/09/23 16:46 POC Glucose (other) 178 H
[2023-06-09] MEDS ORDERED: ePHEDrine sulfate 50 MG/5 ML SYR ONE ×2 (21:35→22:15)
[2023-06-09] MEDS ORDERED: ROCURONIUM BROMIDE 10 MG/ML 5 ML VIAL IV ONE (21:35)
[2023-06-09] MEDS ORDERED: PHENYLEPHRINE 100MCG/ML 10ML SYR IV ONE (21:35)
[2023-06-09] MEDS ORDERED: ePHEDrine sulfate 50 MG/ML AMP ONE ×2 (21:43→22:15)
[2023-06-09] MEDS ORDERED: fentaNYL citrate 2,500 MCG/250 ML BAG IV ONE (22:09)
[2023-06-09] MEDS ORDERED: VECURONIUM BROMIDE 10 MG VIAL IV ONE (22:12)
--- NOTE | 2023-06-09 22:12 | Post Operative Brief Note ---
PG Immediate Post Op with CF Date of Surgery June 09, 2023 Pre & Post Diagnosis Operation Date: 06/09/23 21:30 Pre-Op Diagnosis: (1) Bilateral nephrolithiasis: (2) Calculus, ureteral: (3) Hydronephrosis: (4) Sepsis: (5) Complication of urinary stent. Post-Op Diagnosis: (1) Bilateral nephrolithiasis: (2) Calculus, ureteral: (3) Hydronephrosis: (4) Sepsis: (5) Complication of urinary stent. I identified the patient and participated in the time-out.: Yes Procedure Operation Date: 06/09/23 21:30 Actual Procedures p Cystoscopy, retrograde pyelogram, right ureteral stent insertion(Right) - Jeffrey Puri MD Surgeon Jeffrey Puri MD Senior Technical Manager None Estimated Blood Loss 0 Findings Consistent with Post-Op Diagnosis Drains Benedict Catheter Anesthesia Type General Complications none
--- NOTE | 2023-06-09 22:18 | Operative Report ---
PG Post Operative Report Pre & Post Diagnosis Operation Date: 06/09/23 21:30 Pre-Op Diagnosis: (1) Bilateral nephrolithiasis: (2) Calculus, ureteral: (3) Hydronephrosis: (4) Sepsis: (5) Complication of urinary stent. Post-Op Diagnosis: (1) Bilateral nephrolithiasis: (2) Calculus, ureteral: (3) Hydronephrosis: (4) Sepsis: (5) Complication of urinary stent. I identified the patient and participated in the time-out.: Yes Procedure Operation Date: 06/09/23 21:30 Actual Procedures p Cystoscopy, retrograde pyelogram with radiographic interpretation, right ureteral stent insertion(Right) - Jeffrey Puri MD Surgeon Jeffrey Puri MD [employer] None Estimated Blood Loss 0 Findings Consistent with Post-Op Diagnosis Significant encrustation on distal coil of the left stent. Unable to visualize distal coil itself or the left ureteral orifice. Moderate right hydronephrosis. Debris and purulence from kidney upon stent placement. Stent in appropriate position. Specimens None Drains 6 Martiniquais by 26 cm right ureteral stent Anesthesia Type General Complications none Indications 82-year-old female with an encrusted left ureteral stent and right ureteral stones with hydronephrosis who came in unresponsive with urosepsis. Risk and benefits were discussed with as she was intubated at the time I saw her. Refer to consultation note. Taken emergently to the OR for cystoscopy and right ureteral stent placement. Description of Procedure After informed consent was obtained, the patient was transported to the operative suite. She was already intubated. They were placed in dorsal lithotomy position and prepped and draped in sterile fashion. They received preoperative vancomycin and cefepime. An appropriate surgical timeout was performed. 21 [place]ais rigid cystoscope was inserted per urethra into the bladder. The distal coil of the left stent had a significant encrustation and I could not see the coil itself or the left ureteral orifice. I turned my attention to the right ureteral orifice and intubated this with a 5 [place]ais open-ended catheter. I shot a retrograde pyelogram which showed kinking of the right UPJ with no contrast going to the kidney. I was able to advance a sensor wire into the kidney and straighten out the ureter. 5 [place]ais open-ended catheter was advanced to the proximal ureter and wires were removed. A retrograde pyelogram was then shot which opacified the collecting system and showed moderate hydronephrosis. Sensor wire was replaced in the kidney and the 5 Martiniquais open-ended catheter was removed. I deployed a 6 [place] by 26 cm right ureteral stent with good proximal coil in the kidney confirmed fluoroscopically and a good distal coil in the bladder confirmed under direct visualization. She started to decompensate further once the right stent was placed and I could not even find her left ureteral orifice so I did not even attempt to evaluate this further or potentially place a new stent alongside the encrusted left ureteral stent. Bladder was left full and scope was removed. A temperature-sensing catheter was replaced and the balloon was inflated with 10 cc of sterile water after urine was drained. This concluded the end of the case. All counts correct at the end of the case. Next present I was present scrubbed and actively participated for the entirety of the procedure. Spoke to after the case. I attest to the content of the Intraoperative Record and any orders documented therein. Any exceptions are noted below.
--- NOTE | 2023-06-09 22:34 | Anesthesiology Progress Note ---
Date of Service June 09, 2023 Anesthesia Post Procedure Vital Signs Vital Signs: Temp Pulse Pulse Resp BP BP Pulse Ox 06/09/23 22:15 82/56 L 06/09/23 22:15 35.4 C L 119 H 26 H 44 L 06/09/23 22:10 35.2 C L 113 H 25 H 06/09/23 22:10 83/59 L 06/09/23 22:07 34.8 C L 113 H 29 H 06/09/23 22:07 74/53 L 06/09/23 22:02 113 H 17 06/09/23 21:51 88/63 L 06/09/23 21:51 112 H 21 06/09/23 21:50 93/62 L 06/09/23 21:50 101 H 21 06/09/23 21:49 113 H 21 06/09/23 21:49 92/61 L 06/09/23 21:48 112 H 21 06/09/23 21:48 99/64 L 06/09/23 21:47 96/65 L 06/09/23 21:47 113 H 21 06/09/23 21:46 92/70 L 06/09/23 21:46 113 H 21 06/09/23 21:45 114 H 21 06/09/23 21:45 103/72 06/09/23 21:45 103/72 06/09/23 21:44 113 H 21 06/09/23 21:44 100/66 06/09/23 21:43 92/66 L 06/09/23 21:43 112 H 21 06/09/23 21:42 104 H 23 06/09/23 21:42 91/64 L 06/09/23 21:41 113 H 23 06/09/23 21:41 90/65 L 06/09/23 21:40 113 H 23 06/09/23 21:39 98/66 L 06/09/23 21:39 112 H 23 06/09/23 21:38 109 H 24 06/09/23 21:38 112/70 06/09/23 21:36 117/78 06/09/23 21:36 109 H 31 H 06/09/23 21:35 106 H 23 06/09/23 21:35 108/81 06/09/23 21:33 104 H 23 06/09/23 21:33 127/84 06/09/23 21:30 106 H 23 06/09/23 21:30 124/91 06/09/23 21:28 37.5 C 103 H 22 59 L 06/09/23 21:28 116/74 06/09/23 21:26 37.6 C H 101 H 26 H 78 L 06/09/23 21:26 115/83 06/09/23 21:25 126/90 06/09/23 21:25 37.5 C 97 H 34 H 86 L 06/09/23 21:23 37.5 C 96 H 82 L 06/09/23 21:23 125/89 06/09/23 21:20 119/89 06/09/23 21:20 119/89 06/09/23 21:20 37.5 C 95 H 74 L 06/09/23 21:18 106/76 06/09/23 21:18 37.5 C 98 H 58 L 06/09/23 21:03 99 H 26 H 06/09/23 21:00 37.1 C 101 H 26 H 69 L 06/09/23 20:58 37.0 C 99 H 26 H 06/09/23 20:58 117/84 06/09/23 20:45 36.7 C 98 H 26 H 06/09/23 20:30 36.4 C L 96 H 26 H 06/09/23 20:15 36.1 C L 96 H 26 H 06/09/23 20:00 35.9 C L 94 H 26 H 06/09/23 19:45 35.7 C L 92 H 25 H 06/09/23 19:32 35.6 C L 90 26 H 06/09/23 19:32 105/84 06/09/23 19:30 35.6 C L 90 26 H 06/09/23 19:27 35.6 C L 84 26 H 06/09/23 18:38 86 26 H 64/46 L 06/09/23 18:23 88 27 H 74/50 L 06/09/23 18:20 88 26 H 65/45 L 06/09/23 18:16 82 28 H 60/44 L 06/09/23 18:05 26 H 06/09/23 17:59 86 32 H 57/42 L 06/09/23 17:40 86 30 H 53/36 L 06/09/23 17:37 82 28 H 53/34 L 06/09/23 17:32 89 27 H 100 06/09/23 17:30 88 26 H 50/36 L 06/09/23 17:28 36.9 C 06/09/23 17:23 88 27 H 47/30 L 06/09/23 17:19 91 H 06/09/23 17:14 92 H 26 H 52/26 L 06/09/23 17:13 97 H 29 H 44/33 L 06/09/23 17:11 38.5 C H 06/09/23 16:57 109 H 22 50/33 L 06/09/23 16:46 104 H 39 H 65/40 L 06/09/23 16:40 108 H 45 H 59/35 L 06/09/23 16:34 106 H 44 H 49/33 L 06/09/23 16:20 06/09/23 16:20 06/09/23 16:20 112 H 42 H 46/31 L O2 Del Method O2 Flow Rate FiO2 06/09/23 22:15 06/09/23 22:15 06/09/23 22:10 06/09/23 22:10 06/09/23 22:07 06/09/23 22:07 06/09/23 22:02 06/09/23 21:51 06/09/23 21:51 06/09/23 21:50 06/09/23 21:50 06/09/23 21:49 06/09/23 21:49 06/09/23 21:48 06/09/23 21:48 06/09/23 21:47 06/09/23 21:47 06/09/23 21:46 06/09/23 21:46 06/09/23 21:45 06/09/23 21:45 06/09/23 21:45 06/09/23 21:44 06/09/23 21:44 06/09/23 21:43 06/09/23 21:43 06/09/23 21:42 06/09/23 21:42 06/09/23 21:41 06/09/23 21:41 06/09/23 21:40 06/09/23 21:39 06/09/23 21:39 06/09/23 21:38 06/09/23 21:38 06/09/23 21:36 06/09/23 21:36 06/09/23 21:35 06/09/23 21:35 06/09/23 21:33 06/09/23 21:33 06/09/23 21:30 06/09/23 21:30 06/09/23 21:28 06/09/23 21:28 06/09/23 21:26 06/09/23 21:26 06/09/23 21:25 06/09/23 21:25 06/09/23 21:23 06/09/23 21:23 06/09/23 21:20 06/09/23 21:20 06/09/23 21:20 06/09/23 21:18 06/09/23 21:18 06/09/23 21:03 50 06/09/23 21:00 06/09/23 20:58 06/09/23 20:58 06/09/23 20:45 06/09/23 20:30 06/09/23 20:15 06/09/23 20:00 06/09/23 19:45 06/09/23 19:32 06/09/23 19:32 06/09/23 19:30 06/09/23 19:27 06/09/23 18:38 06/09/23 18:23 06/09/23 18:20 Mechanical Vent 06/09/23 18:16 Mechanical Vent 06/09/23 18:05 50 06/09/23 17:59 Mechanical Vent 06/09/23 17:40 06/09/23 17:37 Mechanical Vent 06/09/23 17:32 50 06/09/23 17:30 Mechanical Vent 06/09/23 17:28 06/09/23 17:23 06/09/23 17:19 06/09/23 17:14 06/09/23 17:13 06/09/23 17:11 06/09/23 16:57 06/09/23 16:46 06/09/23 16:40 06/09/23 16:34 06/09/23 16:20 Non-rebreather 15 06/09/23 16:20 Non-rebreather 15 06/09/23 16:20 Transfer of Care Handoff Completed per policy Notes Mental Status: see notes below Patient Amnestic to Procedure: Yes Nausea / Vomiting: adequately controlled Pain: adequately controlled Airway Patency, RR, SpO2: see Notes below BP & HR: see Notes below Hydration State: stable & adequate Anesthetic Complications: no major complications apparent and Pt Satisfied with anesthetic care Notes: pt returned to icu intubated and sedated. pt in critical condition and unstable. report given to icu inpatient care manager rn
--- NOTE | 2023-06-09 23:07 | Procedure Note ---
Procedure Note Date of Service June 09, 2023 Note ARTERIAL LINE PROCEDURE NOTE: Procedure: Arterial Line Placement Attending: Dr. Jarrell Provider: KRISTA La Indication: Monitoring on Pressors Anesthesia: None Line placed emergently in the setting of septic shock requiring multiple vasopressor support and need for continuous hemodynamic monitoring. A time-out was completed verifying correct patient, procedure, site, positioning, and implant(s) or special equipment if applicable. Allens test was performed to ensure adequate perfusion. Patients right wrist was prepped and draped in the usual sterile fashion. Ultrasound guidance was used to aid needle placement. A 20g Arrow arterial line was introduced into the right radial artery. Catheter was threaded, and the needle was removed with appropriate blood return. Good waveform was observed. The patient tolerated the procedure well. Confirmation of placement with ultrasound. Blood Loss: Minimal Complications: None Procedural Ultrasound Guidance: Procedure Date: 06/09/2023 Indication: Arterial line insertion Attending: Dr. Jarrell Provider: KRISTA La Artery Identified: YES Line confirmed in Artery with ultrasound: Yes Complications: NONE Patient tolerated procedure: WELL Coding CPT Codes Tubes, Drains, and Vasc Access - Tubes, Drains, and Vasc Access: [id number] Arterial Cath/Cannulation Sampling/Monitoring/Transfusion ([id number]) Tubes, Drains, and Vasc Access - Tubes, Drains, and Vasc Access: [id number] Ultrasound Guidance For Vascular ([id number]) [facility] [place] Procedure Codes (Charges) Tubes, Drains, and Vasc Access Procedure 1: Tubes, Drains, and Vasc Access: [id number] Arterial Cath/Cannulation Sampling/Monitoring/Transfusion Procedure 2: Tubes, Drains, and Vasc Access: [id number] Ultrasound Guidance For Vascular
[2023-06-10] MEDS ORDERED: PLASMA-LYTE A 1,000 ML IV SCH (00:45)
[2023-06-10] MEDS ORDERED: ACETAMINOPHEN 10MG/ML Custom 500 MG in EMPTY BAG 0 ML IV ONE (00:45)
[2023-06-10] MEDS: VASOPRESSIN 20 UNITS in 0.9 % SODIUM CHLORIDE 100 ML IV SCH ×2 (00:47→08:51)
[2023-06-10 01:03] LABS: Base Excess VBG -9.1 mEq/L; HCO3 VBG 15 mmol/L; PCO2 VBG 26 mmHg (38-50); PO2 VBG 66 mmHg; pH VBG 7.36 (7.36-7.41)
[2023-06-10 01:27] LABS: BUN Creatinine Ratio 21.4 (10-20); Blood Urea Nitrogen 64 mg/dl (6-23); Calcium 6.5 mg/dl (8.6-10.3); Carbon Dioxide 14 mmol/L (21-32); Chloride 113 mmol/L (98-107); Creatinine Clr Calc Pharmacy 10.6 ml/min; Est GFR (African American) 16.3 ml/min; Glucose 148 mg/dl (70-99(Fasting))
[2023-06-10] MEDS: NOREPINEPHRINE/D5W 4 MG/250 ML PLCT IV SCH ×4 (02:08→11:17)
[2023-06-10 02:13] LABS: Potassium 4.2 mmol/L (3.5-5.1)
[2023-06-10 02:34] LABS: Appearance Urine Turbid (Clear); Bilirubin Urine Negative (Negative); Blood Urine 3+ (Negative); Color Urine Red; Glucose Urine UA Negative (Negative); Ketones Urine Negative (Negative); Leukocyte Esterase Urine Trace (Negative); Nitrite Urine Negative (Negative); Protein Urine 3+ (Negative); Specific Gravity Urine 1.025 (1.000-1.030); Urobilinogen Urine Negative (Negative); pH Urine 7.5 (4.5-7.5)
[2023-06-10 02:37] LABS: Bacteria Urine Negative (Negative); Hyaline Casts Urine 0-5 /lpf (0-5); RBC Urine >30 /hpf (0-4); WBC Urine >30 /hpf (0-5)
[2023-06-10 02:53] LABS: Potassium Random Urine 27.6 mmol/L
[2023-06-10 04:06] LABS: Albumin Globulin Ratio 0.9 (0.9-2); Albumin Level 1.9 gm/dl (3.4-5.0); BUN Creatinine Ratio 21.7 (10-20); Bilirubin,Total 0.6 mg/dl (0.2-1.0); Calcium 6.5 mg/dl (8.6-10.3); Creatinine Clr Calc Pharmacy 10.6 ml/min; Est GFR (African American) 16.3 ml/min; Globulin 2.2 gm/dl (2.5-4.0); Magnesium 2.9 mg/dl (1.7-2.4); Potassium 4.4 mmol/L (3.5-5.1); Total Protein 4.1 gm/dl (6.0-8.3)
[2023-06-10] MEDS ORDERED: ALBUMIN 25% 25 GM/100 ML VIAL IV ONE (04:13)
[2023-06-10] MEDS ORDERED: MEROPENEM 500 MG in SYRINGE 0 ML IV SCH (04:30)
[2023-06-10 04:47] LABS: Hematocrit (blood only) 33.7 % (37.0-47.0); Hemoglobin 10.9 g/dl (12.0-16.0); Mean Corpuscular Hemoglobin 29.5 pg (25.0-34.0); Mean Corpuscular Hgb Conc 32.3 g/dL (32.0-36.0); Mean Corpuscular Volume 91.3 fL (80.0-100.0); Mean Platelet Volume 11.5 fL (9.4-12.4); Nucleated RBC # (auto) 0.08 K/uL (0.00-0.12); Nucleated RBC % (auto) 0.3 %; Platelet Count 67 K/uL (130-400); RDW Coefficient of Variation 16.1 % (11.5-14.5); RDW Standard Deviation 53.9 fL (36.4-46.3); Red Blood Count 3.69 M/uL (4.20-5.40); White Blood Count 23.72 K/ul (4.8-10.8)
[2023-06-10 04:48] LABS: Dohle Bodies 1+; Echinocytes 2+
[2023-06-10 04:52] LABS: ALC (manual) 1.42 K/uL (1.2-3.4); ANC (manual) 21.59 K/uL (1.4-6.5); Lymphocytes # (manual) 1.42 K/uL (1.2-3.4); Lymphocytes % (manual) 6 %; Metamyelocytes # (manual) 0.47 K/uL (0-0); Metamyelocytes % (manual) 2 %; Monocytes # (manual) 0.24 K/uL (0.11-0.59); Monocytes % (manual) 1 %; Neutrophils # (manual) 21.59 K/uL (1.40-6.50); Neutrophils % (manual) 91 %
--- NOTE | 2023-06-10 06:23 | Communication Note ---
Date of Service: June 10, 2023 Patient now status post right ureteral stenting with urology, remains intubated and in septic shock with multiple vasopressors. Patient became significantly tachycardic with heart rate in the 160s. Appeared to resemble SVT, and decision was made to attempt synchronized cardioversion in favor of adenosine considering patient's acuity. She was initially shocked with synchronized cardioversion at 150 J which was unsuccessful and again at 200 J which was also unsuccessful. Patient is noted to be febrile and was recently on epinephrine which could be contributing to sinus tachycardia versus SVT. She does not have any significant electrolyte abnormalities. Will attempt to reduce fever and wean epi in favor of vasopressin and Levophed in hopes that this will improve the patient's heart rate. Her prognosis remains guarded. We did attempt to contact the patient's with no answer from number provided. Coding Level of Care Code None
--- NOTE | 2023-06-10 06:54 | Fluoroscopy Report ---
INTRAOPERATIVE RADIOGRAPHS CLINICAL HISTORY: Right ureteral stent placement. Fluoro time: 16 seconds Ka,r: 4.32 mGy FINDINGS: 2 spot fluoroscopic views of the upper abdomen are correlated with abdominal CT dated 06/09. Contrast in the right renal pelvis on the initial image shows at least moderate hydronephrosis . A left ureteral stent is unchanged in position. The second image shows the proximal end of a right ureteral stent in place. IMPRESSION: Intraoperative images from right ureteral stent placement as above. Electronically signed by: Martinez Hilario M.D. 06/10/2023 6:53 AM
--- NOTE | 2023-06-10 07:14 | XRay Report ---
SINGLE VIEW CHEST CLINICAL HISTORY: Respiratory failure FINDINGS: An AP, portable, upright chest radiograph is compared to study dated 06/09/2023. The examin ation is degraded by portable technique and apical lordotic positioning. An endotracheal tube is unch anged in position. The heart is enlarged. Pulmonary vascular congestion persists. There are low lung volumes with elevation of the right hemidiaphragm and bibasilar atelectasis. Trace pleural effusions are suspected. No pneumothorax is seen. The skeletal structures are osteopenic. The bony thorax is g rossly intact. Bilateral ureteral stents are partially imaged. IMPRESSION: 1. An endotracheal tube is unchanged in position. 2. Cardiomegaly with mild pulmonary vascular congestion. 3. Suspect trace pleural effusions. ACT 112: Negative or not required by law. Electronically signed by: Martinez Hilario M.D. 06/10/2023 7:13 AM
[2023-06-10] MEDS ORDERED: fentaNYL BOLUS from BAG IV PRN (07:23)
[2023-06-10] MEDS ORDERED: STAT IV Infusion **Titration per Protocol STA (07:23)
[2023-06-10] MEDS ORDERED: fentaNYL citrate 2,500 MCG/250 ML BAG IV SCH (07:30)
[2023-06-10] MEDS ORDERED: ALBUT/IPRATROP 3MG/0.5MG NEB 3 ML VIAL NEB PRN (07:52)
--- NOTE | 2023-06-10 08:11 | Critical Care Progress Note ---
Date of Service June 10, 2023 Assessment & Plan (1) Complication of urinary stent: (2) Acute metabolic encephalopathy: (3) Metabolic acidosis: (4) Bilateral nephrolithiasis: (5) Acute renal failure: (6) Sepsis: (7) On mechanically assisted ventilation: (8) Severe sepsis with septic shock: (9) Severe sepsis with acute organ dysfunction: (10) Rhabdomyolysis: (11) Nephrolithiasis: (12) Thrombocytopenia: (13) Anemia: Plan Reason Critically Ill: 81 YOF admitted to the ICU post OR for severe sepsis with shock likely from infected kidney stone, with evidence of end organ dysfunction. Patient was brought to the EMD via EMS from home where she was found disheveled and covered in stool. She was resuscitated with 3L of crystalloid remained with recurring hypoglycemia, as well as now requiring vasopressors. She was taken emergently to the OR for source control by urology. Neuro -Metabolic encephalopathy CAM ICU: Unable to be assessed - Metabolic encephalopathy likely from severe sepsis and hypotension - Sedate with Propfol and Fentanyl - Head CT negative 06/09/2023 -- History of dementia Cardiac - -- Septic shock - resuscitated with 3liters of crystalloid in the ED Continue with vasopressor support to keep MAP greater than 65 Random cortisol > 60 2D echo 04/25/2022: EF 40-45% BNP 3666 on presentation --A-fib with RVR Likely from high-dose vasopressors as well as sepsis Failed cardioversion earlier in the morning on 06/10/2023 -- NSTEMI Likely secondary to type II VT No changes appreciated on the EKG Continue to trend Respiratory - -- VDRF Likely secondary to septic shock and intermittent status Continue with ventilatory support Keep RASS -1 Respiratory bio fire negative for everything on 06/09/2023 GI - Transaminitis - Likely secondary to septic shock- follow with resuscitation continue to monitor Coagulopathy INR 1.4 RENAL/LYTES - -- HAGMA Delta-delta: Less than 1, gap plus nongap Gap is likely secondary to lactic acidosis, nongap could be from BERTHA and elevated BUN Monitor -- BERTHA Monitor BUN/creatinine Avoid nephrotoxic medications Strict ins and outs - S/p stenting by April 2023 --> new stent placed on the right side, there is encrustation of the left stent. -Monitor BUNs/creatinine, avoid nephrotoxic medication - Electrolytes replete per protocol ENDO - ICU hyperglycemia protocol HEME - Normocytic anemia, Thrombocytopenia - Transfuse for HGB <7 -Continue with antibiotics to treat sepsis ID - Severe sepsis/shock -Likely from UTI --> s/p stent placement on the right side, purulent drainage appreciated during the procedure History of E. coli in the urine which was sensitive to Rocephin - Random Cortisol >60 -- No CPR --Prophylaxis VTE: IPC GI: Pantoprazole Lines: Right femoral, right radial, positive Benedict Diet: N.p.o. Plan: In/out: +5.2 L, urine output 260 ABG 7.32/72 on 50% FiO2 It is hard to get pulse ox on the patient given the cold extremities and high- dose of vasopressors. Will give 2 A of bicarb as bicarb is only 13. Lactate is still hovering around 6. Will change IV fluids to D5 half NS and DC Plasma-Lyte Continue with broad-spectrum antibiotics including vancomycin and meropenem Follow-up UA. Overall prognosis is guarded. I have personally spent 48 minutes of critical care time in the direct management of this patient. This is a life/limb threatening event. This includes time spent evaluating patient, direct bedside care, chart review, placing orders, interpretation of diagnostic studies, discussion with consultants, patient, and family members, as well as other required patient management activities. This time is exclusive of all separately billable procedures, and teaching time and separate from and in addition to any other critical care service time. Please note the above document was generated using voice recognition software. It may contain grammatical, syntax or spelling errors. Elevated ammonia level Admission and Anticipated Discharge Date Admission Date: June 09, 2023 Subjective Patient seen and examined at bedside. Early in the morning patient went into the heart rate in the 160s for which she was cardioverted but she went back to the same rhythm of seems to be A-fib/SVT. She was on Levophed 0.44, vasopressin 0.04, fentanyl 50 at the time of examination She was breathing with the vent. Tmax 39.1 Review of Systems 2 Review of Systems: Unobtainable due to endotracheal tube Physical Exam 2 Physical Exam: Constitutional: No acute distress HEENT: Pupils 3 mm with sluggish response, arcus senilis bilaterally Respiratory system: Decreased air entry bilaterally, no wheeze, no rhonchi, no crackles CVS: S1-S2 positive, no murmurs or gallops Abdomen: Soft, nontender, nondistended, positive bowel sounds x4 Extremities: +1 pulses bilaterally radialis/ dorsalis pedis, no cyanosis, no edema, mottling of skin in the legs and lower abdomen Neuro: Intubated, Psych: Unable to assess G/U: Positive Benedict Skin: Mottling of the skin Skin: no rashes, warm and dry Lymphatic: no cervical or axillary lymphadenopathy Results & Data Results & Data Vital Signs (Past 12 Hours) Vital Signs Temp Pulse Resp BP Pulse Ox O2 Del Method FiO2 06/10/23 07:58 Mechanical Vent 06/10/23 07:46 123 H 26 H 94 60 06/10/23 07:45 101/65 06/10/23 07:45 38.7 C H 125 H 26 H 06/10/23 07:30 38.7 C H 123 H 26 H 06/10/23 07:30 100/69 06/10/23 07:27 113/64 06/10/23 07:16 38.7 C H 125 H 26 H 06/10/23 07:00 39.0 C H 124 H 23 06/10/23 07:00 94/69 L Mechanical Vent 06/10/23 04:32 78 27 H 94 60 06/10/23 04:00 60 06/10/23 04:00 128 H 100/58 L 06/10/23 02:15 39.1 C H 134 H 26 H 71 L 06/10/23 02:15 102/67 06/10/23 02:00 106/72 06/10/23 02:00 39.0 C H 134 H 26 H 88 L 06/10/23 01:30 38.8 C H 127 H 26 H 99 06/10/23 01:30 114/76 06/10/23 01:15 125 H 26 H 98 06/10/23 01:15 107/82 06/10/23 01:00 113/72 06/10/23 01:00 75 26 H 99 06/10/23 00:45 95 H 26 H 95 06/10/23 00:45 111/71 06/10/23 00:30 61 26 H 94 06/10/23 00:30 93/68 L 06/10/23 00:29 59 L 26 H 93 06/10/23 00:29 95/67 L 06/10/23 00:15 101/69 06/10/23 00:15 38.3 C H 87 26 H 97 06/10/23 00:10 101/70 06/10/23 00:05 96/68 L 06/10/23 00:00 106/65 06/10/23 00:00 38.1 C H 76 26 H 97 06/10/23 00:00 60 06/10/23 00:00 75 106/59 L 06/09/23 23:56 38.0 C H 106 H 23 97 06/09/23 23:56 88/65 L 06/09/23 23:50 37.9 C H 104 H 26 H 100 06/09/23 23:50 102/68 06/09/23 23:45 37.9 C H 96 H 26 H 99 06/09/23 23:45 109/71 06/09/23 23:40 114/79 06/09/23 23:40 Mechanical Vent 06/09/23 23:40 96 H 105/60 06/09/23 23:35 114/77 06/09/23 23:35 37.7 C H 101 H 23 100 06/09/23 23:30 37.6 C H 109 H 26 H 99 06/09/23 23:30 115/79 06/09/23 23:25 111/78 06/09/23 23:20 111/77 06/09/23 23:15 37.4 C 114 H 26 H 99 06/09/23 23:15 113/73 06/09/23 23:10 110/72 06/09/23 23:10 37.3 C 113 H 23 100 06/09/23 23:05 37.3 C 113 H 26 H 100 06/09/23 23:05 107/72 06/09/23 23:00 37.2 C 114 H 25 H 88 L 06/09/23 23:00 108/71 06/09/23 22:55 37.1 C 114 H 26 H 91 06/09/23 22:55 108/70 06/09/23 22:50 37.0 C 113 H 26 H 92 06/09/23 22:50 116/75 06/09/23 22:45 36.9 C 114 H 26 H 96 06/09/23 22:45 118/78 06/09/23 22:41 36.8 C 109 H 26 H 96 06/09/23 22:41 124/70 06/09/23 22:35 109/70 06/09/23 22:30 100/68 06/09/23 22:30 36.5 C 107 H 26 H 06/09/23 22:25 36.2 C L 118 H 26 H 18 L 06/09/23 22:25 91/64 L 06/09/23 22:20 92/59 L 06/09/23 22:15 82/56 L 06/09/23 22:15 35.4 C L 119 H 26 H 44 L 06/09/23 22:10 35.2 C L 113 H 25 H 06/09/23 22:10 83/59 L 06/09/23 22:07 34.8 C L 113 H 29 H 06/09/23 22:07 74/53 L 06/09/23 22:02 113 H 17 06/09/23 21:51 88/63 L 06/09/23 21:51 112 H 06/09/23 21:50 93/62 L 06/09/23 21:50 101 H 06/09/23 21:49 113 H 06/09/23 21:49 92/61 L 06/09/23 21:48 112 H 06/09/23 21:48 99/64 L 06/09/23 21:47 96/65 L 06/09/23 21:47 113 H 06/09/23 21:46 92/70 L 06/09/23 21:46 113 H 06/09/23 21:45 114 H 06/09/23 21:45 103/72 06/09/23 21:45 103/72 06/09/23 21:44 113 H 06/09/23 21:44 100/66 06/09/23 21:43 92/66 L 06/09/23 21:43 112 H 06/09/23 21:42 104 H 23 06/09/23 21:42 91/64 L 06/09/23 21:41 113 H 23 06/09/23 21:41 90/65 L 06/09/23 21:40 113 H 23 06/09/23 21:39 98/66 L 06/09/23 21:39 112 H 23 06/09/23 21:38 109 H 24 06/09/23 21:38 112/70 06/09/23 21:36 117/78 06/09/23 21:36 109 H 31 H 06/09/23 21:35 106 H 23 06/09/23 21:35 108/81 06/09/23 21:33 104 H 23 06/09/23 21:33 127/84 06/09/23 21:30 106 H 23 06/09/23 21:30 124/91 06/09/23 21:28 37.5 C 103 H 22 59 L 06/09/23 21:28 116/74 06/09/23 21:26 37.6 C H 101 H 26 H 78 L 06/09/23 21:26 115/83 06/09/23 21:25 126/90 06/09/23 21:25 37.5 C 97 H 34 H 86 L 06/09/23 21:23 37.5 C 96 H 82 L 06/09/23 21:23 125/89 06/09/23 21:20 119/89 06/09/23 21:20 119/89 06/09/23 21:20 119/89 06/09/23 21:20 37.5 C 95 H 74 L 06/09/23 21:18 106/76 06/09/23 21:18 37.5 C 98 H 58 L 06/09/23 21:17 112/77 06/09/23 21:17 37.4 C 99 H 55 L 06/09/23 21:15 106/77 06/09/23 21:15 37.4 C 97 H 62 L 06/09/23 21:03 99 H 26 H 50 06/09/23 21:00 37.1 C 101 H 26 H 69 L 06/09/23 20:58 37.0 C 99 H 26 H 06/09/23 20:58 117/84 06/09/23 20:45 36.7 C 98 H 26 H 06/09/23 20:30 36.4 C L 96 H 26 H 06/09/23 20:15 36.1 C L 96 H 26 H Laboratory Results 06/10/23 03:27 06/10/23 03:27 Coding Level of Care Code 72808 CRITICAL CARE 1ST 30-74M Diagnoses Complication of urinary stent T83.9XXA Acute metabolic encephalopathy G93.41 Metabolic acidosis E87.20 Bilateral nephrolithiasis N20.0 Acute renal failure N17.9 Acute renal failure type: unspecified Sepsis A41.9; R65.21; N17.9 Acute renal failure type: unspecified Sepsis acute organ dysfunction status: with acute organ dysfunction Sepsis type: sepsis due to unspecified organism Severe sepsis acute organ dysfunction type: acute renal failure Severe sepsis shock status: with septic shock On mechanically assisted ventilation Z99.11 Severe sepsis with septic shock A41.9; R65.21 Severe sepsis with acute organ dysfunction A41.9; R65.20 Rhabdomyolysis M62.82 Rhabdomyolysis type: non-traumatic Nephrolithiasis N20.0 Thrombocytopenia D69.6 Anemia D64.9 (5) Acute renal failure Acute renal failure type: unspecified Qualified Code(s): N17.9 - Acute kidney failure, unspecified (6) Sepsis Acute renal failure type: unspecified Sepsis acute organ dysfunction status: with acute organ dysfunction Sepsis type: sepsis due to unspecified organism S evere sepsis acute organ dysfunction type: acute renal failure Severe sepsis shock status: with septic shock Qualified Code(s): A41.9 - Sepsis, unspecified organism; R65.21 - Severe sepsis with septic shock; N17.9 - Acute kidney failure, unspecified (10) Rhabdomyolysis Rhabdomyolysis type: non-traumatic Qualified Code(s): M62.82 - Rhabdomyolysis
--- NOTE | 2023-06-10 08:51 | Electrocardiogram Report ---
Test Reason : Blood Pressure : / mmHG Vent. Rate : 101 BPM Atrial Rate : 000 BPM P-R Int : 000 ms QRS Dur : 082 ms QT Int : 356 ms P-R-T Axes : 000 040 080 degrees QTc Int : 461 ms Poor data quality, interpretation may be adversely affected Sinus rhythm Low voltage QRS Poor R wave progression, consider anterior [place] vs. lead placement vs. LVH Abnormal ECG When compared with ECG of 03-MAY-2022 04:46, QRS voltage has decreased ST no longer depressed in Lateral leads Confirmed by Franklin Figueroa ([id number]) on 06/10/2023 8:50:59 AM Referred By: REFERRED SELF Confirmed By:Franklin Figueroa
--- NOTE | 2023-06-10 08:55 | Electrocardiogram Report ---
Test Reason : Blood Pressure : / mmHG Vent. Rate : 094 BPM Atrial Rate : 094 BPM P-R Int : 154 ms QRS Dur : 080 ms QT Int : 404 ms P-R-T Axes : 081 009 092 degrees QTc Int : 505 ms Normal sinus rhythm Low voltage QRS Poor R wave progression, consider anterior [place] vs. lead placement vs. LVH Abnormal ECG When compared with ECG of 09-JUN-2023 17:05, No significant change Confirmed by Franklin Figueroa ([id number]) on 06/10/2023 8:55:20 AM Referred By: REFERRED SELF Confirmed By:Franklin Figueroa
--- NOTE | 2023-06-10 08:57 | Electrocardiogram Report ---
Test Reason : Blood Pressure : / mmHG Vent. Rate : 168 BPM Atrial Rate : 163 BPM P-R Int : 000 ms QRS Dur : 076 ms QT Int : 294 ms P-R-T Axes : 000 -14 -70 degrees QTc Int : 491 ms Supraventricular tachycardia (possibly atrial flutter) Low voltage QRS Poor R wave progression, consider anterior [place] vs. lead placement vs. LVH Abnormal ECG When compared with ECG of 09-JUN-2023 19:47, Vent. rate has increased BY 74 BPM Supraventricular tachycardia now present Confirmed by Franklin Figueroa ([id number]) on 06/10/2023 8:57:06 AM Referred By: REFERRED SELF Confirmed By:Franklin Figueroa
--- NOTE | 2023-06-10 09:04 | Electrocardiogram Report ---
Test Reason : Blood Pressure : / mmHG Vent. Rate : 130 BPM Atrial Rate : 133 BPM P-R Int : 000 ms QRS Dur : 080 ms QT Int : 318 ms P-R-T Axes : 000 -18 038 degrees QTc Int : 467 ms Atrial fibrillation with rapid ventricular response Low voltage QRS Possible Old Inferior infarct (cited on or before 10-JUN-2023) Poor R wave progression, consider anterior [place] vs. lead placement vs. LVH Abnormal ECG When compared with ECG of 10-JUN-2023 05:55, HR has decreased by 38 bpm Atrial fibrillation has replaced probable atrial flutter Confirmed by Frnaklin Figueroa ([id number]) on 06/10/2023 9:04:35 AM Referred By: REFERRED SELF Confirmed By:Franklin Figueroa
[2023-06-10] MEDS ORDERED: D5W AND 1/2NSS 1,000 ML IV SCH (09:30)
[2023-06-10] MEDS ORDERED: SODIUM BICARB 8.4% INJ 50 MEQ/50 ML SYR IV ONE (09:30)
--- NOTE | 2023-06-10 09:40 | Urology Progress Note ---
Date of Service June 10, 2023 Assessment & Plan (1) Complication of urinary stent: (2) Bilateral nephrolithiasis: (3) Calculus, ureteral: (4) Hydronephrosis: (5) Sepsis: Plan 82 to F found down and unresponsive. Suspected urosepsis with encrusted left ureteral stent and obstructing right ureteral stones in place. She is status post cystoscopy with right retrograde pyelogram and right ureteral stent placement on 06/09/2023. -Patient remains critically ill. They have been able to wean one off one of her pressors. Her WBC and Creatinine have improved, which is encouraging. -I believe at this point she is urologically optimized for what our facility can offer. If she were to continue to not progress, I would recommend transfer to a tertiary care for left nephrostomy tube placement due to her encrusted stent and inability to exchange this in the OR last night. Her right side is decompressed with the ureteral stent and she had minimal hydronephrosis on the left, so my hope is she will continue to improve with time. -Maintain tate catheter. Continue broad spectrum antibiotics. Follow up culture. Trend labs. -No further urologic intervention necessary at this current time -Urology to follow -Will defer remainder of care to ICU team Admission and Anticipated Discharge Date Admission Date: June 09, 2023 Subjective Patient is status post cystoscopy with right ureteral stent placement on 06/09/2023. Remains febrile, tachycardic but blood pressures have slightly improved since last night. Leukocytosis has down trended from 30-23.7, hemoglobin is stable at 10.9, creatinine has down trended from 3.6-2.99, lactate is down trended from 10.5-6.4. Cultures are pending. Remains on antibiotics in the form of vancomycin and meropenem. She continues on norepinephrine and vasopressin but the epinephrine has been weaned off. Urine output is 0.2 mL/kg/hr. Review of Systems Review of Systems: 14 point review of systems negative outs germán of what is listed above in HPI Physical Exam Physical Exam: General: Sedated HEENT: ET tube in place Pulmonary: Ventilated Abdomen: Nondistended : Tate draining small amount of blood tinged urine Skin: Warm, dry, no rashes noted Results & Data Vital Signs (Past 12 Hours) Vital Signs Temp Pulse Resp BP Pulse Ox O2 Del Method FiO2 06/10/23 08:00 60 06/10/23 07:58 Mechanical Vent 06/10/23 07:46 123 H 26 H 94 60 06/10/23 07:45 101/65 06/10/23 07:45 38.7 C H 125 H 26 H 06/10/23 07:30 38.7 C H 123 H 26 H 06/10/23 07:30 100/69 06/10/23 07:27 113/64 06/10/23 07:16 38.7 C H 125 H 26 H 06/10/23 07:00 39.0 C H 124 H 23 06/10/23 07:00 94/69 L Mechanical Vent 06/10/23 04:32 78 27 H 94 60 06/10/23 04:00 60 06/10/23 04:00 128 H 100/58 L 06/10/23 02:15 39.1 C H 134 H 26 H 71 L 06/10/23 02:15 102/67 06/10/23 02:00 106/72 06/10/23 02:00 39.0 C H 134 H 26 H 88 L 06/10/23 01:30 38.8 C H 127 H 26 H 99 06/10/23 01:30 114/76 06/10/23 01:15 125 H 26 H 98 06/10/23 01:15 107/82 06/10/23 01:00 113/72 06/10/23 01:00 75 26 H 99 06/10/23 00:45 95 H 26 H 95 06/10/23 00:45 111/71 06/10/23 00:30 61 26 H 94 06/10/23 00:30 93/68 L 06/10/23 00:29 59 L 26 H 93 06/10/23 00:29 95/67 L 06/10/23 00:15 101/69 06/10/23 00:15 38.3 C H 87 26 H 97 06/10/23 00:10 101/70 06/10/23 00:05 96/68 L 06/10/23 00:00 106/65 06/10/23 00:00 38.1 C H 76 26 H 97 06/10/23 00:00 60 06/10/23 00:00 75 106/59 L 06/09/23 23:56 38.0 C H 106 H 23 97 06/09/23 23:56 88/65 L 06/09/23 23:50 37.9 C H 104 H 26 H 100 06/09/23 23:50 102/68 06/09/23 23:45 37.9 C H 96 H 26 H 99 06/09/23 23:45 109/71 06/09/23 23:40 114/79 06/09/23 23:40 Mechanical Vent 06/09/23 23:40 96 H 105/60 06/09/23 23:35 114/77 06/09/23 23:35 37.7 C H 101 H 23 100 06/09/23 23:30 37.6 C H 109 H 26 H 99 06/09/23 23:30 115/79 06/09/23 23:25 111/78 06/09/23 23:20 111/77 06/09/23 23:15 37.4 C 114 H 26 H 99 06/09/23 23:15 113/73 06/09/23 23:10 110/72 06/09/23 23:10 37.3 C 113 H 23 100 06/09/23 23:05 37.3 C 113 H 26 H 100 06/09/23 23:05 107/72 06/09/23 23:00 37.2 C 114 H 25 H 88 L 06/09/23 23:00 108/71 06/09/23 22:55 37.1 C 114 H 26 H 91 06/09/23 22:55 108/70 06/09/23 22:50 37.0 C 113 H 26 H 92 06/09/23 22:50 116/75 06/09/23 22:45 36.9 C 114 H 26 H 96 06/09/23 22:45 118/78 06/09/23 22:41 36.8 C 109 H 26 H 96 06/09/23 22:41 124/70 06/09/23 22:35 109/70 06/09/23 22:30 100/68 06/09/23 22:30 36.5 C 107 H 26 H 06/09/23 22:25 36.2 C L 118 H 26 H 18 L 06/09/23 22:25 91/64 L 06/09/23 22:20 92/59 L 06/09/23 22:15 82/56 L 06/09/23 22:15 35.4 C L 119 H 26 H 44 L 06/09/23 22:10 35.2 C L 113 H 25 H 06/09/23 22:10 83/59 L 06/09/23 22:07 34.8 C L 113 H 29 H 06/09/23 22:07 74/53 L 06/09/23 22:02 113 H 17 06/09/23 21:51 88/63 L 06/09/23 21:51 112 H 21 06/09/23 21:50 93/62 L 06/09/23 21:50 101 H 21 06/09/23 21:49 113 H 21 06/09/23 21:49 92/61 L 06/09/23 21:48 112 H 21 06/09/23 21:48 99/64 L 06/09/23 21:47 96/65 L 06/09/23 21:47 113 H 21 06/09/23 21:46 92/70 L 06/09/23 21:46 113 H 21 06/09/23 21:45 114 H 21 06/09/23 21:45 103/72 06/09/23 21:45 103/72 06/09/23 21:44 113 H 21 06/09/23 21:44 100/66 06/09/23 21:43 92/66 L 06/09/23 21:43 112 H 21 06/09/23 21:42 104 H 23 06/09/23 21:42 91/64 L 06/09/23 21:41 113 H 23 06/09/23 21:41 90/65 L 06/09/23 21:40 113 H 23 06/09/23 21:39 98/66 L 06/09/23 21:39 112 H 23 PG Care Time/CCT Total # of Minutes Spent Total Time Spent with Patient: Total time spent is greater than 50% in coordination of care (as documented) at patient's floor/unit and/or counseling patient: Coding Level of Care Code 59601 SUB INP/OBS CARE 2/35MIN Diagnoses Complication of urinary stent T83.9XXA Bilateral nephrolithiasis N20.0 Calculus, ureteral N20.1 Hydronephrosis N13.30 Hydronephrosis type: unspecified Sepsis A41.9; R65.21; N17.9 Acute renal failure type: unspecified Sepsis acute organ dysfunction status: with acute organ dysfunction Sepsis type: sepsis due to unspecified organism Severe sepsis acute organ dysfunction type: acute renal failure Severe sepsis shock status: with septic shock (4) Hydronephrosis Hydronephrosis type: unspecified Qualified Code(s): N13.30 - Unspecified hydronephrosis (5) Sepsis Acute renal failure type: unspecified Sepsis acute organ dysfunction status: with acute organ dysfunction Sepsis type: sepsis due to unspecified organism Severe sepsis acute organ dysfunction type: acute renal failure Severe sepsis shock status: with septic shock Qualified Code(s): A41.9 - Sepsis, unspecified organism; R65.21 - Severe sepsis with septic shock; N17.9 - Acute kidney failure, unspecified
[2023-06-10] MEDS ORDERED: VANCOMYCIN HCL 750 MG in SODIUM CHLORIDE 0.9% 250 ML IV ONE (09:45)
[2023-06-10] MEDS: PANTOprazole 40 MG in SYRINGE 0 ML IV SCH (10:03)
--- NOTE | 2023-06-10 11:50 | Pharmacy Report ---
Pharmacy PK ABX Note - Date of Service June 10, 2023 - Assessment and Plan Assessment 82 year old F receiving vancomycin and meropenem for treatment of septic shock in setting of infected R ureteral stones and L ureteral stent. S/p pyelogram and R ureteral stent 06/09. L stent unable to be exchanged. Blood and urine cultures pending. (+) BERTHA (SCr 3.6 -->2.99). Intubated/sedated and requiring vasopressor support. Day #2 of antimicrobial therapy. Plan Vancomycin * Loading dose: 1000 mg IV x 1 * Given BERTHA and critical illness, will dose by levels. Random level this AM, 13.9mcg/ml. Safe to re-dose. * Vancomycin 750mg IV X 1. Repeat level in AM to guide further dosing. Pharmacy will continue to follow and will adjust dose/frequency as necessary. Thank you. Pharmacy has transitioned to AUC monitoring for vancomycin. AUC/JEM is the preferred PK/PD target and is associated with decreased risk of nephrotoxicity compared to traditional trough targets.
--- NOTE | 2023-06-10 14:50 | Hospitalist Progress Note ---
Date of Service June 10, 2023 Assessment & Plan (1) Acute metabolic encephalopathy: Plan: Septic shock Likely source complicated UTI Obstructive uropathy/nephrolithiasis Acute metabolic encephalopathy Encrusted left ureteral stent Apparently had ureteral stent placement more than 1 year ago per family Noncompliance history --s/p Cystoscopy, retrograde pyelogram with radiographic interpretation, right ureteral stent insertion(Right) by on 06/09/23 Blood, urine cultures pending --Empirically started on cefepime, vancomycin>> changed to meropenem Aggressive IV fluids Continue pressor support (currently on vasopressin, Levophed) Also received IV hydrocortisone Appreciate payroll representative, Urology help Bladder scan as needed to monitor for retention Very poor prognosis Needs to address goals of care Consider palliative care evaluation if no improvement Ventilator dependent acute respiratory failure Likely due to above Intubated on 06/09/2023 Normal BioFire Vent management as per ICU team Pulmonary hygiene Nebs as needed Acute kidney injury Acute metabolic acidosis Transaminitis likely due to above Lactic acidosis Received bicarbonate Continue IV fluids Avoid nephrotoxic agents as able Monitor renal function Consider nephrology evaluation if no improvement SVT/Afib RVR S/P cardioversion--failed cardioversion Rhabdomyolysis--POA Likely nontraumatic Elevated CK levels Continue IV fluids Chronic anemia Thrombocytopenia No acute bleeding issues Monitor CBC Type II OH Troponin elevation likely due to septic shock BNP elevated Consider checking echo Mood disorder Hold Ativan for now GI Px On Protonix DVT Px: SCDs for now CODE STATUS Conditional as per family: DNR Very poor prognosis Admission and Anticipated Discharge Date Admission Date: June 09, 2023 Subjective Patient is seen and examined at bedside Currently on Levophed, vasopressin Clinically very poor prognosis Discussed with patient's family at bedside Discussed with ICU team today Patient had SVT/A-fib RVR requiring cardioversion this morning Unable to obtain any history given intubated Review of Systems Review of Systems: Unobtainable due to endotracheal tube and Unobtainable due to reduced consciousness Physical Exam Physical Exam: Physical Exam: Vitals signs as noted above General Appearance: Thin, frail, elderly, obtunded, intubated Head: normocephalic, Atraumatic Eyes: normal inspection, slight scleral reactive to light Neck: supple, Trachea midline Respiratory/Chest: Decreased breath sounds, CTA,+Rash( Skin fold area) No accessory muscle use Cardiovascular: S1, S2, No murmur Abdomen/GI:Soft, Non tender, Bowel sounds present Extremities/Musculoskeletal:normal inspection, no edema Neurologic/Psych: Sedated and intubated, unable to perform neurological exam Skin: normal color, cool, + mottling of skin throughout Results & Data Results & Data Vital Signs (Past 12 Hours) Vital Signs Temp Pulse Resp BP Pulse Ox O2 Del Method FiO2 06/10/23 14:43 94 H 06/10/23 14:30 101/66 06/10/23 14:30 92 H 26 H 06/10/23 14:25 89/65 L 06/10/23 14:15 80/51 L 06/10/23 14:10 91 H 26 H 06/10/23 14:00 91 H 26 H 06/10/23 14:00 85/59 L 06/10/23 13:45 35.8 C L 91 H 26 H Mechanical Vent 06/10/23 13:45 87/62 L 06/10/23 13:30 91 H 22 06/10/23 13:30 87/60 L 06/10/23 13:15 84/61 L 06/10/23 13:15 91 H 23 06/10/23 13:00 96/62 L 06/10/23 13:00 91 H 26 H 06/10/23 12:50 91 H 26 H 06/10/23 12:45 87/65 L 06/10/23 12:40 91 H 26 H 06/10/23 12:30 93 H 26 H 06/10/23 12:30 82/65 L 06/10/23 12:15 93 H 23 06/10/23 12:15 111/76 06/10/23 12:00 96 H 23 06/10/23 12:00 102/67 06/10/23 11:50 98 H 26 H 06/10/23 11:45 98 H 26 H 06/10/23 11:45 113/68 06/10/23 11:30 102 H 26 H 06/10/23 11:30 106/73 06/10/23 11:20 37.9 C H 104 H 26 H Mechanical Vent 06/10/23 11:17 105 H 26 H 94 60 06/10/23 11:15 106 H 26 H 06/10/23 11:15 100/54 L 06/10/23 11:14 105 H 26 H 06/10/23 11:14 92/68 L 06/10/23 11:01 89 26 H 73 L 06/10/23 10:45 112 H 26 H 87 L 06/10/23 10:30 115 H 26 H 06/10/23 10:30 104/67 06/10/23 10:16 88/61 L 06/10/23 10:16 119 H 26 H 91 06/10/23 10:10 39.1 C H 120 H 26 H 92 Mechanical Vent 06/10/23 10:00 127 H 26 H 06/10/23 10:00 99/67 L 06/10/23 09:45 100/68 06/10/23 09:45 123 H 26 H Mechanical Vent 06/10/23 09:31 105/67 06/10/23 09:15 39.3 C H 124 H 26 H 06/10/23 09:15 99/65 L 06/10/23 09:00 39.3 C H 130 H 26 H 06/10/23 09:00 101/69 06/10/23 08:45 106/69 06/10/23 08:30 39.3 C H 126 H 26 H Mechanical Vent 06/10/23 08:30 104/70 06/10/23 08:15 39.0 C H 126 H 26 H Mechanical Vent 06/10/23 08:15 104/72 06/10/23 08:00 38.7 C H 127 H 26 H Mechanical Vent 06/10/23 08:00 103/67 06/10/23 08:00 60 06/10/23 07:58 Mechanical Vent 06/10/23 07:46 123 H 26 H 94 60 06/10/23 07:45 101/65 06/10/23 07:45 38.7 C H 125 H 26 H 06/10/23 07:30 38.7 C H 123 H 26 H 06/10/23 07:30 100/69 06/10/23 07:27 113/64 06/10/23 07:16 38.7 C H 125 H 26 H 06/10/23 07:15 126 H 06/10/23 07:00 39.0 C H 124 H 23 06/10/23 07:00 94/69 L Mechanical Vent 06/10/23 04:32 78 27 H 94 60 06/10/23 04:00 60 06/10/23 04:00 128 H 100/58 L Laboratory Results Short CBC 06/09/23 06/10/23 Range/Units 16:42 03:27 WBC 30.05 H* 23.72 H (4.8-10.8) K/ul Hgb 10.8 L 10.9 L (12.0-16.0) g/dl Hct 34.1 L 33.7 L (37.0-47.0) % Plt Count 94 L 67 L (130-400) K/uL BMP 06/09/23 06/10/23 06/10/23 16:42 00:56 01:38 Sodium 143 TNP 144 Potassium 3.8 TNP 4.2 Chloride 114 H 113 H Carbon Dioxide 12 L 14 L BUN 67 H 64 H Creatinine 3.60 H 2.99 H D Glucose 191 H 148 H Calcium 8.0 L 6.5 L 06/10/23 03:27 Sodium 142 Potassium 4.4 Chloride 112 H Carbon Dioxide 13 L BUN 65 H Creatinine 2.99 H Glucose 169 H Calcium 6.5 L Cardiac Enzymes 06/09/23 Range/Units 16:42 Total Creatine Kinase 1828 H (26-192) U/L Liver Function 06/09/23 06/10/23 Range/Units 16:42 03:27 Total Bilirubin 0.4 0.6 (0.2-1.0) mg/dl Direct Bilirubin 0.2 (0-0.2) mg/dl AST 130 H 233 H (13-39) U/L ALT 53 H 78 H (7-52) U/L Alkaline Phosphatase 70 160 H D (34-104) U/L Albumin 2.1 L 1.9 L (3.4-5.0) gm/dl Urine 06/09/23 06/10/23 Range/Units 17:22 02:23 Urine Color Brown Red Urine Appearance Cloudy A Turbid A (Clear) Urine pH 8.5 H 7.5 (4.5-7.5) Ur Specific [place] 1.020 1.025 (1.000-1.030) Urine Protein 3+ H 3+ H (Negative) Urine Glucose (UA) Negative Negative (Negative)
[2023-06-10] MEDS ORDERED: CEFEPIME 1,000 MG in SYRINGE 0 ML IV SCH (16:00)
--- NOTE | 2023-06-10 17:32 | Communication Note ---
Date of Service: June 10, 2023 Patient showed no meaningful recovery despite aggressive management while in ICU. Patient was transition to comfort care after ICU team discussed with patient's family given very poor prognosis and critical condition. Patient and family aware and understands current management. Patient was terminally extubated. Patient while on comfort measures only. Time of noted to be 1717 on 06/10/23.
--- NOTE | 2023-06-10 17:36 | Discharge Summary ---
Date of Service June 10, 2023 Admission HPI Per Admitting Provider Patient is an 82-year-old female with history of mood disorder, hypertension, insomnia, osteoporosis, GERD, anxiety disorder, H/O endometrial/Ovarian cancer S/P surgery, radiation therapy, nephrolithiasis, noncompliance, past tobacco use and other medical problems presents with altered mental status. Patient currently intubated and unable to provide any history. Most of the history is obtained from patient's family, ER physician and old records. Last known well was 2 days ago as per family. Patient's family noted her to have change in mental status this morning and was unresponsive to verbal, tactile stimulus. And so was brought to ED for further evaluation. No known history of recent infections, fever, chills. No recent change in medications as per family. Patient was admitted last year, April 2022 and was managed for septic shock thought to be secondary to complicated UTI and had cystoscopy with left ureteral stent placement. She was also intubated at the time and was noted to have rhab domyolysis, BERTHA. Patient was noted today by EMS that patient was not moving her left side very well. Patient was found to be in septic shock while in ED and underwent intubation and was placed on 3 pressors. No known history of chest pain, SOB, palpitations, dizziness, cough, fever, chills, fall, trauma, change in vision, bowel/bladder incontinence, nausea, vomiting, abdominal pain, recent change in medications. Admission Exam Per Admitting Provider Physical Exam: Vitals signs as noted above General Appearance: Thin, frail, elderly, obtunded, intubated Head: normocephalic, Atraumatic Eyes: normal inspection, EOMI Neck: supple, Trachea midline Respiratory/Chest: Decreased breath sounds, CTA,+Rash( Skin fold area) No accessory muscle use Cardiovascular: S1, S2, No murmur Abdomen/GI:Soft, Non tender, Bowel sounds present Extremities/Musculoskeletal:normal inspection, no edema Neurologic/Psych: Sedated and intubated, unable to perform neurological exam Skin: normal color, cool, + mottling of skin Principal Diagnosis Septic shock A-fib RVR Acute metabolic encephalopathy Suspected complicated UTI Ventilator dependent respiratory failure BERTHA High anion gap metabolic acidosis Rhabdomyolysis Discharge Data Allergies Allergy/AdvReac Type Severity Reaction Status Date / Time amoxicillin AdvReac Unknown nausea and Verified 06/09/23 17:06 vomiting Consultations 06/09/23 17:46 Consult Care Information Associate Stat 06/09/23 17:56 Consult Care Information Associate Routine 06/09/23 18:28 ED Decision to Admit Stat 06/09/23 20:38 Consult Urology Stat Procedures Performed Operation Date: 06/09/23 21:30 Actual Procedures p Cystoscopy, retrograde pyelogram, right ureteral stent insertion(Right) - Jeffrey Puri MD Laboratory Results WBC 23.72 K/ul (4.8-10.8) H 06/10/23 03:27 RBC 3.69 M/uL (4.20-5.40) L 06/10/23 03:27 Hgb 10.9 g/dl (12.0-16.0) L 06/10/23 03:27 POC Hgb 10.5 g/dl (12.0-16.0) L 06/09/23 16:46 Hct 33.7 % (37.0-47.0) L 06/10/23 03:27 POC Hct 31 % (37-47) L 06/09/23 16:46 MCV 91.3 fL (80.0-100.0) 06/10/23 03:27 MCH 29.5 pg (25.0-34.0) 06/10/23 03:27 MCHC 32.3 g/dL (32.0-36.0) 06/10/23 03:27 RDW Std Deviation 53.9 fL (36.4-46.3) H 06/10/23 03:27 RDW Coeff of Gee 16.1 % (11.5-14.5) H 06/10/23 03:27 Plt Count 67 K/uL (130-400) L 06/10/23 03:27 MPV 11.5 fL (9.4-12.4) 06/10/23 03:27 Immature Gran % (Auto) 3.6 % 06/09/23 16:42 Neut % (Auto) 88.7 % 06/09/23 16:42 Lymph % (Auto) 4.7 % 06/09/23 16:42 [place] % (Auto) 2.6 % 06/09/23 16:42 Eos % (Auto) 0.0 % 06/09/23 16:42 Baso % (Auto) 0.4 % 06/09/23 16:42 Neut # (Auto) 26.64 K/uL (1.40-6.50) H 06/09/23 16:42 Lymph # (Auto) 1.42 K/uL (1.20-3.40) 06/09/23 16:42 [place] # (Auto) 0.78 K/uL (0.11-0.59) H 06/09/23 16:42 Eos # (Auto) 0.01 K/uL (0.00-0.50) 06/09/23 16:42 Baso # (Auto) 0.13 K/uL (0.00-0.20) 06/09/23 16:42 Immature Gran # (Auto) 1.07 K/uL (0.01-0.20) H 06/09/23 16:42 Absolute Nucleated RBC 0.08 K/uL (0.00-0.12) 06/10/23 03:27 Nucleated RBC % (auto) 0.3 % 06/10/23 03:27 Neutrophils % (Manual) 91 % 06/10/23 03:27 Lymphocytes % (Manual) 6 % 06/10/23 03:27 Monocytes % (Manual) 1 % 06/10/23 03:27 Metamyelocytes % (Man) 2 % 06/10/23 03:27 Neutrophils # (Manual) 21.59 K/uL (1.40-6.50) H 06/10/23 03:27 Total Absolute Neuts 21.59 K/uL (1.4-6.5) H 06/10/23 03:27 Lymphocytes # (Manual) 1.42 K/uL (1.2-3.4) 06/10/23 03:27 Total Abs Lymphocytes 1.42 K/uL (1.2-3.4) 06/10/23 03:27 Monocytes # (Manual) 0.24 K/uL (0.11-0.59) 06/10/23 03:27 Metamyelocytes # (Man) 0.47 K/uL (0-0) H 06/10/23 03:27 Toxic Vacuolation 1+ 06/09/23 16:42 Dohle Bodies 1+ 06/10/23 03:27 Platelet Estimate Decreased (Normal) L 06/09/23 16:42 Echinocytes 2+ 06/10/23 03:27 PT 15.0 Seconds (9.0-12.0) H 06/09/23 16:42 INR 1.4 (0.9-1.1) H 06/09/23 16:42 APTT 37 Seconds (21-31) H 06/09/23 16:42 PTT Ratio 1.3 06/09/23 16:42 VBG pH 7.36 (7.36-7.41) 06/10/23 00:56 VBG pCO2 26 mmHg (38-50) L 06/10/23 00:56 VBG pO2 66 mmHg 06/10/23 00:56 VBG HCO3 15 mmol/L 06/10/23 00:56 VBG O2 Saturation 95.0 % 06/10/23 00:56 VBG Base Excess -9.1 mEq/L 06/10/23 00:56 POC Sodium 143 mmol/L (135-144) 06/09/23 16:46 Sodium 142 mmol/L (136-145) 06/10/23 03:27 POC Potassium 3.7 mmol/L (3.3-5.0) 06/09/23 16:46 Potassium 4.4 mmol/L (3.5-5.1) 06/10/23 03:27 POC Chloride 114 mmol/L (101-112) H 06/09/23 16:46 Chloride 112 mmol/L (98-107) H 06/10/23 03:27 Carbon Dioxide 13 mmol/L (21-32) L 06/10/23 03:27 POC Total CO2 12 mmol/L (24-31) L 06/09/23 16:46 Anion Gap 17 (3-11) H 06/10/23 03:27 POC Anion Gap 21.0 mmol/L (16-25) 06/09/23 16:46 POC BUN 62 mg/dl (7-18) H 06/09/23 16:46 BUN 65 mg/dl (6-23) H 06/10/23 03:27 Creatinine 2.99 mg/dl (0.6-1.2) H 06/10/23 03:27 POC Creatinine 3.7 mg/dl (0.6-1.3) H 06/09/23 16:46 Est Cr Clr Drug Dosing 10.6 ml/min 06/10/23 03:27 Est GFR ( Amer) 16.3 ml/min 06/10/23 03:27 Est GFR (Non-Af Amer) 14.0 ml/min 06/10/23 03:27 BUN/Creatinine Ratio 21.7 (10-20) H 06/10/23 03:27 Glucose 169 mg/dl (70-99(Fasting)) H 06/10/23 03:27 POC Glucose 168 mg/dl (70-99) H 06/10/23 07:00 POC Glucose (other) 178 mg/dl (70-99) H 06/09/23 16:46 Lactate 6.4 mmol/L (0.4-2.0) H* 06/10/23 08:58 Calcium 6.5 mg/dl (8.6-10.3) L 06/10/23 03:27 POC Ioniz Calcium Vidhya 1.15 mmol/l (1.12-1.32) 06/09/23 16:46 Phosphorus 3.7 mg/dl (2.5-4.9) 06/09/23 16:42 Magnesium 2.9 mg/dl (1.7-2.4) H 06/10/23 03:27 Total Bilirubin 0.6 mg/dl (0.2-1.0) 06/10/23 03:27 Direct Bilirubin 0.2 mg/dl (0-0.2) 06/09/23 16:42 AST 233 U/L (13-39) H 06/10/23 03:27 ALT 78 U/L (7-52) H 06/10/23 03:27 Alkaline Phosphatase 160 U/L (34-104) H D 06/10/23 03:27 Ammonia 58.0 umol/L (18-72) 06/10/23 03:27 Total Creatine Kinase 1828 U/L (26-192) H 06/09/23 16:42 Troponin I High Sens 1060.2 pg/ml (0-14) H* 06/09/23 18:30 B-Natriuretic Peptide 3366 pg/ml (0-100) H 06/09/23 18:46 Total Protein 4.1 gm/dl (6.0-8.3) L 06/10/23 03:27 Albumin 1.9 gm/dl (3.4-5.0) L 06/10/23 03:27 Globulin 2.2 gm/dl (2.5-4.0) L 06/10/23 03:27 Albumin/Globulin Ratio 0.9 (0.9-2) 06/10/23 03:27 Procalcitonin > 200.00 ng/ml (0-0.5) H 06/09/23 16:42 Random Cortisol > 60.00 mcg/dl 06/09/23 16:45 Urine Color Red 06/10/23 02:23 Urine Appearance Turbid (Clear) A 06/10/23 02:23 Urine pH 7.5 (4.5-7.5) 06/10/23 02:23 Ur Specific Carlton 1.025 (1.000-1.030) 06/10/23 02:23 Urine Protein 3+ (Negative) H 06/10/23 02:23 Urine Glucose (UA) Negative (Negative) 06/10/23 02: Urine Ketones Negative (Negative) 06/10/23 02:23 Urine Blood 3+ (Negative) H 06/10/23 02:23 Urine Nitrite Negative (Negative) 06/10/23 02:23 Urine Bilirubin Negative (Negative) 06/10/23 02:23 Urine Urobilinogen Negative (Negative) 06/10/23 02:23 Ur Leukocyte Esterase Trace (Negative) H 06/10/23 02:23 Urine RBC >30 /hpf (0-4) H 06/10/23 02:23 Urine WBC >30 /hpf (0-5) H 06/10/23 02:23 Ur Epithelial Cells 5-10 /lpf (0-5) H 06/10/23 02:23 Urine Bacteria Negative (Negative) 06/10/23 02:23 Hyaline Casts 0-5 /lpf (0-5) 06/10/23 02:23 Urine Osmolality 334 mOsm/kg (500-800) L 06/10/23 02:23 Ur Random Creatinine 29.0 mg/dl 06/10/23 02:23 Ur Random Sodium 115 mmol/L 06/10/23 02:23 Ur Random Potassium 27.6 mmol/L 06/10/23 02:23 Ur Random Chloride 87 mmol/L 06/10/23 02:23 Nasal Screen MRSA (PCR) Negative (Negative) 06/09/23 19:38 Random Vancomycin 13.9 mcg/ml (10-20) 06/10/23 03:27 Adenovirus (PCR) Not Detected (NotDetected) 06/09/23 17:16 B. pertussis DNA (PCR) Not Detected (NotDetected) 06/09/23 17:16 B.parapertussis DNA PCR Not Detected (NotDetected) 06/09/23 17:16 C. pneumoniae DNA (PCR) Not Detected (NotDetected) 06/09/23 17:16 Coronavirus OC43 (PCR) Not Detected (NotDetected) 06/09/23 17:16 Coronavirus HKU1 (PCR) Not Detected (NotDetected) 06/09/23 17:16 Coronavirus 229E (PCR) Not Detected (NotDetected) 06/09/23 17:16 SARS-CoV-2 (PCR) Not Detected (NotDetected) 06/09/23 17:16 Coronavirus NL63 (PCR) Not Detected (NotDetected) 06/09/23 17:16 Human Metapneumovir PCR Not Detected (NotDetected) 06/09/23 17:16 Influenza Type A (PCR) Not Detected (NotDetected) 06/09/23 17:16 Influenza Type B (PCR) Not Detected (NotDetected) 06/09/23 17:16 M. pneumoniae (PCR) Not Detected (NotDetected) 06/09/23 17:16 Parainfluenza 1 (PCR) Not Detected (NotDetected) 06/09/23 17:16 Parainfluenza 2 (PCR) Not Detected (NotDetected) 06/09/23 17:16 Parainfluenza 3 (PCR) Not Detected (NotDetected) 06/09/23 17:16 Parainfluenza 4 (PCR) Not Detected (NotDetected) 06/09/23 17:16 RSV (PCR) Not Detected (NotDetected) 06/09/23 17:16 Entero/Rhino (PCR) Not Detected (NotDetected) 06/09/23 17:16 Blood Type O Positive 06/09/23 16:42 Antibody Screen NEGATIVE 06/09/23 16:42 Impressions Retrograde Pyelogram 06/09/23 00:00 INTRAOPERATIVE RADIOGRAPHS CLINICAL HISTORY: Right ureteral stent placement. Fluoro time: 16 seconds Ka,r: 4.32 mGy FINDINGS: 2 spot fluoroscopic views of the upper abdomen are correlated with abdominal CT dated 06/09/2023. Contrast in the right renal pelvis on the initial image shows at least moderate hydronephrosis. A left ureteral stent is unchanged in position. The second image shows the proximal end of a right ureteral stent in place. IMPRESSION: Intraoperative images from right ureteral stent placement as above. Electronically signed by: Martinez Hilario M.D. 06/10/2023 6:53 AM Abdomen/Pelvis CT 06/09/23 16:[address] WITHOUT CONTRAST CT DOSE: 1318.18 mGy.cm HISTORY: Acute sepsis sepsis, hx of stones TECHNIQUE: Multiaxial CT images of the abdomen and pelvis were performed without contrast. A dose lowering technique was utilized adhering to the principles of ALARA. COMPARISON STUDY: 04/25/2022 FINDINGS: Trace pleural effusions with mild deep and subsegmental bibasilar atelectasis. No free air. Unremarkable unenhanced spleen, the moderate pancreatic atrophy with distended gallbladder. Unenhanced liver is within normal limits. Left greater than right bilateral perinephric stranding. There are numerous nonobstructing calculi of the bilateral kidneys measuring up to 4 mm on the right and 8 mm on the left. 5 mm calculus within the right pelvis dependently on image 137. There is a cluster of 3 subadjacent calculus in the proximal right ureter measuring up to 5 mm resulting in mild to moderate hydroureteronephrosis. 4 mm right distal ureteral calculus on image 238 with 5 mm calculus on image 254. Mild left-sided hydroureteronephrosis with a ureteral stent in place. Numerous stone fragments within the left renal pelvis, ureteropelvic junction proximal left ureter including a 1.7 cm UPJ calculus. Additional calculi within the urinary bladder measuring up to 2.5 cm encasing the distal portion of the stent. Decompressed urinary bladder with Benedict catheter in place. Atherosclerosis of the aorta. Right femoral venous catheter distal tip on image 175 which appears to be present within the right common iliac vein. Mild subcutaneous edema/hemorrhage within the right inguinal subcutaneous tissues. Air-filled mildly distended distal esophagus. No bowel obstruction. Marked fecal retention in the rectum with rectal wall thickening and adjacent inflammatory stranding/trace free fluid. No bowel obstruction. Left hip arthroplasty. Chronic thoracolumbar compression deformities. IMPRESSION: 1. Mild left-sided hydroureteronephrosis with ureteral stent in place. There are numerous calculi within the left renal pelvis, ureteropelvic junction and proximal left ureter. 2. Mild to moderate right-sided hydroureteronephrosis with numerous calculi within the right renal pelvis and right ureter as above. 3. Large urinary bladder calculi with nonobstructing bilateral nephrolithiasis. 4. Marked fecal retention of the rectum with stercoral proctitis. 5. Small pleural effusions with mild bibasilar atelectasis. 6. Additional findings as above. ACT 112: Negative or not required by law. The above report was generated using voice recognition software. It may contain grammatical, syntax or spelling errors. Electronically signed by: Elia Alvarado M.D. 06/09/2023 6:[address] 06/09/23 16:45 CT head/brain wo con CLINICAL HISTORY: 82 years-old Female with AMS. Acutely altered mental status TECHNIQUE: Multiple axial CT images of the head were obtained without contrast. A dose lowering technique was utilized adhering to the principles of ALARA. COMPARISON: 04/25/2022 FINDINGS: Involutional changes. White matter hypodensities suggestive of chronic microvascular ischemic disease. No acute intracranial hemorrhage, midline shift, intracranial mass, hydrocephalus, territorial ischemia or abnormal extra-axial collection. The calvarium is intact. The paranasal sinuses, mastoid air cells, and middle ear cavities are clear. IMPRESSION: No acute intracranial abnormality. ACT 112: Negative or not required by law. The above report was generated using voice recognition software. It may contain grammatical, syntax or spelling errors. Electronically signed by: Elia Alvarado M.D. 06/09/2023 6:04 PM Chest X-Ray 06/10/23 07:00 SINGLE VIEW CHEST CLINICAL HISTORY: Respiratory failure FINDINGS: An AP, portable, upright chest radiograph is compared to study dated 06/09/2023. The examination is degraded by portable technique and apical lordotic positioning. An endotracheal tube is unchanged in position. The heart is enlarged. Pulmonary vascular congestion persists. There are low lung volumes with elevation of the right hemidiaphragm and bibasilar atelectasis. Trace pleural effusions are suspected. No pneumothorax is seen. The skeletal structures are osteopenic. The bony thorax is grossly intact. Bilateral ureteral stents are partially imaged. IMPRESSION: 1. An endotracheal tube is unchanged in position. 2. Cardiomegaly with mild pulmonary vascular congestion. 3. Suspect trace pleural effusions. ACT 112: Negative or not required by law. Electronically signed by: Martinez Hilario M.D. 06/10/2023 7:13 AM Ordered Studies 06/09/23 [place] retrograde includes kub Routine 06/09/23 16:45 CT abd pelvis wo con Stat CT head/brain wo con Stat Hospital Course (1) Acute metabolic encephalopathy: Septic shock Likely source complicated UTI Obstructive uropathy/nephrolithiasis Acute metabolic encephalopathy Encrusted left ureteral stent Apparently had ureteral stent placement more than 1 year ago per family Noncompliance history --s/p Cystoscopy, retrograde pyelogram with radiographic interpretation, right ureteral stent insertion(Right) by on 06/09/23 Blood, urine cultures pending --Empirically started on cefepime, vancomycin>> changed to meropenem Aggressive IV fluids Continue pressor support (currently on vasopressin, Levophed) Also received IV hydrocortisone 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, Urology help Bladder scan as needed to monitor for retention Very poor prognosis Needs to address goals of care Consider palliative care evaluation if no improvement Ventilator dependent acute respiratory failure Likely due to above Intubated on 06/09/2023 Normal BioFire Vent management as per ICU team Pulmonary hygiene Nebs as needed Acute kidney injury Acute metabolic acidosis Transaminitis likely due to above Lactic acidosis Received bicarbonate Continue IV fluids Avoid nephrotoxic agents as able Monitor renal function Consider nephrology evaluation if no improvement SVT/Afib RVR S/P cardioversion--failed cardioversion Rhabdomyolysis--POA Likely nontraumatic Elevated CK levels Continue IV fluids Chronic anemia Thrombocytopenia No acute bleeding issues Monitor CBC Type II [place] Troponin elevation likely due to septic shock BNP elevated Consider checking echo Mood disorder Hold Ativan for now GI Px On Protonix DVT Px: SCDs for now CODE STATUS Conditional as per family: DNR Very poor prognosis Patient showed no meaningful recovery despite aggressive management while in ICU. Patient was transition to comfort care after ICU team discussed with patient's family given very poor prognosis and critical condition. Patient and family aware and understands current management. Patient was terminally extubated. Patient while on comfort measures only. Time of noted to be 1717 on 06/10/23. Total Time Total Time Spent Total Time Spent (In Minutes): 65 minutes Discharge Plan Discharge Items Patient Disposition: Discharge Diagnosis: Septic shock A-fib RVR Acute metabolic encephalopathy Suspected complicated UTI Ventilator dependent respiratory failure BERTHA High anion gap metabolic acidosis Rhabdomyolysis Other Date/Time: 06/10/23 17:17
[2023-06-11 08:52] LABS: iSTAT Arterial Blood Gas HCO3 11 meg/L (19-24); iSTAT Arterial Blood Gas pCO2 24 mmHg (35-46); iSTAT Arterial Blood Gas pH 7.26 (7.35-7.45); iSTAT Arterial Blood Gas pO2 63 mmHg (80-95); iSTAT Carbon Dioxide 12 mmol/L (24-31); iSTAT Hematocrit 30 % (37-47); iSTAT Hemoglobin 10.2 g/dl (12.0-16.0); iSTAT Potassium 3.4 mmol/L (3.3-5.0); iSTAT Sodium 142 mmol/L (135-144)
[2023-06-11 08:52] LABS: iSTAT Arterial Blood Gas HCO3 11 meg/L (19-24); iSTAT Arterial Blood Gas pCO2 20 mmHg (35-46); iSTAT Arterial Blood Gas pH 7.33 (7.35-7.45); iSTAT Arterial Blood Gas pO2 72 mmHg (80-95); iSTAT Carbon Dioxide 11 mmol/L (24-31); iSTAT Hematocrit 27 % (37-47); iSTAT Hemoglobin 9.2 g/dl (12.0-16.0); iSTAT Potassium 4.3 mmol/L (3.3-5.0); iSTAT Sodium 141 mmol/L (135-144)
--- NOTE | 2023-06-11 14:31 | Electrocardiogram Report ---
Test Reason : Blood Pressure : / mmHG Vent. Rate : 111 BPM Atrial Rate : 144 BPM P-R Int : 000 ms QRS Dur : 078 ms QT Int : 296 ms P-R-T Axes : 000 -14 045 degrees QTc Int : 402 ms Probable Atrial flutter Low voltage QRS Possible Old Inferior infarct (cited on or before 10-JUN-2023) Possible Old Anterior infarct (cited on or before 10-JUN-2023) Abnormal ECG When compared with ECG of 10-JUN-2023 06:23, HR has decreased by 19 bpm Otherwise no significant change Confirmed by Franklin Figueroa ([id number]) on 06/11/2023 2:30:34 PM Referred By: REFERRED SELF Confirmed By:Franklin Figueroa
[2023-06-12] MEDS ORDERED: PNEUMOCOCCAL VACCINE (PCV20) 20-VAL CONJ-DIP CRM/PF 0.5 ML SYR IM ONE (09:00)
[2023-06-12] MEDS ORDERED: INFLUENZA VACCINE HIGH-DOSE (HD-IIV4) PF 65+ 0.7mL SYR IM ONE (09:00)
[2023-06-12 09:39] LABS: iSTAT Arterial Blood Gas HCO3 9 meg/L (19-24); iSTAT Arterial Blood Gas pCO2 22 mmHg (35-46); iSTAT Arterial Blood Gas pH 7.21 (7.35-7.45); iSTAT Arterial Blood Gas pO2 306 mmHg (80-95); iSTAT Carbon Dioxide 9 mmol/L (24-31); iSTAT Hematocrit 28 % (37-47); iSTAT Hemoglobin 9.5 g/dl (12.0-16.0); iSTAT Potassium 3.3 mmol/L (3.3-5.0); iSTAT Sodium 144 mmol/L (135-144)
[2023-06-14 13:12] LABS: Uric Acid, Random Urine 5 mg/dL
== END 2023-06-10 20:29 | disposition expired | DRG 853 ==
LOC: ED 16:19 → 1E 17:56